=== PATIENT | male | born 1975 | race Caucasian/White ===

== ENCOUNTER 2018-04-04 14:08 | Inpatient (IN) ==
--- NOTE | 2018-04-04 14:23 | Emergency Department Note ---
Extremity Problem HPI - General Chief complaint: Extremity Problem,Nontraumatic Stated complaint: Left Lower Extremity Swelling/Pain Time Seen by Provider: 04/04/18 14:20 Source: patient Mode of arrival: ambulatory Limitations: no limitations - History of Present Illness HPI Narrative: This patient was seen in minor care for left leg edema and they are concerned about a possible DVT so he was sent to the emergency room. However the patient has developed a diabetic foot ulcer on the bottom of the left foot and now also on the top of the left foot. His leg is swollen and a little tender without much erythema going up the leg. He says some mild just chest discomfort but no shortness of breath. He does have a history of diabetes. This patient was seen at the [facility] yesterday and started on some antibiotics and given a referral to wound care - Related Data Home Medications Medication Instructions Recorded Confirmed Insulin Glargine, Human [Lantus] 50 unit SQ HS 12/01/15 11/02/17 Lisinopril [Zestril] 20 mg PO DAILY 12/01/15 11/02/17 metFORMIN HCL [Metformin HCl ER] 1,000 mg PO BID 12/01/15 11/02/17 Empagliflozin [Jardiance] 10 mg PO DAILY 03/27/17 11/02/17 Metoprolol Tartrate [Lopressor] 100 mg PO BID 03/27/17 11/02/17 Atorvastatin [Lipitor] 60 mg PO HS 04/13/17 11/02/17 Insulin Aspart [Novolog Flexpen] 5 unit SQ DAILY 09/20/17 11/02/17 Allergies Allergy/AdvReac Type Severity Reaction Status Date / Time ciprofloxacin [From Cipro] Allergy Intermediate Cramping Verified 03/30/18 17:18 of the Muscles Review of Systems All systems ED: reviewed and negative except as stated. Past Medical History - Past Medical History [facility] Narrative: Medical History Costochondritis (Acute) Diabetes (Acute) Influenza A (Acute) Cellulitis (Acute) Gastroenteritis (Acute) Medical history: Reports: DM, hypertension Psychiatric history: Reports: depression Surgical history ED: Reports: appendectomy, cholecystectomy - Social History smoking status: Former smoker Alcohol use: Reports: Occasionally (states he quit recently) Drug use: Reports: none Physical Exam Left leg does show some edema and there is tenderness to the leg itself without erythema. He does have a fairly large ulcer on the bottom of his left foot on the lateral anterior aspect. Also has developed a small ulcer on the top of the left foot. Limitations: no limitations General appearance: alert Head: atraumatic Eye: Present: normal appearance ENT: normal exam Neck: Present: normal inspection Chest: Present: normal inspection Respiratory: Present: normal lung sounds bilaterally Cardiovascular: Present: regular rate, normal rhythm, normal heart sounds Abdominal: Present: soft. Absent: distention, tenderness Psychiatric: Present: normal affect Skin: Present: other Course Vital Signs Temperature 98.1 F 04/04/18 14:09 Pulse Rate 108 H 04/04/18 14:09 Respiratory Rate 18 04/04/18 14:09 Blood Pressure 146/90 04/04/18 14:09 Pulse Oximetry (%) 99 04/04/18 14:09 Temperature 97.7 F 04/04/18 20:00 Pulse Rate 106 H 04/04/18 20:00 Respiratory Rate 16 04/04/18 20:00 Blood Pressure 162/89 04/04/18 20:00 Pulse Oximetry (%) 96 04/04/18 20:00 Extremity Problem, Nontraumati - MDM Narrative Medical decision making narrative: This patient has a diabetic foot infection and will be admitted to the hospital by Dr. Beth. - Lab Data Lab results reviewed: Yes I reviewed the patient's lab results. Result diagrams: 04/04/18 15:18 04/04/18 15:18 Lab Results 04/04/18 04/04/18 04/04/18 Range/Units 15:18 15:18 15:18 WBC 10.7 (4.5-11.0) K/mcL RBC 4.06 L (4.50-5.90) M/mcL Hgb 12.0 L (13.5-16.5) g/dL Hct 35.9 L (41.0-55.0) % MCV 88.6 (80.0-100.0) fL MCH 29.7 (26.0-34.0) pg MCHC 33.5 (31.0-36.0) g/dL RDW 11.7 (11.5-14.5) % Plt Count 271 (140-440) K/mcL MPV 9.0 (7.4-10.4) fL Total Counted 150 Seg Neutrophils % 69 (38-78) % Band Neutrophils % Not Reportable Lymphocytes % 19 (15-49) % Monocytes % (Manual) 12 (1-12) % Eosinophils % (Manual) 1 (0-7) % Platelet Estimate Normal (NORMAL) RBC Morphology Normal (NORMAL) ESR 54 H (0-15) mm/hr VBG Lactic Acid < 0.2 L (0.5-2.0) mmol/L Sodium 138 (133-145) mmol/L Potassium 4.4 (3.3-5.1) mmol/L Chloride 102 (96-108) mmol/L Carbon Dioxide 27 (22-30) mmol/L Anion Gap 9.0 (8-16) BUN 20 (6-20) mg/dl Creatinine 1.2 (0.7-1.2) mg/dl GFR Calculation 74 Glucose 229 H (70-105) mg/dL Calcium 9.3 (8.6-10.4) mg/dl Total Bilirubin 0.4 (0.0-1.0) mg/dL AST 14 (0-37) U/l ALT 23 (0-40) U/l Alkaline Phosphatase 95 (39-117) U/L C-React Prot High Sens 19.6 H (1.0-3.0) mg/L Total Protein 7.0 (5.9-8.4) gm/dL Albumin 3.5 (3.2-5.2) gm/dL Globulin 3.5 (2.2-3.7) gm/dL Albumin/Globulin Ratio 1.0 (1.0-2.3) - Radiology Data Radiology results reviewed: Yes I reviewed the patient's radiology results. Disposition Pt seen by PASTE UP ARTIST APPRENTICE/PA only: No Clinical Impression: Cellulitis Disposition: Xfer As Inpt ([facility]) Condition: Fair
--- NOTE | 2018-04-04 15:18 | Ultrasound Report ---
CLINICAL INFORMATION: Left lower extremity pain and swelling TECHNIQUE: Grayscale and color flow Doppler spectral imaging COMPARISON: None. FINDINGS: Negative left common femoral vein, superficial femoral vein, popliteal vein. Calf veins are negative. Greater saphenous vein is negative. Examination is negative for deep venous thrombosis. There are 2 lymph nodes in the left inguinal region. These measure 2.5 and 3.0 cm maximally. These are probably reactive or physiologic. Fatty kaitlynn are demonstrated. IMPRESSION: Negative left lower extremity deep venous ultrasound. Negative examination for deep venous thrombosis Interpreted and Authenticated by: Constantino Lane 04/04/18
[2018-04-04] MEDS ORDERED: VANCOMYCIN 1,500 MG in 0.9 % SODIUM CHLORIDE 500 ML IV ONE (15:20)
[2018-04-04] MEDS ORDERED: HYDROmorphone 2 MG/ML VIAL IV PRN ×2 (15:20→17:47)
[2018-04-04] MEDS ORDERED: LACTATED RINGERS 1,000 ML IV SCH (15:30)
[2018-04-04 15:49] LABS: Mean Cell Volume 88.6 fL (80.0-100.0); Mean Corpuscular HGB Conc 33.5 g/dL (31.0-36.0); Platelet Count 271 K/mcL (140-440); RBC 4.06 M/mcL (4.50-5.90); Red Cell Distribution Width 11.7 % (11.5-14.5)
[2018-04-04 16:05] LABS: ALT/SGPT 23 U/l (0-40); Albumin 3.5 gm/dL (3.2-5.2); Alkaline Phosphatase 95 U/L (39-117); Blood Urea Nitrogen 20 mg/dl (6-20); CRP,High Sensitivity 19.6 mg/L (1.0-3.0)
[2018-04-04] MEDS ORDERED: ONDANSETRON 4 MG/2 ML VIAL IV ONE (16:11)
[2018-04-04 16:20] LABS: Eosinophils % (Manual) 1 % (0-7); Lymphocytes % 19 % (15-49); Monocytes % (Manual) 12 % (1-12); Platelet Estimate NORMAL (NORMAL); RBC Morphology NORMAL (NORMAL); Segmented Neutrophils % 69 % (38-78)
--- NOTE | 2018-04-04 16:30 | Internal Med History&Physical ---
Medical - H&P: [facility] Patient information: Note initiated : 04/04/18 at 4:28 pm Service Date, if different from initiated Date: [] Patient: Constantino Harden a 43 y/o M admitted on for Left Lower Extremity Swelling/Pain. Chief Complaint: [] Chief complaint: Left foot swelling and pain History of present illness: Mr. Harden is a 43 year old M with known history of type 2 diabetes and diabetic neuropathy associated left foot ulcers which has been managed in the past by wound care clinic. Patient has been doing well until roughly 1 week ago he woke up with a fever of 102 along with left foot pain around the toe pad area. On examining he noticed skin separation and underneath significant redness. The fever lasted 24 hours. He subsequently called the [facility] and saw Daisy Mcnulty and was prescribed oral antibiotic. Over the next 4 days patient noticed increasing left leg and thigh pain along with intermittent fever. Over the last 24 hours patient noticed a red area on the dorsum of the foot which started to grow in size. With increasing concerns he went to [facility] clinic again and was subsequently directed to the ER for further evaluation. Initial workup in the ER was significant for left foot diabetic cellulitis/lymphangitis. No evidence of osteomyelitis on foot CT. Patient was started on antibiotic coverage and wound care physician was consulted. Hospitalist service was requested for admission. At the time of evaluation patient is alert oriented. He is in significant distress from pain. He endorses to history as above. He denies recent trauma. He denies shaking chills, diarrhea, myalgia, joint pain. Patient has associated loss of appetite and has not been feeling well since the onset of symptoms. Review of systems A 10 point review system was performed and is negative except for one discussed above Medical - H&P: PMH Medical history: DM type II Hypertension Dabetic neuropathy diabetic left foot ulcers managed by wound care clinic Anxiety disorder Hyperlipidemia Pertinent family history: Adopted Social history: Quit smoking 20 years ago Does not drink anymore Works for [employer] Medical - H&P: Meds Home Medications Medication Instructions Recorded Confirmed Type Insulin Glargine, Human [Lantus] 50 unit SQ HS 12/01/15 11/02/17 History Lisinopril [Zestril] 20 mg PO DAILY 12/01/15 11/02/17 History metFORMIN HCL [Metformin HCl ER] 1,000 mg PO BID 12/01/15 11/02/17 History Empagliflozin [Jardiance] 10 mg PO DAILY 03/27/17 11/02/17 History Metoprolol Tartrate [Lopressor] 100 mg PO BID 03/27/17 11/02/17 History Atorvastatin [Lipitor] 60 mg PO HS 04/13/17 11/02/17 History Insulin Aspart [Novolog Flexpen] 5 unit SQ DAILY 09/20/17 11/02/17 History Allergies Allergy/AdvReac Type Severity Reaction Status Date / Time ciprofloxacin [From Cipro] Allergy Intermediate Cramping Verified 03/30/18 17:18 of the Muscles Medical - H&P: Exam - Constitutional Vitals: Temp Pulse Resp BP Pulse Ox 98.1 F 104 H 18 141/77 96 04/04/18 14:09 04/04/18 15:47 04/04/18 14:09 04/04/18 15:47 04/04/18 15:47 Exam: Obese Alert and nondistressed Head normocephalic Eye movements symmetrical Oral cavity dry No ear nose discharge no lymphadenopathy S1-S2 regular rhythm Chest clear to auscultation bilaterally Abdomen soft nontender Skin no suspicious lesion Left lower extremity significant redness around the toe pad and dorsum of the left foot, ulceration lateral left foot Areas of lymphangitis streaking left leg and thigh Psych alert cooperative Neuro nonfocal Medical - H&P: Reslt - Labs CBC & Chem 7: 04/04/18 15:18 04/04/18 15:18 Labs: Short CBC 04/04/18 Range/Units 15:18 WBC 10.7 (4.5-11.0) K/mcL Hgb 12.0 L (13.5-16.5) g/dL Hct 35.9 L (41.0-55.0) % Plt Count 271 (140-440) K/mcL BMP 04/04/18 15:18 Sodium 138 Potassium 4.4 Chloride 102 Carbon Dioxide 27 BUN 20 Creatinine 1.2 Glucose 229 H Calcium 9.3 Liver Function 04/04/18 Range/Units 15:18 Total Bilirubin 0.4 (0.0-1.0) mg/dL AST 14 (0-37) U/l ALT 23 (0-40) U/l Alkaline Phosphatase 95 (39-117) U/L Albumin 3.5 (3.2-5.2) gm/dL Medical - H&P: A/P (1) Cellulitis of left foot Current visit: Yes Status: Acute * Diabetic left foot cellulitis-start empiric coverage on Zosyn/vancomycin to include anaerobes/MRSA coverage. No evidence of osteomyelitis on CT foot * Early sepsis with tachycardia/fever in the setting of diabetes mellitus * DM type II-continue basal prandial insulin. Optimize blood sugar management * Hypertension-continue beta-brendan/SOLIS inhibitor * Hyperlipidemia-continue statin * Full code * Prophylaxis heparin Plan * Broad antibiotic coverage * Wound care consult * Pre-existing well condition management as above * Diabetic diet
[2018-04-04 16:32] LABS: Erythrocyte Sedimentation Rate 54 mm/hr (0-15)
--- NOTE | 2018-04-04 16:38 | Cat Scan Report ---
CLINICAL INFORMATION: Wound on the dorsum of the foot as well as the plantar surface. Possible osteomyelitis TECHNIQUE: Thin section axial images through the right foot. Sagittal and coronal reformatted images COMPARISON: None. FINDINGS: No soft tissue gas. No radiopaque foreign body. There is no cortical destruction. No evidence for osteomyelitis. No acute fracture. Joint spaces are normal. No soft tissue mass. No fluid collection. Posterior aspects of the talus are abnormal. Appearance is more typical of an ununited chronic Fartun fracture then an os trigonum. IMPRESSION: 1. Negative examination for osteomyelitis 2. 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
[2018-04-04] MEDS ORDERED: POTASSIUM CHLORIDE 20 MEQ PACKET PO PRN (17:47)
[2018-04-04] MEDS ORDERED: DEXTROSE 50% 50 ML VIAL IV PRN (17:47)
[2018-04-04] MEDS ORDERED: ACETAMINOPHEN 325 MG TABLET PO PRN (17:47)
[2018-04-04] MEDS ORDERED: VANCOMYCIN PER PHARMACY IV SCH (17:47)
[2018-04-04] MEDS ORDERED: ACETAMINOPHEN 1,000 MG/100 ML BOTTLE IV PRN (17:47)
[2018-04-04] MEDS ORDERED: DEXTROSE 31 GM ORAL.SUSP PO PRN (17:47)
[2018-04-04] MEDS ORDERED: MAGNESIUM SULFATE 2 GM/50 ML BAG IV PRN (17:47)
[2018-04-04] MEDS ORDERED: 0.9 % SODIUM CHLORIDE 1,000 ML IV SCH (17:47)
[2018-04-04] MEDS ORDERED: BISACODYL 10 MG SUPP.RECT PR PRN (17:47)
[2018-04-04] MEDS ORDERED: MAGNESIUM HYDROXIDE 30 ML ORAL.SUSP PO PRN (17:47)
--- NOTE | 2018-04-04 18:12 | General Surgery Consult Note ---
History of Present Illness Patient information: Note initiated : 04/04/18 at 6:10 pm Service Date, if different from initiated Date: [] Patient: Constantino Harden 43 y/o M admitted on 04/04/18 for Left Lower Extremity Swelling/Pain. Chief Complaint: [] Consult date: 04/04/18 Requesting physician: Nolberto Cardona (DFU, Cellulitis) History of present illness: I saw Mr. Harden in Room # 106 along with Sarah BERNAL. Patient was admitted via ER for infected DFU, cellulitis LEFT foot and dry adherent necrotic skin at base of plantar neuropathic ulcer. Patient was treated for same before. He was seen by DINING HOST at [facility] and given oral antibiotics. However, due to lack of response and clinical worsening of CSSSI, he presented to the ER and was admitted for further management. CT scan is negative for osteomyelitis or air in soft tissues, Medications and Allergies Home Medications Medication Instructions Recorded Confirmed Type Insulin Glargine, Human [Lantus] 60 unit SQ HS 12/01/15 04/05/18 History Lisinopril [Zestril] 40 mg PO DAILY 12/01/15 04/05/18 History metFORMIN HCL [Metformin HCl ER] 1,000 mg PO BIDCC 12/01/15 04/05/18 History Empagliflozin [Jardiance] 10 mg PO DAILY 03/27/17 04/05/18 History Metoprolol Tartrate [Lopressor] 100 mg PO BID 03/27/17 11/02/17 History Atorvastatin [Lipitor] 60 mg PO HS 04/13/17 11/02/17 History Insulin Aspart [Novolog Flexpen] 5 unit SQ DAILY 09/20/17 11/02/17 History Allergies Allergy/AdvReac Type Severity Reaction Status Date / Time ciprofloxacin [From Cipro] AdvReac Mild Cramping Verified 04/06/18 12:52 of the Muscles Exam Temp Pulse Resp BP Pulse Ox 98.1 F 108 H 18 141/77 97 04/04/18 14:09 04/04/18 17:18 04/04/18 14:09 04/04/18 17:18 04/04/18 17:18 - General physical appearance well developed, well nourished, no distress, no pain - Eyes PERRL, normal ocular movement - ENT normal pinna, normal nares, normal mucosa, no congestion - Head Head exam IM: Present: atraumatic, normal inspection, normocephalic - Neck no masses, no bruits, trachea midline, no venous distension - Cardiovascular Cardiovascular exam IM: Present: normal rate and rhythm - Respiratory normal expansion, normal respiratory effort, clear to auscultation - Abdomen Abdomen: Present: soft, non tender, bowel sounds - Integumentary Present: other (Cellutlits Left foot and lower leg, Left plantar DFU covered withdry necrotic eschar DTI, ) - Neurologic Present: other (Peripheral diabetic neuropathy feet and ankle. ) - Musculoskeletal Present: normal gait, other (OFF loading of Left fore foot. Darco shoe) - Psychiatric Present: oriented to time, oriented to person, oriented to place, speech is normal, memory intact Results - Labs 04/06/18 04:30 04/06/18 04:30 Abnormal lab results 04/04/18 04/04/18 04/04/18 Range/Units 15:18 15:18 15:18 RBC 4.06 L (4.50-5.90) M/mcL Hgb 12.0 L (13.5-16.5) g/dL Hct 35.9 L (41.0-55.0) % ESR 54 H (0-15) mm/hr VBG Lactic Acid < 0.2 L (0.5-2.0) mmol/L Glucose 229 H (70-105) mg/dL C-React Prot High Sens 19.6 H (1.0-3.0) mg/L Diabetes panel 04/04/18 Range/Units 15:18 Sodium 138 (133-145) mmol/L Potassium 4.4 (3.3-5.1) mmol/L Chloride 102 (96-108) mmol/L Carbon Dioxide 27 (22-30) mmol/L BUN 20 (6-20) mg/dl Creatinine 1.2 (0.7-1.2) mg/dl Glucose 229 H (70-105) mg/dL Calcium 9.3 (8.6-10.4) mg/dl AST 14 (0-37) U/l ALT 23 (0-40) U/l Alkaline Phosphatase 95 (39-117) U/L Total Protein 7.0 (5.9-8.4) gm/dL Albumin 3.5 (3.2-5.2) gm/dL Calcium panel 04/04/18 Range/Units 15:18 Calcium 9.3 (8.6-10.4) mg/dl Albumin 3.5 (3.2-5.2) gm/dL Pituitary panel 04/04/18 Range/Units 15:18 Sodium 138 (133-145) mmol/L Potassium 4.4 (3.3-5.1) mmol/L Chloride 102 (96-108) mmol/L Carbon Dioxide 27 (22-30) mmol/L BUN 20 (6-20) mg/dl Creatinine 1.2 (0.7-1.2) mg/dl Glucose 229 H (70-105) mg/dL Calcium 9.3 (8.6-10.4) mg/dl Adrenal panel 04/04/18 Range/Units 15:18 Sodium 138 (133-145) mmol/L Potassium 4.4 (3.3-5.1) mmol/L Chloride 102 (96-108) mmol/L Carbon Dioxide 27 (22-30) mmol/L BUN 20 (6-20) mg/dl Creatinine 1.2 (0.7-1.2) mg/dl Glucose 229 H (70-105) mg/dL Calcium 9.3 (8.6-10.4) mg/dl Total Bilirubin 0.4 (0.0-1.0) mg/dL AST 14 (0-37) U/l ALT 23 (0-40) U/l Alkaline Phosphatase 95 (39-117) U/L Total Protein 7.0 (5.9-8.4) gm/dL Albumin 3.5 (3.2-5.2) gm/dL All other labs normal. Assessment and Plan (1) Neurotrophic ulcer of foot Status: Chronic Priority: Medium Comment: Healed DFU LEFT plantar in past. Now recurred with DTI and cellulitis (2) Cellulitis Assessment: Cellulitis LEFT foot DTI / DFU healed before. Now admitted with recurrence and cellulitis. Plan: See wound care orders. Status: Acute Priority: Medium Qualifiers: Site of cellulitis of extremity: lower extremity Laterality: left
[2018-04-04] MEDS: INSULIN LISPRO 1 UNIT/0.01 ML UNIT SQ SCH ×2 (18:49→21:57)
[2018-04-04 19:02] LABS: Estimated Average Glucose(eAG) 255 mg/dL; Hemoglobin A1C 10.5 % HGB (4.0-6.0)
[2018-04-04] MEDS: PIPERACILLIN SODIUM/TAZOBACTAM 3.375 GM in DEXTROSE 5% IN WATER 50 ML IV SCH (19:06)
[2018-04-04] MEDS: sitaGLIPtin 100 MG TABLET PO SCH (19:41)
[2018-04-04] MEDS: ONDANSETRON 4 MG/2 ML VIAL IV PRN (19:44)
[2018-04-04 19:52] LABS: Appearance,Urine CLEAR; Bacteria,Urine 0 /hpf (0); Bilirubin,Urine NEG (NEG); Color,Urine YELLOW; Glucose,Urine (UA) 150 mg/dL (NEG); Leukocyte Esterase,Urine NEG /uL (NEG); Mucus,Urine FEW /hpf (0); Protein,Urine 30 mg/dL (NEG); Specific Gravity,Urine 1.021 (1.000-1.035); Urine Blood 0.03 mg/dL (<0.03); Urine Hyaline Cast 1 /lpf (0-2); Urine RBC 2 /hpf (0-1); Urine Squamous Epithelial Cell 0 /hpf (0-4); Urine WBC 3 /hpf (0-4); Urobilinogen,Urine NEG (NEG)
[2018-04-04] MEDS ORDERED: SENNOSIDES/DOCUSATE SODIUM 1 TAB TABLET PO SCH (21:00)
[2018-04-04] MEDS: DOCUSATE SODIUM 100 MG CAPSULE PO SCH (21:57)
[2018-04-04] MEDS: 0.9 % SODIUM CHLORIDE 10 ML SYRINGE IV SCH (21:57)
[2018-04-04] MEDS: HEPARIN 5,000 UNIT/ML VIAL SQ SCH (21:57)
[2018-04-05] MEDS: PIPERACILLIN SODIUM/TAZOBACTAM 3.375 GM in DEXTROSE 5% IN WATER 50 ML IV SCH ×4 (00:03→17:26)
[2018-04-05] MEDS: VANCOMYCIN 1,500 MG in 0.9 % SODIUM CHLORIDE 500 ML IV SCH ×3 (00:52→22:04)
[2018-04-05] MEDS: 0.9 % SODIUM CHLORIDE 10 ML SYRINGE IV SCH ×3 (05:40→22:04)
[2018-04-05] MEDS: ONDANSETRON 4 MG/2 ML VIAL IV PRN (05:55)
[2018-04-05 07:10] LABS: ALT/SGPT 23 U/l (0-40); Albumin 2.9 gm/dL (3.2-5.2); Albumin/Globulin Ratio 0.8 (1.0-2.3); Alkaline Phosphatase 93 U/L (39-117); Bilirubin,Direct < 0.2 mg/dL (0.0-0.3); Blood Urea Nitrogen 16 mg/dl (6-20); Gamma Glutamyl Transpeptidase 29 U/L (8-61); Uric Acid 3.9 mg/dL (2.5-8.0)
[2018-04-05] MEDS: INSULIN LISPRO 1 UNIT/0.01 ML UNIT SQ SCH ×4 (07:42→22:04)
[2018-04-05] MEDS: DOCUSATE SODIUM 100 MG CAPSULE PO SCH ×2 (08:22→22:03)
[2018-04-05] MEDS: sitaGLIPtin 100 MG TABLET PO SCH (08:22)
[2018-04-05] MEDS: HEPARIN 5,000 UNIT/ML VIAL SQ SCH ×2 (08:22→22:04)
[2018-04-05 08:35] LABS: Mean Cell Volume 88.7 fL (80.0-100.0); Mean Corpuscular HGB Conc 33.7 g/dL (31.0-36.0); Platelet Count 238 K/mcL (140-440); RBC 3.76 M/mcL (4.50-5.90); Red Cell Distribution Width 11.8 % (11.5-14.5)
[2018-04-05] MEDS ORDERED: MULTIVIT,THER IRON,CA,FA & MIN 1 TABLET PO SCH (09:00)
[2018-04-05] MEDS ORDERED: POTASSIUM CHLORIDE 20 MEQ PACKET PO PRN (09:07)
[2018-04-05] MEDS ORDERED: ACETAMINOPHEN 1,000 MG/100 ML BOTTLE IV PRN (09:07)
[2018-04-05] MEDS ORDERED: MAGNESIUM SULFATE 2 GM/50 ML BAG IV PRN (09:07)
[2018-04-05] MEDS ORDERED: 0.9 % SODIUM CHLORIDE 1,000 ML IV SCH (09:07)
[2018-04-05] MEDS ORDERED: VANCOMYCIN PER PHARMACY IV SCH (09:07)
[2018-04-05] MEDS ORDERED: HYDROmorphone 2 MG/ML VIAL IV PRN (09:07)
[2018-04-05] MEDS ORDERED: DEXTROSE 31 GM ORAL.SUSP PO PRN (09:07)
[2018-04-05] MEDS ORDERED: BISACODYL 10 MG SUPP.RECT PR PRN (09:07)
[2018-04-05] MEDS ORDERED: DEXTROSE 50% 50 ML VIAL IV PRN (09:07)
[2018-04-05] MEDS ORDERED: MAGNESIUM HYDROXIDE 30 ML ORAL.SUSP PO PRN (09:07)
[2018-04-05 09:20] LABS: Eosinophils % (Manual) 3 % (0-7); Lymphocytes % 28 % (15-49); Monocytes % (Manual) 5 % (1-12); Platelet Estimate NORMAL (NORMAL); RBC Morphology NORMAL (NORMAL); Segmented Neutrophils % 64 % (38-78)
--- NOTE | 2018-04-05 11:02 | Internal Med Progress Note ---
Medical - PN: Subj Patient information: Note initiated : 04/05/18 at 11:00 am Service Date, if different from initiated Date: [] Patient: Constantino Harden a 43 y/o M admitted on 04/04/18 for Left Lower Extremity Swelling/Pain. Chief Complaint: [] Interval history: Mr. Harden is a 43 year old M with known history of type 2 diabetes and diabetic neuropathy associated left foot ulcers which has been managed in the [facility] by wound care clinic. Patient has been doing well until roughly 1 week ago he woke up with a fever of 102 along with left foot pain around the toe pad area. On examining he noticed skin separation and underneath significant redness. The fever lasted 24 hours. He subsequently called the [facility] and saw Daisy Mcnulty and was prescribed oral antibiotic. Over the next 4 days patient noticed increasing left leg and thigh pain along with intermittent fever. Over the last 24 hours patient n oticed a red area on the dorsum of the foot which started to grow in size. With increasing concerns he went to [facility] again and was subsequently directed to the ER for further evaluation. Initial workup in the ER was significant for left foot diabetic cellulitis/lymphangitis. No evidence of osteomyelitis on foot CT. Patient was started on antibiotic coverage and wound care physician was consulted. Hospitalist service was requested for admission. At the time of evaluation patient is alert oriented. He is in significant distress from pain. He endorses to history as above. He denies recent trauma. He denies shaking chills, diarrhea, myalgia, joint pain. Patient has associated loss of appetite and has not been feeling well since the onset of symptoms. 04/05-no overnight events. Pain much improved. Swelling improving. On broad antibiotic coverage. Wound care on board. Tachycardia improving. DC telemetry. Continue the course with ongoing wound care/antibiotic/nutrition s upport. No major concerns per the patient or staff - Constitutional Vitals: Vital Signs Temp Pulse Resp BP Pulse Ox 97.5 F 101 H 16 138/85 97 04/05/18 07:04 04/05/18 07:04 04/05/18 07:04 04/05/18 07:04 04/05/18 07:04 Period Temp Pulse Resp BP Sys/Proctor Pulse Ox Last 24 Hr 97.5 F-98.6 F 100-108 16-18 130-162/77-90 94-100 Intake and Output 04/04/18 04/05/18 04/05/18 21:59 05:59 13:59 Intake Total 550 650 Output Total 650 600 Balance 550 0 -600 Weight 238 lb 8 oz Intake & Output: Intake & Output 04/04/18 04/05/18 04/05/18 21:59 05:59 13:59 Intake Total 550 650 Output Total 650 600 Balance 550 0 -600 Weight 238 lb 8 oz Intake: IV 550 50 Zosyn 3.375 gm In Dextrose 5% 50 50 in Water 50 ml @ 100 mls/hr IV Q6H [facility] Rx#:[id number] Vancomycin 1,500 mg In Sodium 500 Chloride 0.9% 500 ml @ 333.3 mls/hr IV ONCE ONE Rx#: [id number] Oral 600 Output: Void Amount 650 600 Other: Meal Breakfast Percent of Meal Consumed 100% Feeding Ability Assist with Tray Set Up General appearance: no acute distress Exam: Left lower extremity lymphedema and erythema improving. Alert oriented nonlabored breathing Nondistended abdomen Minimal anxiety Medical - PN: Obj Da - Labs CBC & Chem 7: 04/05/18 07:55 04/05/18 04:06 Labs: Abnormal Lab Results 04/05/18 04/05/18 04/04/18 07:55 04:06 18:15 RBC 3.76 L Hgb 11.2 L Hct 33.3 L ESR VBG Lactic Acid Glucose 168 H Hemoglobin A1c 10.5 H Lactate Dehydrogenase 331 H C-Reactive Protein 2.0 H C-React Prot High Sens Albumin 2.9 L Albumin/Globulin Ratio 0.8 L Triglycerides 161 H Urine Protein Urine Glucose (UA) Urine Occult Blood Urine RBC 04/04/18 04/04/18 04/04/18 17:47 15:18 15:18 RBC Hgb Hct ESR VBG Lactic Acid < 0.2 L Glucose 229 H Hemoglobin A1c Lactate Dehydrogenase C-Reactive Protein C-React Prot High Sens 19.6 H Albumin Albumin/Globulin Ratio Triglycerides Urine Protein 30 A Urine Glucose (UA) 150 A Urine Occult Blood 0.03 A Urine RBC 2 H 04/04/18 15:18 RBC 4.06 L Hgb 12.0 L Hct 35.9 L ESR 54 H VBG Lactic Acid Glucose Hemoglobin A1c Lactate Dehydrogenase C-Reactive Protein C-React Prot High Sens Albumin Albumin/Globulin Ratio Triglycerides Urine Protein Urine Glucose (UA) Urine Occult Blood Urine RBC Meds: Medications Acetaminophen (Tylenol) 650 mg PO Q4-6HP PRN PRN Reason: PAIN/FEVER > 101 Bisacodyl (Dulcolax) 10 mg SD Q2-3DAYS PRN PRN Reason: Constipation Dextrose (Dextrose 50%) 0 ml IV UD PRN PRN Reason: Hypoglycemia Diagnostic Test (Pha) (Accu-Chek) 1 each FS ACHS [facility] Docusate Sodium (Colace) 100 mg PO BID [facility] Glucose (Insta-Glucose) 15 gm PO PRN PRN PRN Reason: Hypoglycemia Heparin Sodium (Porcine) (Heparin) 5,000 unit SQ Q12 [facility] Hydromorphone HCl (Dilaudid) 0 mg IV Q4HP PRN PRN Reason: PAIN LEVEL > 6 Magnesium Sulfate (Magnesium Sulfate) 2 gm in 50 mls @ 50 mls/hr IV UD PRN PRN Reason: MG = or < 1.7 Sodium Chloride (Sodium Chloride 0.9%) 1,000 mls @ 50 mls/hr IV .Q20H [facility] Stop: 04/07/18 05:46 Acetaminophen (Ofirmev) 1,000 mg in 100 mls @ 200 mls/hr IV Q6HP PRN PRN Reason: PAIN/FEVER > 101 Piperacillin Sod/Tazobactam (Sod 3.375 gm/ Dextrose) 50 mls @ 100 mls/hr IV Q6H [facility] Vancomycin HCl 1,500 mg/ (Sodium Chloride) 500 mls @ 333.3 mls/hr IV Q12H [facility] Last Admin: 04/05/18 10:21 Dose: 250 mls/hr Documented by: Insulin Human Lispro (Humalog) 0 unit SQ [facility]; Protocol Iron Carb/Multivit/Clare/Folic Acid (Multivitamin W/Minerals) 1 tab PO DAILY [facility] Magnesium Hydroxide (Milk Of Magnesia) 30 ml PO HSP PRN PRN Reason: Constipation Ondansetron HCl (Zofran) 4 mg IV Q4-6HP PRN PRN Reason: Nausea And Vomiting Potassium Chloride (Klor-Con) 40 meq PO DAILYP PRN PRN Reason: K+ < 3.5 Senna/Docusate Sodium (Senna Plus Tablet) 1 tab PO HS [facility] Sitagliptin Phosphate (Januvia) 100 mg PO DAILY [facility] Sodium Chloride (Saline Flush) 10 ml IV Q8 [facility] Vancomycin HCl (Vancomycin Per Pharmacy) 1 order IV UD [facility] Medical - PN: A/P - Time Spent With Patient Total time spent is greater than 50% in coordination of care (as documented) at patient's floor/unit and/or counseling patient: 25 - 35 minutes (1) Cellulitis of left foot Status: Acute Assessment and plan: * Diabetic left foot cellulitis with lymphangitis-clinically improving on start empiric coverage on Zosyn/vancomycin. No evidence of osteomyelitis on foot CT * Early sepsis with tachycardia/fever-clinically improving. Heart rate down to 100. DC telemetry. * DM type II-continue basal prandial insulin. For outpatient control with A1c 10.5. Continue to optimize blood sugar management * Hypertension-restart SOLIS inhibitor. Beta-brendan dose currently being verified * Hyperlipidemia-continue statin * Full code * Prophylaxis heparin Plan * Restart home meds * DC IV fluids * Continue wound care/antibiotics * Await cultures * Pre-existing well condition management as above * Diabetic diet Current Visit: Yes Medical - PN: Qual - VTE Deep Vein Thrombosis/Pulmonary Embolism Present on Admission: No
[2018-04-05] MEDS ORDERED: INSULIN GLARGINE, HUMAN 1 UNIT/0.01 ML SQ ONE (12:00)
[2018-04-05] MEDS: metFORMIN 500 MG TAB.XL.24H PO SCH (17:28)
[2018-04-05] MEDS: ACETAMINOPHEN 325 MG TABLET PO PRN (19:16)
[2018-04-05] MEDS: SENNOSIDES/DOCUSATE SODIUM 1 TAB TABLET PO SCH (22:03)
[2018-04-06] MEDS: PIPERACILLIN SODIUM/TAZOBACTAM 3.375 GM in DEXTROSE 5% IN WATER 50 ML IV SCH ×4 (01:42→17:35)
[2018-04-06] MEDS: VANCOMYCIN 1,500 MG in 0.9 % SODIUM CHLORIDE 500 ML IV SCH ×3 (01:47→22:21)
[2018-04-06 05:35] LABS: Mean Corpuscular HGB Conc 32.9 g/dL (31.0-36.0); Platelet Count 245 K/mcL (140-440); RBC 3.78 M/mcL (4.50-5.90); Red Cell Distribution Width 11.9 % (11.5-14.5)
[2018-04-06] MEDS: 0.9 % SODIUM CHLORIDE 10 ML SYRINGE IV SCH ×3 (05:43→22:21)
[2018-04-06 06:19] LABS: Band Neutrophils % 5 % (0-10); Eosinophils % (Manual) 4 % (0-7); Lymphocytes % 37 % (15-49); Monocytes % (Manual) 4 % (1-12); Platelet Estimate NORMAL (NORMAL); RBC Morphology NORMAL (NORMAL); Segmented Neutrophils % 50 % (38-78)
[2018-04-06 06:29] LABS: ALT/SGPT 26 U/l (0-40); Albumin 3.3 gm/dL (3.2-5.2); Albumin/Globulin Ratio 0.9 (1.0-2.3); Alkaline Phosphatase 96 U/L (39-117); Bilirubin,Direct < 0.2 mg/dL (0.0-0.3); Blood Urea Nitrogen 12 mg/dl (6-20); Gamma Glutamyl Transpeptidase 36 U/L (8-61); Uric Acid 2.9 mg/dL (2.5-8.0)
[2018-04-06] MEDS: INSULIN LISPRO 1 UNIT/0.01 ML UNIT SQ SCH ×4 (07:44→22:21)
[2018-04-06] MEDS: metFORMIN 500 MG TAB.XL.24H PO SCH ×2 (07:56→17:33)
[2018-04-06] MEDS: LISINOPRIL 20 MG TABLET PO SCH (08:46)
[2018-04-06] MEDS: DOCUSATE SODIUM 100 MG CAPSULE PO SCH ×2 (08:46→22:20)
[2018-04-06] MEDS: INSULIN GLARGINE, HUMAN 1 UNIT/0.01 ML SQ SCH (08:47)
[2018-04-06] MEDS: HEPARIN 5,000 UNIT/ML VIAL SQ SCH ×2 (08:47→22:21)
[2018-04-06] MEDS: sitaGLIPtin 100 MG TABLET PO SCH (08:52)
[2018-04-06] MEDS: MULTIVIT,THER IRON,CA,FA & MIN 1 TABLET PO SCH (08:53)
[2018-04-06] MEDS: ONDANSETRON 4 MG/2 ML VIAL IV PRN (09:10)
--- NOTE | 2018-04-06 09:52 | Internal Med Progress Note ---
Medical - PN: Subj Patient information: Note initiated : 04/06/18 at 9:50 am Service Date, if different from initiated Date: [] Patient: Constantino Harden a 43 y/o M admitted on 04/04/18 for Left Lower Extremity Swelling/Pain. Chief Complaint: [] Interval history: Mr. Harden is a 43 year old M with known history of type 2 diabetes and diabetic neuropathy associated left foot ulcers which has been managed in the past by wound care clinic. Patient has been doing well until roughly 1 week ago he woke up with a fever of 102 along with left foot pain around the toe pad area. On examining he noticed skin separation and underneath significant redness. The fever lasted 24 hours. He subsequently called the [place] clinic and saw Daisy Mcnulty and was prescribed oral antibiotic. Over the next 4 days patient noticed increasing left leg and thigh pain along with intermittent fever. Over the last 24 hours patient no ticed a red area on the dorsum of the foot which started to grow in size. With increasing concerns he went to [place] [facility] again and was subsequently directed to the ER for further evaluation. Initial workup in the ER was significant for left foot diabetic cellulitis/lymphangitis. No evidence of osteomyelitis on foot CT. Patient was started on antibiotic coverage and wound care physician was consulted. Hospitalist service was requested for admission. At the time of evaluation patient is alert oriented. He is in significant distress from pain. He endorses to history as above. He denies recent trauma. He denies shaking chills, diarrhea, myalgia, joint pain. Patient has associated loss of appetite and has not been feeling well since the onset of symptoms. 04/05-no overnight events. Pain much improved. Swelling improving. On broad antibiotic coverage. Wound care on board. Tachycardia improving. DC telemetry. Continue the course with ongoing wound care/antibiotic/nutrition [place] pport. No major concerns per the patient or staff 04/06-patient doing well. No overnight events. No concerns per staff. Left foot swelling/groin and thigh pain much improved. Afebrile. No drenching sweats, chills nausea vomiting. On antibiotic coverage. Intermittent nausea. A1c 10.5 with poor outpatient control. Start diabetic education. Continue wound care as per Dr. Angel, podiatry consulted by wound care - Constitutional Vitals: Vital Signs Temp Pulse Resp BP Pulse Ox 97.6 F 101 H 16 148/76 97 04/06/18 07:16 04/06/18 07:16 04/06/18 07:16 04/06/18 07:16 04/06/18 07:16 Period Temp Pulse Resp BP Sys/Proctor Pulse Ox Last 24 Hr 97.6 F-98.8 F 96-112 16-20 130-170/67-94 92-97 Intake and Output 04/05/18 04/06/18 04/06/18 21:59 05:59 13:59 Intake Total 590 450 Output Total 150 650 250 Balance 440 -200 -250 Weight 240 lb 8 oz Intake & Output: Intake & Output 04/05/18 04/06/18 04/06/18 21:59 05:59 13:59 Intake Total 590 450 Output Total 150 650 250 Balance 440 -200 -250 Weight 240 lb 8 oz Intake: IV 50 50 Zosyn 3.375 gm In Dextrose 5% 50 50 in Water 50 ml @ 100 mls/hr IV Q6H [facility] Rx#:[id number] Oral 240 400 GI Tube Flush 300 Output: Void Amount 150 650 250 Other: Meal Lunch Percent of Meal Consumed 100% Feeding Ability Independent # Voids 1 General appearance: no acute distress, obese Exam: Alert oriented Redness and swelling much improved left lower extremity/foot. Mild anxiety Nonlabored breathing Medical - PN: Obj Da - Labs CBC & Chem 7: 04/06/18 04:30 04/06/18 04:30 Labs: Abnormal Lab Results 04/06/18 04/06/18 04/05/18 04:30 04:30 07:55 RBC 3.78 L 3.76 L Hgb 11.2 L 11.2 L Hct 34.0 L 33.3 L ESR VBG Lactic Acid Anion Gap 6.0 L Glucose 160 H Hemoglobin A1c Lactate Dehydrogenase C-Reactive Protein C-React Prot High Sens Albumin Albumin/Globulin Ratio 0.9 L Triglycerides 167 H Urine Protein Urine Glucose (UA) Urine Occult Blood Urine RBC 04/05/18 04/04/18 04/04/18 04:06 18:15 17:47 RBC Hgb Hct ESR VBG Lactic Acid Anion Gap Glucose 168 H Hemoglobin A1c 10.5 H Lactate Dehydrogenase 331 H C-Reactive Protein 2.0 H C-React Prot High Sens Albumin 2.9 L Albumin/Globulin Ratio 0.8 L Triglycerides 161 H Urine Protein 30 A Urine Glucose (UA) 150 A Urine Occult Blood 0.03 A Urine RBC 2 H 04/04/18 04/04/18 04/04/18 15:18 15:18 15:18 RBC 4.06 L Hgb 12.0 L Hct 35.9 L ESR 54 H VBG Lactic Acid < 0.2 L Anion Gap Glucose 229 H Hemoglobin A1c Lactate Dehydrogenase C-Reactive Protein C-React Prot High Sens 19.6 H Albumin Albumin/Globulin Ratio Triglycerides Urine Protein Urine Glucose (UA) Urine Occult Blood Urine RBC Meds: Medications Acetaminophen (Tylenol) 650 mg PO Q4-6HP PRN PRN Reason: PAIN/FEVER > 101 Last Admin: 04/05/18 19:16 Dose: 650 mg Documented by: Bisacodyl (Dulcolax) 10 mg [place] Q2-3DAYS PRN PRN Reason: Constipation Dextrose (Dextrose 50%) 0 ml IV UD PRN PRN Reason: Hypoglycemia Diagnostic Test (Pha) (Accu-Chek) 1 each FS ACHS [facility] Last Admin: 04/06/18 07:44 Dose: 1 each Documented by: Docusate Sodium (Colace) 100 mg PO BID [facility] Last Admin: 04/06/18 08:46 Dose: 100 mg Documented by: Glucose (Insta-Glucose) 15 gm PO PRN PRN PRN Reason: Hypoglycemia Heparin Sodium (Porcine) (Heparin) 5,000 unit SQ Q12 [facility] Last Admin: 04/06/18 08:47 Dose: 5,000 unit Documented by: Hydromorphone HCl (Dilaudid) 0 mg IV Q4HP PRN PRN Reason: PAIN LEVEL > 6 Magnesium Sulfate (Magnesium Sulfate) 2 gm in 50 mls @ 50 mls/hr IV UD PRN PRN Reason: MG = or < 1.7 Acetaminophen (Ofirmev) 1,000 mg in 100 mls @ 200 mls/hr IV Q6HP PRN PRN Reason: PAIN/FEVER > 101 Piperacillin Sod/Tazobactam (Sod 3.375 gm/ Dextrose) 50 mls @ 100 mls/hr IV Q6H [facility] Last Admin: 04/06/18 05:44 Dose: 100 mls/hr Documented by: Vancomycin HCl 1,500 mg/ (Sodium Chloride) 500 mls @ 333.3 mls/hr IV Q12H [facility] Last Admin: 04/05/18 22:04 Dose: 150 mls/hr Documented by: Insulin Glargine (Lantus) 60 unit SQ DAILY [facility] Last Admin: 04/06/18 08:47 Dose: 60 units Documented by: Insulin Human Lispro (Humalog) 0 unit SQ ACHS [facility]; Protocol Last Admin: 04/06/18 07:44 Dose: 3 unit Documented by: Iron Carb/Multivit/Education Administrator/Folic Acid (Multivitamin W/Minerals) 1 tab PO DAILY [facility] Last Admin: 04/06/18 08:53 Dose: 1 tab Documented by: Lisinopril (Zestril) 40 mg PO DAILY [facility] Last Admin: 04/06/18 08:46 Dose: 40 mg Documented by: Magnesium Hydroxide (Milk Of Magnesia) 30 ml PO HSP PRN PRN Reason: Constipation Metformin HCl (Glucophage) 1,000 mg PO BIDCC [facility] Last Admin: 04/06/18 07:56 Dose: 1,000 mg Documented by: Ondansetron HCl (Zofran) 4 mg IV Q4-6HP PRN PRN Reason: Nausea And Vomiting Last Admin: 04/06/18 09:10 Dose: 4 mg Documented by: Empagliflozin [ Jardiance] 10 Mg Tablet 1 dose PO DAILY [facility] Last Admin: 04/06/18 08:53 Dose: Not Given Documented by: Potassium Chloride (Klor-Con) 40 meq PO DAILYP PRN PRN Reason: K+ < 3.5 Senna/Docusate Sodium (Senna Plus Tablet) 1 tab PO HS [facility] Last Admin: 04/05/18 22:03 Dose: 1 tab Documented by: Sitagliptin Phosphate (Januvia) 100 mg PO DAILY [facility] Last Admin: 04/06/18 08:52 Dose: 100 mg Documented by: Sodium Chloride (Saline Flush) 10 ml IV Q8 [facility] Last Admin: 04/06/18 05:43 Dose: Not Given Documented by: Vancomycin HCl (Vancomycin Per Pharmacy) 1 order IV UD [facility] Medical - PN: A/P - Time Spent With Patient Total time spent is greater than 50% in coordination of care (as documented) at patient's floor/unit and/or counseling patient: 15 - 24 minutes (1) Cellulitis of left foot Status: Acute Assessment and plan: * Diabetic left foot cellulitis with lymphangitis-clinically improving on start empiric coverage on Zosyn/vancomycin. No evidence of osteomyelitis on foot CT * Early sepsis with tachycardia/fever-persistent tachycardia around 100. * DM type II-continue basal prandial insulin. For outpatient control with A1c 10.5. Blood sugars around 150 diabetic education. * Hypertension-restart SOLIS inhibitor. Beta-brendan dose currently being verified * Hyperlipidemia-continue statin * Full code * Prophylaxis heparin Plan * Start diabetic education * Continue wound care/antibiotics * Continue wound care * Pre-existing well condition management as above * Await podiatry recommendations Current Visit: Yes Medical - PN: Qual - VTE Deep Vein Thrombosis/Pulmonary Embolism Present on Admission: No
[2018-04-06] MEDS: COLLAGENASE TOP OINT TUBE 30GM TOPICAL SCH (11:47)
--- NOTE | 2018-04-06 16:28 | General Surgery Progress Note ---
Subjective Patient reports: other Narrative: Note initiated : 04/06/18 at 4:25 pm Service Date, if different from initiated Date: [] Patient: Constantino Harden 43 y/o M admitted on 04/04/18 for Left Lower Extremity Swelling/Pain. Chief Complaint: [] Patient seen with Ene BERNAL, IP wound care nurse. Left foot ulcer examined. Cellulitis improving. Objective Temp Pulse Resp BP Pulse Ox 97.8 F 95 H 16 138/78 96 04/06/18 16:00 04/06/18 16:00 04/06/18 16:00 04/06/18 16:00 04/06/18 16:00 AVSS.No changes AIDEE. Labs reviewed. CT / X Ray reviewed. NO osteo DTI with dry necrotic plantar eschar densely adherent to wound base. - Additional Data Intake & Output - Last 24 hours: Intake & Output 04/04/18 04/05/18 04/06/18 04/07/18 05:59 05:59 05:59 05:59 Intake Total 1200 2140 1310 Output Total 650 1400 1000 Balance 550 740 310 Weight 238 lb 8 oz 240 lb 8 oz - Labs 04/06/18 04:30 04/06/18 04:30 Diabetes panel 04/06/18 Range/Units 04:30 Sodium 141 (133-145) mmol/L Potassium 4.1 (3.3-5.1) mmol/L Chloride 106 (96-108) mmol/L Carbon Dioxide 29 (22-30) mmol/L BUN 12 (6-20) mg/dl Creatinine 1.1 (0.7-1.2) mg/dl Glucose 160 H (70-105) mg/dL Calcium 9.0 (8.6-10.4) mg/dl AST 19 (0-37) U/l ALT 26 (0-40) U/l Alkaline Phosphatase 96 (39-117) U/L Total Protein 6.8 (5.9-8.4) gm/dL Albumin 3.3 (3.2-5.2) gm/dL Triglycerides 167 H (<150) mg/dl Calcium panel 04/06/18 Range/Units 04:30 Calcium 9.0 (8.6-10.4) mg/dl Phosphorus 2.9 (2.7-4.5) mg/dL Albumin 3.3 (3.2-5.2) gm/dL Pituitary panel 04/06/18 Range/Units 04:30 Sodium 141 (133-145) mmol/L Potassium 4.1 (3.3-5.1) mmol/L Chloride 106 (96-108) mmol/L Carbon Dioxide 29 (22-30) mmol/L BUN 12 (6-20) mg/dl Creatinine 1.1 (0.7-1.2) mg/dl Glucose 160 H (70-105) mg/dL Calcium 9.0 (8.6-10.4) mg/dl Adrenal panel 04/06/18 Range/Units 04:30 Sodium 141 (133-145) mmol/L Potassium 4.1 (3.3-5.1) mmol/L Chloride 106 (96-108) mmol/L Carbon Dioxide 29 (22-30) mmol/L BUN 12 (6-20) mg/dl Creatinine 1.1 (0.7-1.2) mg/dl Glucose 160 H (70-105) mg/dL Calcium 9.0 (8.6-10.4) mg/dl Total Bilirubin 0.2 (0.0-1.0) mg/dL AST 19 (0-37) U/l ALT 26 (0-40) U/l Alkaline Phosphatase 96 (39-117) U/L Total Protein 6.8 (5.9-8.4) gm/dL Albumin 3.3 (3.2-5.2) gm/dL Assessment and Plan (1) Neurotrophic ulcer of foot Problem details: Healed DFU LEFT plantar in past. Now recurred with DTI and cellulitis Status: Chronic Current Visit: Yes (2) Cellulitis Status: Acute Current Visit: No - Narrative A/P Narrative: Assessment; Cellulins improving. Dense dry necrotic eschar to ulcer base stable. Eschar cross hatched at bedside with # 15 scalpel blade. Plan: Collagenase treatment. Anticipate d/c planning in next 1-2 days and out patient follow up. - Time Spent With Patient Total time spent is greater than 50% in coordination of care (as documented) at patient's floor/unit and/or counseling patient: 15 - 24 minutes
[2018-04-06] MEDS: SENNOSIDES/DOCUSATE SODIUM 1 TAB TABLET PO SCH (22:21)
[2018-04-07] MEDS: PIPERACILLIN SODIUM/TAZOBACTAM 3.375 GM in DEXTROSE 5% IN WATER 50 ML IV SCH ×2 (00:54→06:00)
[2018-04-07] MEDS: 0.9 % SODIUM CHLORIDE 10 ML SYRINGE IV SCH ×3 (06:00→21:56)
[2018-04-07 06:50] LABS: Mean Cell Volume 88.7 fL (80.0-100.0); Mean Corpuscular HGB Conc 33.5 g/dL (31.0-36.0); Platelet Count 255 K/mcL (140-440); RBC 3.66 M/mcL (4.50-5.90); Red Cell Distribution Width 11.8 % (11.5-14.5)
[2018-04-07 07:11] LABS: ALT/SGPT 29 U/l (0-40); Albumin 3.1 gm/dL (3.2-5.2); Albumin/Globulin Ratio 0.9 (1.0-2.3); Alkaline Phosphatase 99 U/L (39-117); Bilirubin,Direct < 0.2 mg/dL (0.0-0.3); Blood Urea Nitrogen 11 mg/dl (6-20); Gamma Glutamyl Transpeptidase 42 U/L (8-61); Uric Acid 2.9 mg/dL (2.5-8.0)
[2018-04-07] MEDS: INSULIN LISPRO 1 UNIT/0.01 ML UNIT SQ SCH ×4 (08:24→21:56)
[2018-04-07 08:29] LABS: Eosinophils % (Manual) 8 % (0-7); Lymphocytes % 35 % (15-49); Monocytes % (Manual) 6 % (1-12); Platelet Estimate NORMAL (NORMAL); RBC Morphology NORMAL (NORMAL); Segmented Neutrophils % 50 % (38-78)
[2018-04-07] MEDS: metFORMIN 500 MG TAB.XL.24H PO SCH ×2 (08:41→16:58)
[2018-04-07] MEDS: sitaGLIPtin 100 MG TABLET PO SCH (08:41)
[2018-04-07] MEDS: DOCUSATE SODIUM 100 MG CAPSULE PO SCH ×2 (08:41→21:50)
[2018-04-07] MEDS: HEPARIN 5,000 UNIT/ML VIAL SQ SCH ×2 (08:41→21:50)
[2018-04-07] MEDS: LISINOPRIL 20 MG TABLET PO SCH (08:41)
[2018-04-07] MEDS: VANCOMYCIN 1,500 MG in 0.9 % SODIUM CHLORIDE 500 ML IV SCH (08:42)
[2018-04-07] MEDS: INSULIN GLARGINE, HUMAN 1 UNIT/0.01 ML SQ SCH (08:42)
[2018-04-07] MEDS: MULTIVIT,THER IRON,CA,FA & MIN 1 TABLET PO SCH (08:42)
--- NOTE | 2018-04-07 08:58 | Orthopedic Consult Note ---
History of Present Illness - [facility] Patient information: Note initiated : 04/07/18 at 8:36 am Service Date, if different from initiated Date: [] Patient: Constantino Harden 43 y/o M admitted on 04/04/18 for Left Lower Extremity Swelling/Pain. Chief Complaint: [Left foot wound with pain] Consult date: 04/06/18 Requesting physician: Tobin Angel Consult reason: other (Left foot wound) History of present illness: Pleasant 43 year old male with recurring history of ulceration of the left foot. This admission he has an ulceration on the plantar and dorsal 4/5 metatarsal head region. He says there is pain deep in the foot and that he normally doesn't feel much. Review of Systems Constitutional: as per [facility] Medications and Allergies Home Medications Medication Instructions Recorded Confirmed Type Insulin Glargine, Human [Lantus] 60 unit SQ HS 12/01/15 04/05/18 History Lisinopril [Zestril] 40 mg PO DAILY 12/01/15 04/05/18 History metFORMIN HCL [Metformin HCl ER] 1,000 mg PO BIDCC 12/01/15 04/05/18 History Empagliflozin [Jardiance] 10 mg PO DAILY 03/27/17 04/05/18 History Metoprolol Tartrate [Lopressor] 100 mg PO BID 03/27/17 11/02/17 History Atorvastatin [Lipitor] 60 mg PO HS 04/13/17 11/02/17 History Insulin Aspart [Novolog Flexpen] 5 unit SQ DAILY 09/20/17 11/02/17 History Allergies Allergy/AdvReac Type Severity Reaction Status Date / Time ciprofloxacin [From Cipro] AdvReac Mild Cramping Verified 04/06/18 12:52 of the Muscles Physical Examination - Ankle & Foot left Ankle appearance: swelling Foot appearance: swelling Foot swelling: dorsal, plantar Ankle pain worse with weight bearing: No Ankle pain relieved by non-weight bearing: No Foot pain worse with weight bearing: No Foot pain relieved by non-weight bearing: No Tingling/Numbness: foot, toes Assessment and Plan (1) Cellulitis of left foot Diabetic foot infection with ulceration. Deep infection requiring antibiotics. Shoe gear needs to custom to avoid reulceration. Will create one wound is closer to healed. Status: Acute Priority: High
[2018-04-07] MEDS: COLLAGENASE TOP OINT TUBE 30GM TOPICAL SCH (10:03)
--- NOTE | 2018-04-07 10:14 | Internal Med Progress Note ---
Medical - PN: Subj Patient information: Note initiated : 04/07/18 at 10:12 am Service Date, if different from initiated Date: [] Patient: Constantino Harden a 43 y/o M admitted on 04/04/18 for Left Lower Extremity Swelling/Pain. Chief Complaint: [] Interval history: Mr. Harden is a 43 year old M with known history of type 2 diabetes and diabetic neuropathy associated left foot ulcers which has been managed in the [facility] by wound care clinic. Patient has been doing well until roughly 1 week ago he woke up with a fever of 102 along with left foot pain around the toe pad area. On examining he noticed skin separation and underneath significant redness. The fever lasted 24 hours. He subsequently called the [place] clinic and saw Daisy Mcnulty and was prescribed oral antibiotic. Over the next 4 days patient noticed increasing left leg and thigh pain along with intermittent fever. Over the last 24 hours patient n oticed a red area on the dorsum of the foot which started to grow in size. With increasing concerns he went to [place] clinic again and was subsequently directed to the ER for further evaluation. Initial workup in the ER was significant for left foot diabetic cellulitis/lymphangitis. No evidence of osteomyelitis on foot CT. Patient was started on antibiotic coverage and wound care physician was consulted. Hospitalist service was requested for admission. At the time of evaluation patient is alert oriented. He is in significant distress from pain. He endorses to history as above. He denies recent trauma. He denies shaking chills, diarrhea, myalgia, joint pain. Patient has associated loss of appetite and has not been feeling well since the onset of symptoms. 04/05-no overnight events. Pain much improved. Swelling improving. On broad antibiotic coverage. Wound care on board. Tachycardia improving. DC telemetry. Continue the course with ongoing wound care/antibiotic/nutrition s upport. No major concerns per the patient or staff 04/06-patient doing well. No overnight events. No concerns per staff. Left foot swelling/groin and thigh pain much improved. Afebrile. No drenching sweats, chills nausea vomiting. On antibiotic coverage. Intermittent nausea. A1c 10.5 with poor outpatient control. Start diabetic education. Continue wound care as per Dr. Angel, podiatry consulted by wound care 02/04-patient clinically improving. Continue IV antibiotic coverage. A nticipate additional 24-48 hours of antibiotics followed by de-escalation and discharge. Wound care on board. Complains of increasing throbbing pain left foot however redness is improved. Afebrile. Persistent tachycardia however improving - Constitutional Vitals: Vital Signs Temp Pulse Resp BP Pulse Ox 97.6 F 104 H 20 151/84 97 04/07/18 06:29 04/07/18 03:48 04/07/18 06:29 04/07/18 06:29 04/07/18 06:29 Period Temp Pulse Resp BP Sys/Proctor Pulse Ox Last 24 Hr 97.6 F-98.2 F 95-109 16-20 135-166/78-91 94-97 Intake and Output 04/06/18 04/07/18 04/07/18 21:59 05:59 13:59 Intake Total 410 1015 Output Total 850 200 Balance -440 815 Weight 240 lb Intake & Output: Intake & Output 04/06/18 04/07/18 04/07/18 21:59 05:59 13:59 Intake Total 410 1015 Output Total 850 200 Balance -440 815 Weight 240 lb Intake: IV 50 550 Zosyn 3.375 gm In Dextrose 5% 50 50 in Water 50 ml @ 100 mls/hr IV Q6H [facility] Rx#:[id number] Vancomycin 1,500 mg In Sodium 500 Chloride 0.9% 500 ml @ 333.3 mls/hr IV Q12H [facility] Rx#: [id number] Oral 360 465 Output: Void Amount 850 200 Other: Meal Lunch Percent of Meal Consumed 100% Feeding Ability Independent Urine Appearance Clear Clear Urine Color Bright Yellow Bright Yellow Urine Odor Normal # Voids 1 2 1 General appearance: morbidly obese, no acute distress Exam: left foot swelling no anxity non labored Medical - PN: Obj Da - Labs CBC & Chem 7: 04/07/18 04:57 04/07/18 04:57 Labs: Abnormal Lab Results 04/07/18 04/07/18 04/06/18 04:57 04:57 04:30 RBC 3.66 L Hgb 10.9 L Hct 32.4 L Eosinophils % (Manual) 8 H ESR VBG Lactic Acid Anion Gap 6.0 L Glucose 160 H Hemoglobin A1c Lactate Dehydrogenase C-Reactive Protein C-React Prot High Sens Albumin 3.1 L Albumin/Globulin Ratio 0.9 L 0.9 L Triglycerides 167 H Urine Protein Urine Glucose (UA) Urine Occult Blood Urine RBC 04/06/18 04/05/18 04/05/18 04:30 07:55 04:06 RBC 3.78 L 3.76 L Hgb 11.2 L 11.2 L Hct 34.0 L 33.3 L Eosinophils % (Manual) ESR VBG Lactic Acid Anion Gap Glucose 168 H Hemoglobin A1c Lactate Dehydrogenase 331 H C-Reactive Protein C-React Prot High Sens Albumin 2.9 L Albumin/Globulin Ratio 0.8 L Triglycerides 161 H Urine Protein Urine Glucose (UA) Urine Occult Blood Urine RBC 04/04/18 04/04/18 04/04/18 18:15 17:47 15:18 RBC Hgb Hct Eosinophils % (Manual) ESR VBG Lactic Acid < 0.2 L Anion Gap Glucose Hemoglobin A1c 10.5 H Lactate Dehydrogenase C-Reactive Protein 2.0 H C-React Prot High Sens Albumin Albumin/Globulin Ratio Triglycerides Urine Protein 30 A Urine Glucose (UA) 150 A Urine Occult Blood 0.03 A Urine RBC 2 H 04/04/18 04/04/18 15:18 15:18 RBC 4.06 L Hgb 12.0 L Hct 35.9 L Eosinophils % (Manual) ESR 54 H VBG Lactic Acid Anion Gap Glucose 229 H Hemoglobin A1c Lactate Dehydrogenase C-Reactive Protein C-React Prot High Sens 19.6 H Albumin Albumin/Globulin Ratio Triglycerides Urine Protein Urine Glucose (UA) Urine Occult Blood Urine RBC Meds: Medications Acetaminophen (Tylenol) 650 mg PO Q4-6HP PRN PRN Reason: PAIN/FEVER > 101 Last Admin: 04/05/18 19:16 Dose: 650 mg Documented by: Bisacodyl (Dulcolax) 10 mg [place] Q2-3DAYS PRN PRN Reason: Constipation Last Admin: 04/07/18 03:37 Dose: 10 mg Documented by: Collagenase (Santyl Top Oint) 1 dose TOPICAL DAILY [facility] Last Admin: 04/07/18 10:03 Dose: 1 gm Documented by: Dextrose (Dextrose 50%) 0 ml IV UD PRN PRN Reason: Hypoglycemia Diagnostic Test (Pha) (Accu-Chek) 1 each FS ACHS [facility] Last Admin: 04/07/18 08:24 Dose: 1 each Documented by: Docusate Sodium (Colace) 100 mg PO BID [facility] Last Admin: 04/07/18 08:41 Dose: 100 mg Documented by: Glucose (Insta-Glucose) 15 gm PO PRN PRN PRN Reason: Hypoglycemia Heparin Sodium (Porcine) (Heparin) 5,000 unit SQ Q12 [facility] Last Admin: 04/07/18 08:41 Dose: 5,000 unit Documented by: Hydromorphone HCl (Dilaudid) 0 mg IV Q4HP PRN PRN Reason: PAIN LEVEL > 6 Magnesium Sulfate (Magnesium Sulfate) 2 gm in 50 mls @ 50 mls/hr IV UD PRN PRN Reason: MG = or < 1.7 Acetaminophen (Ofirmev) 1,000 mg in 100 mls @ 200 mls/hr IV Q6HP PRN PRN Reason: PAIN/FEVER > 101 Last Admin: 04/06/18 13:10 Dose: 200 mls/hr Documented by: Piperacillin Sod/Tazobactam (Sod 3.375 gm/ Dextrose) 50 mls @ 100 mls/hr IV Q6H [facility] Last Admin: 04/07/18 06:00 Dose: 100 mls/hr Documented by: Vancomycin HCl 1,500 mg/ (Sodium Chloride) 500 mls @ 333.3 mls/hr IV Q12H [facility] Last Admin: 04/07/18 08:42 Dose: 150 mls/hr Documented by: Insulin Glargine (Lantus) 60 unit SQ DAILY [facility] Last Admin: 04/07/18 08:42 Dose: 60 units Documented by: Insulin Human Lispro (Humalog) 0 unit SQ ACHS [facility]; Protocol Last Admin: 04/07/18 08:24 Dose: Not Given Documented by: Iron Carb/Multivit/Certified Tower Climber/Folic Acid (Multivitamin W/Minerals) 1 tab PO DAILY [facility] Last Admin: 04/07/18 08:42 Dose: Not Given Documented by: Lisinopril (Zestril) 40 mg PO DAILY [facility] Last Admin: 04/07/18 08:41 Dose: 40 mg Documented by: Magnesium Hydroxide (Milk Of Magnesia) 30 ml PO HSP PRN PRN Reason: Constipation Metformin HCl (Glucophage) 1,000 mg PO BIDCC [facility] Last Admin: 04/07/18 08:41 Dose: 1,000 mg Documented by: Ondansetron HCl (Zofran) 4 mg IV Q4-6HP PRN PRN Reason: Nausea And Vomiting Last Admin: 04/06/18 09:10 Dose: 4 mg Documented by: Empagliflozin [ Jardiance] 10 Mg Tablet 1 dose PO DAILY [facility] Last Admin: 04/06/18 08:53 Dose: Not Given Documented by: Potassium Chloride (Klor-Con) 40 meq PO DAILYP PRN PRN Reason: K+ < 3.5 Senna/Docusate Sodium (Senna Plus Tablet) 1 tab PO HS [facility] Last Admin: 04/06/18 22:21 Dose: 1 tab Documented by: Sitagliptin Phosphate (Januvia) 100 mg PO DAILY [facility] Last Admin: 04/07/18 08:41 Dose: 100 mg Documented by: Sodium Chloride (Saline Flush) 10 ml IV Q8 [facility] Last Admin: 04/07/18 06:00 Dose: 10 ml Documented by: Vancomycin HCl (Vancomycin Per Pharmacy) 1 order IV UD [facility] Medical - PN: A/P - Time Spent With Patient Total time spent is greater than 50% in coordination of care (as documented) at patient's floor/unit and/or counseling patient: 15 - 24 minutes (1) Cellulitis of left foot Status: Acute Assessment and plan: * Diabetic left foot cellulitis with lymphangitis-clinically improving on start empiric coverage on Zosyn/vancomycin. No evidence of osteomyelitis on foot CT. ongoing wound care * Early sepsis with tachycardia/fever-persistent tachycardia around 100. Clinically improving * DM type II-continue basal prandial insulin. For outpatient control with A1c 10.5. Blood sugars around 150 diabetic education. * Hypertension-restart SOLIS inhibitor. Beta-brendan dose currently being verified * Hyperlipidemia-continue statin * Full code * Prophylaxis heparin Plan * Continue wound care/antibiotics * Pre-existing well condition management as above Current Visit: Yes Medical - PN: Qual - VTE Deep Vein Thrombosis/Pulmonary Embolism Present on Admission: No
[2018-04-07] MEDS ORDERED: MAGNESIUM CITRATE 300 ML ORAL.SOL PO ONE (12:00)
--- NOTE | 2018-04-07 13:10 | Internal Med Progress Note ---
Medical - PN: Subj Patient information: Note initiated : 04/07/18 at 1:06 pm Service Date, if different from initiated Date: [] Patient: Constantino Harden a 43 y/o M admitted on 04/04/18 for Left Lower Extremity Swelling/Pain. Chief Complaint: [] Interval history: Mr. Harden is a 43 year old M with known history of type 2 diabetes and diabetic neuropathy associated left foot ulcers which has been managed in the past by wound care clinic. Patient has been doing well until roughly 1 week ago he woke up with a fever of 102 along with left foot pain around the toe pad area. On examining he noticed skin separation and underneath significant redness. The fever lasted 24 hours. He subsequently called the [place] clinic and saw Daisy Mcnulty and was prescribed oral antibiotic. Over the next 4 days patient noticed increasing left leg and thigh pain along with intermittent fever. Over the last 24 hours patient no ticed a red area on the dorsum of the foot which started to grow in size. With increasing concerns he went to [place] [facility] again and was subsequently directed to the ER for further evaluation. Initial workup in the ER was significant for left foot diabetic cellulitis/lymphangitis. No evidence of osteomyelitis on foot CT. Patient was started on antibiotic coverage and wound care physician was consulted. Hospitalist service was requested for admission. At the time of evaluation patient is alert oriented. He is in significant distress from pain. He endorses to history as above. He denies recent trauma. He denies shaking chills, diarrhea, myalgia, joint pain. Patient has associated loss of appetite and has not been feeling well since the onset of symptoms. 04/05-no overnight events. Pain much improved. Swelling improving. On broad antibiotic coverage. Wound care on board. Tachycardia improving. DC telemetry. Continue the course with ongoing wound care/antibiotic/nutrition davis pport. No major concerns per the patient or staff 04/06-patient doing well. No overnight events. No concerns per staff. Left foot swelling/groin and thigh pain much improved. Afebrile. No drenching sweats, chills nausea vomiting. On antibiotic coverage. Intermittent nausea. A1c 10.5 with poor outpatient control. Start diabetic education. Continue wound care as per Dr. Angel, podiatry consulted by wound care 04/07-patient clinically improving. Continue IV antibiotic coverage. Anticipate additional 24-48 hours of antibiotics followed by de-escalation and discharge. Wound care on board. Complains of increasing throbbing pain left foot however redness is improved. Afebrile. Persistent tachycardia however improving 04/08 - Constitutional Vitals: Vital Signs Temp Pulse Resp BP Pulse Ox 98 F 104 H 20 173/87 96 04/07/18 12:00 04/07/18 03:48 04/07/18 12:00 04/07/18 12:00 04/07/18 12:00 Period Temp Pulse Resp BP Sys/Proctor Pulse Ox Last 24 Hr 97.6 F-98.2 F 95-109 16-20 135-173/78-89 96-97 Intake and Output 04/06/18 04/07/18 04/07/18 21:59 05:59 13:59 Intake Total 410 1015 415 Output Total 850 200 Balance -440 815 415 Weight 108.862 kg Intake & Output: Intake & Output 04/06/18 04/07/18 04/07/18 21:59 05:59 13:59 Intake Total 410 1015 415 Output Total 850 200 Balance -440 815 415 Weight 108.862 kg Intake: IV 50 550 415 Zosyn 3.375 gm In Dextrose 5% 50 50 in Water 50 ml @ 100 mls/hr IV Q6H [facility] Rx#:[id number] Vancomycin 1,500 mg In Sodium 500 415 Chloride 0.9% 500 ml @ 333.3 mls/hr IV Q12H [facility] Rx#: [id number] Oral 360 465 Output: Void Amount 850 200 Other: Meal Lunch Percent of Meal Consumed 100% Feeding Ability Independent Urine Appearance Clear Clear Urine Color Bright Yellow Bright Yellow Urine Odor Normal # Voids 1 2 1 Exam: General: Alert, Awake, No acute Distress, obese Eyes/N/T: EOMI, Head/Neck: neck supple, CV: RRR, No murmurs, Pulm: Clear b/l, no wheezing/rhonchi/rales Abd: soft, nontender, +BS x4 Ext: no clubbing/cyanosis. Left foot swelling/erythema Neuro: Alert, no focal deficits, moves all extremities, Skin: warm/dry Medical - PN: Obj Da - Labs CBC & Chem 7: 04/07/18 04:57 04/07/18 04:57 Labs: Abnormal Lab Results 04/07/18 04/07/18 04/06/18 04:57 04:57 04:30 RBC 3.66 L Hgb 10.9 L Hct 32.4 L Eosinophils % (Manual) 8 H ESR VBG Lactic Acid Anion Gap 6.0 L Glucose 160 H Hemoglobin A1c Lactate Dehydrogenase C-Reactive Protein C-React Prot High Sens Albumin 3.1 L Albumin/Globulin Ratio 0.9 L 0.9 L Triglycerides 167 H Urine Protein Urine Glucose (UA) Urine Occult Blood Urine RBC 04/06/18 04/05/18 04/05/18 04:30 07:55 04:06 RBC 3.78 L 3.76 L Hgb 11.2 L 11.2 L Hct 34.0 L 33.3 L Eosinophils % (Manual) ESR VBG Lactic Acid Anion Gap Glucose 168 H Hemoglobin A1c Lactate Dehydrogenase 331 H C-Reactive Protein C-React Prot High Sens Albumin 2.9 L Albumin/Globulin Ratio 0.8 L Triglycerides 161 H Urine Protein Urine Glucose (UA) Urine Occult Blood Urine RBC 04/04/18 04/04/18 04/04/18 18:15 17:47 15:18 RBC Hgb Hct Eosinophils % (Manual) ESR VBG Lactic Acid < 0.2 L Anion Gap Glucose Hemoglobin A1c 10.5 H Lactate Dehydrogenase C-Reactive Protein 2.0 H C-React Prot High Sens Albumin Albumin/Globulin Ratio Triglycerides Urine Protein 30 A Urine Glucose (UA) 150 A Urine Occult Blood 0.03 A Urine RBC 2 H 04/04/18 04/04/18 15:18 15:18 RBC 4.06 L Hgb 12.0 L Hct 35.9 L Eosinophils % (Manual) ESR 54 H VBG Lactic Acid Anion Gap Glucose 229 H Hemoglobin A1c Lactate Dehydrogenase C-Reactive Protein C-React Prot High Sens 19.6 H Albumin Albumin/Globulin Ratio Triglycerides Urine Protein Urine Glucose (UA) Urine Occult Blood Urine RBC Meds: Medications Acetaminophen (Tylenol) 650 mg PO Q4-6HP PRN PRN Reason: PAIN/FEVER > 101 Last Admin: 04/05/18 19:16 Dose: 650 mg Documented by: Bisacodyl (Dulcolax) 10 mg MD Q2-3DAYS PRN PRN Reason: Constipation Last Admin: 04/07/18 03:37 Dose: 10 mg Documented by: Collagenase (Santyl Top Oint) 1 dose TOPICAL DAILY [facility] Last Admin: 04/07/18 10:03 Dose: 1 gm Documented by: Dextrose (Dextrose 50%) 0 ml IV UD PRN PRN Reason: Hypoglycemia Diagnostic Test (Pha) (Accu-Chek) 1 each FS ACHS [facility] Last Admin: 04/07/18 11:28 Dose: 1 each Documented by: Docusate Sodium (Colace) 100 mg PO BID [facility] Last Admin: 04/07/18 08:41 Dose: 100 mg Documented by: Glucose (Insta-Glucose) 15 gm PO PRN PRN PRN Reason: Hypoglycemia Heparin Sodium (Porcine) (Heparin) 5,000 unit SQ Q12 [facility] Last Admin: 04/07/18 08:41 Dose: 5,000 unit Documented by: Hydromorphone HCl (Dilaudid) 0 mg IV Q4HP PRN PRN Reason: PAIN LEVEL > 6 Magnesium Sulfate (Magnesium Sulfate) 2 gm in 50 mls @ 50 mls/hr IV UD PRN PRN Reason: MG = or < 1.7 Acetaminophen (Ofirmev) 1,000 mg in 100 mls @ 200 mls/hr IV Q6HP PRN PRN Reason: PAIN/FEVER > 101 Last Admin: 04/06/18 13:10 Dose: 200 mls/hr Documented by: Insulin Glargine (Lantus) 60 unit SQ DAILY [facility] Last Admin: 04/07/18 08:42 Dose: 60 units Documented by: Insulin Human Lispro (Humalog) 0 unit SQ ACHS [facility]; Protocol Last Admin: 04/07/18 11:43 Dose: 1 unit Documented by: Iron Carb/Multivit/Beckham/Folic Acid (Multivitamin W/Minerals) 1 tab PO DAILY [facility] Last Admin: 04/07/18 08:42 Dose: Not Given Documented by: Linezolid (Zyvox) 600 mg PO Q12 [facility] Lisinopril (Zestril) 40 mg PO DAILY [facility] Last Admin: 04/07/18 08:41 Dose: 40 mg Documented by: Magnesium Hydroxide (Milk Of Magnesia) 30 ml PO HSP PRN PRN Reason: Constipation Metformin HCl (Glucophage) 1,000 mg PO BIDCC [facility] Last Admin: 04/07/18 08:41 Dose: 1,000 mg Documented by: Metoprolol Tartrate (Lopressor) 100 mg PO BID [facility] Ondansetron HCl (Zofran) 4 mg IV Q4-6HP PRN PRN Reason: Nausea And Vomiting Last Admin: 04/06/18 09:10 Dose: 4 mg Documented by: Empagliflozin [ Jardiance] 10 Mg Tablet 1 dose PO DAILY [facility] Last Admin: 04/07/18 10:39 Dose: Not Given Documented by: Potassium Chloride (Klor-Con) 40 meq PO DAILYP PRN PRN Reason: K+ < 3.5 Senna/Docusate Sodium (Senna Plus Tablet) 1 tab PO HS [facility] Last Admin: 04/06/18 22:21 Dose: 1 tab Documented by: Sitagliptin Phosphate (Januvia) 100 mg PO DAILY [facility] Last Admin: 04/07/18 08:41 Dose: 100 mg Documented by: Sodium Chloride (Saline Flush) 10 ml IV Q8 [facility] Last Admin: 04/07/18 06:00 Dose: 10 ml Documented by: Medical - PN: A/P - Time Spent With Patient Total time spent is greater than 50% in coordination of care (as documented) at patient's floor/unit and/or counseling patient: - Narrative A/P Narrative: A: *Diabetic left foot cellulitis with lymphangitis: clinically improving on start . No evidence of osteomyelitis on foot CT. *Early sepsis with tachycardia/fever: persistent tachycardia around 100. Clinically improving *DM type II: *Hypertension: *Hyperlipidemia: * Plan: -Continue wound care/antibiotics -empiric coverage on Zosyn/vancomycin -ID following -ongoing wound care -continue basal prandial insulin. For outpatient control with A1c 10.5. Blood sugars around 150 diabetic education. -cont statin -restart SOLIS inhibitor. Beta-brendan dose currently being verified -ppx: heparin Full code Medical - PN: Qual - VTE Deep Vein Thrombosis/Pulmonary Embolism Present on Admission: No
--- NOTE | 2018-04-07 14:26 | General Surgery Progress Note ---
Subjective Narrative: Note initiated : 04/07/18 at 2:24 pm Service Date, if different from initiated Date: [] Patient: Constantino Harden 43 y/o M admitted on 04/04/18 for Left Lower Extremity Swelling/Pain. 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 Left foot wounds examined. Progressing well. No acute interval changes. Objective Temp Pulse Resp BP Pulse Ox 98 F 104 H 20 173/87 96 04/07/18 12:00 04/07/18 03:48 04/07/18 12:00 04/07/18 12:00 04/07/18 12:00 AVSS. No changes in her physical examination. Left foot wounds are stable and improving. Started on collagenous treatment for plantar DFU yesterday. - Additional Data Intake & Output - Last 24 hours: Intake & Output 04/05/18 04/06/18 04/07/18 04/08/18 05:59 05:59 05:59 05:59 Intake Total 1200 2140 2375 415 Output Total 650 1400 1700 Balance 550 740 675 415 Weight 238 lb 8 oz 240 lb 8 oz 240 lb - Labs 04/07/18 04:57 04/07/18 04:57 Diabetes panel 04/07/18 Range/Units 04:57 Sodium 143 (133-145) mmol/L Potassium 4.1 (3.3-5.1) mmol/L Chloride 108 (96-108) mmol/L Carbon Dioxide 26 (22-30) mmol/L BUN 11 (6-20) mg/dl Creatinine 1.1 (0.7-1.2) mg/dl Glucose 96 (70-105) mg/dL Calcium 9.0 (8.6-10.4) mg/dl AST 23 (0-37) U/l ALT 29 (0-40) U/l Alkaline Phosphatase 99 (39-117) U/L Total Protein 6.5 (5.9-8.4) gm/dL Albumin 3.1 L (3.2-5.2) gm/dL Triglycerides 133 (<150) mg/dl Calcium panel 04/07/18 Range/Units 04:57 Calcium 9.0 (8.6-10.4) mg/dl Phosphorus 3.1 (2.7-4.5) mg/dL Albumin 3.1 L (3.2-5.2) gm/dL Pituitary panel 04/07/18 Range/Units 04:57 Sodium 143 (133-145) mmol/L Potassium 4.1 (3.3-5.1) mmol/L Chloride 108 (96-108) mmol/L Carbon Dioxide 26 (22-30) mmol/L BUN 11 (6-20) mg/dl Creatinine 1.1 (0.7-1.2) mg/dl Glucose 96 (70-105) mg/dL Calcium 9.0 (8.6-10.4) mg/dl Adrenal panel 04/07/18 Range/Units 04:57 Sodium 143 (133-145) mmol/L Potassium 4.1 (3.3-5.1) mmol/L Chloride 108 (96-108) mmol/L Carbon Dioxide 26 (22-30) mmol/L BUN 11 (6-20) mg/dl Creatinine 1.1 (0.7-1.2) mg/dl Glucose 96 (70-105) mg/dL Calcium 9.0 (8.6-10.4) mg/dl Total Bilirubin 0.2 (0.0-1.0) mg/dL AST 23 (0-37) U/l ALT 29 (0-40) U/l Alkaline Phosphatase 99 (39-117) U/L Total Protein 6.5 (5.9-8.4) gm/dL Albumin 3.1 L (3.2-5.2) gm/dL Assessment and Plan (1) Neurotrophic ulcer of foot Problem details: Healed DFU LEFT plantar in past. Now recurred with DTI and cellulitis Status: Chronic Current Visit: Yes (2) Cellulitis Status: Acute Current Visit: No - Time Spent With Patient Total time spent is greater than 50% in coordination of care (as documented) at patient's floor/unit and/or counseling patient: Assessment: Progressing well. Plan: Continue present treatment. Anticipate discharge in the next 1-2 days. Later outpatient follow-up with the wound care center. 15 - 24 minutes
[2018-04-07] MEDS ORDERED: FLEETS ADULT ENEMA PR ONE (15:36)
--- NOTE | 2018-04-07 16:14 | Infectious Disease Consult ---
History of Present Illness Patient information: Note initiated : 04/07/18 at 3:25 pm Service Date, if different from initiated Date: [] Patient: Constantino Harden 43 y/o M admitted on 04/04/18 for Left Lower Extremity Swelling/Pain. Chief Complaint: [] Consult date: 04/06/18 (late afternoon) Requesting Physician: Nolberto Cardona Reason for Consult: foot infection Chief complaint: my foot hurts History of present illness: 43 year old man with PMHx of: - DM2 with neuropathy - left foot ulcer Pt c/o having fever and left foot pain for last 1 week. He noticed a blister like lesion to begin with wich later came off leading to a big ulcer. The fever lasted 24 hours. He subsequently called the [place] clinic and saw Daisy Mcnulty and was prescribed oral antibiotic. Over the next 4 days patient noticed increasing left leg and thigh pain along with intermittent fever. Over the last 24 hours patient noticed a red area on the dorsum of the foot which started to grow in size. With increasing concerns he went to [place] clinic again and was subsequently directed to the ER for further evaluation. Initial workup in the ER was significant for left foot diabetic cellulitis/lymphangitis. No evidence of osteomyelitis on foot CT. Patient was started on IV Vanc and IV Zosyn and wound care physician was consulted. Hospitalist service was requested for admission. At the time of evaluation patient is alert oriented. He is in significant distress from pain. He endorses to history as above. He denies recent trauma. He denies shaking chills, diarrhea, myalgia, joint pain. Patient has associated loss of appetite and has not been feeling well since the onset of symptoms. The wound Cx obtained from the foot lesion grew MSSA and Gp B Streptococcus. 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 Medications and Allergies Home Medications Medication Instructions Recorded Confirmed Type Insulin Glargine, Human [Lantus] 60 unit SQ DAILY 12/01/15 04/07/18 History Lisinopril [Zestril] 40 mg PO DAILY 12/01/15 04/05/18 History metFORMIN HCL [Metformin HCl ER] 1,000 mg PO BIDCC 12/01/15 04/05/18 History Empagliflozin [Jardiance] 10 mg PO DAILY 03/27/17 04/05/18 History Insulin Aspart [Novolog Flexpen] 10 unit SQ QAMAC 09/20/17 04/07/18 History Chlorthalidone [Hygroton] 12.5 mg PO DAILY 04/07/18 04/07/18 History Ergocalciferol (Vitamin D2) 1 tab PO MO 04/07/18 04/07/18 History [Vitamin D2] Novolog Flexpen 15 units PO QPMAC 04/07/18 04/07/18 History Rosuvastatin Calcium [Crestor] 1 tab PO DAILY 04/07/18 04/07/18 History Allergies Allergy/AdvReac Type Severity Reaction Status Date / Time ciprofloxacin [From Cipro] AdvReac Mild Cramping Verified 04/06/18 12:52 of the Muscles Physical Examination Vital signs: Temp Pulse Resp BP Pulse Ox 36.6 C 104 H 20 173/87 96 04/07/18 12:00 04/07/18 03:48 04/07/18 12:00 04/07/18 12:00 04/07/18 12:00 General appearance: no acute distress Eyes pulmonary: nonicteric ENT: oropharynx moist Extremities: no cyanosis, other (ulcer over the plantar aspect of left foot, with surrounding siigns of inflammation, no active drainage, non tender. There is another lesion on the dorsal aspect with scant drainage.) Results - Laboratory Findings CBC and BMP: 04/07/18 04:57 04/07/18 04:57 Abnormal lab findings: Abnormal Labs 04/04/18 04/04/18 04/04/18 15:18 15:18 15:18 RBC 4.06 L Hgb 12.0 L Hct 35.9 L Eosinophils % (Manual) ESR 54 H VBG Lactic Acid < 0.2 L Anion Gap Glucose 229 H Hemoglobin A1c Lactate Dehydrogenase C-Reactive Protein C-React Prot High Sens 19.6 H Albumin Albumin/Globulin Ratio Triglycerides Urine Protein Urine Glucose (UA) Urine Occult Blood Urine RBC 04/04/18 04/04/18 04/05/18 17:47 18:15 04:06 RBC Hgb Hct Eosinophils % (Manual) ESR VBG Lactic Acid Anion Gap Glucose 168 H Hemoglobin A1c 10.5 H Lactate Dehydrogenase 331 H C-Reactive Protein 2.0 H C-React Prot High Sens Albumin 2.9 L Albumin/Globulin Ratio 0.8 L Triglycerides 161 H Urine Protein 30 A Urine Glucose (UA) 150 A Urine Occult Blood 0.03 A Urine RBC 2 H 04/05/18 04/06/18 04/06/18 07:55 04:30 04:30 RBC 3.76 L 3.78 L Hgb 11.2 L 11.2 L Hct 33.3 L 34.0 L Eosinophils % (Manual) ESR VBG Lactic Acid Anion Gap 6.0 L Glucose 160 H Hemoglobin A1c Lactate Dehydrogenase C-Reactive Protein C-React Prot High Sens Albumin Albumin/Globulin Ratio 0.9 L Triglycerides 167 H Urine Protein Urine Glucose (UA) Urine Occult Blood Urine RBC 04/07/18 04/07/18 04:57 04:57 RBC 3.66 L Hgb 10.9 L Hct 32.4 L Eosinophils % (Manual) 8 H ESR VBG Lactic Acid Anion Gap Glucose Hemoglobin A1c Lactate Dehydrogenase C-Reactive Protein C-React Prot High Sens Albumin 3.1 L Albumin/Globulin Ratio 0.9 L Triglycerides Urine Protein Urine Glucose (UA) Urine Occult Blood Urine RBC Microbiology: Microbiology 04/04/18 11:33 Foot - Left Gram Stain - Final 04/04/18 11:33 Foot - Left Wound Culture - Final Staphylococcus aureus Strep agalactiae - (group b) 04/04/18 15:38 Blood Blood Culture - Preliminary 04/04/18 15:18 Blood Blood Culture - Preliminary 04/04/18 17:47 Urine - Clean Void Mid-Stream Urine Culture - Final Assessment and Plan - Narrative A/P Narrative: A: 1. Left foot Skin and soft tissue infection: No concerns for osteomyelitis per CT wound CX growing MSSA and G B Strept Blood Cx on 04/04 neg 2. DM2 with neuropathy Recommendations: - Given signif clinical improv, stop IV Vanc and IV Zosyn. Start PO Linezolid 600 mg bid - will recommend a 14-day course total with intended stop date of 04/15/18 - will see in [place] clinic around 04/14/18 to assess for improvement Alvino Harvey MD Infectious diseases
[2018-04-07] MEDS ORDERED: LACTULOSE 20 GM/30 ML ORAL.SOL PO ONE (19:03)
[2018-04-07] MEDS: SENNOSIDES/DOCUSATE SODIUM 1 TAB TABLET PO SCH (21:50)
[2018-04-07] MEDS: LINEZOLID 600 MG TABLET PO SCH (21:50)
[2018-04-07] MEDS: METOPROLOL TARTRATE 50 MG TABLET PO SCH (21:50)
[2018-04-07] MEDS: ONDANSETRON 4 MG/2 ML VIAL IV PRN (22:44)
[2018-04-08 05:25] LABS: Mean Corpuscular HGB Conc 33.8 g/dL (31.0-36.0); Platelet Count 268 K/mcL (140-440); RBC 3.65 M/mcL (4.50-5.90); Red Cell Distribution Width 11.9 % (11.5-14.5)
[2018-04-08 05:39] LABS: ALT/SGPT 32 U/l (0-40); Albumin 3.2 gm/dL (3.2-5.2); Albumin/Globulin Ratio 0.9 (1.0-2.3); Alkaline Phosphatase 111 U/L (39-117); Bilirubin,Direct < 0.2 mg/dL (0.0-0.3); Blood Urea Nitrogen 13 mg/dl (6-20); Gamma Glutamyl Transpeptidase 41 U/L (8-61); Uric Acid 3.8 mg/dL (2.5-8.0)
[2018-04-08] MEDS: ACETAMINOPHEN 325 MG TABLET PO PRN (06:14)
[2018-04-08] MEDS: 0.9 % SODIUM CHLORIDE 10 ML SYRINGE IV SCH ×3 (06:15→21:39)
--- NOTE | 2018-04-08 06:46 | Internal Med Progress Note ---
Medical - PN: Subj Patient information: Note initiated : 04/08/18 at 6:43 am Service Date, if different from initiated Date: [] Patient: Constantino Harden a 43 y/o M admitted on 04/04/18 for Left Lower Extremity Swelling/Pain. Chief Complaint: [] Interval history: Mr. Harden is a 43 year old M with known history of type 2 diabetes and diabetic neuropathy associated left foot ulcers which has been managed in the past by wound care clinic. Patient has been doing well until roughly 1 week ago he woke up with a fever of 102 along with left foot pain around the toe pad area. On examining he noticed skin separation and underneath significant redness. The fever lasted 24 hours. He subsequently called the [facility] and saw Daisy Mcnulty and was prescribed oral antibiotic. Over the next 4 days patient noticed increasing left leg and thigh pain along with intermittent fever. Over the last 24 hours patient no ticed a red area on the dorsum of the foot which started to grow in size. With increasing concerns he went to [facility] again and was subsequently directed to the ER for further evaluation. Initial workup in the ER was significant for left foot diabetic cellulitis/lymphangitis. No evidence of osteomyelitis on foot CT. Patient was started on antibiotic coverage and wound care physician was consulted. Hospitalist service was requested for admission. At the time of evaluation patient is alert oriented. He is in significant distress from pain. He endorses to history as above. He denies recent trauma. He denies shaking chills, diarrhea, myalgia, joint pain. Patient has associated loss of appetite and has not been feeling well since the onset of symptoms. 04/05-no overnight events. Pain much improved. Swelling improving. On broad antibiotic coverage. Wound care on board. Tachycardia improving. DC telemetry. Continue the course with ongoing wound care/antibiotic/nutrition davis pport. No major concerns per the patient or staff 04/06-patient doing well. No overnight events. No concerns per staff. Left foot swelling/groin and thigh pain much improved. Afebrile. No drenching sweats, chills nausea vomiting. On antibiotic coverage. Intermittent nausea. A1c 10.5 with poor outpatient control. Start diabetic education. Continue wound care as per Dr. Angel, podiatry consulted by wound care 04/07-patient clinically improving. Continue IV antibiotic coverage. Anticipate additional 24-48 hours of antibiotics followed by de-escalation and discharge. Wound care on board. Complains of increasing throbbing pain left foot however redness is improved. Afebrile. Persistent tachycardia however improving 04/08 No overnight events. Continues to improve clinically. Has a headache. Foot pain improved. States his home metoprolol was [facility]. Nursing to clarify. So we can restart. Review of Systems: denies fever/chills/nausea/vomiting/chest or abdominal pain/cough/dyspnea/diarrhea. Otherwise see above. - Constitutional Vitals: Vital Signs Temp Pulse Resp BP Pulse Ox 97.9 F 91 H 20 126/79 90 04/08/18 03:37 04/08/18 03:37 04/08/18 03:37 04/08/18 03:37 04/08/18 03:37 Period Temp Pulse Resp BP Sys/Proctor Pulse Ox Last 24 Hr 97.9 F-98.9 F 91-104 20-24 126-174/79-94 90-98 Intake and Output 04/07/18 04/08/18 04/08/18 21:59 05:59 13:59 Intake Total 890 300 Balance 890 300 Weight 109.769 kg Intake & Output: Intake & Output 04/07/18 04/08/18 04/08/18 21:59 05:59 13:59 Intake Total 890 300 Balance 890 300 Weight 109.769 kg Intake: Oral 890 300 Other: Meal Dinner Soup/sandwich Percent of Meal Consumed 100% 100% Feeding Ability Independent # Voids 1 # Bowel Movements 2 6 Exam: General: Alert, Awake, No acute Distress, obese Eyes/N/T: EOMI, Head/Neck: neck supple, CV: RRR, No murmurs, Pulm: Clear b/l, no wheezing/rhonchi/rales Abd: soft, nontender, +BS x4 Ext: no clubbing/cyanosis. LLE edema 1+. Left foot swelling/erythema/dressing intact Neuro: Alert, no focal deficits, moves all extremities, Skin: warm/dry Medical - PN: Obj Da - Labs CBC & Chem 7: 04/08/18 04:25 04/08/18 04:25 Labs: Abnormal Lab Results 04/08/18 04/08/18 04/07/18 04:25 04:25 04:57 RBC 3.65 L Hgb 11.0 L Hct 32.5 L Eosinophils % (Manual) Anion Gap Glucose Lactate Dehydrogenase Albumin 3.1 L Albumin/Globulin Ratio 0.9 L 0.9 L Triglycerides 04/07/18 04/06/18 04/06/18 04:57 04:30 04:30 RBC 3.66 L 3.78 L Hgb 10.9 L 11.2 L Hct 32.4 L 34.0 L Eosinophils % (Manual) 8 H Anion Gap 6.0 L Glucose 160 H Lactate Dehydrogenase Albumin Albumin/Globulin Ratio 0.9 L Triglycerides 167 H 04/05/18 04/05/18 07:55 04:06 RBC 3.76 L Hgb 11.2 L Hct 33.3 L Eosinophils % (Manual) Anion Gap Glucose 168 H Lactate Dehydrogenase 331 H Albumin 2.9 L Albumin/Globulin Ratio 0.8 L Triglycerides 161 H Meds: Medications Acetaminophen (Tylenol) 650 mg PO Q4-6HP PRN PRN Reason: PAIN/FEVER > 101 Last Admin: 04/08/18 06:14 Dose: 650 mg Documented by: Bisacodyl (Dulcolax) 10 mg UT Q2-3DAYS PRN PRN Reason: Constipation Last Admin: 04/07/18 03:37 Dose: 10 mg Documented by: Collagenase (Santyl Top Oint) 1 dose TOPICAL DAILY [facility] Last Admin: 04/07/18 10:03 Dose: 1 gm Documented by: Dextrose (Dextrose 50%) 0 ml IV UD PRN PRN Reason: Hypoglycemia Diagnostic Test (Pha) (Accu-Chek) 1 each FS ACHS [facility] Last Admin: 04/07/18 21:51 Dose: 1 each Documented by: Docusate Sodium (Colace) 100 mg PO BID [facility] Last Admin: 04/07/18 21:50 Dose: 100 mg Documented by: Glucose (Insta-Glucose) 15 gm PO PRN PRN PRN Reason: Hypoglycemia Heparin Sodium (Porcine) (Heparin) 5,000 unit SQ Q12 [facility] Last Admin: 04/07/18 21:50 Dose: 5,000 unit Documented by: Hydromorphone HCl (Dilaudid) 0 mg IV Q4HP PRN PRN Reason: PAIN LEVEL > 6 Magnesium Sulfate (Magnesium Sulfate) 2 gm in 50 mls @ 50 mls/hr IV UD PRN PRN Reason: MG = or < 1.7 Acetaminophen (Ofirmev) 1,000 mg in 100 mls @ 200 mls/hr IV Q6HP PRN PRN Reason: PAIN/FEVER > 101 Last Infusion: 04/07/18 13:45 Dose: Infused Documented by: Insulin Glargine (Lantus) 60 unit SQ DAILY [facility] Last Admin: 04/07/18 08:42 Dose: 60 units Documented by: Insulin Human Lispro (Humalog) 0 unit SQ ACHS [facility]; Protocol Last Admin: 04/07/18 21:56 Dose: Not Given Documented by: Iron Carb/Multivit/Bailey/Folic Acid (Multivitamin W/Minerals) 1 tab PO DAILY [facility] Last Admin: 04/07/18 08:42 Dose: Not Given Documented by: Linezolid (Zyvox) 600 mg PO Q12 [facility] Last Admin: 04/07/18 21:50 Dose: 600 mg Documented by: Lisinopril (Zestril) 40 mg PO DAILY [facility] Last Admin: 04/07/18 08:41 Dose: 40 mg Documented by: Magnesium Hydroxide (Milk Of Magnesia) 30 ml PO HSP PRN PRN Reason: Constipation Metformin HCl (Glucophage) 1,000 mg PO BIDCC [facility] Last Admin: 04/07/18 16:58 Dose: 1,000 mg Documented by: Metoprolol Tartrate (Lopressor) 100 mg PO BID [facility] Last Admin: 04/07/18 21:50 Dose: 100 mg Documented by: Ondansetron HCl (Zofran) 4 mg IV Q4-6HP PRN PRN Reason: Nausea And Vomiting Last Admin: 04/07/18 22:44 Dose: 4 mg Documented by: Empagliflozin [ Jardiance] 10 Mg Tablet 1 dose PO DAILY [facility] Last Admin: 04/07/18 10:39 Dose: Not Given Documented by: Potassium Chloride (Klor-Con) 40 meq PO DAILYP PRN PRN Reason: K+ < 3.5 Senna/Docusate Sodium (Senna Plus Tablet) 1 tab PO HS [facility] Last Admin: 04/07/18 21:50 Dose: 1 tab Documented by: Sitagliptin Phosphate (Januvia) 100 mg PO DAILY [facility] Last Admin: 04/07/18 08:41 Dose: 100 mg Documented by: Sodium Chloride (Saline Flush) 10 ml IV Q8 [facility] Last Admin: 04/08/18 06:15 Dose: 10 ml Documented by: Medical - PN: A/P - Time Spent With Patient Total time spent is greater than 50% in coordination of care (as documented) at patient's floor/unit and/or counseling patient: - Narrative A/P Narrative: A: *Diabetic left foot cellulitis with lymphangitis: clinically improving. No evidence of osteomyelitis on foot CT. *Early sepsis with tachycardia/fever: persistent tachycardia around 100. Clinically improving *DM type II: *Hypertension/HLD: home lopressor recently changed to other BB, also on ACEI * Plan: -Continue wound care/antibiotics -ID following: Start PO Linezolid 600 mg bid, will recommend a 14-day course total with intended stop date of 04/15/18, will see in [facility] clinic around 04/14/18 to assess for improvement -ongoing wound care -continue basal prandial insulin. For outpatient control with A1c 10.5. Blood sugars around 150 diabetic education. -cont statin -restart SOLIS inhibitor. Beta-brendna dose currently being verified -ppx: heparin Full code Medical - PN: Qual - VTE Deep Vein Thrombosis/Pulmonary Embolism Present on Admission: No
[2018-04-08 07:14] LABS: Basophils % (Manual) 1 % (0-2); Eosinophils % (Manual) 2 % (0-7); Lymphocytes % 32 % (15-49); Monocytes % (Manual) 9 % (1-12); Platelet Estimate NORMAL (NORMAL); RBC Morphology NORMAL (NORMAL); Segmented Neutrophils % 56 % (38-78)
[2018-04-08] MEDS: INSULIN LISPRO 1 UNIT/0.01 ML UNIT SQ SCH ×4 (07:36→21:38)
[2018-04-08] MEDS: metFORMIN 500 MG TAB.XL.24H PO SCH ×2 (08:44→16:57)
[2018-04-08] MEDS: sitaGLIPtin 100 MG TABLET PO SCH (08:44)
[2018-04-08] MEDS: MULTIVIT,THER IRON,CA,FA & MIN 1 TABLET PO SCH ×2 (08:44→08:46)
[2018-04-08] MEDS: INSULIN GLARGINE, HUMAN 1 UNIT/0.01 ML SQ SCH (08:44)
[2018-04-08] MEDS: HEPARIN 5,000 UNIT/ML VIAL SQ SCH ×2 (08:44→21:38)
[2018-04-08] MEDS: LISINOPRIL 20 MG TABLET PO SCH (08:44)
[2018-04-08] MEDS: METOPROLOL TARTRATE 50 MG TABLET PO SCH ×2 (08:44→21:37)
[2018-04-08] MEDS: LINEZOLID 600 MG TABLET PO SCH ×2 (08:44→21:38)
[2018-04-08] MEDS: DOCUSATE SODIUM 100 MG CAPSULE PO SCH ×2 (08:46→21:37)
[2018-04-08] MEDS ORDERED: METOPROLOL TARTRATE 25 MG TABLET PO ONE (09:34)
[2018-04-08] MEDS: COLLAGENASE TOP OINT TUBE 30GM TOPICAL SCH (10:52)
--- NOTE | 2018-04-08 11:05 | Discharge Summary ---
Medical - DS: Prov Patient information: Note initiated : 04/08/18 at 11:02 am Service Date, if different from initiated Date: [] Patient: Constantino Harden 43 y/o M admitted on 04/04/18 for Left Lower Extremity Swelling/Pain. Chief Complaint: [] Date of admission: 04/04/18 17:45 Discharge date: 04/09/18 Primary care physician: Daisy Mcnulty Consults: 04/04/18 Consult to Physician [CONS] Stat Comment: Consulting Provider: Nolberto Cardona Reason For Exam: Physician to Consult Consult to Physician [CONS] Stat Comment: Consulting Provider: Tobin Angel Reason For Exam: Physician to Consult 04/05/18 13:06 Consult to Physician [CONS] Routine Comment: left foot Consulting Provider: Reilly Farmer Reason For Exam: Physician to Consult 04/06/18 10:18 Consult to Physician [CONS] Routine Comment: Antibiotic therapy Consulting Provider: Alvino Harvey Reason For Exam: Physician to Consult Medical - DS: Meds - Discharge Medications Prescriptions: Linezolid [Zyvox] 600 mg PO Q12 #12 tab Active and Home Medications: Home Medications Insulin Glargine, Human [Lantus] 60 unit SQ DAILY 12/01/15 [History Confirmed 04/07/18 Last Taken 04/03/18] Lisinopril [Zestril] 40 mg PO DAILY 12/01/15 [History Confirmed 04/05/18 Last Taken 04/03/18] metFORMIN HCL [Metformin HCl ER] 1,000 mg PO BIDCC 12/01/15 [History Confirmed 04/05/18 Last Taken Unknown] Empagliflozin [Jardiance] 10 mg PO DAILY 03/27/17 [History Confirmed 04/05/18 Last Taken 04/03/18] Insulin Aspart [Novolog Flexpen] 10 unit SQ QAMAC 09/20/17 [History Confirmed 04/07/18 Last Taken Unknown] Chlorthalidone [Hygroton] 12.5 mg PO DAILY 04/07/18 [History Confirmed 04/07/18 Last Taken Unknown] Ergocalciferol (Vitamin D2) [Vitamin D2] 1 tab PO MO 04/07/18 [History Confirmed 04/07/18 Last Taken 04/03/18] Novolog Flexpen 15 units PO QPMAC 04/07/18 [History Confirmed 04/07/18 Last Taken Unknown] Rosuvastatin Calcium [Crestor] 1 tab PO DAILY 04/07/18 [History Confirmed 04/07/18 Last Taken Unknown] Home Medications Insulin Glargine, Human [Lantus] 60 unit SQ DAILY 12/01/15 [History Confirmed 04/07/18 Last Taken 04/03/18] Lisinopril [Zestril] 40 mg PO DAILY 12/01/15 [History Confirmed 04/05/18 Last Taken 04/03/18] metFORMIN HCL [Metformin ER Gastric] 1,000 mg PO BIDCC 12/01/15 [History Confirmed 04/05/18 Last Taken Unknown] Empagliflozin [Jardiance] 10 mg PO DAILY 03/27/17 [History Confirmed 04/05/18 Last Taken 04/03/18] Insulin Aspart [Novolog Flexpen] 10 unit SQ QAMAC 09/20/17 [History Confirmed 04/07/18 Last Taken Unknown] Chlorthalidone [Hygroton] 12.5 mg PO DAILY 04/07/18 [History Confirmed 04/07/18 Last Taken Unknown] Ergocalciferol (Vitamin D2) [Vitamin D2] 1 tab PO MO 04/07/18 [History Confirmed 04/07/18 Last Taken 04/03/18] Novolog Flexpen 15 units PO QPMAC 04/07/18 [History Confirmed 04/07/18 Last Taken Unknown] Rosuvastatin Calcium [Crestor] 1 tab PO DAILY 04/07/18 [History Confirmed 04/07/18 Last Taken Unknown] Linezolid [Zyvox] 600 mg PO Q12 #12 tablet 04/08/18 [Rx Last Taken Unknown] Medical - DS: Hosp Hospital course: Mr. Harden is a 43 year old M Mr. Harden is a 43 year old M with known history of type 2 diabetes and diabetic neuropathy associated left foot ulcers which has been managed in the past by wound care clinic. Patient has been doing well until roughly 1 week ago he woke up with a fever of 102 along with left foot pain around the toe pad area. On examining he noticed skin separation and underneath significant redness. The fever lasted 24 hours. He subsequently called the [facility] and saw Daisy Mcnulty and was prescribed oral antibiotic. Over the next 4 days patient noticed increasing left leg and thigh pain along with intermittent fever. Over the last 24 hours patient noticed a red area on the dorsum of the foot which started to grow in size. With increasing concerns he went to [facility] again and was subsequently direc mario alberto to the ER for further evaluation. Initial workup in the ER was significant for left foot diabetic cellulitis/lymphangitis. No evidence of osteomyelitis on foot CT. Patient was started on antibiotic coverage and wound care physician was consulted. Hospitalist service was requested for admission. At the time of evaluation patient is alert oriented. He is in significant distress from pain. He endorses to history as above. He denies recent trauma. He denies shaking chills, diarrhea, myalgia, joint pain. Patient has associated loss of appetite and has not been feeling well since the onset of symptoms. 04/05-no overnight events. Pain much improved. Swelling improving. On broad antibiotic coverage. Wound care on board. Tachycardia improving. DC telemetry. Continue the course with ongoing wound care/antibiotic/nutrition support. No major concerns per the patient or staff 04/06-patient doing well. No overnight events. No concerns per staff. Left foot swelling/groin and thigh pain much improved. Afebrile. No drenching sweats, chills nausea vomiting. On antibiotic coverage. Intermittent nausea. A1c 10.5 with poor outpatient control. Start diabetic education. Continue wound care as per Dr. Angel, podiatry consulted by wound care 04/07-patient clinically improving. Continue IV antibiotic coverage. Anticipate additional 24-48 hours of antibiotics followed by de-escalation and discharge. Wound care on board. Complains of increasing throbbing pain left foot however redness is improved. Afebrile. Persistent tachycardia however improving 04/08 No overnight events. Continues to improve clinically. Has a headache. Foot pain improved. States his home metoprolol was changed to another beta-brendan by the [facility] recently. Nursing to clarify. So we can restart. 04/09 Continues to do well, continue treatment per wound care. Any antibiotic regimen per ID. Stable for discharge Discharge diagnosis: Diabetic left foot infection MSSA early sepsis diabetes hypertension - Time Spent with Patient Total time spent providing and/or coordinating discharge services: Greater than 30 minutes Medical - DS: Exam - Constitutional Vitals: Vital Signs Temp Pulse Resp BP Pulse Ox 04/08/18 06:44 97.2 F 16 111/66 96 04/08/18 03:37 97.9 F 91 H 20 126/79 90 04/07/18 23:22 98.3 F 97 H 24 H 148/94 97 04/07/18 18:40 98.5 F 104 H 24 H 157/82 98 04/07/18 16:00 98.9 F 20 174/92 96 04/07/18 12:00 98 F 20 173/87 96 Intake and Output 04/07/18 04/08/18 04/08/18 21:59 05:59 13:59 Intake Total 890 300 Balance 890 300 Intake: Oral 890 300 Other: Meal Dinner Soup/sandwich Percent of Meal Consumed 100% 100% Feeding Ability Independent # Voids 1 1 # Bowel Movements 2 6 Weight 109.769 kg Medical - DS: Data Labs on day of discharge: Labs from last 24 hours 04/08/18 04/08/18 04:25 04:25 WBC 9.0 RBC 3.65 L Hgb 11.0 L Hct 32.5 L MCV 89.0 MCH 30.1 MCHC 33.8 RDW 11.9 Plt Count 268 MPV 8.6 Total Counted 100 Seg Neutrophils % 56 Band Neutrophils % Not Reportable Lymphocytes % 32 Monocytes % (Manual) 9 Eosinophils % (Manual) 2 Basophils % (Manual) 1 Platelet Estimate Normal RBC Morphology Normal Sodium 140 Potassium 4.0 Chloride 103 Carbon Dioxide 29 Anion Gap 8.0 BUN 13 Creatinine 1.1 GFR Calculation 82 Glucose 105 Uric Acid 3.8 Calcium 9.0 Phosphorus 3.9 Magnesium 2.1 Total Bilirubin 0.2 Direct Bilirubin < 0.2 GGT 41 AST 25 ALT 32 Alkaline Phosphatase 111 Lactate Dehydrogenase 208 Total Protein 6.6 Albumin 3.2 Globulin 3.4 Albumin/Globulin Ratio 0.9 L Triglycerides 135 Preliminary micro results at discharge 04/04/18 15:38 Blood Culture - Preliminary Blood 04/04/18 15:18 Blood Culture - Preliminary Blood Medical - DS: A/P - Patient/Caregiver Discharge Instructions Activity: increase activity as tolerated Diet: Consistent Carbohydrate Prescriptions: Linezolid [Zyvox] 600 mg PO Q12 #12 tab - Follow up Plan Follow up with: Tobin Angel MD [Physician] - (Follow up in clinic with Dr. Angel and Dr. Farmer 1 week afetr discharge) Daisy Mcnulty ARNP [Primary Care Provider] - Alvino Havrey MD [Physician] - Disposition: Home, Self-Care Prognosis: Fair Rehab Potential: Fair Medical - DS: Qual - VTE Deep Vein Thrombosis/Pulmonary Embolism Present on Admission: No
--- NOTE | 2018-04-08 11:43 | General Surgery Progress Note ---
Subjective Narrative: Note initiated : 04/08/18 at 11:39 am Service Date, if different from initiated Date: [] Patient: Constantino Harden 43 y/o M admitted on 04/04/18 for Left Lower Extremity Swelling/Pain. Chief Complaint: [] I saw this patient on rounds this morning. No interval changes on new complaints. Objective Temp Pulse Resp BP Pulse Ox 97.2 F 91 H 16 111/66 96 04/08/18 06:44 04/08/18 03:37 04/08/18 06:44 04/08/18 06:44 04/08/18 06:44 - Additional Data Intake & Output - Last 24 hours: Intake & Output 04/06/18 04/07/18 04/08/18 04/09/18 05:59 05:59 05:59 05:59 Intake Total 2140 2375 1705 Output Total 1400 1700 Balance 751 842 5040 Weight 240 lb 8 oz 240 lb 242 lb 04/08/18 11:40 AVSS no interval changes in AIDEE. L/E: Ongoing local wound care. Continues to be on antibiotics. Evaluated by infectious disease specialist Dr. Harvey. - Labs 04/08/18 04:25 04/08/18 04:25 Diabetes panel 04/08/18 Range/Units 04:25 Sodium 140 (133-145) mmol/L Potassium 4.0 (3.3-5.1) mmol/L Chloride 103 (96-108) mmol/L Carbon Dioxide 29 (22-30) mmol/L BUN 13 (6-20) mg/dl Creatinine 1.1 (0.7-1.2) mg/dl Glucose 105 (70-105) mg/dL Calcium 9.0 (8.6-10.4) mg/dl AST 25 (0-37) U/l ALT 32 (0-40) U/l Alkaline Phosphatase 111 (39-117) U/L Total Protein 6.6 (5.9-8.4) gm/dL Albumin 3.2 (3.2-5.2) gm/dL Triglycerides 135 (<150) mg/dl Calcium panel 04/08/18 Range/Units 04:25 Calcium 9.0 (8.6-10.4) mg/dl Phosphorus 3.9 (2.7-4.5) mg/dL Albumin 3.2 (3.2-5.2) gm/dL Pituitary panel 04/08/18 Range/Units 04:25 Sodium 140 (133-145) mmol/L Potassium 4.0 (3.3-5.1) mmol/L Chloride 103 (96-108) mmol/L Carbon Dioxide 29 (22-30) mmol/L BUN 13 (6-20) mg/dl Creatinine 1.1 (0.7-1.2) mg/dl Glucose 105 (70-105) mg/dL Calcium 9.0 (8.6-10.4) mg/dl Adrenal panel 04/08/18 Range/Units 04:25 Sodium 140 (133-145) mmol/L Potassium 4.0 (3.3-5.1) mmol/L Chloride 103 (96-108) mmol/L Carbon Dioxide 29 (22-30) mmol/L BUN 13 (6-20) mg/dl Creatinine 1.1 (0.7-1.2) mg/dl Glucose 105 (70-105) mg/dL Calcium 9.0 (8.6-10.4) mg/dl Total Bilirubin 0.2 (0.0-1.0) mg/dL AST 25 (0-37) U/l ALT 32 (0-40) U/l Alkaline Phosphatase 111 (39-117) U/L Total Protein 6.6 (5.9-8.4) gm/dL Albumin 3.2 (3.2-5.2) gm/dL Assessment and Plan (1) Neurotrophic ulcer of foot Problem details: Healed DFU LEFT plantar in past. Now recurred with DTI and cellulitis Status: Chronic Current Visit: Yes (2) Cellulitis Status: Acute Current Visit: No - Narrative A/P Narrative: Assessment: No acute interval changes. Ongoing local wound care and systemic antibiotics. Plan: Continue current treatment. Anticipate discharge after weekend and follow up at the wound clinic later. - Time Spent With Patient Total time spent is greater than 50% in coordination of care (as documented) at patient's floor/unit and/or counseling patient: less than 15 minutes
[2018-04-08] MEDS ORDERED: MAGNESIUM CITRATE 300 ML ORAL.SOL PO ONE (12:00)
[2018-04-08] MEDS: SENNOSIDES/DOCUSATE SODIUM 1 TAB TABLET PO SCH (21:37)
[2018-04-09] MEDS: 0.9 % SODIUM CHLORIDE 10 ML SYRINGE IV SCH ×2 (05:45→14:16)
[2018-04-09] MEDS: INSULIN LISPRO 1 UNIT/0.01 ML UNIT SQ SCH ×2 (06:43→11:21)
[2018-04-09] MEDS: ONDANSETRON 4 MG/2 ML VIAL IV PRN (07:24)
[2018-04-09] MEDS: sitaGLIPtin 100 MG TABLET PO SCH (09:09)
[2018-04-09] MEDS: LINEZOLID 600 MG TABLET PO SCH (09:09)
[2018-04-09] MEDS: metFORMIN 500 MG TAB.XL.24H PO SCH (09:09)
[2018-04-09] MEDS: HEPARIN 5,000 UNIT/ML VIAL SQ SCH (09:09)
[2018-04-09] MEDS: INSULIN GLARGINE, HUMAN 1 UNIT/0.01 ML SQ SCH (09:09)
[2018-04-09] MEDS: LISINOPRIL 20 MG TABLET PO SCH (09:10)
[2018-04-09] MEDS: DOCUSATE SODIUM 100 MG CAPSULE PO SCH (09:10)
[2018-04-09] MEDS: METOPROLOL TARTRATE 50 MG TABLET PO SCH (09:10)
[2018-04-09] MEDS: COLLAGENASE TOP OINT TUBE 30GM TOPICAL SCH (09:11)
[2018-04-09] MEDS: MULTIVIT,THER IRON,CA,FA & MIN 1 TABLET PO SCH (09:11)
== END 2018-04-09 15:50 | disposition home or self-care (01) | DRG 872 ==
LOC: ED 14:08 → MEDSUR 17:41
PROVIDERS: ADMIT Internal Medicine; ATTEND Internal Medicine

== ENCOUNTER 2020-07-08 01:12 | Inpatient (IN) ==
[2020-07-08] MEDS ORDERED: 0.9 % SODIUM CHLORIDE 1,000 ML IV ONE ×2 (01:20→02:39)
[2020-07-08] MEDS ORDERED: INSULIN REGULAR, HUMAN 1 UNIT/0.01 ML UNIT IV ONE ×2 (01:20→03:07)
--- NOTE | 2020-07-08 01:26 | Emergency Department Note ---
HPI General Chief complaint: Blood Sugar Problem Stated complaint: blood sugar high Time Seen by Provider: 07/08/20 01:15 Source: patient Mode of arrival: ambulatory Limitations: no limitations History of Present Illness HPI Narrative: 45-year-old male presents chief complaint of high blood sugars. Sugar was over 580 at home. Patient has longstanding insulin dependent diabetes. Sounds like he has been noncompliant with his medications recently but he did take insulin tonight. Denies any fevers chills chest pain or shortness of breath. No vomiting no diarrhea. He had wound care and and had scraping of a chronic nonhealing diabetic foot ulcer on his right foot. He is not on antibiotics. Denies any prednisone or other steroids at this time. Related Data Home Medications Medication Instructions Recorded Confirmed albuterol sulfate 90 mcg/actuation 2 inh INHALATION QID 04/27/18 05/14/20 breath activated powder inhaler Needle, Pen 31G, 8MM NOT APPLICABLE 01/10/20 01/29/20 acetaminophen 500 mg tablet 1,000 mg PO TID PRN tab 01/10/20 05/14/20 blood glucose control high and low #1 each 01/10/20 01/29/20 solution blood sugar diagnostic #10 each 01/10/20 01/29/20 blood-glucose meter #1 each 01/10/20 01/29/20 ipratropium 0.5 mg-albuterol 3 mg 3 ml INHALATION QID PRN 01/10/20 05/14/20 (2.5 mg base)/3 mL nebulization soln insulin aspart U-100 100 unit/mL 22 unit SUBCUT TID ml 01/29/20 01/29/20 (3 mL) subcutaneous pen insulin glargine 100 unit/mL 60 unit SUB-Q DAILY ml 01/29/20 05/14/20 subcutaneous solution Allergies Allergy/AdvReac Type Severity Reaction Status Date / Time lactose Allergy Mild Nausea, Verified 07/08/20 01:13 diarrhea lisinopril AdvReac Intermediate Cough Verified 07/08/20 01:13 budesonide [From Symbicort] AdvReac Mild burning Verified 07/08/20 01:13 cephalexin [From Keflex] AdvReac Mild tendon pain Verified 07/08/20 01:13 ciprofloxacin [From Cipro] AdvReac Mild Cramping Verified 07/08/20 01:13 of the Muscles Formoterol [From Symbicort] AdvReac Mild chest Verified 07/08/20 01:13 burning vinyl Allergy Unknown Unknown Uncoded 01/29/20 09:57 Review of Systems ROS ROS Narrative: Narrative: All systems ED: reviewed and negative except as stated. Constitutional: Denies fever, chills and sweats Eyes: Denies vision change Cardiovascular: Denies chest pain Respiratory: Denies shortness of breath and cough Gastrointestinal: Reports abdominal pain (Chronic abdominal pain unchanged has had upper and lower endoscopy ); Denies vomiting and diarrhea Genitourinary: Denies dysuria, frequency, urgency and hematuria Musculoskeletal: Denies back pain and joint pain Integumentary: Reports other (Foot infection) Neurological: Denies headache and dizziness Psychiatric: Denies anxiety, suicidal thoughts and homicidal thoughts Endocrine: Reports as per HPI (High blood sugar) Hematological/Lymphatic: Denies easy bleeding and easy bruising PFSH Narrative Patient History Narrative: Narrative: Medical/Surgical/Family History All Active Problems (Updated 07/08/20 @ 05:25 by Sloan Espinal MD) Leukocytosis (Acute) Diabetic infection of right foot (Acute) Severe sepsis (Acute) Diabetes mellitus type II, uncontrolled (Acute) Epidermoid cyst of skin (Acute) Pilar cyst (Acute) SOB (shortness of breath) (Chronic) Fatigue (Chronic) Vitamin D deficiency, unspecified (Chronic) Type 2 diabetes mellitus without complications (Chronic) Type 2 diabetes mellitus with other skin ulcer (Chronic) Type 2 diabetes mellitus with hyperglycemia (Chronic) Tachycardia, unspecified (Chronic) Personal history of diabetic foot ulcer (Chronic) Panic disorder [episodic paroxysmal anxiety] (Chronic) Pain in left shoulder (Chronic) Pain in left leg (Chronic) Major depressive disorder, single episode, moderate (Chronic) Major depressive disorder, recurrent, mild (Chronic) Low vision, both eyes (Chronic) Localized swelling, mass and lump, left upper limb (Chronic) Insomnia, unspecified (Chronic) History of colonoscopy (Chronic) Hyperlipidemia, unspecified (Chronic) Generalized abdominal pain (Chronic) Gastritis, unspecified, with bleeding (Chronic) Essential (primary) hypertension (Chronic) Corns and callosities (Chronic) Constipation, unspecified (Chronic) Cellulitis, unspecified (Chronic) Blepharophimosis unspecified eye, 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) Adjustment disorder with mixed anxiety and depressed mood (Chronic) Acute myocardial infarction, unspecified (Chronic) Acute bronchitis, unspecified (Chronic) Benign lipomatous neoplasm (Chronic) Abdominal pain (Chronic) Orthostatic hypotension (Chronic) Gastroenteritis (Chronic) Hyperglycemia due to type 2 diabetes mellitus (Chronic) Unstable angina pectoris (Chronic) Costalchondritis (Chronic) Chronic renal disease (Chronic) Chest pain (Chronic) Constipation (Chronic) Acute URI (Chronic) Abscess (Chronic) Viral syndrome (Chronic) Obesity (BMI 30.0-34.9) (Chronic) CABRERA (obstructive sleep apnea) (Chronic) Anemia in chronic illness (Chronic) Diabetes (Chronic) Restrictive lung disease (Chronic) Sleep disturbance, unspecified (Chronic) Cough (Chronic) Adjustment disorder with depressed mood (Chronic) Benign essential hypertension (Chronic) Impairment level of vision (Chronic) Hyperlipidemia (Chronic) Mild recurrent major depression (Chronic) Swelling of left upper extremity (Chronic) Tachycardia (Chronic) Vitamin D deficiency (Chronic) Foot ulcer, left (Chronic) Diabetic foot ulcer (Chronic) Hyperglycemia due to type 1 diabetes mellitus (Chronic) Neurotrophic ulcer of foot (Chronic) Panic disorder (Chronic) Insomnia (Chronic) Medical History (Updated 07/08/20 @ 05:25 by Sloan Espinal MD) Abdominal pain Abscess Acute bronchitis, unspecified Acute myocardial infarction, unspecified Acute URI Adjustment disorder with mixed anxiety and depressed mood Anemia in chronic illness Ankle instability Atherosclerotic heart disease of [place] coronary artery with unspecified angina pectoris Benign essential hypertension Benign lipomatous neoplasm Blepharophimosis unspecified eye, unspecified lid Bronchitis Cellulitis, unspecified Chest pain Chronic renal disease Constipation, unspecified Corns and callosities Costalchondritis Cough Dental abscess Dental infection Diabetes Diabetic foot ulcer associated with type 2 diabetes mellitus, with fat layer exposed Essential (primary) hypertension Eye infection Fatigue Gastritis, unspecified, with bleeding Generalized abdominal pain Headache Hyperlipidemia, unspecified Impairment level of vision Influenza A Insomnia, unspecified Left leg pain upper leg and thigh area Left-sided chest pain Localized swelling, mass and lump, left upper limb Low vision, both eyes Lower extremity edema Major depressive disorder, recurrent, mild Major depressive disorder, single episode, moderate Neurotrophic ulcer of foot Healed DFU LEFT plantar in past. Now recurred with DTI and cellulitis Non-cardiac chest pain Obesity (BMI 30.0-34.9) Orthostatic hypotension CABRERA (obstructive sleep apnea) Pain in left leg Pain in left shoulder Panic disorder [episodic paroxysmal anxiety] Personal history of diabetic foot ulcer Restrictive lung disease Right-sided chest pain Sleep disturbance, unspecified SOB (shortness of breath) Swelling of left upper extremity Tachycardia, unspecified Type 2 diabetes mellitus with hyperglycemia Type 2 diabetes mellitus with other skin ulcer Type 2 diabetes mellitus without complications Unstable angina pectoris Viral syndrome Vitamin D deficiency, unspecified Surgical History History of appendectomy History of cholecystectomy History of colonoscopy Family History Other Adopted No pertinent family history Social History Smoking Status: Never smoker Alcohol Intake Frequency: does not drink Exam Narrative Narrative: Constitutional: Awake alert no acute distress well-nourished well- developed HEENT: Normocephalic, atraumatic PERRLA, EOMI, oral mucosa moist, pharynx clear, Neck: Supple, no lymphadenopathy, no JVD Lungs: Breathing unlabored, lungs clear Cardiac: Tachycardic, regular rhythm normal distal pulses, GI: Soft nontender nondistended no guarding no rebound Musculoskeletal: Postop shoe on right foot was removed revealing a dressing which was also removed showing and ulceration on the lateral plantar surface of the right foot no discharge no redness no significant swelling or tenderness. ( Patient states this has been present for 4 years) Neuro: Awake alert, cranial nerves II through XII grossly intact, no focal motor or sensory deficits Psychiatric: Very anxious Skin: Boot on right foot, cap refill less than 2 seconds, dressing was removed showing ulceration in the right plantar lateral surface of the foot. No redness no discharge. There is some thickening around the ulceration. General Limitations: no limitations Course Consultations Consultation #1: This discussed with hospitalist, Dr. Liu who agrees to admit patient. Time: 05:53 Vital Signs Vital signs: Vital Signs Temperature 98.1 F 07/08/20 01:13 Pulse Rate 128 H 07/08/20 01:13 Respiratory Rate 27 H 07/08/20 01:13 Blood Pressure 181/119 07/08/20 01:13 Pulse Oximetry (%) 99 07/08/20 01:13 Temperature 98.1 F 07/08/20 01:13 Pulse Rate 126 H 07/08/20 05:30 Respiratory Rate 17 07/08/20 05:30 Blood Pressure 162/78 07/08/20 05:30 Pulse Oximetry (%) 95 07/08/20 05:30 MDM MDM Narrative Medical decision making narrative: 45-year-old male presents with hyperglycemia with "high" sugars at home. Patient had wound care earlier in the day scraping diabetic ulcer on his right foot. Denies any fevers chills on arrival noted to be tachycardic labs showed white blood cell count of 19,000 sugar was 504. Lactate was obtained which is normal. Based on tachycardia and leukocytosis hyperglycemia and elevated creatinine he has severe sepsis. Patient given empiric vancomycin and Zosyn cover diabetic foot infection. Patient given 2 L normal saline 10 units of insulin. Patient will be admitted for further evaluation and treatment. Case discussed with hospitalist Dr Liu who agrees to admit patient. All ED findings discussed with patient including plan to admission for which the patient is agreeable. Differential Diagnosis Differential Diagnosis: Uncontrolled diabetes, DKA, noncompliance Lab Data Lab results reviewed: Yes I reviewed the patient's lab results. Lab results narrative: ABG on room air shows pH of 7.46, PCO2 38 PO2 less than 31 bicarb 27 Result diagrams: 07/08/20 01:45 07/08/20 01:45 Labs: Lab Results 07/08/20 07/08/20 07/08/20 Range/Units 01:45 01:45 04:39 WBC 19.0 H (4.5-11.0) K/mcL RBC 4.23 L (4.50-5.90) M/mcL Hgb 12.8 L (13.5-16.5) g/dL Hct 37.2 L (41.0-55.0) % MCV 87.9 (80.0-100.0) fL MCH 30.3 (26.0-34.0) pg MCHC 34.4 (31.0-36.0) g/dL RDW 11.6 (11.5-14.5) % Plt Count 336 (140-440) K/mcL MPV 12.1 H (7.4-10.4) fL Seg Neutrophils % 71 (38-78) % Band Neutrophils % 5 (0-10) % Lymphocytes % 14 L (15-49) % Monocytes % (Manual) 10 (1-12) % Platelet Estimate Normal (Normal) RBC Morphology Normal (Normal) VBG Lactic Acid 1.8 (0.5-2.0) mmol/L Sodium 131 L (133-145) mmol/L Potassium 4.4 (3.3-5.1) mmol/L Chloride 90 L (96-108) mmol/L Carbon Dioxide 25 (22-30) mmol/L Anion Gap 16.0 (8.0-16.0) BUN 24 H (6-20) mg/dL Creatinine 1.7 H (0.7-1.2) mg/dL GFR Calculation 48 Glucose 504 H* (70-105) mg/dL Calcium 10.0 (8.6-10.4) mg/dL Total Bilirubin 0.3 (0.1-1.0) mg/dL AST 16 (<40) U/L ALT 25 (<40) U/L Alkaline Phosphatase 125 H (39-117) U/L C-Reactive Protein (0.03-0.80) mg/dL Total Protein 7.9 (5.9-8.4) gm/dL Albumin 4.3 (3.2-5.2) gm/dL Globulin 3.6 (2.2-3.7) gm/dL Albumin/Globulin Ratio 1.2 (1.0-2.3) Beta-Hydroxybutyrate 0.21 (<0.27) mmol/L // Range/Units 04:39 WBC (4.5-11.0) K/mcL RBC (4.50-5.90) M/mcL Hgb (13.5-16.5) g/dL Hct (41.0-55.0) % MCV (80.0-100.0) fL MCH (26.0-34.0) pg MCHC (31.0-36.0) g/dL RDW (11.5-14.5) % Plt Count (140-440) K/mcL MPV (7.4-10.4) fL Seg Neutrophils % (38-78) % Band Neutrophils % (0-10) % Lymphocytes % (15-49) % Monocytes % (Manual) (1-12) % Platelet Estimate (Normal) RBC Morphology (Normal) VBG Lactic Acid (0.5-2.0) mmol/L Sodium (133-145) mmol/L Potassium (3.3-5.1) mmol/L Chloride (96-108) mmol/L Carbon Dioxide (22-30) mmol/L Anion Gap (8.0-16.0) BUN (6-20) mg/dL Creatinine (0.7-1.2) mg/dL GFR Calculation Glucose (70-105) mg/dL Calcium (8.6-10.4) mg/dL Total Bilirubin (0.1-1.0) mg/dL AST (<40) U/L ALT (<40) U/L Alkaline Phosphatase (39-117) U/L C-Reactive Protein 0.60 (0.03-0.80) mg/dL Total Protein (5.9-8.4) gm/dL Albumin (3.2-5.2) gm/dL Globulin (2.2-3.7) gm/dL Albumin/Globulin Ratio (1.0-2.3) Beta-Hydroxybutyrate (<0.27) mmol/L ED POC Tests ED POC Tests: SEBASTIAN - SARS Antigen Negative Radiology Data Radiology results reviewed: Yes I reviewed the patient's radiology results. Radiology results narrative: Chest x-ray shows no acute process and abdominal x- ray shows underdistention per radiology EKG Data EKG #1: EKG attestation: Yes I reviewed and interpreted this EKG. and Yes There are no EKG findings of acute coronary syndrome EKG results narrative: EKG performed at 1:14 AM shows sinus tachycardia rate 124 normal axis, normal intervals no ectopy there is some baseline artifact patient has tremors. No acute ST changes. Discharge Plan Patient/Caregiver Discharge Instructions Pt seen by CELL REPAIRER/PA only: No Clinical Impression: Diabetes mellitus type II, uncontrolled, Leukocytosis, Diabetic infection of right foot, Severe sepsis Patient Disposition: Xfer As Inpt ([facility]) Condition: Fair Follow up with: Daisy Mcnulty ARNP [Primary Care Provider] - Prescriptions: No Action albuterol sulfate 90 mcg/actuation aerosol powdr breath activated 2 inh INHALATION QID RF: 0 (DME) blood-glucose meter [Accu-Chek Guide Glucose Meter] Misc See Rx Instructions .ROUTE .MEDSUPPLY Qty: 1 RF: 0 (DME) Accu-Chek Guide test strips Strip See Rx Instructions .ROUTE .MEDSUPPLY Qty: 10 RF: 0 (DME) Accu-Chek Guide L1-L2 Ctrl Angie Solution See Rx Instructions .ROUTE .MEDSUPPLY Qty: 1 RF: 0 acetaminophen 500 mg tablet 1,000 mg PO TID PRN (Reason: Pain) RF: 0 ipratropium-albuterol 0.5 mg-3 mg(2.5 mg base)/3 mL solution for nebulization 3 ml INHALATION QID PRN (Reason: Wheezing) RF: 0 Needle, Pen 31G, 8MM Not Applicable RF: 0 insulin glargine 100 unit/mL solution 60 unit SUB-Q DAILY RF: 0 insulin aspart U-100 100 unit/mL (3 mL) insulin pen 22 unit subcut TID RF: 0
[2020-07-08 02:36] LABS: Hematocrit 37.2 % (41.0-55.0); Hemoglobin 12.8 g/dL (13.5-16.5); Mean Cell Volume 87.9 fL (80.0-100.0); Mean Corpuscular HGB Conc 34.4 g/dL (31.0-36.0); Mean Platelet Volume 12.1 fL (7.4-10.4); Platelet Count 336 K/mcL (140-440); RBC 4.23 M/mcL (4.50-5.90); Red Cell Distribution Width 11.6 % (11.5-14.5)
[2020-07-08] MEDS ORDERED: ONDANSETRON 4 MG/2 ML VIAL ONE (02:37)
[2020-07-08] MEDS ORDERED: ONDANSETRON 4 MG/2 ML VIAL IV ONE (02:47)
[2020-07-08 02:55] LABS: Beta Hydroxybutyrate 0.21 mmol/L (<0.27)
[2020-07-08 03:01] LABS: Band Neutrophils % 5 % (0-10); Lymphocytes % 14 % (15-49); Monocytes % (Manual) 10 % (1-12); Platelet Estimate NORMAL (Normal); RBC Morphology NORMAL (Normal); Segmented Neutrophils % 71 % (38-78)
[2020-07-08 03:03] LABS: ALT/SGPT 25 U/L (<40); AST/SGOT 16 U/L (<40); Albumin 4.3 gm/dL (3.2-5.2); Albumin/Globulin Ratio 1.2 (1.0-2.3); Alkaline Phosphatase 125 U/L (39-117); Bilirubin,Total 0.3 mg/dL (0.1-1.0); Blood Urea Nitrogen 24 mg/dL (6-20); Carbon Dioxide 25 mmol/L (22-30); Chloride 90 mmol/L (96-108); Globulin 3.6 gm/dL (2.2-3.7); Glomerular Filtration Rate 48; Glucose 504 mg/dL (70-105)
--- NOTE | 2020-07-08 04:15 | XRay Report ---
CLINICAL INFORMATION: Chest pain COMPARISON: 03/16/2019 TECHNIQUE: Portable FINDINGS: The heart size, mediastinum and pulmonary vessels are unremarkable. The lungs are clear. There are no effusions. The bones and soft tissues are within normal limits. IMPRESSION: Normal chest. Interpreted and Authenticated by: Constantino Calloway 07/08/20
--- NOTE | 2020-07-08 04:16 | XRay Report ---
CLINICAL INFORMATION: vomiting COMPARISON: None. FINDINGS: The GI tract is decompressed with minimal gas within the stomach, small and large bowel. No free air, soft tissue mass or pathologic calcification. IMPRESSION: Decompressed GI tract related to prolonged poor oral intake, vomiting and/or diarrhea. Interpreted and Authenticated by: Constantino Calloway 07/08/20
[2020-07-08] MEDS ORDERED: VANCOMYCIN 1,000 MG in 0.9 % SODIUM CHLORIDE 250 ML IV ONE (05:13)
[2020-07-08] MEDS ORDERED: PIPERACILLIN SODIUM/TAZOBACTAM 3.375 GM in DEXTROSE 5% IN WATER 50 ML IV ONE (05:15)
[2020-07-08] MEDS ORDERED: DEXTROSE 31 GM ORAL.SUSP PO PRN (09:52)
[2020-07-08] MEDS ORDERED: DEXTROSE 50% 50 ML VIAL IV PRN (09:52)
[2020-07-08 10:29] LABS: Appearance,Urine CLEAR (Clear); Bacteria,Urine FEW /hpf (0); Bilirubin,Urine Negative (Negative); Color,Urine STRAW; Culture Indicated,Urine Yes; Glucose,Urine (UA) >=500 mg/dL (Negative); Ketones,Urine Negative (Negative); Leukocyte Esterase,Urine Negative /ug (Negative); Nitrate,Urine Negative (Negative); Protein,Urine 100 mg/dL (Negative); Specific Gravity,Urine 1.027 (1.000-1.035); Urine Blood 0.03 mg/dL (Negative); Urine RBC 1 /hpf (0-3); Urine Squamous Epithelial Cell 0 /hpf (0-4); Urine Transitional Epi Cells < 1 /hpf (0-2); Urine WBC < 1 /hpf (0-4); Urobilinogen,Urine Negative
[2020-07-08] MEDS: INSULIN LISPRO 1 UNIT/0.01 ML UNIT SQ SCH ×4 (10:48→19:53)
[2020-07-08] MEDS ORDERED: VANCOMYCIN PER PHARMACY IV SCH (11:07)
[2020-07-08] MEDS ORDERED: SENNOSIDES 1 TABLET PO PRN (11:07)
[2020-07-08] MEDS ORDERED: IPRATROPIUM/ALBUTEROL 3 ML AMPUL.NEB NEB PRN (11:07)
[2020-07-08] MEDS ORDERED: POTASSIUM CHLORIDE 20 MEQ TABLET PO PRN ×2 (11:07)
[2020-07-08] MEDS ORDERED: MAGNESIUM SULFATE 2 GM/50 ML BAG IV PRN (11:07)
[2020-07-08] MEDS ORDERED: POLYETHYLENE GLYCOL 3350 17 GM PACKET PO PRN (11:07)
[2020-07-08] MEDS ORDERED: POTASSIUM CHLORIDE 40 MEQ in DEXTROSE 5% IN WATER 500 ML IV PRN (11:07)
[2020-07-08] MEDS ORDERED: LACTULOSE 20 GM/30 ML ORAL.SOL PO PRN (11:07)
--- NOTE | 2020-07-08 11:07 | Internal Med History&Physical ---
HPI History of Present Illness Patient information: Note initiated : 07/08/20 at 10:56 am Service Date, if different from initiated Date: [] Patient: Constantino Harden a 45 y/o M admitted on 07/08/20 for High Blood Sugar. Chief Complaint: [] History of present illness: Mr. Harden is a 45 year old M Presents to the ED last night for elevated blood sugar her poor appetite weakness myalgias. Sugar was up in the high 500s. Is missed a few doses of his insulin yesterday and any misses them occasionally on the regular basis. He was seen by podiatry the other day and had a scraping of the foot ulcer. In the ED is found to have a white blood cell count of 19,000 with 5% bands. Headache tachycardia although the appears to be chronic. Initial hypertensive but that improved over time. Given the concern for infection patient started on antibiotics and blood cultures were taken. Lactate was 1.8. Creatinine appear to be a little bit higher than baseline. Complains of headache and of nausea but no vomiting, has chronic constipation. Review of Systems: Pertinent positives as above. Denies /fever/chills/vomiting/chest or abdominal pain/cough/dyspnea/diarrhea. Remaining 10 point review of system reviewed negative PFSH PFSH All Active Problems (Updated 07/08/20 @ 05:25 by Sloan Espinal MD) Leukocytosis (Acute) Diabetic infection of right foot (Acute) Severe sepsis (Acute) Diabetes mellitus type II, uncontrolled (Acute) Epidermoid cyst of skin (Acute) Pilar cyst (Acute) SOB (shortness of breath) (Chronic) Fatigue (Chronic) Vitamin D deficiency, unspecified (Chronic) Type 2 diabetes mellitus without complications (Chronic) Type 2 diabetes mellitus with other skin ulcer (Chronic) Type 2 diabetes mellitus with hyperglycemia (Chronic) Tachycardia, unspecified (Chronic) Personal history of diabetic foot ulcer (Chronic) Panic disorder [episodic paroxysmal anxiety] (Chronic) Pain in left shoulder (Chronic) Pain in left leg (Chronic) Major depressive disorder, single episode, moderate (Chronic) Major depressive disorder, recurrent, mild (Chronic) Low vision, both eyes (Chronic) Localized swelling, mass and lump, left upper limb (Chronic) Insomnia, unspecified (Chronic) History of colonoscopy (Chronic) Hyperlipidemia, unspecified (Chronic) Generalized abdominal pain (Chronic) Gastritis, unspecified, with bleeding (Chronic) Essential (primary) hypertension (Chronic) Corns and callosities (Chronic) Constipation, unspecified (Chronic) Cellulitis, unspecified (Chronic) Blepharophimosis unspecified eye, 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) Adjustment disorder with mixed anxiety and depressed mood (Chronic) Acute myocardial infarction, unspecified (Chronic) Acute bronchitis, unspecified (Chronic) Benign lipomatous neoplasm (Chronic) Abdominal pain (Chronic) Orthostatic hypotension (Chronic) Gastroenteritis (Chronic) Hyperglycemia due to type 2 diabetes mellitus (Chronic) Unstable angina pectoris (Chronic) Costalchondritis (Chronic) Chronic renal disease (Chronic) Chest pain (Chronic) Constipation (Chronic) Acute URI (Chronic) Abscess (Chronic) Viral syndrome (Chronic) Obesity (BMI 30.0-34.9) (Chronic) CABRERA (obstructive sleep apnea) (Chronic) Anemia in chronic illness (Chronic) Diabetes (Chronic) Restrictive lung disease (Chronic) Sleep disturbance, unspecified (Chronic) Cough (Chronic) Adjustment disorder with depressed mood (Chronic) Benign essential hypertension (Chronic) Impairment level of vision (Chronic) Hyperlipidemia (Chronic) Mild recurrent major depression (Chronic) Swelling of left upper extremity (Chronic) Tachycardia (Chronic) Vitamin D deficiency (Chronic) Foot ulcer, left (Chronic) Diabetic foot ulcer (Chronic) Hyperglycemia due to type 1 diabetes mellitus (Chronic) Neurotrophic ulcer of foot (Chronic) Panic disorder (Chronic) Insomnia (Chronic) Medical History (Updated 07/08/20 @ 05:25 by lSoan Espinal MD) Abdominal pain Abscess Acute bronchitis, unspecified Acute myocardial infarction, unspecified Acute URI Adjustment disorder with mixed anxiety and depressed mood Anemia in chronic illness Ankle instability Atherosclerotic heart disease of [place] coronary artery with unspecified angina pectoris Benign essential hypertension Benign lipomatous neoplasm Blepharophimosis unspecified eye, unspecified lid Bronchitis Cellulitis, unspecified Chest pain Chronic renal disease Constipation, unspecified Corns and callosities Costalchondritis Cough Dental abscess Dental infection Diabetes Diabetic foot ulcer associated with type 2 diabetes mellitus, with fat layer exposed Essential (primary) hypertension Eye infection Fatigue Gastritis, unspecified, with bleeding Generalized abdominal pain Headache Hyperlipidemia, unspecified Impairment level of vision Influenza A Insomnia, unspecified Left leg pain upper leg and thigh area Left-sided chest pain Localized swelling, mass and lump, left upper limb Low vision, both eyes Lower extremity edema Major depressive disorder, recurrent, mild Major depressive disorder, single episode, moderate Neurotrophic ulcer of foot Healed DFU LEFT plantar in past. Now recurred with DTI and cellulitis Non-cardiac chest pain Obesity (BMI 30.0-34.9) Orthostatic hypotension CABRERA (obstructive sleep apnea) Pain in left leg Pain in left shoulder Panic disorder [episodic paroxysmal anxiety] Personal history of diabetic foot ulcer Restrictive lung disease Right-sided chest pain Sleep disturbance, unspecified SOB (shortness of breath) Swelling of left upper extremity Tachycardia, unspecified Type 2 diabetes mellitus with hyperglycemia Type 2 diabetes mellitus with other skin ulcer Type 2 diabetes mellitus without complications Unstable angina pectoris Viral syndrome Vitamin D deficiency, unspecified Surgical History History of appendectomy History of cholecystectomy History of colonoscopy Family History Other Adopted No pertinent family history Social History alcohol intake frequency: does not drink MEDS/ALLERGIES Home Medications and Allergies Home Medications Medication Instructions Recorded Confirmed Type albuterol sulfate 90 mcg/actuation 2 inh INHALATION QID 04/27/18 05/14/20 History breath activated powder inhaler Needle, Pen 31G, 8MM NOT APPLICABLE 01/10/20 01/29/20 History acetaminophen 500 mg tablet 1,000 mg PO TID PRN tab 01/10/20 05/14/20 History blood glucose control high and low #1 each 01/10/20 01/29/20 History solution blood sugar diagnostic #10 each 01/10/20 01/29/20 History blood-glucose meter #1 each 01/10/20 01/29/20 History ipratropium 0.5 mg-albuterol 3 mg 3 ml INHALATION QID PRN 01/10/20 05/14/20 History (2.5 mg base)/3 mL nebulization soln insulin aspart U-100 100 unit/mL 22 unit SUBCUT TID ml 01/29/20 01/29/20 History (3 mL) subcutaneous pen insulin glargine 100 unit/mL 60 unit SUB-Q DAILY ml 01/29/20 05/14/20 History subcutaneous solution Allergies Allergy/AdvReac Type Severity Reaction Status Date / Time cephalexin [From Keflex] AdvReac Intermediate tendon pain Verified 07/08/20 11:16 budesonide [From Symbicort] AdvReac Mild burning Verified 07/08/20 01:13 ciprofloxacin [From Cipro] AdvReac Mild Cramping Verified 07/08/20 01:13 of the Muscles Formoterol [From Symbicort] AdvReac Mild chest Verified 07/08/20 01:13 burning lactose AdvReac Mild Nausea, Verified 07/08/20 11:16 diarrhea lisinopril AdvReac Mild Cough Verified 07/08/20 11:16 vinyl Allergy Unknown Unknown Uncoded 01/29/20 09:57 EXAM Constitutional Vitals: Temp Pulse Resp BP Pulse Ox 98.1 F 111 H 17 135/77 93 07/08/20 01:13 07/08/20 09:00 07/08/20 09:36 07/08/20 09:30 07/08/20 09:00 Exam: General: Alert, Awake, No acute Distress, obese Eyes/N/T: EOMI, PERRL, dry MM Head/Neck: neck supple, normocephalic atraumatic CV: RRR, No murmurs, normal s1/s2 Pulm: Clear b/l, no wheezing/rhonchi/rales Abd: soft, nontender, +BS x4 Ext: no clubbing/cyanosis/edema. right lateral plantar wound in dressings Neuro: Alert, no focal deficits, moves all extremities, CN 2-12 grossly intact, symmetrical strength b/l upper/lower Skin: warm/dry DATA Data Completed and Pending Labs: Labs from last 24 hours 07/08/20 07/08/20 07/08/20 09:38 04:39 04:39 WBC RBC Hgb Hct MCV MCH MCHC RDW Plt Count MPV Seg Neutrophils % Band Neutrophils % Lymphocytes % Monocytes % (Manual) Platelet Estimate RBC Morphology VBG Lactic Acid 1.8 Sodium Potassium Chloride Carbon Dioxide Anion Gap BUN Creatinine GFR Calculation Glucose Calcium Total Bilirubin AST ALT Alkaline Phosphatase C-Reactive Protein 0.60 Total Protein Albumin Globulin Albumin/Globulin Ratio Beta-Hydroxybutyrate Urine Color Straw Urine Appearance Clear Urine pH 5.0 Ur Specific [place] 1.027 Urine Protein 100 A Urine Glucose (UA) >=500 A Urine Ketones Negative Urine Occult Blood 0.03 Urine Nitrate Negative Urine Bilirubin Negative Urine Urobilinogen Negative Ur Leukocyte Esterase Negative Urine RBC 1 Urine WBC < 1 Ur Squamous Epith Cells 0 Ur Transition Epith Cell < 1 Urine Bacteria Few A Ur Culture Indicated? Yes 07/08/20 07/08/20 01:45 01:45 WBC 19.0 H RBC 4.23 L Hgb 12.8 L Hct 37.2 L MCV 87.9 MCH 30.3 MCHC 34.4 RDW 11.6 Plt Count 336 MPV 12.1 H Seg Neutrophils % 71 Band Neutrophils % 5 Lymphocytes % 14 L Monocytes % (Manual) 10 Platelet Estimate Normal RBC Morphology Normal VBG Lactic Acid Sodium 131 L Potassium 4.4 Chloride 90 L Carbon Dioxide 25 Anion Gap 16.0 BUN 24 H Creatinine 1.7 H GFR Calculation 48 Glucose 504 H* Calcium 10.0 Total Bilirubin 0.3 AST 16 ALT 25 Alkaline Phosphatase 125 H C-Reactive Protein Total Protein 7.9 Albumin 4.3 Globulin 3.6 Albumin/Globulin Ratio 1.2 Beta-Hydroxybutyrate 0.21 Urine Color Urine Appearance Urine pH Ur Specific [place] Urine Protein Urine Glucose (UA) Urine Ketones Urine Occult Blood Urine Nitrate Urine Bilirubin Urine Urobilinogen Ur Leukocyte Esterase Urine RBC Urine WBC Ur Squamous Epith Cells Ur Transition Epith Cell Urine Bacteria Ur Culture Indicated? A/P Narrative A/P Narrative: A: *DM w/Hyperglycemia: Due to medication noncompliance -Mentation intact *Right foot Possible wound infection vs Osteo -leukocytosis without bandemia *ZAID on CKD III: *Obesity: *Restrictive lung disease: *Chronic tachycardia: pt on BB *HTN: pt on BB/ARB * P: -vanc/rocephin, mrsa screen -pending BC -MRI right foot -wound care -check a1c, esr -IVF, f/u renal fxn -SSI, accucheck q4h, home basal insulin -pt/ot -ppx: heparin Time Spent With Patient Time: Total time spent is greater than 50% in coordination of care (as documented) at patient's floor/unit and/or counseling patient:
[2020-07-08] MEDS ORDERED: LABETALOL 5 MG/ML ML IV PRN (11:14)
[2020-07-08] MEDS ORDERED: VANCOMYCIN 500 MG in 0.9 % SODIUM CHLORIDE 100 ML IV ONE (11:30)
[2020-07-08] MEDS: ONDANSETRON 4 MG/2 ML VIAL IV PRN ×2 (12:38→18:08)
[2020-07-08] MEDS: 0.9 % SODIUM CHLORIDE 1,000 ML IV SCH (12:39)
[2020-07-08] MEDS: METOPROLOL TARTRATE 50 MG TABLET PO SCH ×2 (12:39→21:18)
[2020-07-08] MEDS: cefTRIAXone 2 GM in DEXTROSE 5% IN WATER 50 ML IV SCH (13:56)
[2020-07-08] MEDS: 0.9 % SODIUM CHLORIDE 10 ML SYRINGE IV SCH ×2 (15:23→22:01)
[2020-07-08 15:44] LABS: Hemoglobin A1C 13.4 % Hgb (4.0-6.0)
--- NOTE | 2020-07-08 17:19 | Magnetic Resonance Report ---
CLINICAL INFORMATION: Directed plantar ulcer over the fifth MTP joints COMPARISON: None. TECHNIQUE: Axial T1-T2 proton-density, coronal proton density and sagittal proton-density and T1-weighted images were obtained of the right foot. FINDINGS: Increased signal in the region of the plantar cutaneous ulceration over the fifth metatarsal head appreciated. It extends to the fifth MTP joint. A small amount of fluid in the joint may represent septic arthritis. There is mild deformity of the fifth metatarsal head however the intramedullary signal is normal. This may be stigmata of remote osteomyelitis or trauma-no evidence of active osteomyelitis. The marrow signal throughout the remainder of the foot and ankle is normal. Joint spaces are normal in width and alignment without arthritic change. Tendons and sheaths are unremarkable. There is mildly increased signal in the subcutaneous fat throughout the forefoot and midfoot and also the plantar muscle and fascial planes. IMPRESSION: 1. Plantar cutaneous ulcer over the fifth metatarsal head. It extends to the fifth MTP joint. Increased signal within the joint may could indicate septic arthritis. There is mild deformity of the fifth metatarsal head, but no abnormal intramedullary signal. Suspect the deformity may reflect remote trauma or prior osteomyelitis which has now resolved. 2. Mild diffuse cellulitis throughout the forefoot and midfoot. Mild myositis and fasciitis in the deep plantar region. Interpreted and Authenticated by: Constantino Calloway 07/08/20
[2020-07-08] MEDS: ACETAMINOPHEN 325 MG TABLET PO PRN (18:08)
[2020-07-08] MEDS: DOCUSATE SODIUM 100 MG CAPSULE PO SCH (21:18)
[2020-07-08] MEDS: HEPARIN 5,000 UNIT/ML VIAL SQ SCH (21:18)
[2020-07-08] MEDS: VANCOMYCIN 1,500 MG in 0.9 % SODIUM CHLORIDE 500 ML IV SCH (21:19)
[2020-07-09] MEDS: INSULIN LISPRO 1 UNIT/0.01 ML UNIT SQ SCH ×6 (00:05→19:52)
[2020-07-09] MEDS: ACETAMINOPHEN 325 MG TABLET PO PRN ×2 (01:46→15:45)
[2020-07-09] MEDS: 0.9 % SODIUM CHLORIDE 1,000 ML IV SCH (04:40)
[2020-07-09] MEDS: ONDANSETRON 4 MG/2 ML VIAL IV PRN (06:02)
[2020-07-09] MEDS: 0.9 % SODIUM CHLORIDE 10 ML SYRINGE IV SCH ×3 (06:04→22:03)
[2020-07-09] MEDS: cefTRIAXone 2 GM in DEXTROSE 5% IN WATER 50 ML IV SCH (07:29)
[2020-07-09] MEDS ORDERED: METOPROLOL TARTRATE 5 MG/5 ML VIAL IV PRN (07:37)
[2020-07-09] MEDS ORDERED: morphine 2 MG/ML VIAL IV PRN (07:37)
[2020-07-09] MEDS ORDERED: IPRATROPIUM/ALBUTEROL 3 ML AMPUL.NEB NEB PRN (07:38)
[2020-07-09] MEDS ORDERED: ACETAMINOPHEN 500 MG TABLET PO PRN (07:38)
[2020-07-09 07:45] LABS: Hematocrit 30.7 % (41.0-55.0); Hemoglobin 10.2 g/dL (13.5-16.5); Mean Cell Volume 91.4 fL (80.0-100.0); Mean Corpuscular HGB Conc 33.2 g/dL (31.0-36.0); Mean Platelet Volume 12.6 fL (7.4-10.4); Platelet Count 233 K/mcL (140-440); RBC 3.36 M/mcL (4.50-5.90); Red Cell Distribution Width 11.9 % (11.5-14.5); WBC 14.8 K/mcL (4.5-11.0)
[2020-07-09] MEDS ORDERED: ALBUTEROL SULFATE 200 PUFF INHALER INH PRN (07:58)
--- NOTE | 2020-07-09 08:10 | Internal Med Progress Note ---
SUBJECTIVE Subjective Patient information: Note initiated : 07/09/20 at 8:07 am Service Date, if different from initiated Date: [] Patient: Constantino Harden a 45 y/o M admitted on 07/08/20 for High Blood Sugar. Chief Complaint: [] Interval history: History of present illness: Mr. Harden is a 45 year old M Presents to the ED last night for elevated blood sugar her poor appetite weakness myalgias. Sugar was up in the high 500s. Is missed a few doses of his insulin yesterday and any misses them occasionally on the regular basis. He was seen by podiatry the other day and had a scraping of the foot ulcer. In the ED is found to have a white blood cell count of 19,000 with 5% bands. Headache tachycardia although the appears to be chronic. Initial hypertensive but that improved over time. Given the concern for infection patient started on antibiotics and blood cultures were taken. Lactate was 1.8. Creatinine appear to be a little bit higher than baseline. Complains of headache and of nausea but no vomiting, has chronic constipation. 07/09 Has headache and some nausea. But otherwise feeling okay. Dr. Farmer consulted evaluate the wound. Review of Systems: denies fever/chills//vomiting/chest or abdominal pain/cough/dyspnea/diarrhea. Otherwise see above. Constitutional Vitals: Vital Signs Temp Pulse Resp BP Pulse Ox 98.1 F 93 H 16 102/46 94 07/09/20 03:55 07/09/20 03:55 07/09/20 06:50 07/09/20 03:55 07/09/20 03:55 Period Temp Pulse Resp BP Sys/Proctor Pulse Ox Last 24 Hr 98.1 F-99.2 F 93-113 5-26 102-164/46-84 90-96 Intake and Output 07/08/20 07/09/20 07/09/20 21:59 05:59 13:59 Intake Total 150 1979 Balance 150 1979 Weight 107.048 kg Intake & Output: Intake & Output 07/08/20 07/09/20 07/09/20 21:59 05:59 13:59 Intake Total 150 1979 Balance 150 1979 Weight 107.048 kg Intake: IV 150 1500 Sodium Chloride 0.9% 1,000 ml @ 1000 100 mls/hr IV .Q10H [facility] Rx#: [id number] Vancomycin 500 mg In Sodium 100 Chloride 0.9% 100 ml @ 100 mls/ hr IV ONCE ONE Rx#:[id number] Vancomycin 1,500 mg In Sodium 500 Chloride 0.9% 500 ml @ 333.3 mls/hr IV Q12H [facility] Rx#: [id number] Rocephin 2 gm In Dextrose 5% in 50 Water 50 ml @ 100 mls/hr IV Q24H [facility] Rx#:[id number] Oral 480 Other: Stool Consistency Loose # Voids 1 # Bowel Movements 2 Exam: General: Alert, Awake, No acute Distress, obese Eyes/N/T: EOMI, Head/Neck: neck supple, CV: RRR, No murmurs, Pulm: Clear b/l, no wheezing/rhonchi/rales Abd: soft, nontender, +BS x4 Ext: no clubbing/cyanosis/edema. right lateral plantar wound in dressings Neuro: Alert, no focal deficits, moves all extremities, Skin: warm/dry OBJ DATA Labs CBC & Chem 7: 07/09/20 05:09 07/09/20 05:09 Labs: Abnormal Lab Results 07/09/20 07/08/20 07/08/20 05:09 09:38 04:39 WBC 14.8 H RBC 3.36 L Hgb 10.2 L Hct 30.7 L MPV 12.6 H Lymphocytes % ESR Sodium Chloride BUN Creatinine Glucose Hemoglobin A1c Alkaline Phosphatase Procalcitonin 0.14 H Urine Protein 100 A Urine Glucose (UA) >=500 A Urine Bacteria Few A 07/08/20 07/08/20 07/08/20 04:39 01:45 01:45 WBC 19.0 H RBC 4.23 L Hgb 12.8 L Hct 37.2 L MPV 12.1 H Lymphocytes % 14 L ESR 55 H Sodium Chloride BUN Creatinine Glucose Hemoglobin A1c 13.4 H Alkaline Phosphatase Procalcitonin Urine Protein Urine Glucose (UA) Urine Bacteria 07/08/20 01:45 WBC RBC Hgb Hct MPV Lymphocytes % ESR Sodium 131 L Chloride 90 L BUN 24 H Creatinine 1.7 H Glucose 504 H* Hemoglobin A1c Alkaline Phosphatase 125 H Procalcitonin Urine Protein Urine Glucose (UA) Urine Bacteria Meds: Medications Acetaminophen (Acetaminophen 325 Mg Tablet) 650 mg PO Q6HP PRN PRN Reason: PAIN/FEVER > 101 Last Admin: 07/09/20 01:46 Dose: 650 mg Documented by: Acetaminophen (Acetaminophen 500 Mg Tablet) 1,000 mg PO TIDP PRN; Protocol PRN Reason: Pain Albuterol Sulfate (Albuterol Sulfate 200 Puff Inhaler) 2 puff INH QIDP PRN PRN Reason: Shortness Of Breath Albuterol/Ipratropium (Ipratropium/Albuterol 3 Ml Ampul.Neb) 3 ml NEB Q4HP PRN PRN Reason: Shortness Of Breath Albuterol/Ipratropium (Ipratropium/Albuterol 3 Ml Ampul.Neb) 3 ml NEB QIDP PRN PRN Reason: Wheezing Dextrose (Dextrose 50% 50 Ml Vial) 0 ml IV UD PRN PRN Reason: Hypoglycemia Diagnostic Test (Pha) (Accu-Chek 1 Each Strip) 1 each FS Q4 [facility] Last Admin: 07/09/20 07:29 Dose: 1 each Documented by: Docusate Sodium (Docusate Sodium 100 Mg Capsule) 100 mg PO BID [facility] Last Admin: 07/08/20 21:18 Dose: 100 mg Documented by: Glucose (Dextrose 31 Gm Oral.Susp) 15 gm PO PRN PRN PRN Reason: Hypoglycemia Heparin Sodium (Porcine) (Heparin 5,000 Unit/Ml Vial) 5,000 unit SQ Q12 [facility] Last Admin: 07/08/20 21:18 Dose: 5,000 unit Documented by: Potassium Chloride 40 meq/ (Dextrose) 520 mls @ 130 mls/hr IV UD PRN PRN Reason: Potassium < 3 Magnesium Sulfate (Magnesium Sulfate) 2 gm in 50 mls @ 50 mls/hr IV UD PRN PRN Reason: Magnesium </= 1.6 Ceftriaxone Sodium 2 gm/ (Dextrose) 50 mls @ 100 mls/hr IV Q24H [facility]; Protocol Last Admin: 07/09/20 07:29 Dose: 100 mls/hr Documented by: Vancomycin HCl 1,500 mg/ (Sodium Chloride) 500 mls @ 333.3 mls/hr IV Q12H [facility] Last Infusion: 07/08/20 23:00 Dose: Infused Documented by: Insulin Glargine (Insulin Glargine, Human 1 Unit/0.01 Ml) 60 unit SQ DAILY [facility] Insulin Human Lispro (Insulin Lispro 1 Unit/0.01 Ml Unit) 0 unit SQ Q4 [facility]; Protocol Last Admin: 07/09/20 07:35 Dose: 6 units Documented by: Labetalol HCl (Labetalol 5 Mg/Ml Ml) 0 mg IV Q2HP PRN PRN Reason: Hypertension Lactulose (Lactulose 20 Gm/30 Ml Oral.Angie) 20 gm PO DAILYP PRN PRN Reason: Constipation Metoprolol Tartrate (Metoprolol Tartrate 50 Mg Tablet) 50 mg PO BID [facility] Last Admin: 07/08/20 21:18 Dose: 50 mg Documented by: Non-Formulary Medication (Insulin Aspart U-100) 22 unit SUB-Q TID [facility] Ondansetron HCl (Ondansetron 4 Mg/2 Ml Vial) 4 mg IV Q4HP PRN PRN Reason: Nausea And Vomiting Last Admin: 07/09/20 06:02 Dose: 4 mg Documented by: Polyethylene Glycol (Polyethylene Glycol 3350 17 Gm Packet) 17 gm PO DAILYP PRN PRN Reason: Constipation Potassium Chloride (Potassium Chloride 20 Meq Tablet) 40 meq PO UD PRN PRN Reason: Potssium is 3-3.5 Potassium Chloride (Potassium Chloride 20 Meq Tablet) 40 meq PO UD PRN PRN Reason: Potassium < 3 Senna (Sennosides 1 Tablet) 2 tab PO DAILYP PRN PRN Reason: Constipation Sodium Chloride (0.9 % Sodium Chloride 10 Ml Syringe) 10 ml IV Q8 [facility] Last Admin: 07/09/20 06:04 Dose: Not Given Documented by: Vancomycin HCl (Vancomycin Per Pharmacy) 1 order IV UD [facility]; Protocol A/P Narrative A/P Narrative: A: *DM w/Hyperglycemia: Due to medication noncompliance -A1c 13.4 *Right foot DM wound infection: -MRI with ?MTP septic joint, also with mild myositis/fasciitis -leukocytosis improving *ZAID on CKD III: improved *Obesity: *Restrictive lung disease: *Chronic tachycardia: pt on BB *HTN: pt on BB/ARB * P: -Podiatry consult -vanc/rocephin, mrsa screen -pending BC -wound care -SSI, accucheck q4h, home basal insulin titrate as needed -pt/ot -ppx: heparin Time Spent With Patient Time: Total time spent is greater than 50% in coordination of care (as documented) at patient's floor/unit and/or counseling patient: QUALITY VTE Deep Vein Thrombosis/Pulmonary Embolism Present on Admission: No
[2020-07-09] MEDS: INSULIN GLARGINE, HUMAN 1 UNIT/0.01 ML SQ SCH (08:13)
[2020-07-09] MEDS: HEPARIN 5,000 UNIT/ML VIAL SQ SCH ×2 (08:13→20:22)
[2020-07-09] MEDS: DOCUSATE SODIUM 100 MG CAPSULE PO SCH ×2 (08:14→20:32)
[2020-07-09] MEDS: METOPROLOL TARTRATE 50 MG TABLET PO SCH ×2 (08:14→20:22)
[2020-07-09 08:25] LABS: ALT/SGPT 50 U/L (<40); AST/SGOT 70 U/L (<40); Alkaline Phosphatase 110 U/L (39-117); Bilirubin,Direct < 0.2 mg/dL (0-0.3); Bilirubin,Total 0.3 mg/dL (0.1-1.0); Blood Urea Nitrogen 19 mg/dL (6-20); Calcium 8.6 mg/dL (8.6-10.4); Carbon Dioxide 26 mmol/L (22-30); Chloride 103 mmol/L (96-108); Glomerular Filtration Rate 60; Glucose 147 mg/dL (70-105); Lactate Dehydrogenase 235 U/L (135-225); Phosphorous 2.3 mg/dL (2.5-4.5); Triglycerides 517 mg/dL (<150); Uric Acid 5.5 mg/dL (2.5-8.0)
--- NOTE | 2020-07-09 08:36 | Orthopedic Consult Note ---
HPI Data of Consult Primary Care Provider: Daisy Mcnulty Consult Narrative Patient Information: Note initiated : 07/09/20 at 8:18 am Service Date, if different from initiated Date: [] Patient: Constantino Harden 45 y/o M admitted on 07/08/20 for High Blood Sugar. Chief Complaint: [high blood sugar] Constantino is a 45-year-old male who has a history of diabetes ulceration of the right fifth metatarsal. He was admitted recently for high blood sugar related symptoms. During his physical exam is noted he has an ulceration on the right fifth metatarsal head following a high white cell count concern. The afternoon of the day of admission to the hospital patient underwent a minor bone shaving procedure on the right fifth metatarsal head to reduce the bone prominence and history of ulceration of the area. He has not had any direct issues with this area. He denies fever chills nausea vomiting shortness of breath or pain from the left or right foot. cc:: CC: Donte Liu [facility] All Active Problems (Updated 07/08/20 @ 05:25 by Sloan Espinal MD) Leukocytosis (Acute) Diabetic infection of right foot (Acute) Severe sepsis (Acute) Diabetes mellitus type II, uncontrolled (Acute) Epidermoid cyst of skin (Acute) Pilar cyst (Acute) SOB (shortness of breath) (Chronic) Fatigue (Chronic) Vitamin D deficiency, unspecified (Chronic) Type 2 diabetes mellitus without complications (Chronic) Type 2 diabetes mellitus with other skin ulcer (Chronic) Type 2 diabetes mellitus with hyperglycemia (Chronic) Tachycardia, unspecified (Chronic) Personal history of diabetic foot ulcer (Chronic) Panic disorder [episodic paroxysmal anxiety] (Chronic) Pain in left shoulder (Chronic) Pain in left leg (Chronic) Major depressive disorder, single episode, moderate (Chronic) Major depressive disorder, recurrent, mild (Chronic) Low vision, both eyes (Chronic) Localized swelling, mass and lump, left upper limb (Chronic) Insomnia, unspecified (Chronic) History of colonoscopy (Chronic) Hyperlipidemia, unspecified (Chronic) Generalized abdominal pain (Chronic) Gastritis, unspecified, with bleeding (Chronic) Essential (primary) hypertension (Chronic) Corns and callosities (Chronic) Constipation, unspecified (Chronic) Cellulitis, unspecified (Chronic) Blepharophimosis unspecified eye, 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) Adjustment disorder with mixed anxiety and depressed mood (Chronic) Acute myocardial infarction, unspecified (Chronic) Acute bronchitis, unspecified (Chronic) Benign lipomatous neoplasm (Chronic) Abdominal pain (Chronic) Orthostatic hypotension (Chronic) Gastroenteritis (Chronic) Hyperglycemia due to type 2 diabetes mellitus (Chronic) Unstable angina pectoris (Chronic) Costalchondritis (Chronic) Chronic renal disease (Chronic) Chest pain (Chronic) Constipation (Chronic) Acute URI (Chronic) Abscess (Chronic) Viral syndrome (Chronic) Obesity (BMI 30.0-34.9) (Chronic) CABRERA (obstructive sleep apnea) (Chronic) Anemia in chronic illness (Chronic) Diabetes (Chronic) Restrictive lung disease (Chronic) Sleep disturbance, unspecified (Chronic) Cough (Chronic) Adjustment disorder with depressed mood (Chronic) Benign essential hypertension (Chronic) Impairment level of vision (Chronic) Hyperlipidemia (Chronic) Mild recurrent major depression (Chronic) Swelling of left upper extremity (Chronic) Tachycardia (Chronic) Vitamin D deficiency (Chronic) Foot ulcer, left (Chronic) Diabetic foot ulcer (Chronic) Hyperglycemia due to type 1 diabetes mellitus (Chronic) Neurotrophic ulcer of foot (Chronic) Panic disorder (Chronic) Insomnia (Chronic) Medical History (Updated 07/08/20 @ 05:25 by Sloan Espinal MD) Abdominal pain Abscess Acute bronchitis, unspecified Acute myocardial infarction, unspecified Acute URI Adjustment disorder with mixed anxiety and depressed mood Anemia in chronic illness Ankle instability Atherosclerotic heart disease of torres martinez coronary artery with unspecified angina pectoris Benign essential hypertension Benign lipomatous neoplasm Blepharophimosis unspecified eye, unspecified lid Bronchitis Cellulitis, unspecified Chest pain Chronic renal disease Constipation, unspecified Corns and callosities Costalchondritis Cough Dental abscess Dental infection Diabetes Diabetic foot ulcer associated with type 2 diabetes mellitus, with fat layer exposed Essential (primary) hypertension Eye infection Fatigue Gastritis, unspecified, with bleeding Generalized abdominal pain Headache Hyperlipidemia, unspecified Impairment level of vision Influenza A Insomnia, unspecified Left leg pain upper leg and thigh area Left-sided chest pain Localized swelling, mass and lump, left upper limb Low vision, both eyes Lower extremity edema Major depressive disorder, recurrent, mild Major depressive disorder, single episode, moderate Neurotrophic ulcer of foot Healed DFU LEFT plantar in past. Now recurred with DTI and cellulitis Non-cardiac chest pain Obesity (BMI 30.0-34.9) Orthostatic hypotension CABRERA (obstructive sleep apnea) Pain in left leg Pain in left shoulder Panic disorder [episodic paroxysmal anxiety] Personal history of diabetic foot ulcer Restrictive lung disease Right-sided chest pain Sleep disturbance, unspecified SOB (shortness of breath) Swelling of left upper extremity Tachycardia, unspecified Type 2 diabetes mellitus with hyperglycemia Type 2 diabetes mellitus with other skin ulcer Type 2 diabetes mellitus without complications Unstable angina pectoris Viral syndrome Vitamin D deficiency, unspecified Surgical History History of appendectomy History of cholecystectomy History of colonoscopy Family History Other Adopted No pertinent family history Social History alcohol intake frequency: does not drink MEDS/ALLERGIES Home Medications and Allergies Home Medications Medication Instructions Recorded Confirmed Type albuterol sulfate 90 mcg/actuation 2 inh INHALATION QID 04/27/18 07/08/20 History breath activated powder inhaler acetaminophen 500 mg tablet 1,000 mg PO TID PRN tab 01/10/20 07/08/20 History ipratropium 0.5 mg-albuterol 3 mg 3 ml INHALATION QID PRN 01/10/20 07/08/20 History (2.5 mg base)/3 mL nebulization soln insulin aspart U-100 100 unit/mL 22 unit SUBCUT TID ml 01/29/20 07/08/20 History (3 mL) subcutaneous pen insulin glargine 100 unit/mL 60 unit SUB-Q DAILY ml 01/29/20 07/08/20 History subcutaneous solution Allergies Allergy/AdvReac Type Severity Reaction Status Date / Time Vinyl Ether Allergy Mild Rash Verified 07/09/20 06:49 cephalexin [From Keflex] AdvReac Intermediate tendon pain Verified 07/08/20 11:20 budesonide [From Symbicort] AdvReac Mild burning Verified 07/08/20 01:13 ciprofloxacin [From Cipro] AdvReac Mild Cramping Verified 07/08/20 01:13 of the Muscles Formoterol [From Symbicort] AdvReac Mild chest Verified 07/08/20 01:13 burning lactose AdvReac Mild Nausea, Verified 05/18/21 11:16 diarrhea lisinopril AdvReac Mild Cough Verified 07/08/20 11:20 Physical Examination Ankle & Foot bilateral: Ankle appearance: normal Foot appearance: normal and other (eschar covered ulceration to right fifth metatarsal head) A/P Time Spent With Patient Time: Twenty (20) minutes spent reviewing diagnostic tests, seeing patient, and documenting in the record Signal changes in MRI likely consistent with bone shaving procedure performed in clinic Patient is advised to take Bactrim DS twice daily for 1week consistent with his postprocedural protocol which he has not started. Gauze changes every other day which is more than adequate He will follow up in clinic podiatry for his postprocedural routine checkup
[2020-07-09] MEDS ORDERED: INSULIN P SUB-Q SCH (09:00)
[2020-07-09] MEDS ORDERED: INSULIN ASPART U SUB-Q SCH (09:00)
[2020-07-09] MEDS ORDERED: [UNRECOGNIZED DRUG - OTHER] SUB-Q SCH (09:00)
[2020-07-09 10:06] LABS: Band Neutrophils % 1 % (0-10); Eosinophils % (Manual) 2 % (0-7); Lymphocytes % 21 % (15-49); Monocytes % (Manual) 14 % (1-12); Platelet Estimate NORMAL (Normal); RBC Morphology NORMAL (Normal); Reactive Lymphocytes 1 % (0-2); Segmented Neutrophils % 61 % (38-78)
[2020-07-09] MEDS: VANCOMYCIN 1,500 MG in 0.9 % SODIUM CHLORIDE 500 ML IV SCH ×2 (10:37→20:22)
[2020-07-09] MEDS: PHOSPHORUS 250 MG TABLET PO SCH ×2 (10:37→20:21)
[2020-07-09] MEDS ORDERED: INSULIN LISPRO 1 UNIT/0.01 ML UNIT SQ SCH (11:30)
[2020-07-10] MEDS: INSULIN LISPRO 1 UNIT/0.01 ML UNIT SQ SCH ×4 (04:17→12:45)
--- NOTE | 2020-07-10 07:36 | Internal Med Progress Note ---
SUBJECTIVE Subjective Patient information: Note initiated : 07/10/20 at 7:33 am Service Date, if different from initiated Date: [] Patient: Constantino Harden a 45 y/o M admitted on 07/08/20 for High Blood Sugar. Chief Complaint: [] Interval history: History of present illness: Mr. Harden is a 45 year old M Presents to the ED last night for elevated blood sugar her poor appetite weakness myalgias. Sugar was up in the high 500s. Is missed a few doses of his insulin yesterday and any misses them occasionally on the regular basis. He was seen by podiatry the other day and had a scraping of the foot ulcer. In the ED is found to have a white blood cell count of 19,000 with 5% bands. Headache tachycardia although the appears to be chronic. Initial hypertensive but that improved over time. Given the concern for infection patient started on antibiotics and blood cultures were taken. Lactate was 1.8. Creatinine appear to be a little bit higher than baseline. Complains of headache and of nausea but no vomiting, has chronic constipation. 07/09 Has headache and some nausea. But otherwise feeling okay. Dr. Farmer consulted evaluate the wound. 07/10 No new complaints overnight events. Seen by podiatry felt no need for further I&D and to finish course of Bactrim that was prescribed that pt has not started yet. Review of Systems: denies fever/chills//vomiting/chest or abdominal pain/cough/dyspnea/diarrhea. Otherwise see above. Constitutional Vitals: Vital Signs Temp Pulse Resp BP Pulse Ox 97.7 F 97 H 20 149/79 95 07/10/20 07:28 07/10/20 07:28 07/10/20 07:28 07/10/20 07:28 07/10/20 07:28 Period Temp Pulse Resp BP Sys/Proctor Pulse Ox Last 24 Hr 97.6 F-100 F 93-99 16-20 149-181/79-86 93-97 Intake and Output 07/09/20 07/10/20 07/10/20 21:59 05:59 13:59 Intake Total 1500 1560 Output Total 200 Balance 1500 1360 Weight 109.316 kg Intake & Output: Intake & Output 07/09/20 07/10/20 07/10/20 21:59 05:59 13:59 Intake Total 1500 1560 Output Total 200 Balance 1500 1360 Weight 109.316 kg Intake: IV 1500 500 Sodium Chloride 0.9% 1,000 ml @ 1000 100 mls/hr IV .Q10H [facility] Rx#: [id number] Vancomycin 1,500 mg In Sodium 500 500 Chloride 0.9% 500 ml @ 333.3 mls/hr IV Q12H [facility] Rx#: [id number] Oral 1060 Output: Void Amount 200 Other: Urine Color Light Laurie Stool Consistency Watery Loose # Voids 2 # Bowel Movements 2 Exam: General: Alert, Awake, No acute Distress, obese Eyes/N/T: EOMI, Head/Neck: neck supple, CV: RRR, No murmurs, Pulm: Clear b/l, no wheezing/rhonchi/rales Abd: soft, nontender, +BS x4 Ext: no clubbing/cyanosis/edema. right lateral plantar wound in dressings Neuro: Alert, no focal deficits, moves all extremities, Skin: warm/dry OBJ DATA Labs CBC & Chem 7: 07/10/20 05:10 07/10/20 05:10 Labs: Abnormal Lab Results 07/09/20 07/09/20 07/08/20 05:09 05:09 09:38 WBC 14.8 H RBC 3.36 L Hgb 10.2 L Hct 30.7 L MPV 12.6 H Lymphocytes % Monocytes % (Manual) 14 H ESR Sodium Chloride Anion Gap 6.0 L BUN Creatinine 1.4 H Glucose 147 H Hemoglobin A1c Phosphorus 2.3 L AST 70 H ALT 50 H Alkaline Phosphatase Lactate Dehydrogenase 235 H Albumin 3.0 L Triglycerides 517 H Procalcitonin Urine Protein 100 A Urine Glucose (UA) >=500 A Urine Bacteria Few A 07/08/20 07/08/20 07/08/20 04:39 04:39 01:45 WBC RBC Hgb Hct MPV Lymphocytes % Monocytes % (Manual) ESR 55 H Sodium Chloride Anion Gap BUN Creatinine Glucose Hemoglobin A1c 13.4 H Phosphorus AST ALT Alkaline Phosphatase Lactate Dehydrogenase Albumin Triglycerides Procalcitonin 0.14 H Urine Protein Urine Glucose (UA) Urine Bacteria 07/08/20 07/08/20 01:45 01:45 WBC 19.0 H RBC 4.23 L Hgb 12.8 L Hct 37.2 L MPV 12.1 H Lymphocytes % 14 L Monocytes % (Manual) ESR Sodium 131 L Chloride 90 L Anion Gap BUN 24 H Creatinine 1.7 H Glucose 504 H* Hemoglobin A1c Phosphorus AST ALT Alkaline Phosphatase 125 H Lactate Dehydrogenase Albumin Triglycerides Procalcitonin Urine Protein Urine Glucose (UA) Urine Bacteria Meds: Medications Acetaminophen (Acetaminophen 325 Mg Tablet) 650 mg PO Q6HP PRN PRN Reason: PAIN/FEVER > 101 Last Admin: 07/09/20 15:45 Dose: 650 mg Documented by: Acetaminophen (Acetaminophen 500 Mg Tablet) 1,000 mg PO TIDP PRN; Protocol PRN Reason: Pain Albuterol Sulfate (Albuterol Sulfate 200 Puff Inhaler) 2 puff INH QIDP PRN PRN Reason: Shortness Of Breath Albuterol/Ipratropium (Ipratropium/Albuterol 3 Ml Ampul.Neb) 3 ml NEB Q4HP PRN PRN Reason: Shortness Of Breath Albuterol/Ipratropium (Ipratropium/Albuterol 3 Ml Ampul.Neb) 3 ml NEB QIDP PRN PRN Reason: Wheezing Dextrose (Dextrose 50% 50 Ml Vial) 0 ml IV UD PRN PRN Reason: Hypoglycemia Diagnostic Test (Pha) (Accu-Chek 1 Each Strip) 1 each FS Q4 [facility] Last Admin: 07/10/20 07:13 Dose: 1 each Documented by: Docusate Sodium (Docusate Sodium 100 Mg Capsule) 100 mg PO BID [facility] Last Admin: 07/09/20 20:32 Dose: Not Given Documented by: Glucose (Dextrose 31 Gm Oral.Susp) 15 gm PO PRN PRN PRN Reason: Hypoglycemia Heparin Sodium (Porcine) (Heparin 5,000 Unit/Ml Vial) 5,000 unit SQ Q12 [facility] Last Admin: 07/09/20 20:22 Dose: 5,000 unit Documented by: Potassium Chloride 40 meq/ (Dextrose) 520 mls @ 130 mls/hr IV UD PRN PRN Reason: Potassium < 3 Magnesium Sulfate (Magnesium Sulfate) 2 gm in 50 mls @ 50 mls/hr IV UD PRN PRN Reason: Magnesium </= 1.6 Ceftriaxone Sodium 2 gm/ (Dextrose) 50 mls @ 100 mls/hr IV Q24H [facility]; Protocol Last Infusion: 07/09/20 08:36 Dose: Infused Documented by: Vancomycin HCl 1,500 mg/ (Sodium Chloride) 500 mls @ 333.3 mls/hr IV Q12H [facility] Last Infusion: 07/09/20 22:00 Dose: Infused Documented by: Insulin Glargine (Insulin Glargine, Human 1 Unit/0.01 Ml) 60 unit SQ DAILY [facility] Last Admin: 07/09/20 08:13 Dose: 60 units Documented by: Insulin Human Lispro (Insulin Lispro 1 Unit/0.01 Ml Unit) 0 unit SQ Q4 [facility]; Protocol Last Admin: 07/10/20 07:15 Dose: Not Given Documented by: Labetalol HCl (Labetalol 5 Mg/Ml Ml) 0 mg IV Q2HP PRN PRN Reason: Hypertension Lactulose (Lactulose 20 Gm/30 Ml Oral.Angie) 20 gm PO DAILYP PRN PRN Reason: Constipation Metoprolol Tartrate (Metoprolol Tartrate 50 Mg Tablet) 50 mg PO BID [facility] Last Admin: 07/09/20 20:22 Dose: 50 mg Documented by: Ondansetron HCl (Ondansetron 4 Mg/2 Ml Vial) 4 mg IV Q4HP PRN PRN Reason: Nausea And Vomiting Last Admin: 07/09/20 06:02 Dose: 4 mg Documented by: Plecanatide [ (Trulance] 3 Mg Tab) 1 dose PO DAILY [facility] Last Admin: 07/09/20 17:23 Dose: 1 dose Documented by: Polyethylene Glycol (Polyethylene Glycol 3350 17 Gm Packet) 17 gm PO DAILYP PRN PRN Reason: Constipation Potassium Chloride (Potassium Chloride 20 Meq Tablet) 40 meq PO UD PRN PRN Reason: Potssium is 3-3.5 Potassium Chloride (Potassium Chloride 20 Meq Tablet) 40 meq PO UD PRN PRN Reason: Potassium < 3 Senna (Sennosides 1 Tablet) 2 tab PO DAILYP PRN PRN Reason: Constipation Sodium Chloride (0.9 % Sodium Chloride 10 Ml Syringe) 10 ml IV Q8 [facility] Last Admin: 07/09/20 22:03 Dose: Not Given Documented by: Vancomycin HCl (Vancomycin Per Pharmacy) 1 order IV UD [facility]; Protocol A/P Narrative A/P Narrative: A: *DM w/Hyperglycemia: Due to medication noncompliance -A1c 13.4 *Right foot DM wound infection: Podiatry felt imaging related more to procedure that was recently done -MRI with ?MTP septic joint, also with mild myositis/fasciitis -leukocytosis improving *ZAID on CKD III: improved *Obesity: *Restrictive lung disease: *Chronic tachycardia: pt on BB *HTN: pt on BB/ARB * P: -Podiatry consult, recs for pt to finish bactrim course that pt has not started yet. f/u outpt -vanc/rocephin - deescalate, mrsa screen -pending BC -wound care -SSI, accucheck q4h, home basal insulin titrate as needed -Counseled on the importance of being compliant with insulin -pt/ot -ppx: heparin Time Spent With Patient Time: Total time spent is greater than 50% in coordination of care (as doc umented) at patient's floor/unit and/or counseling patient: [facility]AL[facility] VTE Deep Vein Thrombosis/Pulmonary Embolism Present on Admission: No
[2020-07-10 07:49] LABS: Basophils # (Auto) 0.07 K/mcL (0.00-0.20); Basophils % (Auto) 0.5 % (0.0-2.0); Eosinophils % (Auto) 2.7 % (0.0-7.0); Hemoglobin 9.7 g/dL (13.5-16.5); Lymphocytes # (Auto) 3.44 K/mcL (1.50-4.80); Lymphocytes % (Auto) 23.4 % (15.0-49.0); Mean Cell Volume 92.6 fL (80.0-100.0); Mean Corpuscular HGB Conc 32.3 g/dL (31.0-36.0); Mean Platelet Volume 12.3 fL (7.4-10.4); Monocytes # (Auto) 1.37 K/mcL (0.10-0.90); Monocytes % (Auto) 9.3 % (1.0-12.0); Neutrophils % (Auto) 64.1 % (38.0-78.0); Platelet Count 248 K/mcL (140-440); RBC 3.24 M/mcL (4.50-5.90); Red Cell Distribution Width 11.9 % (11.5-14.5); WBC 14.7 K/mcL (4.5-11.0)
[2020-07-10 08:05] LABS: ALT/SGPT 10 U/L (<40); AST/SGOT 17 U/L (<40); Albumin 2.9 gm/dL (3.2-5.2); Albumin/Globulin Ratio 1.1 (1.0-2.3); Alkaline Phosphatase 60 U/L (39-117); Bilirubin,Direct < 0.2 mg/dL (0-0.3); Bilirubin,Total 0.6 mg/dL (0.1-1.0); Blood Urea Nitrogen 8 mg/dL (6-20); Calcium 9.9 mg/dL (8.6-10.4); Carbon Dioxide 31 mmol/L (22-30); Chloride 95 mmol/L (96-108); Globulin 2.6 gm/dL (2.2-3.7); Glomerular Filtration Rate 122; Glucose 118 mg/dL (70-105); Lactate Dehydrogenase 221 U/L (135-225); Phosphorous 2.1 mg/dL (2.5-4.5); Triglycerides 69 mg/dL (<150); Uric Acid 3.3 mg/dL (2.5-8.0)
[2020-07-10] MEDS: cefTRIAXone 2 GM in DEXTROSE 5% IN WATER 50 ML IV SCH (08:11)
[2020-07-10] MEDS: 0.9 % SODIUM CHLORIDE 10 ML SYRINGE IV SCH (08:12)
[2020-07-10] MEDS ORDERED: MAGNESIUM SULFATE 8.12 MEQ in DEXTROSE 5% IN WATER 50 ML IV ONE (08:18)
--- NOTE | 2020-07-10 08:20 | Discharge Summary ---
Discharge Provider Provider Patient information: Note initiated : 07/10/20 at 8:19 am Service Date, if different from initiated Date: [] Patient: Constantino Harden 45 y/o M admitted on 07/08/20 for High Blood Sugar. Chief Complaint: [] Date of admission: 07/08/20 10:45 Discharge date: 07/10/20 Primary care physician: Daisy Mcnulty Consults: 07/08/20 Consult to Physician [CONS] Stat Comment: Consulting Provider: Donte Liu Reason For Exam: Physician to Consult 07/08/20 17:52 Consult to Physician [CONS] Routine Comment: Consulting Provider: Reilly Farmer Reason For Exam: Physician to Consult Discharge Meds Discharge Medications Home Medications albuterol sulfate 90 mcg/actuation breath activated powder inhaler 2 inh INHALATION QID 04/27/18 [History Confirmed 07/08/20 Last Taken 07/04/18] acetaminophen 500 mg tablet 1,000 mg PO TID PRN tab 01/10/20 [History Confirmed 07/08/20 Last Taken 07/07/20 08:00] ipratropium 0.5 mg-albuterol 3 mg (2.5 mg base)/3 mL nebulization soln 3 ml INHALATION QID PRN 01/10/20 [History Confirmed 07/08/20 Last Taken Unknown] insulin aspart U-100 100 unit/mL (3 mL) subcutaneous pen 22 unit SUBCUT TID ml 01/29/20 [History Confirmed 07/08/20 Last Taken 07/07/20 08:00] insulin glargine 100 unit/mL subcutaneous solution 60 unit SUB-Q DAILY ml 01/29/20 [History Confirmed 07/08/20 Last Taken 07/07/20 08:00] COURSE Hospital Course Hospital course: History of present illness: Mr. Harden is a 45 year old M Presents to the ED last night for elevated blood sugar her poor appetite weakness myalgias. Sugar was up in the high 500s. Is missed a few doses of his insulin yesterday and any misses them occasionally on the regular basis. He was seen by podiatry the other day and had a scraping of the foot ulcer. In the ED is found to have a white blood cell count of 19,000 with 5% bands. Headache tachycardia although the appears to be chronic. Initial hypertensive but that improved over time. Given the concern for infection patient started on antibiotics and blood cultures were taken. Lactate was 1.8. Creatinine appear to be a little bit higher than baseline. Complains of headache and of nausea but no vomiting, has chronic constipation. 07/09 Has headache and some nausea. But otherwise feeling okay. Dr. Farmer consulted evaluate the wound. 07/10 No new complaints overnight events. Seen by podiatry felt no need for further I&D and to finish course of Bactrim that was prescribed that pt has not started yet. *Stressed importance for him to be compliant with his insulin. A: *DM w/Hyperglycemia: Due to medication noncompliance -A1c 13.4 *Right foot DM wound infection: Podiatry felt imaging related more to procedure that was recently done -MRI with ?MTP septic joint, also with mild myositis/fasciitis -leukocytosis improving *ZAID on CKD III: improved *Obesity: *Restrictive lung disease: *Chronic tachycardia: pt on BB *HTN: pt on BB/ARB Discharge diagnosis: Diabetes with hyperglycemia from medication noncompliance suspected right f Time Spent with Patient Time attestation: Total time spent providing and/or coordinating discharge services: Time spent: Greater than 30 minutes EXAM Constitutional Vitals: Temp Pulse Resp BP Pulse Ox 97.7 F 97 H 20 149/79 95 07/10/20 07:28 07/10/20 07:28 07/10/20 07:28 07/10/20 07:28 07/10/20 07:28 Discharge Data Data Completed and Pending Labs on day of discharge: Labs from last 24 hours 07/10/20 07/10/20 07/09/20 05:10 05:10 08:03 WBC 14.7 H RBC 3.24 L Hgb 9.7 L Hct 30.0 L MCV 92.6 MCH 29.9 MCHC 32.3 RDW 11.9 Plt Count 248 MPV 12.3 H Neut % (Auto) 64.1 Lymph % (Auto) 23.4 [place] % (Auto) 9.3 Eos % (Auto) 2.7 Baso % (Auto) 0.5 Lymph # (Auto) 3.44 [place] # (Auto) 1.37 H Eos # (Auto) 0.40 Baso # (Auto) 0.07 Seg Neutrophils % Band Neutrophils % Lymphocytes % Monocytes % (Manual) Eosinophils % (Manual) Absolute Neutrophils 9.45 H Reactive Lymphocytes Platelet Estimate RBC Morphology Sodium 132 L Potassium 3.4 Chloride 95 L Carbon Dioxide 31 H Anion Gap 6.0 L BUN 8 Creatinine 0.6 L GFR Calculation 122 Glucose 118 H Uric Acid 3.3 Calcium 9.9 Phosphorus 2.1 L Magnesium 1.5 L Total Bilirubin 0.6 Direct Bilirubin < 0.2 GGT 16 AST 17 ALT 10 Alkaline Phosphatase 60 Lactate Dehydrogenase 221 Total Protein 5.5 L Albumin 2.9 L Globulin 2.6 Albumin/Globulin Ratio 1.1 Triglycerides 69 Vancomycin Trough 14.9 07/09/20 07/09/20 05:09 05:09 WBC RBC Hgb Hct MCV MCH MCHC RDW Plt Count MPV Neut % (Auto) Lymph % (Auto) [place] % (Auto) Eos % (Auto) Baso % (Auto) Lymph # (Auto) [place] # (Auto) Eos # (Auto) Baso # (Auto) Seg Neutrophils % 61 Band Neutrophils % 1 Lymphocytes % 21 Monocytes % (Manual) 14 H Eosinophils % (Manual) 2 Absolute Neutrophils Reactive Lymphocytes 1 Platelet Estimate Normal RBC Morphology Normal Sodium 135 Potassium 3.5 Chloride 103 Carbon Dioxide 26 Anion Gap 6.0 L BUN 19 Creatinine 1.4 H GFR Calculation 60 Glucose 147 H Uric Acid 5.5 Calcium 8.6 Phosphorus 2.3 L Magnesium 1.9 Total Bilirubin 0.3 Direct Bilirubin < 0.2 GGT 54 AST 70 H ALT 50 H Alkaline Phosphatase 110 Lactate Dehydrogenase 235 H Total Protein 6.0 Albumin 3.0 L Globulin 3.0 Albumin/Globulin Ratio 1.0 Triglycerides 517 H Vancomycin Trough Preliminary micro results at discharge 07/08/20 03:52 Blood Culture - Preliminary Blood 07/08/20 03:33 Blood Culture - Preliminary Blood Discharge Plan Patient/Caregiver Discharge Instructions Activity: increase activity as tolerated Diet: Consistent Carbohydrate Activity Restrictions/Additional Instructions: Finish course of Bactrim that was prescribed recently by customer service cashier. Prescriptions: Continued albuterol sulfate 90 mcg/actuation aerosol powdr breath activated 2 inh INHALATION QID RF: 0 acetaminophen 500 mg tablet 1,000 mg PO TID PRN (Reason: Pain) RF: 0 ipratropium-albuterol 0.5 mg-3 mg(2.5 mg base)/3 mL solution for nebulization 3 ml INHALATION QID PRN (Reason: Wheezing) RF: 0 insulin glargine 100 unit/mL solution 60 unit SUB-Q DAILY RF: 0 insulin aspart U-100 100 unit/mL (3 mL) insulin pen 22 unit subcut TID RF: 0 Follow Up Plan Follow up with: Reilly Farmer DPM [Physician] - Daisy Mcnulty ARNP [Primary Care Provider] - Patient Disposition: Home, Self-Care Prognosis: Fair Overall status at discharge: patient is progressing back to baseline Discharge Orders: Discharge Order (Routine); Ordered 07/10/20 Ordered By: Donte Liu [facility] VTE Deep Vein Thrombosis/Pulmonary Embolism Present on Admission: No
[2020-07-10] MEDS: VANCOMYCIN 1,500 MG in 0.9 % SODIUM CHLORIDE 500 ML IV SCH (08:46)
[2020-07-10] MEDS: METOPROLOL TARTRATE 50 MG TABLET PO SCH (08:47)
[2020-07-10] MEDS: DOCUSATE SODIUM 100 MG CAPSULE PO SCH (08:47)
[2020-07-10] MEDS: ONDANSETRON 4 MG/2 ML VIAL IV PRN (10:00)
[2020-07-10] MEDS: HEPARIN 5,000 UNIT/ML VIAL SQ SCH (11:43)
[2020-07-10] MEDS: INSULIN GLARGINE, HUMAN 1 UNIT/0.01 ML SQ SCH (11:43)
--- NOTE | 2020-07-17 13:36 | Orthopedic Progress Note ---
SUBJECTIVE Subjective Patient information: Note initiated : 07/17/20 at 1:34 pm Service Date, if different from initiated Date: [] Patient: Constantino Harden 45 y/o M admitted on 07/08/20 for High Blood Sugar. Chief Complaint: [right foot infection] Patient continues have worsening redness and swelling of the right foot. Worsening white blood cell count. Likely osteomyelitis of the right fifth m etatarsal. He does have some discomfort in that area though he is generally neuropathic he does not have much pain or sensation of his feet. Constitutional Vitals: Vital Signs Temp Pulse Resp BP Pulse Ox 97.8 F 99 H 20 120/75 94 07/10/20 14:53 07/10/20 14:53 07/10/20 14:53 07/10/20 14:53 07/10/20 14:53 Respiratory Respiratory exam: Present accessory muscle use and wheezes Cardiovascular Cardiovascular exam: Present normal rate and rhythm OBJ DATA Labs CBC & Chem 7: 07/10/20 05:10 07/10/20 05:10 A/P Time Spent With Patient Time: Total time spent is greater than 50% in coordination of care (as documented) at patient's floor/unit and/or counseling patient: Patient consented that he needs partial amputation right fifth metatarsal to help reduce the infection of the area. Patient also advised that there is poss ible increased for chance for more infection of the area or delayed wound healing. He understands that this may not be his only need for surgery and that there might be complications related such as but not limited to increased pain and swelling infection and need for long-term antibiotics etc. Patient consented for partial removal of fifth metatarsal tomorrow morning Wound to be packed and changed at that point with continuation of antibiotic therapy and wound care therapy.
== END 2020-07-10 14:45 | disposition home or self-care (01) | DRG 638 ==
LOC: ED 01:12 → MEDSUR 10:45
PROVIDERS: ADMIT Internal Medicine; ATTEND Internal Medicine

== ENCOUNTER 2020-07-14 10:02 | Inpatient (IN) ==
--- NOTE | 2020-07-14 10:55 | Emergency Department Note ---
SOB HPI General Chief Complaint: Cold/Flu Symptoms Stated Complaint: body aches, headache, cough, leg swelling Time Seen by Provider: 07/14/20 10:11 Source: patient, RN notes reviewed, old records reviewed and other ([facility]) Mode of arrival: ambulatory Limitations: no limitations History of Present Illness HPI Narrative: Narrative: 45-year-old male was recently discharged from the hospital 4 days ago complaining of fevers chills myalgias headache cough leg swelling and right foot pain worsening over the last 4 days had surgery on his right foot 2 days ago. Complains of worsening shortness of breath worsening chest pain with coughing and inspiration nausea and vomiting secondary to his coughing and a headache secondary to his coughing. MD Complaint: shortness of breath, cough and pain with inspiration Onset (ago): day(s) (4) Context: recent illness (DC from hospital after 4 day stay 4 days ago) and trauma/injury (Surgery on right foot 2 days ago) Severity: moderate Consistency/Duration: constant Improves with: rest Worsens with: exertion, movement, coughing and inspiration Known history of: diabetes Associated symptoms: Reports pain with inspiration, fever, cough, wheezing, sputum production, lower extremity pain, palpitations and nausea/vomiting; Denies chest pain, orthopnea, polyuria, polydipsia, parasthesias, carpopedal spasm, hemoptysis, diaphoresis, syncope, abdominal pain, rash and sense of impending doom Treatment prior to arrival: other (Seen in [facility]) Related Data Home oxygen amount: none Home Medications Medication Instructions Recorded Confirmed albuterol sulfate 90 mcg/actuation 2 inh INHALATION QID 04/27/18 07/14/20 breath activated powder inhaler acetaminophen 500 mg tablet 1,000 mg PO TID PRN tab 01/10/20 07/14/20 ipratropium 0.5 mg-albuterol 3 mg 3 ml INHALATION QID PRN 01/10/20 07/14/20 (2.5 mg base)/3 mL nebulization soln insulin aspart U-100 100 unit/mL 22 unit SUBCUT TID ml 01/29/20 07/14/20 (3 mL) subcutaneous pen insulin glargine 100 unit/mL 60 unit SUB-Q DAILY ml 01/29/20 07/14/20 subcutaneous solution clopidogrel 75 mg tablet 150 mg PO QDAY 07/14/20 07/14/20 losartan 50 mg tablet 50 mg PO QDAY 07/14/20 07/14/20 metoprolol succinate 50 mg 50 mg PO QDAY 07/14/20 07/14/20 tablet,extended release 24 hr Allergies Allergy/AdvReac Type Severity Reaction Status Date / Time Vinyl Ether Allergy Mild Rash Verified 07/14/20 10:05 cephalexin [From Keflex] AdvReac Intermediate tendon pain Verified 07/14/20 10:05 budesonide [From Symbicort] AdvReac Mild burning Verified 07/14/20 10:05 ciprofloxacin [From Cipro] AdvReac Mild Cramping Verified 07/14/20 10:05 of the Muscles Formoterol [From Symbicort] AdvReac Mild chest Verified 07/14/20 10:05 burning lactose AdvReac Mild Nausea, Verified 07/14/20 10:05 diarrhea lisinopril AdvReac Mild Cough Verified 07/14/20 10:05 Review of Systems ROS ROS Narrative: Narrative: Constitutional: Reports fever, chills and weight change; Denies weakness Eyes: Denies vision change ENT ED: Reports congestion; Denies throat pain Cardiovascular: Reports palpitations, dyspnea on exertion and edema; Denies chest pain Respiratory: Reports shortness of breath, cough and wheezes; Denies hemoptysis Gastrointestinal: Reports nausea and vomiting; Denies abdominal pain and diarrhea Musculoskeletal: Reports joint swelling and joint pain; Denies back pain Integumentary: Denies rash Neurological: Reports headache Psychiatric: Denies depression Endocrine: Denies fatigue Hematological/Lymphatic: Denies easy bruising Allergic/Immunologic: Denies urticaria PFSH Narrative Patient History Narrative: Narrative: Medical/Surgical/Family History All Active Problems (Updated 07/14/20 @ 12:51 by Itz Tejeda MD) CHF (congestive heart failure) (Acute) Acute renal insufficiency (Acute) Elevated troponin (Acute) HTN (hypertension) (Acute) Edema (Acute) Leukocytosis (Acute) Diabetic infection of right foot (Acute) Severe sepsis (Acute) Diabetes mellitus type II, uncontrolled (Acute) Epidermoid cyst of skin (Acute) Pilar cyst (Acute) SOB (shortness of breath) (Chronic) Fatigue (Chronic) Vitamin D deficiency, unspecified (Chronic) Type 2 diabetes mellitus without complications (Chronic) Type 2 diabetes mellitus with other skin ulcer (Chronic) Type 2 diabetes mellitus with hyperglycemia (Chronic) Tachycardia, unspecified (Chronic) Personal history of diabetic foot ulcer (Chronic) Panic disorder [episodic paroxysmal anxiety] (Chronic) Pain in left shoulder (Chronic) Pain in left leg (Chronic) Major depressive disorder, single episode, moderate (Chronic) Major depressive disorder, recurrent, mild (Chronic) Low vision, both eyes (Chronic) Localized swelling, mass and lump, left upper limb (Chronic) Insomnia, unspecified (Chronic) History of colonoscopy (Chronic) Hyperlipidemia, unspecified (Chronic) Generalized abdominal pain (Chronic) Gastritis, unspecified, with bleeding (Chronic) Essential (primary) hypertension (Chronic) Corns and callosities (Chronic) Constipation, unspecified (Chronic) Cellulitis, unspecified (Chronic) Blepharophimosis unspecified eye, 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) Adjustment disorder with mixed anxiety and depressed mood (Chronic) Acute myocardial infarction, unspecified (Chronic) Acute bronchitis, unspecified (Chronic) Benign lipomatous neoplasm (Chronic) Abdominal pain (Chronic) Orthostatic hypotension (Chronic) Gastroenteritis (Chronic) Hyperglycemia due to type 2 diabetes mellitus (Chronic) Unstable angina pectoris (Chronic) Costalchondritis (Chronic) Chronic renal disease (Chronic) Chest pain (Chronic) Constipation (Chronic) Acute URI (Chronic) Abscess (Chronic) Viral syndrome (Chronic) Obesity (BMI 30.0-34.9) (Chronic) CABRERA (obstructive sleep apnea) (Chronic) Anemia in chronic illness (Chronic) Diabetes (Chronic) Restrictive lung disease (Chronic) Sleep disturbance, unspecified (Chronic) Cough (Chronic) Adjustment disorder with depressed mood (Chronic) Benign essential hypertension (Chronic) Impairment level of vision (Chronic) Hyperlipidemia (Chronic) Mild recurrent major depression (Chronic) Swelling of left upper extremity (Chronic) Tachycardia (Chronic) Vitamin D deficiency (Chronic) Foot ulcer, left (Chronic) Diabetic foot ulcer (Chronic) Hyperglycemia due to type 1 diabetes mellitus (Chronic) Neurotrophic ulcer of foot (Chronic) Panic disorder (Chronic) Insomnia (Chronic) Medical History (Updated 07/14/20 @ 12:51 by Itz Tejeda MD) Abdominal pain Abscess Acute bronchitis, unspecified Acute myocardial infarction, unspecified Acute URI Adjustment disorder with mixed anxiety and depressed mood Anemia in chronic illness Ankle instability Atherosclerotic heart disease of [place] coronary artery with unspecified angina pectoris Benign essential hypertension Benign lipomatous neoplasm Blepharophimosis unspecified eye, unspecified lid Bronchitis Cellulitis, unspecified Chest pain Chronic renal disease Constipation, unspecified Corns and callosities Costalchondritis Cough Dental abscess Dental infection Diabetes Diabetic foot ulcer associated with type 2 diabetes mellitus, with fat layer exposed Essential (primary) hypertension Eye infection Fatigue Gastritis, unspecified, with bleeding Generalized abdominal pain Headache Hyperlipidemia, unspecified Impairment level of vision Influenza A Insomnia, unspecified Left leg pain upper leg and thigh area Left-sided chest pain Localized swelling, mass and lump, left upper limb Low vision, both eyes Lower extremity edema Major depressive disorder, recurrent, mild Major depressive disorder, single episode, moderate Neurotrophic ulcer of foot Healed DFU LEFT plantar in past. Now recurred with DTI and cellulitis Non-cardiac chest pain Obesity (BMI 30.0-34.9) Orthostatic hypotension CABRERA (obstructive sleep apnea) Pain in left leg Pain in left shoulder Panic disorder [episodic paroxysmal anxiety] Personal history of diabetic foot ulcer Restrictive lung disease Right-sided chest pain Sleep disturbance, unspecified SOB (shortness of breath) Swelling of left upper extremity Tachycardia, unspecified Type 2 diabetes mellitus with hyperglycemia Type 2 diabetes mellitus with other skin ulcer Type 2 diabetes mellitus without complications Unstable angina pectoris Viral syndrome Vitamin D deficiency, unspecified Surgical History History of appendectomy History of cholecystectomy History of colonoscopy Family History Other Adopted No pertinent family history Social History Smoking Status: Former smoker Alcohol Intake Frequency: does not drink Substance Use: does not use Exam Narrative Narrative: Narrative: General Limitations: no limitations General appearance: Present alert, in no apparent distress and obese Head Head: Present atraumatic and normocephalic Eye Eye: Present normal appearance, PERRL and EOMI ENT ENT: Present normal exam and mucous membranes moist Neck Neck: Present normal inspection and full ROM Chest Chest: Present normal inspection; Absent tenderness Respiratory Respiratory: Present wheezes, prolonged expiratory phase and decreased breath sounds; Absent respiratory distress Cardiovascular Cardiovascular: Present regular rate and normal rhythm; Absent systolic murmur Adbominal Abdominal: Present soft; Absent distention, tenderness, guarding and rebound Extremities Extremities: Present full ROM, tenderness, pedal edema, pretibial edema, calf tenderness and other (Right foot postop and bandage Jason wrap and walking boot.) Back Back: Present normal inspection; Absent CVA tenderness (R) and CVA tenderness (L) Neurological Neurological: Present alert and oriented X3 Psychiatric Psychiatric: Present normal affect and normal mood Skin Skin: Present erythema; Absent rash Course Vital Signs Vital signs: Vital Signs Temperature 97.8 F 07/14/20 10:02 Pulse Rate 100 H 07/14/20 10:02 Respiratory Rate 18 07/14/20 10:02 Blood Pressure 186/99 07/14/20 10:02 Pulse Oximetry (%) 97 07/14/20 10:02 Temperature 97.8 F 07/14/20 10:02 Pulse Rate 103 H 07/14/20 11:41 Respiratory Rate 16 07/14/20 11:41 Blood Pressure 200/99 07/14/20 11:41 Pulse Oximetry (%) 92 07/14/20 11:41 MDM MDM Narrative Medical decision making narrative: Narrative: 45-year-old male recently discharged from the hospital returns with renal insufficiency acute on chronic question of congestive heart failure versus CHF and an elevated troponin. I believe the patient has demand ischemia and he also combined with his renal insufficiency for the elevated troponin and I believe the chest CT is more diagnostic of CHF patient will be admitted to the hospital diagnosis 1 is CHF diagnosis to his elevated troponin diagnosis 3 is acute on chronic renal insufficiency Medical Records Medical records reviewed: Yes I reviewed the patient's medical records. Lab Data Lab results reviewed: Yes I reviewed the patient's lab results. Labs: Lab Results 07/14/20 07/14/20 07/14/20 Range/Units 10:43 10:44 10:44 D-Dimer 1.57 H (0.27-0.50) ug/mL Troponin T 0.06 H* (<0.03) ng/mL C-Reactive Protein 5.50 H (0.03-0.80) mg/dL NT-Pro-B Natriuret Pep 1104.0 H (<125.0) pg/mL Urine Color Urine Appearance (Clear) Urine pH (5.0-9.0) Ur Specific [place] (1.000-1.035) Urine Protein (Negative) mg/dL Urine Glucose (UA) (Negative) mg/dL Urine Ketones (Negative) mg/dL Urine Occult Blood (Negative) mg/dL Urine Nitrate (Negative) Urine Bilirubin (Negative) mg/dL Urine Urobilinogen mg/dL Ur Leukocyte Esterase (Negative) /ug Urine RBC (0-3) /hpf Urine WBC (0-4) /hpf Ur Squamous Epith Cells (0-4) /hpf Urine Bacteria (0) /hpf Urine Mucus (None) /hpf Ur Culture Indicated? 07/14/20 Range/Units 10:55 D-Dimer (0.27-0.50) ug/mL Troponin T (<0.03) ng/mL C-Reactive Protein (0.03-0.80) mg/dL NT-Pro-B Natriuret Pep (<125.0) pg/mL Urine Color Yellow Urine Appearance Clear (Clear) Urine pH 5.0 (5.0-9.0) Ur Specific [place] 1.009 (1.000-1.035) Urine Protein 100 A (Negative) mg/dL Urine Glucose (UA) >=500 A (Negative) mg/dL Urine Ketones Negative (Negative) mg/dL Urine Occult Blood 0.03 (Negative) mg/dL Urine Nitrate Negative (Negative) Urine Bilirubin Negative (Negative) mg/dL Urine Urobilinogen Negative mg/dL Ur Leukocyte Esterase Negative (Negative) /ug Urine RBC 1 (0-3) /hpf Urine WBC 1 (0-4) /hpf Ur Squamous Epith Cells 0 (0-4) /hpf Urine Bacteria None (0) /hpf Urine Mucus Few A (None) /hpf Ur Culture Indicated? No ED POC Tests ED POC Tests: SEBASTIAN - SARS Antigen Negative EKG Data EKG #1: EKG attestation: Yes I reviewed and interpreted this EKG. EKG shows normal: sinus rhythm Rate: normal and tachycardia (100) Rhythm: NSR [place]/QRS: normal Heart block present: None ST segment elevation in: None ST segment depression in: None Q waves: None T wave inversions noted in: None Hyperacute T waves: None QTc: normal QRS morphology: Present normal Interpretation: no acute changes Pulse Oximetry Data Pulse Ox %: 97 Interpretation: WNL Discharge Plan Patient/Caregiver Discharge Instructions Pt seen by [facility]TER/PA only: No Clinical Impression: CHF (congestive heart failure), Acute renal insufficiency, Elevated troponin, HTN (hypertension) Patient Disposition: Xfer As Inpt ([facility]) Condition: Fair Follow up with: Daisy Mcnulty ARNP [Primary Care Provider] - Prescriptions: No Action albuterol sulfate 90 mcg/actuation aerosol powdr breath activated 2 inh INHALATION QID RF: 0 acetaminophen 500 mg tablet 1,000 mg PO TID PRN (Reason: Pain) RF: 0 ipratropium-albuterol 0.5 mg-3 mg(2.5 mg base)/3 mL solution for nebulization 3 ml INHALATION QID PRN (Reason: Wheezing) RF: 0 metoprolol succinate 50 mg tablet extended release 24 hr 50 mg PO QDAY RF: 0 losartan 50 mg tablet 50 mg PO QDAY RF: 0 clopidogrel [Plavix] 75 mg tablet 150 mg PO QDAY RF: 0 insulin glargine 100 unit/mL solution 60 unit SUB-Q DAILY RF: 0 insulin aspart U-100 100 unit/mL (3 mL) insulin pen 22 unit subcut TID RF: 0
[2020-07-14] MEDS ORDERED: morphine 2 MG/ML VIAL IV ONE (10:56)
[2020-07-14] MEDS ORDERED: PROCHLORPERAZINE 10 MG/2 ML VIAL IV ONE (10:56)
--- NOTE | 2020-07-14 11:33 | Cat Scan Report ---
INDICATION: SOB with elevate LFTs and Creatinin. Body aches. COMPARISON: Previous chest x-rays dated 07/14/2020 and 07/08/2020 TECHNIQUE: Axial images were obtained through the chest,abdomen and pelvis. Sagittally and coronally reformatted images. Intravenous contrast material was not administered FINDINGS: Chest CT: Lungs:Lungs are abnormal. There is reticular abnormality consistent with interlobular septal thickening. There are irregular groundglass infiltrates bilaterally. Findings are unchanged since chest x-ray dated 07/14/2020 but new since 07/08/2020. Interstitial abnormality is nonspecific. This may be secondary to interstitial pulmonary edema. Interstitial pneumonia including covid is possible. There is no parenchymal consolidation. No pulmonary parenchymal mass. There is no centrilobular or paraseptal emphysema. There is no honeycombing or bronchiectasis. Mediastinum:No mediastinal or hilar lymphadenopathy. Thoracic aorta is negative. No aneurysmal enlargement or dissection. Main pulmonary artery is within normal limits. Heart:No cardiomegaly. No pericardial effusion. No significant coronary artery calcification Pleura:No pleural effusion. No pleural-based mass or calcification Axilla, supraclavicular regions, chest wall:No pathologic axillary or supraclavicular lymphadenopathy Musculoskeletal:No thoracic compression fracture. No lytic or sclerotic lesions. Sternum and ribs are negative Abdomen/Pelvis: Liver:Negative to the limits of noncontrast enhanced examination. No detectable mass. Liver contour is smooth Gallbladder, bilary:Gallbladder is not identified consistent with cholecystectomy. No dilated bile ducts Spleen:No splenomegaly. Pancreas:No pancreatic mass. No pancreatic duct dilatation. No peripancreatic abnormality Adrenal glands:Negative Kidneys, ureters, bladder:No hydronephrosis. No obstructing or nonobstructing renal calculi. No detectable mass. No hydroureter or ureteral stone No bladder calculi Gastrointestinal:No detectable colonic mass. No diverticulitis.. Small bowel is negative. No mechanical small bowel obstruction Stomach and duodenum are unremarkable. Appendix: The appendix is well visualized. No evidence for appendicitis Vascular:Mild calcification of the abdominal aorta. No abdominal aortic aneurysm. Celiac trunk and superior mesenteric artery appear normal Lymphatic:No retroperitoneal or pathologic mesenteric adenopathy. There are nonspecific bilateral inguinal lymph nodes. Mesentery, peritoneum:Mild mesenteric edema is nonspecific. No intraperitoneal abscess. No free intraperitoneal fluid. Reproductive:Prostate is not enlarged Musculoskeletal:No compression fractures. No lytic lesions. Sacrum, pelvis, hips are negative No anterior abdominal wall or inguinal hernia. There is mild density in the subcutaneous fat consistent with edema. Pulmonary interstitial edema, mesenteric edema, and mild subcutaneous edema may be secondary to congestive heart failure. IMPRESSION: 1. Groundglass infiltrates and interlobular septal thickening. Findings may be due to interstitial pulmonary edema. Interstitial pneumonia including covid is possible 2. Mild mesenteric edema and probable subcutaneous edema. 3. No focal intra-abdominal abnormality. The exam was performed using radiation dose optimization techniques including, but not limited to, automated exposure control, adjustment of the mA and/or kV according to patient size and use of iterative reconstruction technique. Interpreted and Authenticated by: Constantino Lane 07/14/20
[2020-07-14 11:41] LABS: C-Reactive Protein 5.5 mg/dL (0.03-0.80)
[2020-07-14 11:57] LABS: Appearance,Urine CLEAR (Clear); Bilirubin,Urine Negative (Negative); Color,Urine YELLOW; Culture Indicated,Urine No; Glucose,Urine (UA) >=500 mg/dL (Negative); Ketones,Urine Negative (Negative); Leukocyte Esterase,Urine Negative /ug (Negative); Mucus,Urine FEW /hpf; Nitrate,Urine Negative (Negative); Protein,Urine 100 mg/dL (Negative); Specific Gravity,Urine 1.009 (1.000-1.035); Urine Blood 0.03 mg/dL (Negative); Urine RBC 1 /hpf (0-3); Urine Squamous Epithelial Cell 0 /hpf (0-4); Urine WBC 1 /hpf (0-4); Urobilinogen,Urine Negative
[2020-07-14] MEDS ORDERED: FUROSEMIDE 20 MG/2 ML VIAL IV ONE (12:36)
[2020-07-14] MEDS ORDERED: METOPROLOL TARTRATE 5 MG/5 ML VIAL IV ONE (12:40)
[2020-07-14] MEDS ORDERED: cloNIDine HCL 0.1 MG TABLET PO SCH (12:45)
--- NOTE | 2020-07-14 15:19 | Internal Med History&Physical ---
HPI History of Present Illness Patient information: Note initiated : 07/14/20 at 3:08 pm Service Date, if different from initiated Date: [] Patient: Constantino Harden 45 y/o M admitted on for body aches, headache, cough, leg swelling. Chief Complaint: [] History of present illness: Mr. Harden is a 45 year old male with a history of DM complicated by neuropathy and a right foot wound, hypertension, CAD s/p remote LA, CKD, obesity who was recently hospitalized for sepsis and hyperglycemia as well as an ZAID on CKD. The patient was treated with IV antibiotics, podiatry was consulted and recommended discharge of oral antibiotics. He was discharged to home with recommendation to finish the course of Bactrim previously prescribed but was not able to get the antibiotic. The patient was discharged on 07/10. He says that on 07/12 he noticed that his legs were developing edema, initially on the right side then on the left. He has had a dry cough for several days. He later developed shortness of breath when lying down and decided to go to the ED. In the ED the patient was hypertensive with SBP>200. His respiratory status was stable on room air. Pulmonary imaging with chest xray showed interstitial abnormality with interlobular septal thickening but no consolidations. This was followed by noncontrast CT chest/abdomen/pelvis that showed ground glass infiltrates and interlobular septa thickening which might be due to interstitial pulmonary edema. There was also mesenteric edema and probable subcutaneous edema. No focal intra-abdominal abnormality. The patient has an acute on chronic kidney injury. Urinalysis showing some protein and glucosuria but otherwise unremarkable. The CT scan did not show any hydronephrosis or calculi. The patient has a mild elevation in troponin, EKG does not show any acute ischemic changes. On exam the patient is not in any respiratory distress, he has pitting edema up to his knees. Lung exam is positive for faint crackles. He was given a dose of Lasix IV in the ED and had robust urine output. Constitutional: no fever, fatigue, or weight loss Eyes: no vision changes or pain Cardiovascular: no chest pain, no palpitations Respiratory: positive for dry cough and orthopnea Gastrointestinal: no abdominal pain, positive for nausea Genitourinary: diminished urine output Musculoskeletal: no arthralgia or myalgia Integumentary: right foot wound Neurological: positive for bilateral lower extremity neuropathy Psychiatric: no anxiety or depression Head: Atraumatic, normal inspection. Eyes: normal appearance, no scleral icterus. Neck: full ROM Respiratory: no respiratory distress. Cardiovascular: regular tachycardia, S1, S2. GI/Abdominal: obesity distended, soft, no guarding. Extremities: full range of motion, bilateral pitting edema right foot wound draining serous fluid Neurological: CN II-XII intact, intact motor, intact sensation. Psychiatric: normal mood. Skin: redness surrounding foot wound PFSH PFSH All Active Problems (Updated 07/14/20 @ 12:51 by Itz Tejeda MD) CHF (congestive heart failure) (Acute) Acute renal insufficiency (Acute) Elevated troponin (Acute) HTN (hypertension) (Acute) Edema (Acute) Leukocytosis (Acute) Diabetic infection of right foot (Acute) Severe sepsis (Acute) Diabetes mellitus type II, uncontrolled (Acute) Epidermoid cyst of skin (Acute) Pilar cyst (Acute) SOB (shortness of breath) (Chronic) Fatigue (Chronic) Vitamin D deficiency, unspecified (Chronic) Type 2 diabetes mellitus without complications (Chronic) Type 2 diabetes mellitus with other skin ulcer (Chronic) Type 2 diabetes mellitus with hyperglycemia (Chronic) Tachycardia, unspecified (Chronic) Personal history of diabetic foot ulcer (Chronic) Panic disorder [episodic paroxysmal anxiety] (Chronic) Pain in left shoulder (Chronic) Pain in left leg (Chronic) Major depressive disorder, single episode, moderate (Chronic) Major depressive disorder, recurrent, mild (Chronic) Low vision, both eyes (Chronic) Localized swelling, mass and lump, left upper limb (Chronic) Insomnia, unspecified (Chronic) History of colonoscopy (Chronic) Hyperlipidemia, unspecified (Chronic) Generalized abdominal pain (Chronic) Gastritis, unspecified, with bleeding (Chronic) Essential (primary) hypertension (Chronic) Corns and callosities (Chronic) Constipation, unspecified (Chronic) Cellulitis, unspecified (Chronic) Blepharophimosis unspecified eye, unspecified lid (Chronic) Atherosclerotic heart disease of [place] coronary artery with unspecified angina pectoris (Chronic) Adjustment disorder with mixed anxiety and depressed mood (Chronic) Acute myocardial infarction, unspecified (Chronic) Acute bronchitis, unspecified (Chronic) Benign lipomatous neoplasm (Chronic) Abdominal pain (Chronic) Orthostatic hypotension (Chronic) Gastroenteritis (Chronic) Hyperglycemia due to type 2 diabetes mellitus (Chronic) Unstable angina pectoris (Chronic) Costalchondritis (Chronic) Chronic renal disease (Chronic) Chest pain (Chronic) Constipation (Chronic) Acute URI (Chronic) Abscess (Chronic) Viral syndrome (Chronic) Obesity (BMI 30.0-34.9) (Chronic) CABRERA (obstructive sleep apnea) (Chronic) Anemia in chronic illness (Chronic) Diabetes (Chronic) Restrictive lung disease (Chronic) Sleep disturbance, unspecified (Chronic) Cough (Chronic) Adjustment disorder with depressed mood (Chronic) Benign essential hypertension (Chronic) Impairment level of vision (Chronic) Hyperlipidemia (Chronic) Mild recurrent major depression (Chronic) Swelling of left upper extremity (Chronic) Tachycardia (Chronic) Vitamin D deficiency (Chronic) Foot ulcer, left (Chronic) Diabetic foot ulcer (Chronic) Hyperglycemia due to type 1 diabetes mellitus (Chronic) Neurotrophic ulcer of foot (Chronic) Panic disorder (Chronic) Insomnia (Chronic) Medical History (Updated 07/14/20 @ 12:51 by Itz Tejeda MD) Abdominal pain Abscess Acute bronchitis, unspecified Acute myocardial infarction, unspecified Acute URI Adjustment disorder with mixed anxiety and depressed mood Anemia in chronic illness Ankle instability Atherosclerotic heart disease of [place] coronary artery with unspecified angina pectoris Benign essential hypertension Benign lipomatous neoplasm Blepharophimosis unspecified eye, unspecified lid Bronchitis Cellulitis, unspecified Chest pain Chronic renal disease Constipation, unspecified Corns and callosities Costalchondritis Cough Dental abscess Dental infection Diabetes Diabetic foot ulcer associated with type 2 diabetes mellitus, with fat layer exposed Essential (primary) hypertension Eye infection Fatigue Gastritis, unspecified, with bleeding Generalized abdominal pain Headache Hyperlipidemia, unspecified Impairment level of vision Influenza A Insomnia, unspecified Left leg pain upper leg and thigh area Left-sided chest pain Localized swelling, mass and lump, left upper limb Low vision, both eyes Lower extremity edema Major depressive disorder, recurrent, mild Major depressive disorder, single episode, moderate Neurotrophic ulcer of foot Healed DFU LEFT plantar in past. Now recurred with DTI and cellulitis Non-cardiac chest pain Obesity (BMI 30.0-34.9) Orthostatic hypotension CABRERA (obstructive sleep apnea) Pain in left leg Pain in left shoulder Panic disorder [episodic paroxysmal anxiety] Personal history of diabetic foot ulcer Restrictive lung disease Right-sided chest pain Sleep disturbance, unspecified SOB (shortness of breath) Swelling of left upper extremity Tachycardia, unspecified Type 2 diabetes mellitus with hyperglycemia Type 2 diabetes mellitus with other skin ulcer Type 2 diabetes mellitus without complications Unstable angina pectoris Viral syndrome Vitamin D deficiency, unspecified Surgical History History of appendectomy History of cholecystectomy History of colonoscopy Family History Other Adopted No pertinent family history Social History smoking status: Never smoker alcohol intake frequency: does not drink substance use type: does not use MEDS/ALLERGIES Home Medications and Allergies Home Medications Medication Instructions Recorded Confirmed Type albuterol sulfate 90 mcg/actuation 2 inh INHALATION QID 04/27/18 07/14/20 History breath activated powder inhaler acetaminophen 500 mg tablet 1,000 mg PO TID PRN tab 01/10/20 07/14/20 History ipratropium 0.5 mg-albuterol 3 mg 3 ml INHALATION QID PRN 01/10/20 07/14/20 History (2.5 mg base)/3 mL nebulization soln insulin aspart U-100 100 unit/mL 22 unit SUBCUT TID ml 01/29/20 07/14/20 History (3 mL) subcutaneous pen insulin glargine 100 unit/mL 60 unit SUB-Q DAILY ml 01/29/20 07/14/20 History subcutaneous solution clopidogrel 75 mg tablet 150 mg PO QDAY 07/14/20 07/14/20 History losartan 50 mg tablet 50 mg PO QDAY 07/14/20 07/14/20 History metoprolol succinate 50 mg 50 mg PO QDAY 07/14/20 07/14/20 History tablet,extended release 24 hr Allergies Allergy/AdvReac Type Severity Reaction Status Date / Time Vinyl Ether Allergy Mild Rash Verified 07/14/20 10:05 cephalexin [From Keflex] AdvReac Intermediate tendon pain Verified 07/14/20 10:05 budesonide [From Symbicort] AdvReac Mild burning Verified 07/14/20 10:05 ciprofloxacin [From Cipro] AdvReac Mild Cramping Verified 07/14/20 10:05 of the Muscles Formoterol [From Symbicort] AdvReac Mild chest Verified 07/14/20 10:05 burning lactose AdvReac Mild Nausea, Verified 07/14/20 10:05 diarrhea lisinopril AdvReac Mild Cough Verified 07/14/20 10:05 EXAM Constitutional Vitals: Temp Pulse Resp BP Pulse Ox 97.8 F 102 H 7 L 200/104 95 07/14/20 10:02 07/14/20 14:30 07/14/20 15:00 07/14/20 15:00 07/14/20 14:30 DATA Data Completed and Pending Labs: Labs from last 24 hours 07/14/20 07/14/20 07/14/20 10:55 10:44 10:44 ESR D-Dimer 1.57 H Troponin T C-Reactive Protein 5.50 H NT-Pro-B Natriuret Pep 1104.0 H Urine Color Yellow Urine Appearance Clear Urine pH 5.0 Ur Specific [place] 1.009 Urine Protein 100 A Urine Glucose (UA) >=500 A Urine Ketones Negative Urine Occult Blood 0.03 Urine Nitrate Negative Urine Bilirubin Negative Urine Urobilinogen Negative Ur Leukocyte Esterase Negative Urine RBC 1 Urine WBC 1 Ur Squamous Epith Cells 0 Urine Bacteria None Urine Mucus Few A Ur Culture Indicated? No 07/14/20 07/14/20 10:43 10:43 ESR 121 H D-Dimer Troponin T 0.06 H* C-Reactive Protein NT-Pro-B Natriuret Pep Urine Color Urine Appearance Urine pH Ur Specific [place] Urine Protein Urine Glucose (UA) Urine Ketones Urine Occult Blood Urine Nitrate Urine Bilirubin Urine Urobilinogen Ur Leukocyte Esterase Urine RBC Urine WBC Ur Squamous Epith Cells Urine Bacteria Urine Mucus Ur Culture Indicated? A/P Narrative A/P Narrative: Assessment: 45 year old male with a history of DM complicated by neuropathy and a right foot wound, hypertension, CAD s/p remote LA, CKD, obesity who was recently hospitalized for sepsis and hyperglycemia as well as an ZAID on CKD now admitted for hypertensive emergency, ZAID on CKD, and volume overload suspicious for a cardiorenal syndrome. #Hypertensive emergency -complicted by elevated troponin, ZAID, and volume overload/CHF #Acute on chronic kidney disease injury -uncertain etiology but suspect cardiorenal syndrome -UA only positive for protein and glucose -does not appear to be prerenal or post obstructive #Volume overload/probable cardiorenal syndrome #Diabetes mellitus-insulin dependent -poorly controlled Hgb A1C 13.4 -complicated by neuropathy and foot wound #Diabetic foot wound/infection -concern for possible infection -elevated ESR/CRP but afebrile and WBC improved #Transaminitis #Acute on chronic anemia -suspect acute dilutional anemia from volume overload -probable anemia of chronic inflammation at baseline #Hx of restrictive lung disease #Obesity-BMI 34 Plan -Lasix IV for diuresis, monitor I/O and renal function. -Follow renal function, avoid nephrotoxic meds, consider nephrology consult. -Continue home Toprol, hold Losartan for ZAID. -Nicardipine drip-goal of SBP 160 initially. -Trend troponin. -Continue home plavix daily. -Consider adding a statin. -Trend CRP-consider IV antibiotic for right foot wound. -Podiatry consulted to take a look at foot wound. -Lantus and SSI-high. -ECHO -Blood cultures x2. -COVID PCR w/ precautions. -Telemetry -Medication reconciliation. -DVT ppx: heparin SQ -Code status: Full -Disposition: home Time Spent With Patient Time: Total time spent is greater than 50% in coordination of care (as documented) at patient's floor/unit and/or counseling patient:
[2020-07-14] MEDS ORDERED: DEXTROSE 50% 50 ML VIAL IV PRN ×2 (15:35→16:15)
[2020-07-14] MEDS ORDERED: SENNOSIDES 1 TABLET PO PRN ×2 (15:35→16:15)
[2020-07-14] MEDS ORDERED: DEXTROSE 31 GM ORAL.SUSP PO PRN ×2 (15:35→16:15)
[2020-07-14] MEDS ORDERED: LACTULOSE 20 GM/30 ML ORAL.SOL PO PRN ×2 (15:35→16:15)
[2020-07-14] MEDS ORDERED: METOPROLOL SUCCINATE 50 MG TAB.XL.24H PO SCH (15:35)
[2020-07-14] MEDS ORDERED: ONDANSETRON 4 MG/2 ML VIAL IV PRN ×2 (15:35→16:15)
[2020-07-14] MEDS ORDERED: niCARdipine 25 MG in 0.9 % SODIUM CHLORIDE 240 ML IV SCH ×2 (15:35→16:00)
[2020-07-14 15:50] LABS: Amphetamine Screen,Urine None detected; Barbiturate Screen,Urine None detected; Benzodiazepines Screen,Urine None detected; Cannabinoid Screen,Urine None detected; Cocaine Screen,Urine None detected; Opiate Screen,Urine None detected; Oxycodone, Urine Screen None detected; Phencyclidine Screen,Urine None detected
[2020-07-14] MEDS ORDERED: ASPIRIN 81 MG TAB.CHEW CHEWED SCH (15:50)
[2020-07-14] MEDS ORDERED: CLOPIDOGREL 75 MG TABLET PO SCH (16:10)
[2020-07-14] MEDS ORDERED: INSULIN LISPRO 1 UNIT/0.01 ML UNIT SQ SCH (17:00)
[2020-07-14] MEDS: niCARdipine 25 MG in 0.9 % SODIUM CHLORIDE 240 ML IV SCH (17:06)
[2020-07-14] MEDS ORDERED: CLOPIDOGREL 75 MG TABLET PO ONE (17:21)
[2020-07-14] MEDS: METOPROLOL SUCCINATE 50 MG TAB.XL.24H PO SCH (17:29)
[2020-07-14] MEDS: INSULIN LISPRO 1 UNIT/0.01 ML UNIT SQ SCH ×2 (17:30→21:11)
[2020-07-14] MEDS: DOCUSATE SODIUM 100 MG CAPSULE PO SCH (20:42)
[2020-07-14] MEDS: HEPARIN 5,000 UNIT/ML VIAL SQ SCH (20:42)
[2020-07-14] MEDS: 0.9 % SODIUM CHLORIDE 10 ML SYRINGE IV SCH (20:43)
[2020-07-14] MEDS ORDERED: HEPARIN 5,000 UNIT/ML VIAL SQ SCH (21:00)
[2020-07-14] MEDS ORDERED: DOCUSATE SODIUM 100 MG CAPSULE PO SCH (21:00)
[2020-07-14] MEDS ORDERED: FUROSEMIDE 40 MG/4 ML VIAL IV ONE ×2 (21:00)
[2020-07-14] MEDS ORDERED: INSULIN GLARGINE, HUMAN 1 UNIT/0.01 ML SQ SCH ×2 (21:00)
[2020-07-14] MEDS ORDERED: 0.9 % SODIUM CHLORIDE 10 ML SYRINGE IV SCH (22:00)
[2020-07-15] MEDS: 0.9 % SODIUM CHLORIDE 10 ML SYRINGE IV SCH ×3 (05:52→22:45)
[2020-07-15] MEDS: niCARdipine 25 MG in 0.9 % SODIUM CHLORIDE 240 ML IV SCH (05:52)
[2020-07-15 07:31] LABS: Hematocrit 27.7 % (41.0-55.0); Hemoglobin 9.1 g/dL (13.5-16.5); Mean Cell Volume 92.3 fL (80.0-100.0); Mean Corpuscular HGB Conc 32.9 g/dL (31.0-36.0); Mean Platelet Volume 11.3 fL (7.4-10.4); Platelet Count 355 K/mcL (140-440); Red Cell Distribution Width 11.7 % (11.5-14.5); WBC 11.8 K/mcL (4.5-11.0)
[2020-07-15] MEDS: DOCUSATE SODIUM 100 MG CAPSULE PO SCH ×2 (07:38→21:47)
[2020-07-15] MEDS: INSULIN LISPRO 1 UNIT/0.01 ML UNIT SQ SCH ×4 (07:38→21:47)
[2020-07-15] MEDS: HEPARIN 5,000 UNIT/ML VIAL SQ SCH ×2 (07:39→21:47)
[2020-07-15] MEDS: METOPROLOL SUCCINATE 50 MG TAB.XL.24H PO SCH (07:40)
[2020-07-15 08:26] LABS: ALT/SGPT 90 U/L (<40); AST/SGOT 34 U/L (<40); Albumin 3.2 gm/dL (3.2-5.2); Albumin/Globulin Ratio 0.9 (1.0-2.3); Alkaline Phosphatase 271 U/L (39-117); Bilirubin,Total 0.3 mg/dL (0.1-1.0); Blood Urea Nitrogen 15 mg/dL (6-20); Calcium 9.2 mg/dL (8.6-10.4); Carbon Dioxide 30 mmol/L (22-30); Chloride 103 mmol/L (96-108); Globulin 3.5 gm/dL (2.2-3.7); Glomerular Filtration Rate 45; Glucose 99 mg/dL (70-105)
--- NOTE | 2020-07-15 08:59 | EKG ---
[facility] Test Date: 2020-07-15 Pat Name: Constantino Harden Department: ICU Room: 120D Gender: Male Testing Tech: : [id number] Requested By: Umberto Kaur Order Number: [id number] Reading MD: Prasanth Quan M.D. Measurements Intervals [place] Rate: 87 P: 45 OR: 144 QRS: 20 QRSD: 102 T: 9 QT: 396 QTc: 477 Interpretive Statements SINUS RHYTHM BORDERLINE PROLONGED QT INTERVAL SINCE PREVIOUS ECG 07-14-20, DECREASED RATE, INCREASED QTc Electronically Signed On 07-15-2020 16:25:31 PDT by Prasanth Quan M.D. /store/[email or web address]/[id number]
[2020-07-15] MEDS ORDERED: VANCOMYCIN 1,500 MG in 0.9 % SODIUM CHLORIDE 500 ML IV SCH (09:00)
[2020-07-15] MEDS ORDERED: CLOPIDOGREL 75 MG TABLET PO SCH (09:00)
[2020-07-15] MEDS ORDERED: METOPROLOL SUCCINATE 50 MG TAB.XL.24H PO SCH (09:00)
[2020-07-15] MEDS ORDERED: CEFEPIME 2 GM VIAL IV SCH (09:00)
[2020-07-15] MEDS ORDERED: VANCOMYCIN PER PHARMACY IV SCH ×2 (09:00→11:22)
[2020-07-15] MEDS ORDERED: FUROSEMIDE 40 MG/4 ML VIAL IV SCH ×2 (09:05→21:00)
[2020-07-15] MEDS ORDERED: amLODIPine 5 MG TABLET PO SCH (09:10)
--- NOTE | 2020-07-15 09:10 | XRay Report ---
INDICATION: foot pain TECHNIQUE: AP, oblique, lateral right foot COMPARISON: Previous MRI scan dated 07/08/2020 FINDINGS: No right foot fracture. No cortical destruction. No clinical evidence for osteomyelitis There is mild soft tissue swelling overlying and lateral to the right 5th metatarsal phalangeal joint. There is amorphous soft tissue calcification. No soft tissue gas bubbles. There is mild vascular calcification consistent with atherosclerosis and diabetes IMPRESSION: 1. No cortical destruction. No plain film evidence for osteomyelitis 2. Mild soft tissue swelling and amorphous soft tissue calcification. No soft tissue gas bubbles Interpreted and Authenticated by: Constantino Lane 07/15/20
--- NOTE | 2020-07-15 09:30 | Internal Med Progress Note ---
SUBJECTIVE Subjective Patient information: Note initiated : 07/15/20 at 9:28 am Service Date, if different from initiated Date: [] Patient: Constantino Harden 45 y/o M admitted on 07/14/20 for body aches, headache, cough, leg swelling. Chief Complaint: [] Interval history: Mr. Harden is a 45 year old male with a history of DM complicated by neuropathy and a right foot wound, hypertension, CAD s/p remote UT, CKD, obesity who was recently hospitalized for sepsis and hyperglycemia as well as an ZAID on CKD. The patient was treated with IV antibiotics, podiatry was consulted and recommended discharge of oral antibiotics. He was discharged to home with recommendation to finish the course of Bactrim previously prescribed but was not able to get the antibiotic. The patient was discharged on 07/10. He says that on 07/12 he noticed that his legs were developing edema, initially on the right side then on the left. He has had a dry cough for several days. He later developed shortness of breath when lying down and decided to go to the ED. In the ED the patient was hypertensive with SBP>200. His respiratory status was stable on room air. Pulmonary imaging with chest xray showed interstitial abnormality with interlobular septal thickening but no consolidations. This was followed by noncontrast CT chest/abdomen/pelvis that showed ground glass infi ltrates and interlobular septa thickening which might be due to interstitial pulmonary edema. There was also mesenteric edema and probable subcutaneous edema. No focal intra-abdominal abnormality. The patient has an acute on chronic kidney injury. Urinalysis showing some protein and glucosuria but otherwise unremarkable. The CT scan did not show any hydronephrosis or calculi. The patient has a mild elevation in troponin, EKG does not show any acute ischemic changes. On exam the patient is not in any respiratory distress, he has pitting edema up to his knees. Lung exam is positive for faint crackles. He was given a dose of Lasix IV in the ED and had robust urine output. 07/15-suspect the patient's diabetic foot wound to be infected, discussed with podiatry-wound cultures taken then started broad spectrum antibiotics. The foot wound may be the cause of the patient's presentation. Physical Exam Head: Atraumatic, normal inspection. Eyes: normal appearance, no scleral icterus. Neck: full ROM Respiratory: no respiratory distress. Cardiovascular: regular tachycardia, S1, S2. GI/Abdominal: obesity distended, soft, no guarding. Extremities: full range of motion, bilateral pitting edema right, fluctuant wound on foot Neurological: CN II-XII intact, intact motor, intact sensation. Psychiatric: normal mood. Skin: redness surrounding foot wound Constitutional Vitals: Vital Signs Temp Pulse Resp BP Pulse Ox 98.3 F 96 H 18 190/100 99 07/15/20 08:01 07/15/20 09:12 07/15/20 09:12 07/15/20 09:01 07/15/20 09:12 Period Temp Pulse Resp BP Sys/Proctor Pulse Ox Last 24 Hr 97.8 F-98.4 F 82-111 7-28 155-222/87-113 90-99 Intake and Output 07/14/20 07/15/20 07/15/20 21:59 05:59 13:59 Intake Total 600 100 Output Total 1100 1450 250 Balance -1100 -850 -150 Weight 108 kg Intake & Output: Intake & Output 07/14/20 07/15/20 07/15/20 21:59 05:59 13:59 Intake Total 600 100 Output Total 1100 1450 250 Balance -1100 -850 -150 Weight 108 kg Intake: Oral 600 100 Output: Void Amount 1100 1450 250 Other: Meal Breakfast Percent of Meal Consumed 100% Urine Appearance Clear Clear Urine Color Pale Pale Bright Yellow # Bowel Movements 1 OBJ DATA Labs CBC & Chem 7: 07/15/20 06:00 07/15/20 05:26 Labs: Abnormal Lab Results 07/15/20 07/15/20 07/15/20 06:00 05:26 05:26 WBC 11.8 H RBC 3.00 L Hgb 9.1 L Hct 27.7 L MPV 11.3 H ESR D-Dimer Creatinine 1.8 H ALT 90 H Alkaline Phosphatase 271 H Troponin T C-Reactive Protein 4.90 H NT-Pro-B Natriuret Pep Albumin/Globulin Ratio 0.9 L Urine Protein Urine Glucose (UA) Urine Mucus 07/15/20 07/14/20 07/14/20 05:26 16:19 10:55 WBC RBC Hgb Hct MPV ESR D-Dimer Creatinine ALT Alkaline Phosphatase Troponin T 0.07 H* 0.05 H* C-Reactive Protein NT-Pro-B Natriuret Pep Albumin/Globulin Ratio Urine Protein 100 A Urine Glucose (UA) >=500 A Urine Mucus Few A 07/14/20 07/14/20 07/14/20 10:44 10:44 10:43 WBC RBC Hgb Hct MPV ESR D-Dimer 1.57 H Creatinine ALT Alkaline Phosphatase Troponin T 0.06 H* C-Reactive Protein 5.50 H NT-Pro-B Natriuret Pep 1104.0 H Albumin/Globulin Ratio Urine Protein Urine Glucose (UA) Urine Mucus 07/14/20 10:43 WBC RBC Hgb Hct MPV ESR 121 H D-Dimer Creatinine ALT Alkaline Phosphatase Troponin T C-Reactive Protein NT-Pro-B Natriuret Pep Albumin/Globulin Ratio Urine Protein Urine Glucose (UA) Urine Mucus Meds: Medications Amlodipine Besylate (Amlodipine 5 Mg Tablet) 5 mg PO DAILY [facility] Cefepime HCl (Cefepime 2 Gm Vial) 2 gm IV Q8H [facility]; Protocol Clopidogrel Bisulfate (Clopidogrel 75 Mg Tablet) 75 mg PO DAILY [facility] Last Admin: 07/15/20 07:39 Dose: 75 mg Documented by: Dextrose (Dextrose 50% 50 Ml Vial) 0 ml IV UD PRN PRN Reason: Hypoglycemia Diagnostic Test (Pha) (Accu-Chek 1 Each Strip) 1 each FS ACHS [facility] Last Admin: 07/15/20 07:38 Dose: 1 each Documented by: Docusate Sodium (Docusate Sodium 100 Mg Capsule) 100 mg PO BID [facility] Last Admin: 07/15/20 07:38 Dose: 100 mg Documented by: Furosemide (Furosemide 40 Mg/4 Ml Vial) 40 mg IV Q12 [facility] Stop: 07/15/20 21:01 Glucose (Dextrose 31 Gm Oral.Susp) 15 gm PO PRN PRN PRN Reason: Hypoglycemia Heparin Sodium (Porcine) (Heparin 5,000 Unit/Ml Vial) 5,000 unit SQ Q12 [facility] Last Admin: 07/15/20 07:39 Dose: 5,000 unit Documented by: Nicardipine HCl 25 mg/ Sodium (Chloride) 250 mls @ 50 mls/hr IV Q12H [facility]; Protocol Last Admin: 07/15/20 05:52 Dose: Not Given Documented by: Metronidazole (Flagyl) 500 mg in 100 mls @ 100 mls/hr IV Q8H [facility]; Protocol Vancomycin HCl 1,500 mg/ (Sodium Chloride) 500 mls @ 333.3 mls/hr IV Q12H [facility] Insulin Glargine (Insulin Glargine, Human 1 Unit/0.01 Ml) 40 unit SQ HS [facility] Last Admin: 07/14/20 21:11 Dose: 40 units Documented by: Insulin Human Lispro (Insulin Lispro 1 Unit/0.01 Ml Unit) 0 unit SQ ACHS [facility]; Protocol Last Admin: 07/15/20 07:38 Dose: Not Given Documented by: Lactulose (Lactulose 20 Gm/30 Ml Oral.Angie) 10 gm PO DAILYP PRN PRN Reason: Constipation Metoprolol Succinate (Metoprolol Succinate 50 Mg Tab.Xl.24h) 50 mg PO DAILY [facility] Last Admin: 07/15/20 07:40 Dose: 50 mg Documented by: Ondansetron HCl (Ondansetron 4 Mg/2 Ml Vial) 4 mg IV Q4HP PRN; Protocol PRN Reason: Nausea And Vomiting Senna (Sennosides 1 Tablet) 2 tab PO HSP PRN PRN Reason: Constipation Sodium Chloride (0.9 % Sodium Chloride 10 Ml Syringe) 10 ml IV Q8 [facility] Last Admin: 07/15/20 05:52 Dose: 10 ml Documented by: Vancomycin HCl (Vancomycin Per Pharmacy) 1 order IV UD [facility]; Protocol A/P Narrative A/P Narrative: Assessment: 45 year old male with a history of DM complicated by neuropathy and a right foot wound, hypertension, CAD s/p remote UT, CKD, obesity who was recently hospitalized for sepsis and hyperglycemia as well as an ZAID on CKD now admitted for hypertensive emergency, ZAID on CKD, and volume overload suspicious for a cardiorenal syndrome possibly all related to the patients diabetic wound infection. The patient did not take antibiotic as recommended when he was discharged from the hospital and his wound appears worse now with surrounding cellulitis. #Diabetic foot wound/infection w/ cellulitis -possible explanation for the patient's presentation #Hypertensive emergency/urgency -complicated by elevated troponin, ZAID, and volume overload/volume overload #Elevated troponin-suspect type II UT from infection/hypertension/volume overload #Acute on chronic kidney disease injury -infection vs cardiorenal syndrome (probably d/t infection) -UA only positive for protein and glucose -does not appear to be prerenal or post obstructive #Volume overload/CHF-improving with diuresis #Diabetes mellitus-insulin dependent -poorly controlled Hgb A1C 13.4 -complicated by neuropathy and chronic foot wound/infection #Transaminitis-improved #Acute on chronic anemia -suspect related to acute infection -probable anemia of chronic inflammation at baseline #Hx of restrictive lung disease #Obesity-BMI 34 Plan -Vancomycin, Cefepime, Flagyl for now. -Follow wound and blood cultures. -Lasix IV x2 today for diuresis, monitor I/O and renal function, reevaluate volume status tomorrow. -Follow renal function, avoid nephrotoxic meds, consider nephrology consult. -Continue home Toprol and Norvasc, hold home Losartan for ZAID. -Labetalol and Hydralazine IV prn. -Trend troponin-suspect type II UT but if troponin trends up consider transfer to cardiac center. . -Continue home aspirin and plavix. -Continue home rosuvastatin. -Podiatry consulted for foot wound. -Lantus and SSI-high. -ECHO report pending. -Telemetry -DVT ppx: heparin SQ -Code status: Full -Disposition: home Time Spent With Patient Time: Total time spent is greater than 50% in coordination of care (as documented) at patient's floor/unit and/or counseling patient: QUALITY Stroke Symptom Onset Unknown: No VTE Deep Vein Thrombosis/Pulmonary Embolism Present on Admission: No
[2020-07-15] MEDS ORDERED: metroNIDAZOLE 500 MG/100 ML BAG IV SCH (10:00)
[2020-07-15] MEDS ORDERED: hydrALAZINE 20 MG/ML VIAL IV PRN ×2 (10:47→11:22)
[2020-07-15] MEDS ORDERED: LABETALOL 5 MG/ML ML IV PRN ×3 (10:47→14:23)
--- NOTE | 2020-07-15 10:50 | EKG ---
[facility] Test Date: 2020-07-14 Pat Name: Constantino Harden Department: ED Room: Gender: Male [employer] Officer: sb : 1975 Requested By: Itz Tejeda Order Number: [id number] Reading MD: Prasanth Quan M.D. Measurements Intervals [place] Rate: 102 P: 53 [place]: 158 QRS: 36 QRSD: 99 T: 12 QT: 352 QTc: 459 Interpretive Statements Sinus tachycardia Baseline wander in lead(s) V1,V4 Otherwise normal tracing Electronically Signed On 07-14-2020 12:42:44 PDT by Prasanth Quan M.D. /store/[email or web address]/[id number]
[2020-07-15] MEDS ORDERED: amLODIPine 5 MG TABLET PO ONE (10:51)
[2020-07-15] MEDS ORDERED: SENNOSIDES 1 TABLET PO PRN (11:22)
[2020-07-15] MEDS ORDERED: LACTULOSE 20 GM/30 ML ORAL.SOL PO PRN (11:22)
[2020-07-15] MEDS ORDERED: DEXTROSE 31 GM ORAL.SUSP PO PRN (11:22)
[2020-07-15] MEDS ORDERED: DEXTROSE 50% 50 ML VIAL IV PRN (11:22)
[2020-07-15 12:29] LABS: Band Neutrophils % 1 % (0-10); Eosinophils % (Manual) 7 % (0-7); Lymphocytes % 26 % (15-49); Monocytes % (Manual) 7 % (1-12); Platelet Estimate NORMAL (Normal); RBC Morphology NORMAL (Normal); Reactive Lymphocytes 1 % (0-2); Segmented Neutrophils % 58 % (38-78)
--- NOTE | 2020-07-15 13:16 | Internal Med Progress Note ---
SUBJECTIVE Subjective Patient information: Note initiated : 07/15/20 at 1:09 pm Service Date, if different from initiated Date: [] Patient: Constantino Harden 45 y/o M admitted on 07/14/20 for body aches, headache, cough, leg swelling. Chief Complaint: [] Interval history: Mr. Harden is a 45 year old male with a history of DM complicated by neuropathy and a right foot wound, hypertension, CAD s/p remote IL, CKD, obesity who was recently hospitalized for sepsis and hyperglycemia as well as an ZAID on CKD. The patient was treated with IV antibiotics, podiatry was consulted and recommended discharge of oral antibiotics. He was discharged to home with recommendation to finish the course of Bactrim previously prescribed but was not able to get the antibiotic. The patient was discharged on 07/10. He says that on 07/12 he noticed that his legs were developing edema, initially on the right side then on the left. He has had a dry cough for several days. He later developed shortness of breath when lying down and decided to go to the ED. In the ED the patient was hypertensive with SBP>200. His respiratory status was stable on room air. Pulmonary imaging with chest xray showed interstitial abnormality with interlobular septal thickening but no consolidations. This was followed by noncontrast CT chest/abdomen/pelvis that showed ground glass infi ltrates and interlobular septa thickening which might be due to interstitial pulmonary edema. There was also mesenteric edema and probable subcutaneous edema. No focal intra-abdominal abnormality. The patient has an acute on chronic kidney injury. Urinalysis showing some protein and glucosuria but otherwise unremarkable. The CT scan did not show any hydronephrosis or calculi. The patient has a mild elevation in troponin, EKG does not show any acute ischemic changes. On exam the patient is not in any respiratory distress, he has pitting edema up to his knees. Lung exam is positive for faint crackles. He was given a dose of Lasix IV in the ED and had robust urine output. 07/15-suspect the patient's diabetic foot wound to be infected, discussed with podiatry-wound cultures taken then started broad spectrum antibiotics. The foot wound may be the cause of the patient's presentation. 07/16 Constitutional Vitals: Vital Signs Temp Pulse Resp BP Pulse Ox 97.7 F 90 18 171/94 96 07/15/20 12:00 07/15/20 10:02 07/15/20 13:02 07/15/20 13:00 07/15/20 12:00 Period Temp Pulse Resp BP Sys/Proctor Pulse Ox Last 24 Hr 97.7 F-98.4 F 82-109 7-28 155-211/84-111 90-99 Intake and Output 07/14/20 07/15/20 07/15/20 21:59 05:59 13:59 Intake Total 600 700 Output Total 1100 1450 250 Balance -1100 -850 450 Weight 108 kg Intake & Output: Intake & Output 07/14/20 07/15/20 07/15/20 21:59 05:59 13:59 Intake Total 600 700 Output Total 1100 1450 250 Balance -1100 -850 450 Weight 108 kg Intake: IV 600 Vancomycin 1,500 mg In Sodium 500 Chloride 0.9% 500 ml @ 333.3 mls/hr IV Q12H [facility] Rx#: [id number] Oral 600 100 Output: Void Amount 1100 1450 250 Other: Meal Breakfast Percent of Meal Consumed 100% Urine Appearance Clear Clear Urine Color Pale Pale Bright Yellow # Bowel Movements 1 Exam: General: Alert, Awake, No acute Distress, obese Eyes/N/T: EOMI, Head/Neck: neck supple, CV: RRR, No murmurs, Pulm: Clear b/l, no wheezing/rhonchi/rales Abd: soft, nontender, +BS x4 Ext: no clubbing/cyanosis, b/l LE edema. right lateral plantar wound in dressings Neuro: Alert, no focal deficits, moves all extremities, Skin: warm/dry OBJ DATA Labs CBC & Chem 7: 07/15/20 06:00 07/15/20 05:26 Labs: Abnormal Lab Results 07/15/20 07/15/20 07/15/20 08:07 06:00 05:26 WBC 11.8 H RBC 3.00 L Hgb 9.1 L Hct 27.7 L MPV 11.3 H ESR D-Dimer Creatinine 1.8 H ALT 90 H Alkaline Phosphatase 271 H Troponin T 0.06 H* C-Reactive Protein NT-Pro-B Natriuret Pep Albumin/Globulin Ratio 0.9 L Urine Protein Urine Glucose (UA) Urine Mucus 07/15/20 07/15/20 07/14/20 05:26 05:26 16:19 WBC RBC Hgb Hct MPV ESR D-Dimer Creatinine ALT Alkaline Phosphatase Troponin T 0.07 H* 0.05 H* C-Reactive Protein 4.90 H NT-Pro-B Natriuret Pep Albumin/Globulin Ratio Urine Protein Urine Glucose (UA) Urine Mucus 07/14/20 07/14/20 07/14/20 10:55 10:44 10:44 WBC RBC Hgb Hct MPV ESR D-Dimer 1.57 H Creatinine ALT Alkaline Phosphatase Troponin T C-Reactive Protein 5.50 H NT-Pro-B Natriuret Pep 1104.0 H Albumin/Globulin Ratio Urine Protein 100 A Urine Glucose (UA) >=500 A Urine Mucus Few A 07/14/20 07/14/20 10:43 10:43 WBC RBC Hgb Hct MPV ESR 121 H D-Dimer Creatinine ALT Alkaline Phosphatase Troponin T 0.06 H* C-Reactive Protein NT-Pro-B Natriuret Pep Albumin/Globulin Ratio Urine Protein Urine Glucose (UA) Urine Mucus Meds: Medications Amlodipine Besylate (Amlodipine 10 Mg Tablet) 10 mg PO DAILY [facility] Aspirin (Aspirin 81 Mg Tab.Chew) 81 mg PO DAILY [facility] Atorvastatin Calcium (Atorvastatin 40 Mg Tablet) 80 mg PO DAILY [facility] Cefepime HCl (Cefepime 2 Gm Vial) 2 gm IV Q8H [facility]; Protocol Clopidogrel Bisulfate (Clopidogrel 75 Mg Tablet) 75 mg PO DAILY [facility] Dextrose (Dextrose 50% 50 Ml Vial) 0 ml IV UD PRN PRN Reason: Hypoglycemia Diagnostic Test (Pha) (Accu-Chek 1 Each Strip) 1 each FS ACHS [facility] Last Admin: 07/15/20 11:59 Dose: 1 each Documented by: Docusate Sodium (Docusate Sodium 100 Mg Capsule) 100 mg PO BID [facility] Furosemide (Furosemide 40 Mg/4 Ml Vial) 40 mg IV Q12 [facility] Stop: 07/15/20 21:01 Glucose (Dextrose 31 Gm Oral.Susp) 15 gm PO PRN PRN PRN Reason: Hypoglycemia Heparin Sodium (Porcine) (Heparin 5,000 Unit/Ml Vial) 5,000 unit SQ Q12 [facility] Hydralazine HCl (Hydralazine 20 Mg/Ml Vial) 10 mg IV Q4-6HP PRN PRN Reason: Hypertension SBP>180 Metronidazole (Flagyl) 500 mg in 100 mls @ 100 mls/hr IV Q8H [facility]; Protocol Vancomycin HCl 1,500 mg/ (Sodium Chloride) 500 mls @ 333.3 mls/hr IV Q12H [facility] Insulin Glargine (Insulin Glargine, Human 1 Unit/0.01 Ml) 40 unit SQ HS [facility] Insulin Human Lispro (Insulin Lispro 1 Unit/0.01 Ml Unit) 0 unit SQ ACHS [facility]; Protocol Last Admin: 07/15/20 11:59 Dose: 9 unit Documented by: Labetalol HCl (Labetalol 5 Mg/Ml Ml) 10 mg IV Q10M PRN PRN Reason: SBP>180, hold for HR < 60 Lactulose (Lactulose 20 Gm/30 Ml Oral.Angie) 10 gm PO DAILYP PRN PRN Reason: Constipation Metoprolol Succinate (Metoprolol Succinate 50 Mg Tab.Xl.24h) 50 mg PO DAILY [facility] Ondansetron HCl (Ondansetron 4 Mg/2 Ml Vial) 4 mg IV Q4HP PRN; Protocol PRN Reason: Nausea And Vomiting Senna (Sennosides 1 Tablet) 2 tab PO HSP PRN PRN Reason: Constipation Sodium Chloride (0.9 % Sodium Chloride 10 Ml Syringe) 10 ml IV Q8 [facility] Vancomycin HCl (Vancomycin Per Pharmacy) 1 order IV UD [facility]; Protocol A/P Narrative A/P Narrative: A: #Diabetic foot wound/infection w/ cellulitis: -possible explanation for the patient's presentation #Hypertensive emergency/urgency: -complicated by elevated troponin, ZAID, and volume overload/volume overload #Elevated troponin: suspect type II IL from infection/hypertension/volume overload #ZAID on CKD III: -infection vs cardiorenal syndrome (probably d/t infection) -UA only positive for protein and glucose -does not appear to be prerenal or post obstructive #Volume overload/CHF: improving with diuresis -echo with good EF, normal diastolic fxn #Diabetes mellitus, insulin dependent: noncompliant with meds -poorly controlled Hgb A1C 13.4 -complicated by neuropathy and chronic foot wound/infection #Transaminitis: improved #HTN: pt on BB/ARB #Acute on chronic anemia: -suspect related to acute infection -probable anemia of chronic inflammation at baseline #Hx of restrictive lung disease: #Obesity: BMI 34 Plan -Podiatry following -Vancomycin, Cefepime, Flagyl for now. -Follow wound and blood cultures. -Lasix IV x2 today for diuresis, monitor I/O and renal function, reevaluate volume status tomorrow. -Follow renal function, avoid nephrotoxic meds, consider nephrology consult if worsens -change toprol to coreg, cont Norvasc, hold home Losartan for ZAID. -Labetalol and Hydralazine IV prn. -Trend troponin-suspect type II IL but if troponin trends up consider transfer to cardiac center -Continue home aspirin and plavix, statin -Lantus and SSI -DVT ppx: heparin SQ Code status: Musical Performer Spent With Patient Time: Total time spent is greater than 50% in coordination of care (as documented) at patient's floor/unit and/or counseling patient: QUALITY Stroke Symptom Onset Unknown: No VTE Deep Vein Thrombosis/Pulmonary Embolism Present on Admission: No
[2020-07-15] MEDS: CEFEPIME 2 GM VIAL IV SCH ×2 (15:23→22:45)
[2020-07-15] MEDS ORDERED: ACETAMINOPHEN 500 MG TABLET PO PRN (15:31)
--- NOTE | 2020-07-15 15:54 | Orthopedic Consult Note ---
HPI Data of Consult Primary Care Provider: Daisy Mcnulty Consult Narrative Patient Information: Note initiated : 07/15/20 at 3:50 pm Service Date, if different from initiated Date: [] Patient: Constantino Harden 45 y/o M admitted on 07/14/20 for body aches, headache, cough, leg swelling. Chief Complaint: [right foot wound] Patient is 45 uncontrolled diabetic who has a right lower extremity wound of the fifth metatarsal phalangeal joint on plantar aspect. He does not have any sensation of this area is not able to tell if there is been any increase in pain or discomfort. There is a slight amount of drainage that is noted. His right lower extremity is swollen. He says that it used to be more swollen and that his ankle looked to be the size of his calf at one point. He says the swelling goes up and down depending on activity levels. cc:: CC: Umberto Kaur MD [facility] PFSH All Active Problems (Updated 07/14/20 @ 12:51 by Itz Tejeda MD) CHF (congestive heart failure) (Acute) Acute renal insufficiency (Acute) Elevated troponin (Acute) HTN (hypertension) (Acute) Edema (Acute) Leukocytosis (Acute) Diabetic infection of right foot (Acute) Severe sepsis (Acute) Diabetes mellitus type II, uncontrolled (Acute) Epidermoid cyst of skin (Acute) Pilar cyst (Acute) SOB (shortness of breath) (Chronic) Fatigue (Chronic) Vitamin D deficiency, unspecified (Chronic) Type 2 diabetes mellitus without complications (Chronic) Type 2 diabetes mellitus with other skin ulcer (Chronic) Type 2 diabetes mellitus with hyperglycemia (Chronic) Tachycardia, unspecified (Chronic) Personal history of diabetic foot ulcer (Chronic) Panic disorder [episodic paroxysmal anxiety] (Chronic) Pain in left shoulder (Chronic) Pain in left leg (Chronic) Major depressive disorder, single episode, moderate (Chronic) Major depressive disorder, recurrent, mild (Chronic) Low vision, both eyes (Chronic) Localized swelling, mass and lump, left upper limb (Chronic) Insomnia, unspecified (Chronic) History of colonoscopy (Chronic) Hyperlipidemia, unspecified (Chronic) Generalized abdominal pain (Chronic) Gastritis, unspecified, with bleeding (Chronic) Essential (primary) hypertension (Chronic) Corns and callosities (Chronic) Constipation, unspecified (Chronic) Cellulitis, unspecified (Chronic) Blepharophimosis unspecified eye, unspecified lid (Chronic) Atherosclerotic heart disease of [place] coronary artery with unspecified angina pectoris (Chronic) Adjustment disorder with mixed anxiety and depressed mood (Chronic) Acute myocardial infarction, unspecified (Chronic) Acute bronchitis, unspecified (Chronic) Benign lipomatous neoplasm (Chronic) Abdominal pain (Chronic) Orthostatic hypotension (Chronic) Gastroenteritis (Chronic) Hyperglycemia due to type 2 diabetes mellitus (Chronic) Unstable angina pectoris (Chronic) Costalchondritis (Chronic) Chronic renal disease (Chronic) Chest pain (Chronic) Constipation (Chronic) Acute URI (Chronic) Abscess (Chronic) Viral syndrome (Chronic) Obesity (BMI 30.0-34.9) (Chronic) CABRERA (obstructive sleep apnea) (Chronic) Anemia in chronic illness (Chronic) Diabetes (Chronic) Restrictive lung disease (Chronic) Sleep disturbance, unspecified (Chronic) Cough (Chronic) Adjustment disorder with depressed mood (Chronic) Benign essential hypertension (Chronic) Impairment level of vision (Chronic) Hyperlipidemia (Chronic) Mild recurrent major depression (Chronic) Swelling of left upper extremity (Chronic) Tachycardia (Chronic) Vitamin D deficiency (Chronic) Foot ulcer, left (Chronic) Diabetic foot ulcer (Chronic) Hyperglycemia due to type 1 diabetes mellitus (Chronic) Neurotrophic ulcer of foot (Chronic) Panic disorder (Chronic) Insomnia (Chronic) Medical History (Updated 07/14/20 @ 12:51 by Itz Tejeda MD) Abdominal pain Abscess Acute bronchitis, unspecified Acute myocardial infarction, unspecified Acute URI Adjustment disorder with mixed anxiety and depressed mood Anemia in chronic illness Ankle instability Atherosclerotic heart disease of [place] coronary artery with unspecified angina pectoris Benign essential hypertension Benign lipomatous neoplasm Blepharophimosis unspecified eye, unspecified lid Bronchitis Cellulitis, unspecified Chest pain Chronic renal disease Constipation, unspecified Corns and callosities Costalchondritis Cough Dental abscess Dental infection Diabetes Diabetic foot ulcer associated with type 2 diabetes mellitus, with fat layer exposed Essential (primary) hypertension Eye infection Fatigue Gastritis, unspecified, with bleeding Generalized abdominal pain Headache Hyperlipidemia, unspecified Impairment level of vision Influenza A Insomnia, unspecified Left leg pain upper leg and thigh area Left-sided chest pain Localized swelling, mass and lump, left upper limb Low vision, both eyes Lower extremity edema Major depressive disorder, recurrent, mild Major depressive disorder, single episode, moderate Neurotrophic ulcer of foot Healed DFU LEFT plantar in past. Now recurred with DTI and cellulitis Non-cardiac chest pain Obesity (BMI 30.0-34.9) Orthostatic hypotension CABRERA (obstructive sleep apnea) Pain in left leg Pain in left shoulder Panic disorder [episodic paroxysmal anxiety] Personal history of diabetic foot ulcer Restrictive lung disease Right-sided chest pain Sleep disturbance, unspecified SOB (shortness of breath) Swelling of left upper extremity Tachycardia, unspecified Type 2 diabetes mellitus with hyperglycemia Type 2 diabetes mellitus with other skin ulcer Type 2 diabetes mellitus without complications Unstable angina pectoris Viral syndrome Vitamin D deficiency, unspecified Surgical History History of appendectomy History of cholecystectomy History of colonoscopy Family History Other Adopted No pertinent family history Social History smoking status: Never smoker alcohol intake frequency: does not drink substance use type: does not use MEDS/ALLERGIES Home Medications and Allergies Home Medications Medication Instructions Recorded Confirmed Type albuterol sulfate 90 mcg/actuation 2 inh INHALATION QID 04/27/18 07/14/20 History breath activated powder inhaler acetaminophen 500 mg tablet 1,000 mg PO TID PRN tab 01/10/20 07/14/20 History ipratropium 0.5 mg-albuterol 3 mg 3 ml INHALATION QID PRN 01/10/20 07/14/20 History (2.5 mg base)/3 mL nebulization soln insulin aspart U-100 100 unit/mL 22 unit SUBCUT TID ml 01/29/20 07/14/20 History (3 mL) subcutaneous pen insulin glargine 100 unit/mL 60 unit SUB-Q DAILY ml 01/29/20 07/14/20 History subcutaneous solution Adult Aspirin EC Low Strength 81 mg PO QAM 07/14/20 07/14/20 History amlodipine 10 mg PO HS 07/14/20 07/14/20 History clopidogrel 75 mg tablet 75 mg PO QDAY 07/14/20 07/14/20 History fluoxetine 40 mg PO QAM 07/14/20 07/14/20 History losartan 50 mg tablet 100 mg PO QDAY 07/14/20 07/14/20 History metoprolol succinate 50 mg 50 mg PO QDAY 07/14/20 07/14/20 History tablet,extended release 24 hr rosuvastatin 40 mg PO QDAY 07/14/20 07/14/20 History Allergies Allergy/AdvReac Type Severity Reaction Status Date / Time Vinyl Ether Allergy Mild Rash Verified 07/14/20 10:05 cephalexin [From Keflex] AdvReac Intermediate tendon pain Verified 07/14/20 10:05 budesonide [From Symbicort] AdvReac Mild burning Verified 07/14/20 10:05 ciprofloxacin [From Cipro] AdvReac Mild Cramping Verified 07/14/20 10:05 of the Muscles Formoterol [From Symbicort] AdvReac Mild chest Verified 07/14/20 10:05 burning lactose AdvReac Mild Nausea, Verified 07/14/20 10:05 diarrhea lisinopril AdvReac Mild Cough Verified 07/14/20 10:05 Physical Examination Ankle & Foot right: Ankle appearance: erythema Foot appearance: erythema and other (Right fifth metatarsal phalangeal joint wound to the lateral aspect. The plantar wound is covered in eschar. The lateral aspect has a fibrous deposition deposition with serous drainage.) A/P Time Spent With Patient Time: Total time spent is greater than 50% in coordination of care (as documented) at patient's floor/unit and/or counseling patient: Type II diabetic uncontrolled with ulceration right fifth metatarsal phalangeal joint Deep culture taken under this wound for Gram stain a aerobic and anaerobic analysis Patient good candidate for bone biopsy to rule out osteomyelitis and for culture and sensitivity should there be infection X-ray does not show substantial cortical destruction, comparing with MRI previously osteomyelitis is a possibility given the bone marrow edema noted at his previous admission Patient also had recent procedure and did not take the antibiotics for this area possible bone marrow edema related to procedure or osteomyelitis to be ruled out.
[2020-07-15] MEDS: hydrALAZINE 20 MG/ML VIAL IV PRN (17:02)
[2020-07-15] MEDS: CARVEDILOL 12.5 MG TABLET PO SCH (17:03)
[2020-07-15] MEDS: INSULIN GLARGINE, HUMAN 1 UNIT/0.01 ML SQ SCH (21:48)
[2020-07-15] MEDS: VANCOMYCIN 1,500 MG in 0.9 % SODIUM CHLORIDE 500 ML IV SCH (21:49)
[2020-07-15] MEDS: metroNIDAZOLE 500 MG/100 ML BAG IV SCH (21:50)
[2020-07-16] MEDS: metroNIDAZOLE 500 MG/100 ML BAG IV SCH ×3 (05:37→20:51)
[2020-07-16] MEDS: CEFEPIME 2 GM VIAL IV SCH ×3 (05:38→21:48)
[2020-07-16] MEDS: 0.9 % SODIUM CHLORIDE 10 ML SYRINGE IV SCH ×3 (05:38→21:49)
[2020-07-16] MEDS: ONDANSETRON 4 MG/2 ML VIAL IV PRN ×2 (05:48→21:21)
--- NOTE | 2020-07-16 07:29 | Internal Med Progress Note ---
SUBJECTIVE Subjective Patient information: Note initiated : 07/16/20 at 7:25 am Service Date, if different from initiated Date: [] Patient: Constantino Harden 45 y/o M admitted on 07/14/20 for body aches, headache, cough, leg swelling. Chief Complaint: [] Interval history: Mr. Harden is a 45 year old male with a history of DM complicated by neuropathy and a right foot wound, hypertension, CAD s/p remote MO, CKD, obesity who was recently hospitalized for sepsis and hyperglycemia as well as an ZAID on CKD. The patient was treated with IV antibiotics, podiatry was consulted and recommended discharge of oral antibiotics. He was discharged to home with recommendation to finish the course of Bactrim previously prescribed but was not able to get the antibiotic. The patient was discharged on 07/10. He says that on 07/12 he noticed that his legs were developing edema, initially on the right side then on the left. He has had a dry cough for several days. He later developed shortness of breath when lying down and decided to go to the ED. In the ED the patient was hypertensive with SBP>200. His respiratory status was stable on room air. Pulmonary imaging with chest xray showed interstitial abnormality with interlobular septal thickening but no consolidations. This was followed by noncontrast CT chest/abdomen/pelvis that showed ground glass infi ltrates and interlobular septa thickening which might be due to interstitial pulmonary edema. There was also mesenteric edema and probable subcutaneous edema. No focal intra-abdominal abnormality. The patient has an acute on chronic kidney injury. Urinalysis showing some protein and glucosuria but otherwise unremarkable. The CT scan did not show any hydronephrosis or calculi. The patient has a mild elevation in troponin, EKG does not show any acute ischemic changes. On exam the patient is not in any respiratory distress, he has pitting edema up to his knees. Lung exam is positive for faint crackles. He was given a dose of Lasix IV in the ED and had robust urine output. 07/15-suspect the patient's diabetic foot wound to be infected, discussed with podiatry-wound cultures taken then started broad spectrum antibiotics. The foot wound may be the cause of the patient's presentation. 07/16 Constitutional Vitals: Vital Signs Temp Pulse Resp BP Pulse Ox 98.5 F 94 H 14 162/84 97 07/16/20 00:00 07/16/20 06:01 07/15/20 20:00 07/16/20 06:01 07/16/20 06:01 Period Temp Pulse Resp BP Sys/Proctor Pulse Ox Last 24 Hr 97.7 F-98.8 F 88-97 11-31 103-190/59-126 94-99 Intake and Output 07/15/20 07/16/20 07/16/20 21:59 05:59 13:59 Intake Total 720 1650 Output Total 550 575 50 Balance 170 1075 -50 Weight 108.681 kg Intake & Output: Intake & Output 07/15/20 07/16/20 07/16/20 21:59 05:59 13:59 Intake Total 720 1650 Output Total 550 575 50 Balance 170 1075 -50 Weight 108.681 kg Intake: IV 600 Vancomycin 1,500 mg In Sodium 500 Chloride 0.9% 500 ml @ 333.3 mls/hr IV Q12H [facility] Rx#: [id number] Oral 720 1050 Output: Urine Catheter Amount 250 Void Amount 300 575 Emesis 50 Other: Meal Dinner snack Percent of Meal Consumed 75% 100% Feeding Ability Independent Independent Urine Appearance Clear Clear Urine Color Bright Yellow Pale Urine Odor Normal # Bowel Movements 1 # of times incontinent of 0 Bowels Exam: General: Alert, Awake, No acute Distress, obese Eyes/N/T: EOMI, Head/Neck: neck supple, CV: RRR, No murmurs, Pulm: Clear b/l, no wheezing/rhonchi/rales Abd: soft, nontender, +BS x4 Ext: no clubbing/cyanosis, b/l LE edema. right lateral plantar wound in dressings Neuro: Alert, no focal deficits, moves all extremities, Skin: warm/dry OBJ DATA Labs CBC & Chem 7: 07/16/20 06:00 07/16/20 06:00 Labs: Abnormal Lab Results 07/16/20 07/15/20 07/15/20 06:00 11:06 08:07 WBC RBC 2.29 L Hgb 7.6 L Hct 23.8 L MCV 103.9 H RDW 15.2 H Plt Count 81 L MPV 13.0 H ESR D-Dimer Creatinine ALT Alkaline Phosphatase Troponin T 0.07 H* 0.06 H* C-Reactive Protein NT-Pro-B Natriuret Pep Albumin/Globulin Ratio Urine Protein Urine Glucose (UA) Urine Mucus 07/15/20 07/15/20 07/15/20 06:00 05:26 05:26 WBC 11.8 H RBC 3.00 L Hgb 9.1 L Hct 27.7 L MCV RDW Plt Count MPV 11.3 H ESR D-Dimer Creatinine 1.8 H ALT 90 H Alkaline Phosphatase 271 H Troponin T C-Reactive Protein 4.90 H NT-Pro-B Natriuret Pep Albumin/Globulin Ratio 0.9 L Urine Protein Urine Glucose (UA) Urine Mucus 07/15/20 07/14/20 07/14/20 05:26 16:19 10:55 WBC RBC Hgb Hct MCV RDW Plt Count MPV ESR D-Dimer Creatinine ALT Alkaline Phosphatase Troponin T 0.07 H* 0.05 H* C-Reactive Protein NT-Pro-B Natriuret Pep Albumin/Globulin Ratio Urine Protein 100 A Urine Glucose (UA) >=500 A Urine Mucus Few A 07/14/20 07/14/20 07/14/20 10:44 10:44 10:43 WBC RBC Hgb Hct MCV RDW Plt Count MPV ESR D-Dimer 1.57 H Creatinine ALT Alkaline Phosphatase Troponin T 0.06 H* C-Reactive Protein 5.50 H NT-Pro-B Natriuret Pep 1104.0 H Albumin/Globulin Ratio Urine Protein Urine Glucose (UA) Urine Mucus 07/14/20 10:43 WBC RBC Hgb Hct MCV RDW Plt Count MPV ESR 121 H D-Dimer Creatinine ALT Alkaline Phosphatase Troponin T C-Reactive Protein NT-Pro-B Natriuret Pep Albumin/Globulin Ratio Urine Protein Urine Glucose (UA) Urine Mucus Meds: Medications Acetaminophen (Acetaminophen 500 Mg Tablet) 1,000 mg PO Q4-6HP PRN; Protocol PRN Reason: Per Pain Protocol Last Admin: 07/15/20 17:02 Dose: 1,000 mg Documented by: Amlodipine Besylate (Amlodipine 10 Mg Tablet) 10 mg PO DAILY [facility] Aspirin (Aspirin 81 Mg Tab.Chew) 81 mg PO DAILY [facility] Atorvastatin Calcium (Atorvastatin 40 Mg Tablet) 80 mg PO DAILY [facility] Carvedilol ([facility]vedilol 12.5 Mg Tablet) [facility] Last Admin: 07/15/20 17:03 Dose: 12.5 mg Documented by: Cefepime HCl (Cefepime 2 Gm Vial) 2 gm IV Q8H [facility]; Protocol Last Admin: 07/16/20 05:38 Dose: 2 gm Documented by: Clopidogrel Bisulfate (Clopidogrel 75 Mg Tablet) 75 mg PO DAILY [facility] Dextrose (Dextrose 50% 50 Ml Vial) 0 ml IV UD PRN PRN Reason: Hypoglycemia Diagnostic Test (Pha) (Accu-Chek 1 Each Strip) 1 each FS [facility] Last Admin: 07/15/20 21:46 Dose: 1 each Documented by: Docusate Sodium (Docusate Sodium 100 Mg Capsule) 100 mg PO BID [facility] Last Admin: 07/15/20 21:47 Dose: 100 mg Documented by: Glucose (Dextrose 31 Gm Oral.Susp) 15 gm PO PRN PRN PRN Reason: Hypoglycemia Heparin Sodium (Porcine) (Heparin 5,000 Unit/Ml Vial) 5,000 unit SQ Q12 [facility] Last Admin: 07/15/20 21:47 Dose: 5,000 unit Documented by: Hydralazine HCl (Hydralazine 20 Mg/Ml Vial) 0 mg IV Q2HP PRN PRN Reason: Hypertension Last Admin: 07/15/20 17:02 Dose: 20 mg Documented by: Metronidazole (Flagyl) 500 mg in 100 mls @ 100 mls/hr IV Q8H [facility]; Protocol Last Admin: 07/16/20 05:37 Dose: 100 mls/hr Documented by: Vancomycin HCl 1,500 mg/ (Sodium Chloride) 500 mls @ 333.3 mls/hr IV Q12H [facility] Last Infusion: 07/15/20 23:42 Dose: Infused Documented by: Insulin Glargine (Insulin Glargine, Human 1 Unit/0.01 Ml) 40 unit SQ [facility] Last Admin: 07/15/20 21:48 Dose: 40 units Documented by: Insulin Human Lispro (Insulin Lispro 1 Unit/0.01 Ml Unit) 0 unit SQ [facility]; Protocol Last Admin: 07/15/20 21:47 Dose: 9 unit Documented by: Labetalol HCl (Labetalol 5 Mg/Ml Ml) 0 mg IV Q2HP PRN PRN Reason: Hypertension Lactulose (Lactulose 20 Gm/30 Ml Oral.Angie) 10 gm PO DAILYP PRN PRN Reason: Constipation Ondansetron HCl (Ondansetron 4 Mg/2 Ml Vial) 4 mg IV Q4HP PRN; Protocol PRN Reason: Nausea And Vomiting Last Admin: 07/16/20 05:48 Dose: 4 mg Documented by: Senna (Sennosides 1 Tablet) 2 tab PO HSP PRN PRN Reason: Constipation Sodium Chloride (0.9 % Sodium Chloride 10 Ml Syringe) 10 ml IV Q8 [facility] Last Admin: 07/16/20 05:38 Dose: 10 ml Documented by: Vancomycin HCl (Vancomycin Per Pharmacy) 1 order IV UD [facility]; Protocol A/P Narrative A/P Narrative: A: #Diabetic foot wound/infection w/cellulitis: -possible explanation for the patient's presentation #Hypertensive emergency/urgency (h/o HTN): on BB/ARB -complicated by elevated troponin, ZAID, and volume overload/volume overload #Elevated troponin: suspect type II MO from infection/hypertension/volume overload #ZAID on CKD III: -infection vs cardiorenal syndrome (probably d/t infection) -UA only positive for protein and glucose -does not appear to be prerenal or post obstructive #Acute on chronic anemia: -suspect related to acute infection -likely anemia of chronic inflammation at baseline #Volume overload/CHF: improved s/p diuresis -echo with good EF, normal diastolic fxn #Diabetes mellitus, insulin dependent: noncompliant with meds -poorly controlled Hgb A1C 13.4 -complicated by neuropathy and chronic foot wound/infection #Transaminitis: improved #Hx of restrictive lung disease: #Obesity: BMI 34 Plan -Podiatry following -Vancomycin, Cefepime, Flagyl for now. -Follow wound and blood cultures. -Nephrology consult, renal u/s -changed toprol to coreg, cont Norvasc, hold home Losartan for ZAID. -Labetalol and Hydralazine IV prn. -Continue home aspirin and plavix, statin -Lantus and SSI -DVT ppx: heparin SQ Code status: Water Vessel Captain Spent With Patient Time: Total time spent is greater than 50% in coordination of care (as documented) at patient's floor/unit and/or counseling patient: QUALITY Stroke Symptom Onset Unknown: No VTE Deep Vein Thrombosis/Pulmonary Embolism Present on Admission: No
[2020-07-16 07:52] LABS: ALT/SGPT 66 U/L (<40); AST/SGOT 22 U/L (<40); Albumin 3.2 gm/dL (3.2-5.2); Albumin/Globulin Ratio 0.9 (1.0-2.3); Alkaline Phosphatase 234 U/L (39-117); Bilirubin,Total 0.2 mg/dL (0.1-1.0); Blood Urea Nitrogen 20 mg/dL (6-20); Calcium 9.2 mg/dL (8.6-10.4); Carbon Dioxide 29 mmol/L (22-30); Chloride 101 mmol/L (96-108); Globulin 3.6 gm/dL (2.2-3.7); Glomerular Filtration Rate 35; Glucose 128 mg/dL (70-105)
[2020-07-16] MEDS ORDERED: POTASSIUM CHLORIDE 20 MEQ TABLET PO ONE (08:24)
[2020-07-16 08:34] LABS: Hematocrit 30.7 % (41.0-55.0); Mean Cell Volume 91.9 fL (80.0-100.0); Mean Corpuscular HGB Conc 32.6 g/dL (31.0-36.0); Platelet Count 445 K/mcL (140-440); RBC 3.34 M/mcL (4.50-5.90); Red Cell Distribution Width 11.8 % (11.5-14.5); WBC 11.1 K/mcL (4.5-11.0)
[2020-07-16] MEDS: OMEPRAZOLE 20 MG CAPSULE PO SCH (08:53)
[2020-07-16] MEDS: INSULIN LISPRO 1 UNIT/0.01 ML UNIT SQ SCH ×4 (08:53→20:53)
[2020-07-16] MEDS ORDERED: METOPROLOL SUCCINATE 50 MG TAB.XL.24H PO SCH (09:00)
[2020-07-16] MEDS ORDERED: amLODIPine 10 MG TABLET PO SCH ×2 (09:00)
[2020-07-16] MEDS ORDERED: ASPIRIN 81 MG TAB.CHEW PO SCH ×2 (09:00)
[2020-07-16] MEDS ORDERED: ATORVASTATIN 40 MG TABLET PO SCH (09:00)
--- NOTE | 2020-07-16 09:09 | Nephrology Consult Note ---
HPI Data of Consult Primary Care Provider: Daisy Mcnulty Consult Narrative Patient Information: Note initiated : 07/16/20 at 9:03 am Service Date, if different from initiated Date: [] Patient: Constantino Harden 45 y/o M admitted on 07/14/20 for body aches, headache, cough, leg swelling. Chief Complaint: [] Patient with DM-OOC recently admitted after first being seen in Urgent care clinic on 07/14/2020 =>"Patient presents today (07/14/2020) with a chief complaint that he has had a 4-day history of cough, headache, nausea, vomiting, right lower extremity pain and swelling, decreased appetite, hypertension. Patient was released from hospital 4 days ago and is progressively felt worse. States his blood pressure was 200/133 last night with a pulse of 115. States that he feels bloated. His last emesis was 3 days ago and he denies hematemesis. Has continued to have nausea. Last BM was 3 days ago. States his right lower extremity was more swollen 2 days ago but his calf is very tender. He did have a surgery on his right foot 7 days ago." This patient has had diabetes type 2 insulin requiring for at least 15 years complicated by a quadropathy of diabetic retinopathy, autonomic and peripheral neuropathy, and now diabetic nephro. He has longstanding proteinuria and a mild elevation in his GFR which is now wo rsened in the setting of treatment HTN in setting of long standing HTN (temporary loss of renal autoregulation of GFR), treatment of lower extremity edema and antibiotic therapy. Laboratory Tests 07/16/20 07/16/20 07/16/20 06:00 06:00 06:00 WBC 11.1 H Hgb 10.0 L Hct 30.7 L MCV 91.9 Plt Count 445 H Sodium 140 Potassium 3.2 L Chloride 101 Carbon Dioxide 29 Anion Gap 10.0 BUN 20 Creatinine 2.2 H GFR Calculation 35 Glucose 128 H Calcium 9.2 Total Bilirubin 0.2 AST 22 ALT 66 H Alkaline Phosphatase 234 H Troponin T 0.05 H* Total Protein 6.8 Albumin 3.2 Albumin/Globulin Ratio 0.9 L Serum creatinine Laboratory Tests 07/16/20 07/16/20 13:25 13:25 Urine Eosinophils TNP Ur Random Creatinine 178.6 U Random Total Protein 88 U Orange Prot/Creat Ratio 0.49 H Ur Random Sodium 49 Ur Random Potassium 34.6 Ur Random Chloride 30 L Ur Random Uric Acid 43.2 Renal U/S 07/16/2020: Right kidney: Right kidney [id number] x 6.4 x 5.5 cm. There are 2 small benign upper pole cysts. These measure 10 mm and 6 mm maximally. No solid mass. Otherwise normal right renal cortex. No hydronephrosis. No detectable calculi.. Left kidney: Left kidney [id number] x 5.9 x 5.9 cm. There is no hydronephrosis. No solid left renal mass. Renal cortex is normal. No detectable calculi. There is a 7 mm upper pole simple cyst. Bladder: Prevoid bladder [id number] mL.Bilateral ureteral jets visualized. IMPRESSION: Negative renal ultrasound. Small benign renal cysts bilaterally Current Medications Acetaminophen (Acetaminophen 500 Mg Tablet) 1,000 mg PO Q4-6HP PRN; Protocol PRN Reason: Per Pain Protocol Last Admin: 07/15/20 17:02 Dose: 1,000 mg Documented by: Amlodipine Besylate (Amlodipine 10 Mg Tablet) 10 mg PO DAILY [facility] Aspirin (Aspirin 81 Mg Tab.Chew) 81 mg PO DAILY [facility] Atorvastatin Calcium (Atorvastatin 40 Mg Tablet) 80 mg PO DAILY [facility] Carvedilol (Carvedilol 12.5 Mg Tablet) 12.5 mg PO BIDCC [facility] Last Admin: 07/15/20 17:03 Dose: 12.5 mg Documented by: Cefepime HCl (Cefepime 2 Gm Vial) 2 gm IV Q8H [facility]; Protocol Last Admin: 07/16/20 05:38 Dose: 2 gm Documented by: Clopidogrel Bisulfate (Clopidogrel 75 Mg Tablet) 75 mg PO DAILY [facility] Dextrose (Dextrose 50% 50 Ml Vial) 0 ml IV UD PRN PRN Reason: Hypoglycemia Diagnostic Test (Pha) (Accu-Chek 1 Each Strip) 1 each FS ACHS [facility] Last Admin: 07/16/20 08:46 Dose: 1 each Documented by: Docusate Sodium (Docusate Sodium 100 Mg Capsule) 100 mg PO BID [facility] Last Admin: 07/15/20 21:47 Dose: 100 mg Documented by: Glucose (Dextrose 31 Gm Oral.Susp) 15 gm PO PRN PRN PRN Reason: Hypoglycemia Heparin Sodium (Porcine) (Heparin 5,000 Unit/Ml Vial) 5,000 unit SQ Q12 [facility] Last Admin: 07/15/20 21:47 Dose: 5,000 unit Documented by: Hydralazine HCl (Hydralazine 20 Mg/Ml Vial) 0 mg IV Q2HP PRN PRN Reason: Hypertension Last Admin: 07/15/20 17:02 Dose: 20 mg Documented by: Metronidazole (Flagyl) 500 mg in 100 mls @ 100 mls/hr IV Q8H [facility]; Protocol Last Infusion: 07/16/20 06:37 Dose: Infused Documented by: Insulin Glargine (Insulin Glargine, Human 1 Unit/0.01 Ml) 40 unit SQ HS [facility] Last Admin: 07/15/20 21:48 Dose: 40 units Documented by: Insulin Human Lispro (Insulin Lispro 1 Unit/0.01 Ml Unit) [address] [facility]; Protocol Last Admin: 07/16/20 08:53 Dose: Not Given Documented by: Labetalol HCl (Labetalol 5 Mg/Ml Ml) 0 mg IV Q2HP PRN PRN Reason: Hypertension Lactulose (Lactulose 20 Gm/30 Ml Oral.Angie) 10 gm PO DAILYP PRN PRN Reason: Constipation Omeprazole (Omeprazole 20 Mg Capsule) 20 mg PO ACB [facility] Last Admin: 07/16/20 08:53 Dose: 20 mg Documented by: Ondansetron HCl (Ondansetron 4 Mg/2 Ml Vial) 4 mg IV Q4HP PRN; Protocol PRN Reason: Nausea And Vomiting Last Admin: 07/16/20 05:48 Dose: 4 mg Documented by: Senna (Sennosides 1 Tablet) 2 tab PO HSP PRN PRN Reason: Constipation Sodium Chloride (0.9 % Sodium Chloride 10 Ml Syringe) 10 ml IV Q8 [facility] Last Admin: 07/16/20 05:38 Dose: 10 ml Documented by: Vancomycin HCl (Vancomycin Per Pharmacy) 1 order IV UD [facility]; Protocol This patient undoubtably has diabetic nephropathy and should be on antipr oteinuric renal protective therapy including a dihydropyridine calcium channel brendan (diltiazem or verapamil). In order to achieve this we will have to stop his amlodipine and his carvedilol. He should also be on RAASI therapy, probably starting with a low-dose ARB such as losartan as he has a cough with SOLIS inhibitors. I will make these changes pending the results of his urine studies and renal ultrasound as I am 99% confident in the diagnosis. cc:: CC: MD Daisy Santos [facility] Review of Systems All systems: reviewed and no additional remarkable complaints except as stated Review of systems: In addition to his diabetic triopathy, he reports occasional nonsteroidal anti-inflammatory medication use He is not really on sliding scale just a fixed dose of short acting and long- acting insulins It is safe for him to resume Metformin PFSH PFSH All Active Problems (Updated 07/16/20 @ 17:47 by Cleve Lucas MD) Renal failure (ARF), acute on chronic (Acute) Diabetic nephropathy associated with type 2 diabetes mellitus (Chronic) Diabetes (Chronic) Diabetic foot ulcer (Chronic) Hyperglycemia due to type 1 diabetes mellitus (Chronic) Neurotrophic ulcer of foot (Chronic) Foot ulcer, left (Chronic) Panic disorder (Chronic) Vitamin D deficiency (Chronic) Insomnia (Chronic) Tachycardia (Chronic) Swelling of left upper extremity (Chronic) Mild recurrent major depression (Chronic) Hyperlipidemia (Chronic) Impairment level of vision (Chronic) Benign essential hypertension (Chronic) Adjustment disorder with depressed mood (Chronic) Cough (Chronic) Sleep disturbance, unspecified (Chronic) Restrictive lung disease (Chronic) Gastroenteritis (Chronic) Orthostatic hypotension (Chronic) Abdominal pain (Chronic) Anemia in chronic illness (Chronic) CABRERA (obstructive sleep apnea) (Chronic) Obesity (BMI 30.0-34.9) (Chronic) Chest pain (Chronic) Chronic renal disease (Chronic) Costalchondritis (Chronic) Unstable angina pectoris (Chronic) Hyperglycemia due to type 2 diabetes mellitus (Chronic) Constipation (Chronic) Viral syndrome (Chronic) Acute URI (Chronic) Abscess (Chronic) Benign lipomatous neoplasm (Chronic) Acute bronchitis, unspecified (Chronic) Acute myocardial infarction, unspecified (Chronic) Adjustment disorder with mixed anxiety and depressed mood (Chronic) 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, unspecified lid (Chronic) Cellulitis, unspecified (Chronic) Constipation, unspecified (Chronic) Corns and callosities (Chronic) Essential (primary) hypertension (Chronic) Gastritis, unspecified, with bleeding (Chronic) Generalized abdominal pain (Chronic) Hyperlipidemia, unspecified (Chronic) History of colonoscopy (Chronic) Insomnia, unspecified (Chronic) Localized swelling, mass and lump, left upper limb (Chronic) Low vision, both eyes (Chronic) Major depressive disorder, recurrent, mild (Chronic) Major depressive disorder, single episode, moderate (Chronic) Pain in left leg (Chronic) Pain in left shoulder (Chronic) Panic disorder [episodic paroxysmal anxiety] (Chronic) Personal history of diabetic foot ulcer (Chronic) Tachycardia, unspecified (Chronic) Type 2 diabetes mellitus with hyperglycemia (Chronic) Type 2 diabetes mellitus with other skin ulcer (Chronic) Type 2 diabetes mellitus without complications (Chronic) Vitamin D deficiency, unspecified (Chronic) Fatigue (Chronic) SOB (shortness of breath) (Chronic) Pilar cyst (Acute) Epidermoid cyst of skin (Acute) Diabetes mellitus type II, uncontrolled (Acute) Leukocytosis (Acute) Diabetic infection of right foot (Acute) Severe sepsis (Acute) Edema (Acute) CHF (congestive heart failure) (Acute) Acute renal insufficiency (Acute) Elevated troponin (Acute) HTN (hypertension) (Acute) Medical History (Updated 07/16/20 @ 17:47 by Cleve Lucas MD) Abdominal pain Abscess Acute bronchitis, unspecified Acute myocardial infarction, unspecified Acute URI Adjustment disorder with mixed anxiety and depressed mood Anemia in chronic illness Ankle instability Atherosclerotic heart disease of [place] coronary artery with unspecified angina pectoris Benign essential hypertension Benign lipomatous neoplasm Blepharophimosis unspecified eye, unspecified lid Bronchitis Cellulitis, unspecified Chest pain Chronic renal disease Constipation, unspecified Corns and callosities Costalchondritis Cough Dental abscess Dental infection Diabetes Diabetic foot ulcer associated with type 2 diabetes mellitus, with fat layer exposed Essential (primary) hypertension Eye infection Fatigue Gastritis, unspecified, with bleeding Generalized abdominal pain Headache Hyperlipidemia, unspecified Impairment level of vision Influenza A Insomnia, unspecified Left leg pain upper leg and thigh area Left-sided chest pain Localized swelling, mass and lump, left upper limb Low vision, both eyes Lower extremity edema Major depressive disorder, recurrent, mild Major depressive disorder, single episode, moderate Neurotrophic ulcer of foot Healed DFU LEFT plantar in past. Now recurred with DTI and cellulitis Non-cardiac chest pain Obesity (BMI 30.0-34.9) Orthostatic hypotension CABRERA (obstructive sleep apnea) Pain in left leg Pain in left shoulder Panic disorder [episodic paroxysmal anxiety] Personal history of diabetic foot ulcer Restrictive lung disease Right-sided chest pain Sleep disturbance, unspecified SOB (shortness of breath) Swelling of left upper extremity Tachycardia, unspecified Type 2 diabetes mellitus with hyperglycemia Type 2 diabetes mellitus with other skin ulcer Type 2 diabetes mellitus without complications Unstable angina pectoris Viral syndrome Vitamin D deficiency, unspecified Surgical History History of appendectomy History of cholecystectomy History of colonoscopy Family History Other Adopted No pertinent family history Social History smoking status: Never smoker alcohol intake frequency: does not drink substance use type: does not use MEDS/ALLERGIES Home Medications and Allergies Home Medications Medication Instructions Recorded Confirmed Type albuterol sulfate 90 mcg/actuation 2 inh INHALATION QID 04/27/18 07/14/20 History breath activated powder inhaler acetaminophen 500 mg tablet 1,000 mg PO TID PRN tab 01/10/20 07/14/20 History ipratropium 0.5 mg-albuterol 3 mg 3 ml INHALATION QID PRN 01/10/20 07/14/20 History (2.5 mg base)/3 mL nebulization soln insulin aspart U-100 100 unit/mL 22 unit SUBCUT TID ml 01/29/20 07/14/20 History (3 mL) subcutaneous pen insulin glargine 100 unit/mL 60 unit SUB-Q DAILY ml 01/29/20 07/14/20 History subcutaneous solution Adult Aspirin EC Low Strength 81 mg PO QAM 07/14/20 07/14/20 History amlodipine 10 mg PO HS 07/14/20 07/14/20 History clopidogrel 75 mg tablet 75 mg PO QDAY 07/14/20 07/14/20 History fluoxetine 40 mg PO QAM 07/14/20 07/14/20 History losartan 50 mg tablet 100 mg PO QDAY 07/14/20 07/14/20 History metoprolol succinate 50 mg 50 mg PO QDAY 07/14/20 07/14/20 History tablet,extended release 24 hr rosuvastatin 40 mg PO QDAY 07/14/20 07/14/20 History omeprazole 20 mg PO QDAY 07/16/20 07/16/20 History Allergies Allergy/AdvReac Type Severity Reaction Status Date / Time Vinyl Ether Allergy Mild Rash Verified 07/14/20 10:05 cephalexin [From Keflex] AdvReac Intermediate tendon pain Verified 07/14/20 10:05 budesonide [From Symbicort] AdvReac Mild burning Verified 07/14/20 10:05 ciprofloxacin [From Cipro] AdvReac Mild Cramping Verified 07/14/20 10:05 of the Muscles Formoterol [From Symbicort] AdvReac Mild chest Verified 07/14/20 10:05 burning lactose AdvReac Mild Nausea, Verified 07/14/20 10:05 diarrhea lisinopril AdvReac Mild Cough Verified 07/14/20 10:05 Physical Examination Vital Signs Vital signs: Temp Pulse Resp BP Pulse Ox 36.5 C 95 H 14 151/75 97 07/16/20 08:07 07/16/20 08:08 07/15/20 20:00 07/16/20 08:07 07/16/20 08:08 General Appearance General appearance: well-developed, well-nourished, appears started age and o bese EENT EENT: ATNC, PERRL, mucous membranes moist and hearing intact Neck Neck: no JVD, no carotid bruit and supple Respiratory Respiratory: clear Cardiovascular Cardiology: no rub, no gallops, no edema, regular rate, regular rhythm, rapid rhythm, normal S1 and normal S2 Gastrointestinal Gastrointestinal: normoactive bowel sounds, no tenderness, no guarding and obese Integumentary Integumentary: no rash Neurologic Neurologic: no focal deficit (Decreased sensation in lower extremities), alert and oriented x3 and CN 3-12 intact Musculoskeletal Musculoskeletal: no cyanosis and no clubbing Psychiatric Psychiatric: mood/affect appropriate Results Lab Results Result Diagrams: 07/16/20 06:00 07/16/20 06:00 Lab results: Most recent lab results Calcium 9.2 mg/dL (8.6-10.4) 07/16/20 06:00 A/P Assessment and plan (1) Renal failure (ARF), acute on chronic: Status: Acute Comment: CKD G3 A3 is most likely DM with ~ 0.5 gm/24 hrs of proteinuria (2) Diabetic nephropathy associated with type 2 diabetes mellitus: Status: Chronic Comment: Use antiproteinuric and elvis-protective BP Rx (Diltiazem in place of amlodipine, restart losartan, stop carvedilol due to possible interaction with diltiazem). Restart metformin Will see about SGLT-2 inhibitors as outpatient as I'm sure [facility] MD will have to order. Time Spent With Patient Time: Total time spent is greater than 50% in coordination of care (as documented) at patient's floor/unit and/or counseling patient:
--- NOTE | 2020-07-16 09:56 | Ultrasound Report ---
INDICATION: akosua TECHNIQUE: Grayscale and color flow Doppler spectral imaging. COMPARISON: Previous CT scan dated 08/24/2018. Previous renal ultrasound dated 07/06/2016 FINDINGS: Right kidney: Right kidney [id number] x 6.4 x 5.5 cm. There are 2 small benign upper pole cysts. These measure 10 mm and 6 mm maximally. No solid mass. Otherwise normal right renal cortex. No hydronephrosis. No detectable calculi.. Left kidney: Left kidney [id number] x 5.9 x 5.9 cm. There is no hydronephrosis. No solid left renal mass. Renal cortex is normal. No detectable calculi. There is a 7 mm upper pole simple cyst. Bladder: Prevoid bladder [id number] mL.Bilateral ureteral jets visualized. IMPRESSION: Negative renal ultrasound. Small benign renal cysts bilaterally Interpreted and Authenticated by: Constantino Lane 07/16/20
[2020-07-16] MEDS: DOCUSATE SODIUM 100 MG CAPSULE PO SCH ×2 (10:16→20:51)
[2020-07-16] MEDS: HEPARIN 5,000 UNIT/ML VIAL SQ SCH ×2 (10:16→20:52)
[2020-07-16] MEDS: ASPIRIN 81 MG TAB.CHEW PO SCH (10:16)
[2020-07-16] MEDS: CLOPIDOGREL 75 MG TABLET PO SCH (10:17)
[2020-07-16] MEDS: CARVEDILOL 12.5 MG TABLET PO SCH ×2 (10:17→17:17)
[2020-07-16] MEDS: ATORVASTATIN 40 MG TABLET PO SCH (10:17)
[2020-07-16] MEDS: VANCOMYCIN 1,500 MG in 0.9 % SODIUM CHLORIDE 500 ML IV SCH (10:19)
[2020-07-16 10:23] LABS: Basophils % (Manual) 3 % (0-2); Eosinophils % (Manual) 5 % (0-7); Lymphocytes % 28 % (15-49); Monocytes % (Manual) 5 % (1-12); Platelet Estimate NORMAL (Normal); RBC Morphology NORMAL (Normal); Segmented Neutrophils % 59 % (38-78)
[2020-07-16] MEDS: CALCIUM CARBONATE 500 MG TAB.CHEW CHEWED PRN (11:00)
--- NOTE | 2020-07-16 13:38 | Orthopedic Progress Note ---
SUBJECTIVE Subjective Patient information: Note initiated : 07/16/20 at 1:35 pm Service Date, if different from initiated Date: [] Patient: Constantino Harden 45 y/o M admitted on 07/14/20 for body aches, headache, cough, leg swelling. Chief Complaint: [right foot infection] No changes since last visit. The right lower extremity shows redness and swelling. Constitutional Vitals: Vital Signs Temp Pulse Resp BP Pulse Ox 97.7 F 95 H 18 151/75 97 07/16/20 08:07 07/16/20 08:08 07/16/20 08:07 07/16/20 08:07 07/16/20 08:08 Period Temp Pulse Resp BP Sys/Proctor Pulse Ox Last 24 Hr 97.7 F-98.8 F 88-95 11-31 103-170/59-126 94-98 Intake and Output 07/15/20 07/16/20 07/16/20 21:59 05:59 13:59 Intake Total 720 1650 100 Output Total 550 575 50 Balance 170 1075 50 Weight 239 lb 9.6 oz 239 lb 9.6 oz Patient Weight 07/17/20 05:59 Weight 239 lb 9.6 oz Intake & Output: Intake & Output 07/15/20 07/16/20 07/16/20 21:59 05:59 13:59 Intake Total 720 1650 100 Output Total 550 575 50 Balance 170 1075 50 Weight 239 lb 9.6 oz 239 lb 9.6 oz Intake: IV 600 100 Vancomycin 1,500 mg In Sodium 500 Chloride 0.9% 500 ml @ 333.3 mls/hr IV Q12H [facility] Rx#: [id number] Oral 720 1050 Output: Urine Catheter Amount 250 Void Amount 300 575 Emesis 50 Other: Meal Dinner snack Percent of Meal Consumed 75% 100% Feeding Ability Independent Independent Urine Appearance Clear Clear Urine Color Bright Yellow Pale Urine Odor Normal # Bowel Movements 1 # of times incontinent of 0 Bowels OBJ DATA Labs CBC & Chem 7: 07/16/20 06:00 07/16/20 06:00 Labs: Abnormal Lab Results 07/16/20 07/16/20 07/16/20 07:57 06:00 06:00 WBC RBC Hgb Hct Plt Count MPV Basophils % (Manual) ESR D-Dimer Potassium 3.2 L Creatinine 2.2 H Glucose 128 H ALT 66 H Alkaline Phosphatase 234 H Troponin T 0.05 H* C-Reactive Protein NT-Pro-B Natriuret Pep Albumin/Globulin Ratio 0.9 L Urine Protein Urine Glucose (UA) Urine Mucus Vancomycin Trough 25.5 H* 07/16/20 07/15/20 07/15/20 06:00 11:06 08:07 WBC 11.1 H RBC 3.34 L Hgb 10.0 L Hct 30.7 L Plt Count 445 H MPV 11.0 H Basophils % (Manual) 3 H ESR D-Dimer Potassium Creatinine Glucose ALT Alkaline Phosphatase Troponin T 0.07 H* 0.06 H* C-Reactive Protein NT-Pro-B Natriuret Pep Albumin/Globulin Ratio Urine Protein Urine Glucose (UA) Urine Mucus Vancomycin Trough 07/15/20 07/15/20 07/15/20 06:00 05:26 05:26 WBC 11.8 H RBC 3.00 L Hgb 9.1 L Hct 27.7 L Plt Count MPV 11.3 H Basophils % (Manual) ESR D-Dimer Potassium Creatinine 1.8 H Glucose ALT 90 H Alkaline Phosphatase 271 H Troponin T C-Reactive Protein 4.90 H NT-Pro-B Natriuret Pep Albumin/Globulin Ratio 0.9 L Urine Protein Urine Glucose (UA) Urine Mucus Vancomycin Trough 07/15/20 07/14/20 07/14/20 05:26 16:19 10:55 WBC RBC Hgb Hct Plt Count MPV Basophils % (Manual) ESR D-Dimer Potassium Creatinine Glucose ALT Alkaline Phosphatase Troponin T 0.07 H* 0.05 H* C-Reactive Protein NT-Pro-B Natriuret Pep Albumin/Globulin Ratio Urine Protein 100 A Urine Glucose (UA) >=500 A Urine Mucus Few A Vancomycin Trough 07/14/20 07/14/20 07/14/20 10:44 10:44 10:43 WBC RBC Hgb Hct Plt Count MPV Basophils % (Manual) ESR D-Dimer 1.57 H Potassium Creatinine Glucose ALT Alkaline Phosphatase Troponin T 0.06 H* C-Reactive Protein 5.50 H NT-Pro-B Natriuret Pep 1104.0 H Albumin/Globulin Ratio Urine Protein Urine Glucose (UA) Urine Mucus Vancomycin Trough 07/14/20 10:43 WBC RBC Hgb Hct Plt Count MPV Basophils % (Manual) ESR 121 H D-Dimer Potassium Creatinine Glucose ALT Alkaline Phosphatase Troponin T C-Reactive Protein NT-Pro-B Natriuret Pep Albumin/Globulin Ratio Urine Protein Urine Glucose (UA) Urine Mucus Vancomycin Trough Meds: Medications Acetaminophen (Acetaminophen 500 Mg Tablet) 1,000 mg PO Q4-6HP PRN; Protocol PRN Reason: Per Pain Protocol Last Admin: 07/15/20 17:02 Dose: 1,000 mg Documented by: Amlodipine Besylate (Amlodipine 10 Mg Tablet) 10 mg PO DAILY [facility] Last Admin: 07/16/20 10:16 Dose: 10 mg Documented by: Aspirin (Aspirin 81 Mg Tab.Chew) 81 mg PO DAILY [facility] Last Admin: 07/16/20 10:16 Dose: 81 mg Documented by: Atorvastatin Calcium (Atorvastatin 40 Mg Tablet) 80 mg PO DAILY [facility] Last Admin: 07/16/20 10:17 Dose: 80 mg Documented by: Calcium Carbonate/Glycine (Calcium Carbonate 500 Mg Tab.Chew) 500 mg CHEWED Q4HP PRN PRN Reason: Dyspepsia Carvedilol (Carvedilol 12.5 Mg Tablet) 12.5 mg PO BIDCC [facility] Last Admin: 07/16/20 10:17 Dose: 12.5 mg Documented by: Cefepime HCl (Cefepime 2 Gm Vial) 2 gm IV Q8H [facility]; Protocol Last Admin: 07/16/20 05:38 Dose: 2 gm Documented by: Clopidogrel Bisulfate (Clopidogrel 75 Mg Tablet) 75 mg PO DAILY [facility] Last Admin: 07/16/20 10:17 Dose: 75 mg Documented by: Dextrose (Dextrose 50% 50 Ml Vial) 0 ml IV UD PRN PRN Reason: Hypoglycemia Diagnostic Test (Pha) (Accu-Chek 1 Each Strip) 1 each FS ACHS [facility] Last Admin: 07/16/20 08:46 Dose: 1 each Documented by: Docusate Sodium (Docusate Sodium 100 Mg Capsule) 100 mg PO BID [facility] Last Admin: 07/16/20 10:16 Dose: 100 mg Documented by: Glucose (Dextrose 31 Gm Oral.Susp) 15 gm PO PRN PRN PRN Reason: Hypoglycemia Heparin Sodium (Porcine) (Heparin 5,000 Unit/Ml Vial) 5,000 unit SQ Q12 [facility] Last Admin: 07/16/20 10:16 Dose: 5,000 unit Documented by: Hydralazine HCl (Hydralazine 20 Mg/Ml Vial) 0 mg IV Q2HP PRN PRN Reason: Hypertension Last Admin: 07/15/20 17:02 Dose: 20 mg Documented by: Metronidazole (Flagyl) 500 mg in 100 mls @ 100 mls/hr IV Q8H [facility]; Protocol Last Infusion: 07/16/20 06:37 Dose: Infused Documented by: Insulin Glargine (Insulin Glargine, Human 1 Unit/0.01 Ml) 40 unit SQ HS [facility] Last Admin: 07/15/20 21:48 Dose: 40 units Documented by: Insulin Human Lispro (Insulin Lispro 1 Unit/0.01 Ml Unit) 0 unit SQ ACHS [facility]; Protocol Last Admin: 07/16/20 08:53 Dose: Not Given Documented by: Labetalol HCl (Labetalol 5 Mg/Ml Ml) 0 mg IV Q2HP PRN PRN Reason: Hypertension Lactulose (Lactulose 20 Gm/30 Ml Oral.Angie) 10 gm PO DAILYP PRN PRN Reason: Constipation Omeprazole (Omeprazole 20 Mg Capsule) 20 mg PO ACB [facility] Last Admin: 07/16/20 08:53 Dose: 20 mg Documented by: Ondansetron HCl (Ondansetron 4 Mg/2 Ml Vial) 4 mg IV Q4HP PRN; Protocol PRN Reason: Nausea And Vomiting Last Admin: 07/16/20 05:48 Dose: 4 mg Documented by: Senna (Sennosides 1 Tablet) 2 tab PO HSP PRN PRN Reason: Constipation Sodium Chloride (0.9 % Sodium Chloride 10 Ml Syringe) 10 ml IV Q8 [facility] Last Admin: 07/16/20 05:38 Dose: 10 ml Documented by: Vancomycin HCl (Vancomycin Per Pharmacy) 1 order IV [facility] [place]; Protocol A/P Time Spent With Patient Time: Total time spent is greater than 50% in coordination of care (as documented) at patient's floor/unit and/or counseling patient: Pending culture C/S for deep tissue swab on 07/15/20 AM Continue intravenous antibiotics Serial radiograph to monitor bone changes consistent with procedure / osteomyelitis Discussion with patient about possible need for bone biophsy for pathology and culture. May require partial excision of fifth metatarsal head.
[2020-07-16 16:21] LABS: Chloride,Urine Random 30 mmol/L (110-250); Potassium,Urine Random 34.6 mmol/L; Sodium, Urine Random 49 mmol/L; Uric Acid,Urine Random 43.2 mg/dL (37.0-92.0)
[2020-07-16 16:24] LABS: Creatinine, Spot Urine 178.6 mg/dL (39.0-259.0); Pro:Crea Ratio 0.49 (<0.20)
--- NOTE | 2020-07-16 17:59 | Ultrasound Report ---
INDICATION: ARF on CKD TECHNIQUE: Routine duplex ultrasound of the renal arteries COMPARISON: None. FINDINGS: Right kidney: Right kidney measures 12.4 x 6.4 x 5.5 cm. No solid or cystic right renal mass. No hydronephrosis. Right renal artery is patent and normal. No hemodynamically significant stenosis. Right renal vein is patent Resistive indices are normal. Left kidney: Left kidney measures 12.7 x 5.9 x 5.9 cm. No solid or cystic mass. There is no hydronephrosis. Left renal artery is normal. No hemodynamically significant stenosis. Left renal vein is patent. Superior pole resistive index measures 0.72. This is slightly elevated IMPRESSION: Normal renal arteries and veins. Interpreted and Authenticated by: Constantino Lane 07/16/20
[2020-07-16] MEDS: INSULIN GLARGINE, HUMAN 1 UNIT/0.01 ML SQ SCH (20:55)
[2020-07-16] MEDS ORDERED: LOSARTAN 50 MG TABLET PO SCH (21:00)
[2020-07-17] MEDS: hydrALAZINE 20 MG/ML VIAL IV PRN ×3 (00:12→22:44)
[2020-07-17] MEDS: CEFEPIME 2 GM VIAL IV SCH ×3 (05:46→22:56)
[2020-07-17] MEDS: metroNIDAZOLE 500 MG/100 ML BAG IV SCH ×3 (05:46→22:57)
[2020-07-17] MEDS: 0.9 % SODIUM CHLORIDE 10 ML SYRINGE IV SCH ×3 (05:47→22:36)
[2020-07-17 06:29] LABS: Hematocrit 32.3 % (41.0-55.0); Hemoglobin 10.5 g/dL (13.5-16.5); Mean Cell Volume 91.8 fL (80.0-100.0); Mean Corpuscular HGB Conc 32.5 g/dL (31.0-36.0); Mean Platelet Volume 10.9 fL (7.4-10.4); Platelet Count 499 K/mcL (140-440); RBC 3.52 M/mcL (4.50-5.90); Red Cell Distribution Width 11.7 % (11.5-14.5); WBC 11.3 K/mcL (4.5-11.0)
[2020-07-17 07:01] LABS: Blood Urea Nitrogen 21 mg/dL (6-20); Calcium 9.1 mg/dL (8.6-10.4); Carbon Dioxide 26 mmol/L (22-30); Chloride 100 mmol/L (96-108); Glomerular Filtration Rate 32; Glucose 152 mg/dL (70-105)
[2020-07-17 07:02] LABS: Vancomycin,Random 15.2 ug/mL
--- NOTE | 2020-07-17 07:38 | Internal Med Progress Note ---
SUBJECTIVE Subjective Patient information: Note initiated : 07/17/20 at 7:31 am Service Date, if different from initiated Date: [] Patient: Constantino Harden 45 y/o M admitted on 07/14/20 for body aches, headache, cough, leg swelling. Chief Complaint: [] Interval history: Interval history: Mr. Harden is a 45 year old male with a history of DM comp licated by neuropathy and a right foot wound, hypertension, CAD s/p remote ME, CKD, obesity who was recently hospitalized for sepsis and hyperglycemia as well as an ZAID on CKD. The patient was treated with IV antibiotics, podiatry was consulted and recommended discharge of oral antibiotics. He was discharged to home with recommendation to finish the course of Bactrim previously prescribed but was not able to get the antibiotic. The patient was discharged on 07/10. He says that on 07/12 he noticed that his legs were developing edema, initially on the right side then on the left. He has had a dry cough for several days. He later developed shortness of breath when lying down and decided to go to the ED. In the ED the patient was hypertensive with SBP>200. His respiratory status was stable on room air. Pulmonary imaging with chest xray showed interstitial abnormality with interlobular septal thickening but no consolidations. This was followed by noncontrast CT chest/abdomen/pelvis that showed ground glass infiltrates and interlobular septa thickening which might be due to interstitial pulmonary edema. There was also mesenteric edema and probable subcutaneous edema. No focal intra-abdominal abnormality. The patient has an acute on chronic kidney injury. Urinalysis showing some protein and glucosuria but otherwise unremarkable. The CT scan did not show any hydronephrosis or calculi. The patient has a mild elevation in troponin, EKG does not show any acute ischemic changes. On exam the patient is not in any respiratory distress, he has pitting edema up to his knees. Lung exam is positive for faint crackles. He was given a dose of Lasix IV in the ED and had robust urine output. 07/15-suspect the patient's diabetic foot wound to be infected, discussed with podiatry-wound cultures taken then started broad spectrum antibiotics. The foot wound may be the cause of the patient's presentation. 07/16 no overnight events or new complaints, awaiting cultures and further recs from podiatry, nephrology consult. 07/17 Has nausea/vomiting this morning. Poor sleep. Feels constipated. Other complaints. Podiatry for possible bone biopsy or partial excision. Review of Systems: denies headache/fever/chills/chest or abdominal pain/cough/dyspnea/diarrhea. Otherwise see above. Constitutional Vitals: Vital Signs Temp Pulse Resp BP Pulse Ox 98.5 F 95 H 20 169/92 97 07/17/20 02:00 07/17/20 06:12 07/16/20 12:01 07/17/20 06:04 07/17/20 06:12 Period Temp Pulse Resp BP Sys/Proctor Pulse Ox Last 24 Hr 97.7 F-98.8 F 88-100 18-20 124-169/59-92 91-99 Intake and Output 07/16/20 07/17/20 07/17/20 21:59 05:59 13:59 Intake Total 900 100 400 Output Total 220 300 Balance 680 -200 400 Weight 109.089 kg Intake & Output: Intake & Output 07/16/20 07/17/20 07/17/20 21:59 05:59 13:59 Intake Total 900 100 400 Output Total 220 300 Balance 680 -200 400 Weight 109.089 kg Intake: IV 100 100 100 Oral 800 0 300 Output: Void Amount 200 300 Estimated Blood Loss 20 Other: Meal Lunch Percent of Meal Consumed 100% Feeding Ability Independent Urine Appearance Clear Urine Color Pale Exam: General: Alert, Awake, No acute Distress, obese Eyes/N/T: EOMI, Head/Neck: neck supple, CV: RRR, No murmurs, Pulm: Clear b/l, no wheezing/rhonchi/rales Abd: soft, nontender, +BS x4 Ext: no clubbing/cyanosis, b/l LE edema. right lateral plantar wound in dressings Neuro: Alert, no focal deficits, moves all extremities, Skin: warm/dry OBJ DATA Labs CBC & Chem 7: 07/17/20 05:14 07/17/20 05:14 Labs: Abnormal Lab Results 07/17/20 07/17/20 07/16/20 05:14 05:14 13:25 WBC 11.3 H RBC 3.52 L Hgb 10.5 L Hct 32.3 L Plt Count 499 H MPV 10.9 H Basophils % (Manual) ESR D-Dimer Potassium BUN 21 H Creatinine 2.4 H Glucose 152 H ALT Alkaline Phosphatase Troponin T C-Reactive Protein NT-Pro-B Natriuret Pep Albumin/Globulin Ratio Urine Protein Urine Glucose (UA) Urine Mucus U [place] Prot/Creat Ratio Ur Random Chloride 30 L Vancomycin Trough 07/16/20 07/16/20 07/16/20 13:25 07:57 06:00 WBC RBC Hgb Hct Plt Count MPV Basophils % (Manual) ESR D-Dimer Potassium BUN Creatinine Glucose ALT Alkaline Phosphatase Troponin T 0.05 H* C-Reactive Protein NT-Pro-B Natriuret Pep Albumin/Globulin Ratio Urine Protein Urine Glucose (UA) Urine Mucus U [place] Prot/Creat Ratio 0.49 H Ur Random Chloride Vancomycin Trough 25.5 H* 07/16/20 07/16/20 07/15/20 06:00 06:00 11:06 WBC 11.1 H RBC 3.34 L Hgb 10.0 L Hct 30.7 L Plt Count 445 H MPV 11.0 H Basophils % (Manual) 3 H ESR D-Dimer Potassium 3.2 L BUN Creatinine 2.2 H Glucose 128 H ALT 66 H Alkaline Phosphatase 234 H Troponin T 0.07 H* C-Reactive Protein NT-Pro-B Natriuret Pep Albumin/Globulin Ratio 0.9 L Urine Protein Urine Glucose (UA) Urine Mucus U [place] Prot/Creat Ratio Ur Random Chloride Vancomycin Trough 07/15/20 07/15/20 07/15/20 08:07 06:00 05:26 WBC 11.8 H RBC 3.00 L Hgb 9.1 L Hct 27.7 L Plt Count MPV 11.3 H Basophils % (Manual) ESR D-Dimer Potassium BUN Creatinine 1.8 H Glucose ALT 90 H Alkaline Phosphatase 271 H Troponin T 0.06 H* C-Reactive Protein NT-Pro-B Natriuret Pep Albumin/Globulin Ratio 0.9 L Urine Protein Urine Glucose (UA) Urine Mucus U [place] Prot/Creat Ratio Ur Random Chloride Vancomycin Trough 07/15/20 07/15/20 07/14/20 05:26 05:26 16:19 WBC RBC Hgb Hct Plt Count MPV Basophils % (Manual) ESR D-Dimer Potassium BUN Creatinine Glucose ALT Alkaline Phosphatase Troponin T 0.07 H* 0.05 H* C-Reactive Protein 4.90 H NT-Pro-B Natriuret Pep Albumin/Globulin Ratio Urine Protein Urine Glucose (UA) Urine Mucus U [place] Prot/Creat Ratio Ur Random Chloride Vancomycin Trough 07/14/20 07/14/20 07/14/20 10:55 10:44 10:44 WBC RBC Hgb Hct Plt Count MPV Basophils % (Manual) ESR D-Dimer 1.57 H Potassium BUN Creatinine Glucose ALT Alkaline Phosphatase Troponin T C-Reactive Protein 5.50 H NT-Pro-B Natriuret Pep 1104.0 H Albumin/Globulin Ratio Urine Protein 100 A Urine Glucose (UA) >=500 A Urine Mucus Few A U [place] Prot/Creat Ratio Ur Random Chloride Vancomycin Trough 07/14/20 07/14/20 10:43 10:43 WBC RBC Hgb Hct Plt Count MPV Basophils % (Manual) ESR 121 H D-Dimer Potassium BUN Creatinine Glucose ALT Alkaline Phosphatase Troponin T 0.06 H* C-Reactive Protein NT-Pro-B Natriuret Pep Albumin/Globulin Ratio Urine Protein Urine Glucose (UA) Urine Mucus U [place] Prot/Creat Ratio Ur Random Chloride Vancomycin Trough Meds: Medications Acetaminophen (Acetaminophen 500 Mg Tablet) 1,000 mg PO Q4-6HP PRN; Protocol PRN Reason: Per Pain Protocol Last Admin: 07/15/20 17:02 Dose: 1,000 mg Documented by: Aspirin (Aspirin 81 Mg Tab.Chew) 81 mg PO DAILY [facility] Last Admin: 07/16/20 10:16 Dose: 81 mg Documented by: Atorvastatin Calcium (Atorvastatin 40 Mg Tablet) 80 mg PO DAILY [facility] Last Admin: 07/16/20 10:17 Dose: 80 mg Documented by: Calcium Carbonate/Glycine (Calcium Carbonate 500 Mg Tab.Chew) 500 mg CHEWED Q4HP PRN PRN Reason: Dyspepsia Last Admin: 07/16/20 11:00 Dose: 500 mg Documented by: Cefepime HCl (Cefepime 2 Gm Vial) 2 gm IV Q8H [facility]; Protocol Last Admin: 07/17/20 05:46 Dose: 2 gm Documented by: Clopidogrel Bisulfate (Clopidogrel 75 Mg Tablet) 75 mg PO DAILY [facility] Last Admin: 07/16/20 10:17 Dose: 75 mg Documented by: Dextrose (Dextrose 50% 50 Ml Vial) 0 ml IV UD PRN PRN Reason: Hypoglycemia Diagnostic Test (Pha) (Accu-Chek 1 Each Strip) 1 each FS ACHS [facility] Last Admin: 07/16/20 20:52 Dose: 1 each Documented by: Diltiazem HCl (Diltiazem 240 Mg Cap.Xl.24h) 240 mg PO DAILY [facility] Docusate Sodium (Docusate Sodium 100 Mg Capsule) 100 mg PO BID [facility] Last Admin: 07/16/20 20:51 Dose: 100 mg Documented by: Glucose (Dextrose 31 Gm Oral.Susp) 15 gm PO PRN PRN PRN Reason: Hypoglycemia Heparin Sodium (Porcine) (Heparin 5,000 Unit/Ml Vial) 5,000 unit SQ Q12 [facility] Last Admin: 07/16/20 20:52 Dose: 5,000 unit Documented by: Hydralazine HCl (Hydralazine 20 Mg/Ml Vial) 0 mg IV Q2HP PRN PRN Reason: Hypertension Last Admin: 07/17/20 00:12 Dose: 10 mg Documented by: Metronidazole (Flagyl) 500 mg in 100 mls @ 100 mls/hr IV Q8H [facility]; Protocol Last Infusion: 07/17/20 06:50 Dose: Infused Documented by: Insulin Glargine (Insulin Glargine, Human 1 Unit/0.01 Ml) 40 unit SQ [facility] Last Admin: 07/16/20 20:55 Dose: 40 units Documented by: Insulin Human Lispro (Insulin Lispro 1 Unit/0.01 Ml Unit) 0 unit SQ [facility]; Protocol Last Admin: 07/16/20 20:53 Dose: 6 unit Documented by: Labetalol HCl (Labetalol 5 Mg/Ml Ml) 0 mg IV Q2HP PRN PRN Reason: Hypertension Lactulose (Lactulose 20 Gm/30 Ml Oral.Angie) 10 gm PO DAILYP PRN PRN Reason: Constipation Losartan Potassium (Losartan 50 Mg Tablet) 50 mg PO QHS [facility] Last Admin: 07/16/20 20:51 Dose: 50 mg Documented by: Metformin HCl (Metformin 500 Mg Tablet) 500 mg PO BIDCC [facility] Omeprazole (Omeprazole 20 Mg Capsule) 20 mg PO ACB [facility] Last Admin: 07/16/20 08:53 Dose: 20 mg Documented by: Ondansetron HCl (Ondansetron 4 Mg/2 Ml Vial) 4 mg IV Q4HP PRN; Protocol PRN Reason: Nausea And Vomiting Last Admin: 07/16/20 21:21 Dose: 4 mg Documented by: Senna (Sennosides 1 Tablet) 2 tab PO HSP PRN PRN Reason: Constipation Sodium Chloride (0.9 % Sodium Chloride 10 Ml Syringe) 10 ml IV Q8 [facility] Last Admin: 07/17/20 05:47 Dose: 10 ml Documented by: Vancomycin HCl (Vancomycin Per Pharmacy) 1 order IV UD [facility]; Protocol A/P Narrative A/P Narrative: A: #Diabetic foot wound/infection w/cellulitis: -possible explanation for the patient's presentation #Hypertensive emergency/urgency (h/o HTN): on BB/ARB at h ome -complicated by elevated troponin, ZAID, and volume overload/volume overload #Elevated troponin: suspect type II ME from infection/hypertension/volume overload #ZAID on CKD III: -infection vs cardiorenal syndrome (probably d/t infection) -renal u/s unremarkable #Acute on chronic anemia: stable -suspect related to acute infection -likely anemia of chronic inflammation at baseline #Volume overload/CHF: improved s/p diuresis -echo with good EF, normal diastolic fxn #Diabetes mellitus, insulin dependent: noncompliant with meds -poorly controlled Hgb A1C 13.4 -complicated by neuropathy and chronic foot wound/infection #h/o gastroparesis: trial reglan, following with bhavani momin #Transaminitis: improved #Hx of restrictive lung disease: #Obesity: BMI 34 Plan -Podiatry following > potential bone biopsy or partial excision of 5th MT -Vancomycin, Cefepime, Flagyl for now -Follow wound and blood cultures -Nephrology following -BP meds per nephrology, Diltiazem/Losartan -Continue home aspirin and plavix, statin -Lantus and SSI -DVT ppx: heparin SQ Code status: [place] [employer]k Baler Spent With Patient Time: Total time spent is greater than 50% in coordination of care (as documented) at patient's floor/unit and/or counseling patient: QUALITY Stroke Symptom Onset Unknown: No VTE Deep Vein Thrombosis/Pulmonary Embolism Present on Admission: No
[2020-07-17] MEDS: ONDANSETRON 4 MG/2 ML VIAL IV PRN ×2 (07:45→20:26)
[2020-07-17] MEDS: CALCIUM CARBONATE 500 MG TAB.CHEW CHEWED PRN ×4 (07:45→22:28)
[2020-07-17] MEDS: OMEPRAZOLE 20 MG CAPSULE PO SCH (07:45)
--- NOTE | 2020-07-17 08:05 | Nephrology Progress Note ---
SUBJECTIVE Subjective Patient information: Note initiated : 07/17/20 at 8:00 am Service Date, if different from initiated Date: [] Patient: Constantino Harden 45 y/o M admitted on 07/14/20 for body aches, headache, cough, leg swelling. 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 Today repots nausea and vomiting on multiple occasions. Medications were adjusted to provide effective and antiproteinuric effects including use of diltiazem, reinitiation of losartan therapy. To help with diabetic control and insulin resistance Metformin was restarted. Laboratory Tests 07/17/20 07/17/20 07/17/20 05:14 05:14 05:14 WBC 11.3 H Hgb 10.5 L Hct 32.3 L MCV 91.8 Plt Count 499 H Sodium 138 Potassium 3.5 Chloride 100 Carbon Dioxide 26 Anion Gap 12.0 BUN 21 H Creatinine 2.4 H GFR Calculation 32 Glucose 152 H Calcium 9.1 Random Vancomycin 15.2 Medications Acetaminophen (Acetaminophen 500 Mg Tablet) 1,000 mg PO Q4-6HP PRN; Protocol PRN Reason: Per Pain Protocol Last Admin: 07/15/20 17:02 Dose: 1,000 mg Documented by: Aspirin (Aspirin 81 Mg Tab.Chew) 81 mg PO DAILY [facility] Last Admin: 07/16/20 10:16 Dose: 81 mg Documented by: Atorvastatin Calcium (Atorvastatin 40 Mg Tablet) 80 mg PO DAILY [facility] Last Admin: 07/16/20 10:17 Dose: 80 mg Documented by: Calcium Carbonate/Glycine (Calcium Carbonate 500 Mg Tab.Chew) 500 mg CHEWED Q4HP PRN PRN Reason: Dyspepsia Last Admin: 07/17/20 07:45 Dose: 500 mg Documented by: Cefepime HCl (Cefepime 2 Gm Vial) 2 gm IV Q8H [facility]; Protocol Last Admin: 07/17/20 05:46 Dose: 2 gm Documented by: Clopidogrel Bisulfate (Clopidogrel 75 Mg Tablet) 75 mg PO DAILY [facility] Last Admin: 07/16/20 10:17 Dose: 75 mg Documented by: Dextrose (Dextrose 50% 50 Ml Vial) 0 ml IV UD PRN PRN Reason: Hypoglycemia Diagnostic Test (Pha) (Accu-Chek 1 Each Strip) 1 each FS ACHS [facility] Last Admin: 07/17/20 07:53 Dose: 1 each Documented by: Diltiazem HCl (Diltiazem 240 Mg Cap.Xl.24h) 240 mg PO DAILY [facility] Docusate Sodium (Docusate Sodium 100 Mg Capsule) 100 mg PO BID [facility] Last Admin: 07/16/20 20:51 Dose: 100 mg Documented by: Glucose (Dextrose 31 Gm Oral.Susp) 15 gm PO PRN PRN PRN Reason: Hypoglycemia Heparin Sodium (Porcine) (Heparin 5,000 Unit/Ml Vial) 5,000 unit SQ Q12 [facility] Last Admin: 07/16/20 20:52 Dose: 5,000 unit Documented by: Hydralazine HCl (Hydralazine 20 Mg/Ml Vial) 0 mg IV Q2HP PRN PRN Reason: Hypertension Last Admin: 07/17/20 00:12 Dose: 10 mg Documented by: Metronidazole (Flagyl) 500 mg in 100 mls @ 100 mls/hr IV Q8H [facility]; Protocol Last Infusion: 07/17/20 06:50 Dose: Infused Documented by: Vancomycin HCl 1,500 mg/ (Sodium Chloride) 500 mls @ 333.3 mls/hr IV ONCE ONE Stop: 07/17/20 10:30 Insulin Glargine (Insulin Glargine, Human 1 Unit/0.01 Ml) 40 unit SQ [facility] Last Admin: 07/16/20 20:55 Dose: 40 units Documented by: Insulin Human Lispro (Insulin Lispro 1 Unit/0.01 Ml Unit) 0 unit SQ [facility]; Protocol Last Admin: 07/16/20 20:53 Dose: 6 unit Documented by: Labetalol HCl (Labetalol 5 Mg/Ml Ml) 0 mg IV Q2HP PRN PRN Reason: Hypertension Lactulose (Lactulose 20 Gm/30 Ml Oral.Angie) 10 gm PO DAILYP PRN PRN Reason: Constipation Last Admin: 07/17/20 07:44 Dose: 10 gm Documented by: Losartan Potassium (Losartan 50 Mg Tablet) 50 mg PO QHS [facility] Last Admin: 07/16/20 20:51 Dose: 50 mg Documented by: Metformin HCl (Metformin 500 Mg Tablet) 500 mg PO BIDCC [facility] Omeprazole (Omeprazole 20 Mg Capsule) 20 mg PO ACB [facility] Last Admin: 07/17/20 07:45 Dose: 20 mg Documented by: Ondansetron HCl (Ondansetron 4 Mg/2 Ml Vial) 4 mg IV Q4HP PRN; Protocol PRN Reason: Nausea And Vomiting Last Admin: 07/17/20 07:45 Dose: 4 mg Documented by: Senna (Sennosides 1 Tablet) 2 tab PO HSP PRN PRN Reason: Constipation Sodium Chloride (0.9 % Sodium Chloride 10 Ml Syringe) 10 ml IV Q8 [facility] Last Admin: 07/17/20 05:47 Dose: 10 ml Documented by: Vancomycin HCl (Vancomycin Per Pharmacy) 1 order IV UD [facility]; Protocol Renal Doppler (June 2020): Right kidney: Right kidney measures 12.4 x 6.4 x 5.5 cm. No solid or cystic right renal mass. No hydronephrosis. Right renal artery is patent and normal. No hemodynamically significant stenosis. Right renal vein is patent Resistive indices are normal Left kidney: Left kidney measures 12.7 x 5.9 x 5.9 cm. No solid or cystic mass. There is no hydronephrosis. Left renal artery is normal. No hemodynamically significant stenosis. Left renal vein is patent. Superior pole resistive index measures 0.72. This is slightly elevated IMPRESSION: Normal renal arteries and veins. Constitutional Vitals: Vital Signs Temp Pulse Resp BP Pulse Ox 36.9 C 95 H 20 169/92 97 07/17/20 02:00 07/17/20 06:12 07/16/20 12:01 07/17/20 06:04 07/17/20 06:12 Period Temp Pulse Resp BP Sys/Proctor Pulse Ox Last 24 Hr 36.5 C-37.1 C 88-100 18-20 124-169/59-92 91-99 Intake and Output 07/16/20 07/17/20 07/17/20 21:59 05:59 13:59 Intake Total 900 100 400 Output Total 220 300 Balance 680 -200 400 Weight 109.089 kg Intake & Output: Intake & Output 07/16/20 07/17/20 07/17/20 21:59 05:59 13:59 Intake Total 900 100 400 Output Total 220 300 Balance 680 -200 400 Weight 109.089 kg Intake: IV 100 100 100 Oral 800 0 300 Output: Void Amount 200 300 Estimated Blood Loss 20 Other: Meal Lunch Percent of Meal Consumed 100% Feeding Ability Independent Urine Appearance Clear Urine Color Pale General appearance: mild distress and obese Exam: Nauseated Head Head exam: Present normal inspection Eye Eye exam: Present EOMI, normal appearance and PERRL; Absent scleral icterus ENT ENT exam: Present mucous membranes dry Neck Neck exam: Present full ROM; Absent meningismus Respiratory Respiratory exam: Present normal respiratory exam Cardiovascular Cardiovascular exam: Present RRR, +S1 and +S2; Absent rubs GI/Abdominal GI/Abdominal exam: Present diminished bowel sounds and distended Neurological Exam Neurological exam: Present alert, CN II-XII intact and oriented X3 Psychiatric Psychiatric exam: Present anxious Skin Skin exam: Present dry A/P Assessment and plan (1) Renal failure (ARF), acute on chronic: Status: Acute Comment: CKD G3 A3 is most likely DM with ~ 0.5 gm/24 hrs of proteinuria Qualifiers: Chronic kidney disease stage: stage 3 (moderate) Chronic kidney disease stage 3 subtype: stage 3a (GFR 45-59) (2) Diabetic nephropathy associated with type 2 diabetes mellitus: Status: Chronic Comment: Use antiproteinuric and elvis-protective BP Rx (Diltiazem in place of amlodipine, restart losartan, stop carvedilol due to possible interaction with diltiazem). Restart metformin Will see about SGLT-2 inhibitors as outpatient as I'm sure [facility] MD will have to order. (3) Hypertension, accelerated: Status: Acute (4) Nausea & vomiting: Status: Acute Qualifiers: Vomiting type: unspecified Vomiting Intractability: unspecified Qualified Code(s): R11.2 - Nausea with vomiting, unspecified Narrative A/P Narrative: * May need to decrease losartan if he is loosing to much GI volume * Gastroparesis +/- Rxeffects +/- infection are all potential roles. * Switch to short acting diltiazem * Hydralazine in place of ARB for now * No diuretics * Reglan and gastroparesis diet. * Serial labs Time Spent With Patient Time: Total time spent is greater than 50% in coordination of care (as documented) at patient's floor/unit and/or counseling patient:
[2020-07-17] MEDS ORDERED: METOCLOPRAMIDE 10 MG/2 ML VIAL IV ONE (08:30)
[2020-07-17] MEDS: INSULIN LISPRO 1 UNIT/0.01 ML UNIT SQ SCH ×4 (08:58→22:38)
[2020-07-17] MEDS: ATORVASTATIN 40 MG TABLET PO SCH (08:59)
[2020-07-17] MEDS: metFORMIN 500 MG TABLET PO SCH ×2 (08:59→10:02)
[2020-07-17] MEDS: DOCUSATE SODIUM 100 MG CAPSULE PO SCH ×3 (08:59→21:54)
[2020-07-17] MEDS: HEPARIN 5,000 UNIT/ML VIAL SQ SCH ×2 (08:59→21:51)
[2020-07-17] MEDS ORDERED: VANCOMYCIN 1,500 MG in 0.9 % SODIUM CHLORIDE 500 ML IV ONE (09:00)
[2020-07-17] MEDS ORDERED: DILTIAZEM 240 MG CAP.XL.24H PO SCH (09:00)
[2020-07-17] MEDS: ASPIRIN 81 MG TAB.CHEW PO SCH (09:00)
[2020-07-17] MEDS: CLOPIDOGREL 75 MG TABLET PO SCH (09:00)
[2020-07-17 09:52] LABS: Basophils % (Manual) 1 % (0-2); Eosinophils % (Manual) 4 % (0-7); Lymphocytes % 34 % (15-49); Monocytes % (Manual) 5 % (1-12); Platelet Estimate INCREASED (Normal); RBC Morphology NORMAL (Normal); Segmented Neutrophils % 56 % (38-78)
[2020-07-17] MEDS ORDERED: diphenhydrAMINE 50 MG/ML VIAL IV PRN (09:59)
[2020-07-17] MEDS: TRULANCE 3 MG PO SCH (10:00)
[2020-07-17] MEDS ORDERED: VANCOMYCIN PER PHARMACY IV SCH (10:13)
[2020-07-17] MEDS ORDERED: LABETALOL 5 MG/ML ML IV PRN (10:13)
[2020-07-17] MEDS ORDERED: ACETAMINOPHEN 500 MG TABLET PO PRN (10:13)
[2020-07-17] MEDS ORDERED: LACTULOSE 20 GM/30 ML ORAL.SOL PO PRN (10:13)
[2020-07-17] MEDS ORDERED: DEXTROSE 31 GM ORAL.SUSP PO PRN (10:13)
[2020-07-17] MEDS ORDERED: SENNOSIDES 1 TABLET PO PRN (10:13)
[2020-07-17] MEDS ORDERED: DEXTROSE 50% 50 ML VIAL IV PRN (10:13)
[2020-07-17] MEDS: diphenhydrAMINE 50 MG/ML VIAL IV PRN ×2 (10:25→15:46)
[2020-07-17] MEDS ORDERED: METOCLOPRAMIDE 10 MG/2 ML VIAL IV SCH (11:30)
[2020-07-17] MEDS: SIMETHICONE 80 MG TAB.CHEW CHEWED SCH ×3 (12:59→20:26)
[2020-07-17] MEDS: METOCLOPRAMIDE 10 MG TABLET PO SCH ×3 (13:00→21:52)
[2020-07-17] MEDS ORDERED: metFORMIN 500 MG TABLET PO SCH (17:30)
[2020-07-17 21:00] LABS: Prothrombin Time 13.3 sec (11.9-14.5)
[2020-07-17] MEDS ORDERED: MELATONIN 3 MG TABLET PO SCH (21:00)
[2020-07-17] MEDS ORDERED: LOSARTAN 50 MG TABLET PO SCH (21:00)
[2020-07-17] MEDS ORDERED: diphenhydrAMINE 25 MG CAPSULE PO SCH (21:00)
[2020-07-17] MEDS: INSULIN GLARGINE, HUMAN 1 UNIT/0.01 ML SQ SCH (21:50)
[2020-07-17] MEDS: diphenhydrAMINE 25 MG CAPSULE PO SCH (21:52)
[2020-07-17] MEDS: MELATONIN 3 MG TABLET PO SCH (21:54)
[2020-07-18] MEDS: ONDANSETRON 4 MG/2 ML VIAL IV PRN ×2 (00:34→07:01)
[2020-07-18] MEDS: CEFEPIME 2 GM VIAL IV SCH (05:08)
[2020-07-18] MEDS: diphenhydrAMINE 50 MG/ML VIAL IV PRN (05:08)
[2020-07-18] MEDS: 0.9 % SODIUM CHLORIDE 10 ML SYRINGE IV SCH ×3 (05:11→22:00)
[2020-07-18] MEDS: metroNIDAZOLE 500 MG/100 ML BAG IV SCH ×3 (05:11→22:58)
[2020-07-18] MEDS: CALCIUM CARBONATE 500 MG TAB.CHEW CHEWED PRN (06:02)
--- NOTE | 2020-07-18 06:48 | XRay Report ---
INDICATION: Pre-surgery TECHNIQUE: AP portable semierect chest x-ray COMPARISON: Previous chest x-rays dated 07/14/2020, 07/08/2020 FINDINGS: Lungs:Lungs are negative. No focal pulmonary parenchymal infiltrate or mass. There is been interval resolution of diffuse interstitial abnormality. Heart, vascular:No significant cardiomegaly. Pulmonary vascularity is normal. No pulmonary edema or pulmonary congestion Mediastinum, kaitlynn:No mediastinal widening. No hilar mass Pleura:No pleural fluid. No pleural-based mass or calcification Skeletal:Negative. IMPRESSION: 1. Negative AP chest x-ray 2. Interval resolution of interstitial abnormality as above Interpreted and Authenticated by: Constantino Lane 07/18/20
[2020-07-18 06:49] LABS: Basophils # (Auto) 0.06 K/mcL (0.00-0.20); Basophils % (Auto) 0.5 % (0.0-2.0); Eosinophils # (Auto) 0.18 K/mcL (0.00-0.70); Eosinophils % (Auto) 1.4 % (0.0-7.0); Hematocrit 29.2 % (41.0-55.0); Hemoglobin 9.4 g/dL (13.5-16.5); Lymphocytes # (Auto) 2.18 K/mcL (1.50-4.80); Lymphocytes % (Auto) 17.2 % (15.0-49.0); Mean Cell Volume 92.4 fL (80.0-100.0); Mean Corpuscular HGB Conc 32.2 g/dL (31.0-36.0); Mean Platelet Volume 10.8 fL (7.4-10.4); Monocytes # (Auto) 1.43 K/mcL (0.10-0.90); Monocytes % (Auto) 11.3 % (1.0-12.0); Neutrophils % (Auto) 69.6 % (38.0-78.0); Platelet Count 483 K/mcL (140-440); RBC 3.16 M/mcL (4.50-5.90); Red Cell Distribution Width 11.9 % (11.5-14.5); WBC 12.7 K/mcL (4.5-11.0)
[2020-07-18] MEDS: OMEPRAZOLE 20 MG CAPSULE PO SCH (07:05)
[2020-07-18] MEDS: INSULIN LISPRO 1 UNIT/0.01 ML UNIT SQ SCH ×4 (07:05→22:59)
[2020-07-18] MEDS: METOCLOPRAMIDE 10 MG TABLET PO SCH ×4 (07:06→23:02)
[2020-07-18 07:09] LABS: Blood Urea Nitrogen 22 mg/dL (6-20); Carbon Dioxide 25 mmol/L (22-30); Chloride 102 mmol/L (96-108); Glomerular Filtration Rate 30; Glucose 131 mg/dL (70-105); Vancomycin,Random 20.7 ug/mL
[2020-07-18] MEDS ORDERED: SCOPOLAMINE 1 PATCH PATCH TOPICAL PRN (07:30)
[2020-07-18] MEDS ORDERED: IPRATROPIUM/ALBUTEROL 3 ML AMPUL.NEB NEB PRN (07:30)
[2020-07-18] MEDS ORDERED: FAMOTIDINE/PF 20 MG/2 ML VIAL IV ONE (07:43)
[2020-07-18] MEDS ORDERED: PROMETHAZINE 25 MG/ML VIAL ONE (07:43)
[2020-07-18] MEDS ORDERED: MIDAZOLAM 5 MG/5 ML VIAL ONE (07:43)
[2020-07-18] MEDS ORDERED: PROPOFOL 200 MG/20 ML VIAL IV ONE (07:43)
--- NOTE | 2020-07-18 07:48 | Internal Med Progress Note ---
SUBJECTIVE Subjective Patient information: Note initiated : 07/18/20 at 7:44 am Service Date, if different from initiated Date: [] Patient: Constantino Harden 45 y/o M admitted on 07/14/20 for body aches, headache, cough, leg swelling. Chief Complaint: [] Interval history: Interval history: Mr. Harden is a 45 year old male with a history of DM comp licated by neuropathy and a right foot wound, hypertension, CAD s/p remote MT, CKD, obesity who was recently hospitalized for sepsis and hyperglycemia as well as an ZAID on CKD. The patient was treated with IV antibiotics, podiatry was consulted and recommended discharge of oral antibiotics. He was discharged to home with recommendation to finish the course of Bactrim previously prescribed but was not able to get the antibiotic. The patient was discharged on 07/10. He says that on 07/12 he noticed that his legs were developing edema, initially on the right side then on the left. He has had a dry cough for several days. He later developed shortness of breath when lying down and decided to go to the ED. In the ED the patient was hypertensive with SBP>200. His respiratory status was stable on room air. Pulmonary imaging with chest xray showed interstitial abnormality with interlobular septal thickening but no consolidations. This was followed by noncontrast CT chest/abdomen/pelvis that showed ground glass infiltrates and interlobular septa thickening which might be due to interstitial pulmonary edema. There was also mesenteric edema and probable subcutaneous edema. No focal intra-abdominal abnormality. The patient has an acute on chronic kidney injury. Urinalysis showing some protein and glucosuria but otherwise unremarkable. The CT scan did not show any hydronephrosis or calculi. The patient has a mild elevation in troponin, EKG does not show any acute ischemic changes. On exam the patient is not in any respiratory distress, he has pitting edema up to his knees. Lung exam is positive for faint crackles. He was given a dose of Lasix IV in the ED and had robust urine output. 07/15-suspect the patient's diabetic foot wound to be infected, discussed with podiatry-wound cultures taken then started broad spectrum antibiotics. The foot wound may be the cause of the patient's presentation. 07/16 no overnight events or new complaints, awaiting cultures and further recs from podiatry, nephrology consult. 07/17 Has nausea/vomiting this morning. Poor sleep. Feels constipated. Other complaints. Podiatry for possible bone biopsy or partial excision. 07/18 Had nausea vomiting last night. No nausea currently. Status post bone excision for suspected osteo-. Review of Systems: denies headache/fever/chills/chest or abdominal pain/cough/dyspnea/diarrhea. Otherwise see above. Constitutional Vitals: Vital Signs Temp Pulse Resp BP Pulse Ox 98.1 F 107 H 16 148/76 98 07/18/20 04:49 07/18/20 04:49 07/18/20 04:49 07/18/20 04:49 07/18/20 04:49 Period Temp Pulse Resp BP Sys/Proctor Pulse Ox Last 24 Hr 97.6 F-98.7 F 97-107 16-20 106-173/59-100 96-99 Intake and Output 07/17/20 07/18/20 07/18/20 21:59 05:59 13:59 Intake Total 100 400 100 Output Total 100 Balance 100 300 100 Weight 108.726 kg Intake & Output: Intake & Output 07/17/20 07/18/20 07/18/20 21:59 05:59 13:59 Intake Total 100 400 100 Output Total 100 Balance 100 300 100 Weight 108.726 kg Intake: IV 100 100 100 Oral 300 Output: Emesis 100 Other: Meal Dinner Percent of Meal Consumed 50% Feeding Ability Independent # Voids 1 # Unmeasured Emesis 3 # Bowel Movements 0 # Emeses 1 Exam: General: Alert, Awake, No acute Distress, obese Eyes/N/T: EOMI, Head/Neck: neck supple, CV: RRR, No murmurs, Pulm: Clear b/l, no wheezing/rhonchi/rales Abd: soft, nontender, +BS x4 Ext: no clubbing/cyanosis, b/l LE edema. right foot wound in dressings Neuro: Alert, no focal deficits, moves all extremities, Skin: warm/dry OBJ DATA Labs CBC & Chem 7: 07/18/20 04:55 07/18/20 04:55 Labs: Abnormal Lab Results 07/18/20 07/18/20 07/17/20 04:55 04:55 05:14 WBC 12.7 H RBC 3.16 L Hgb 9.4 L Hct 29.2 L Plt Count 483 H MPV 10.8 H Starke # (Auto) 1.43 H Basophils % (Manual) Absolute Neutrophils 8.83 H Platelet Estimate Potassium BUN 22 H 21 H Creatinine 2.5 H 2.4 H Glucose 131 H 152 H ALT Alkaline Phosphatase Troponin T C-Reactive Protein Albumin/Globulin Ratio U [place] Prot/Creat Ratio Ur Random Chloride Vancomycin Trough 07/17/20 07/16/20 07/16/20 05:14 13:25 13:25 WBC 11.3 H RBC 3.52 L Hgb 10.5 L Hct 32.3 L Plt Count 499 H MPV 10.9 H Starke # (Auto) Basophils % (Manual) Absolute Neutrophils Platelet Estimate Increased A Potassium BUN Creatinine Glucose ALT Alkaline Phosphatase Troponin T C-Reactive Protein Albumin/Globulin Ratio U [place] Prot/Creat Ratio 0.49 H Ur Random Chloride 30 L Vancomycin Trough 07/16/20 07/16/20 07/16/20 07:57 06:00 06:00 WBC RBC Hgb Hct Plt Count MPV [place] # (Auto) Basophils % (Manual) Absolute Neutrophils Platelet Estimate Potassium 3.2 L BUN Creatinine 2.2 H Glucose 128 H ALT 66 H Alkaline Phosphatase 234 H Troponin T 0.05 H* C-Reactive Protein Albumin/Globulin Ratio 0.9 L U [place] Prot/Creat Ratio Ur Random Chloride Vancomycin Trough 25.5 H* 07/16/20 07/15/20 07/15/20 06:00 11:06 08:07 WBC 11.1 H RBC 3.34 L Hgb 10.0 L Hct 30.7 L Plt Count 445 H MPV 11.0 H Starke # (Auto) Basophils % (Manual) 3 H Absolute Neutrophils Platelet Estimate Potassium BUN Creatinine Glucose ALT Alkaline Phosphatase Troponin T 0.07 H* 0.06 H* C-Reactive Protein Albumin/Globulin Ratio U [place] Prot/Creat Ratio Ur Random Chloride Vancomycin Trough 07/15/20 07/15/20 07/15/20 05:26 05:26 05:26 WBC RBC Hgb Hct Plt Count MPV [place] # (Auto) Basophils % (Manual) Absolute Neutrophils Platelet Estimate Potassium BUN Creatinine 1.8 H Glucose ALT 90 H Alkaline Phosphatase 271 H Troponin T 0.07 H* C-Reactive Protein 4.90 H Albumin/Globulin Ratio 0.9 L U [place] Prot/Creat Ratio Ur Random Chloride Vancomycin Trough Meds: Medications Acetaminophen (Acetaminophen 500 Mg Tablet) 1,000 mg PO Q4-6HP PRN; Protocol PRN Reason: Per Pain Protocol Albuterol/Ipratropium (Ipratropium/Albuterol 3 Ml Ampul.Neb) 3 ml NEB ONCE PRN PRN Reason: Shortness Of Breath Stop: 07/18/20 13:30 Aspirin (Aspirin 81 Mg Tab.Chew) 81 mg PO DAILY [facility] Atorvastatin Calcium (Atorvastatin 40 Mg Tablet) 80 mg PO DAILY [facility] Calcium Carbonate/Glycine (Calcium Carbonate 500 Mg Tab.Chew) 500 mg CHEWED Q 4HP PRN PRN Reason: Dyspepsia Last Admin: 07/18/20 06:02 Dose: 500 mg Documented by: Cefepime HCl (Cefepime 2 Gm Vial) 2 gm IV Q8H [facility]; Protocol Last Admin: 07/18/20 05:08 Dose: 2 gm Documented by: Clopidogrel Bisulfate (Clopidogrel 75 Mg Tablet) 75 mg PO DAILY [facility] Dextrose (Dextrose 50% 50 Ml Vial) 0 ml IV UD PRN PRN Reason: Hypoglycemia Diagnostic Test (Pha) (Accu-Chek 1 Each Strip) 1 each FS ACHS [facility] Last Admin: 07/18/20 07:05 Dose: 1 each Documented by: Diphenhydramine HCl (Diphenhydramine 25 Mg Capsule) 25 mg PO HS [facility] Stop: 07/18/20 21:01 Last Admin: 07/17/20 21:52 Dose: 25 mg Documented by: Diphenhydramine HCl (Diphenhydramine 50 Mg/Ml Vial) 25 mg IV Q4-6HP PRN PRN Reason: nausea Last Admin: 07/18/20 05:08 Dose: 25 mg Documented by: Docusate Sodium (Docusate Sodium 100 Mg Capsule) 100 mg PO BID [facility] Last Admin: 07/17/20 21:54 Dose: Not Given Documented by: Glucose (Dextrose 31 Gm Oral.Susp) 15 gm PO PRN PRN PRN Reason: Hypoglycemia Heparin Sodium (Porcine) (Heparin 5,000 Unit/Ml Vial) 5,000 unit SQ Q12 [facility] Last Admin: 07/17/20 21:51 Dose: 5,000 unit Documented by: Hydralazine HCl (Hydralazine 20 Mg/Ml Vial) 0 mg IV Q2HP PRN PRN Reason: Hypertension Last Admin: 07/17/20 22:44 Dose: 20 mg Documented by: Metronidazole (Flagyl) 500 mg in 100 mls @ 100 mls/hr IV Q8H [facility]; Protocol Last Infusion: 07/18/20 06:35 Dose: Infused Documented by: Insulin Glargine (Insulin Glargine, Human 1 Unit/0.01 Ml) 40 unit SQ [facility] Last Admin: 07/17/20 21:50 Dose: 40 unit Documented by: Insulin Human Lispro (Insulin Lispro 1 Unit/0.01 Ml Unit) 0 unit SQ [facility]; Protocol Last Admin: 07/18/20 07:05 Dose: Not Given Documented by: Labetalol HCl (Labetalol 5 Mg/Ml Ml) 0 mg IV Q2HP PRN PRN Reason: Hypertension Lactulose (Lactulose 20 Gm/30 Ml Oral.Angie) 10 gm PO DAILYP PRN PRN Reason: Constipation Melatonin (Melatonin 3 Mg Tablet) 3 mg PO QHS [facility] Last Admin: 07/17/20 21:54 Dose: 3 mg Documented by: Metoclopramide HCl (Metoclopramide 10 Mg Tablet) 5 mg PO [facility] Last Admin: 07/18/20 07:06 Dose: Not Given Documented by: Omeprazole (Omeprazole 20 Mg Capsule) 20 mg PO B [facility] Last Admin: 07/18/20 07:05 Dose: Not Given Documented by: Ondansetron HCl (Ondansetron 4 Mg/2 Ml Vial) 4 mg IV Q4HP PRN; Protocol PRN Reason: Nausea And Vomiting Last Admin: 07/18/20 07:01 Dose: 4 mg Documented by: Trulance ( Plecanatide) 3 Mg Tablet 1 dose PO DAILY [facility] Last Admin: 07/17/20 10:00 Dose: 1 dose Documented by: Scopolamine (Scopolamine 1 Patch Patch) 1 patch TOPICAL PREOP PRN PRN Reason: Nausea And Vomiting Stop: 07/18/20 13:30 Senna (Sennosides 1 Tablet) 2 tab PO [facility] PRN PRN Reason: Constipation Simethicone (Simethicone 80 Mg Tab.Chew) 80 mg CHEWED [facility] Last Admin: 07/17/20 20:26 Dose: 80 mg Documented by: Sodium Chloride (0.9 % Sodium Chloride 10 Ml Syringe) 10 ml IV Q8 [facility] Last Admin: 07/18/20 05:11 Dose: 10 ml Documented by: Vancomycin HCl (Vancomycin Per Pharmacy) 1 order IV UD [facility]; Protocol A/P Narrative A/P Narrative: A: #Diabetic foot wound/infection w/cellulitis/suspected osteo: -possible explanation for the patient's presentation -persistent leukocytosis #Hypertensive emergency/urgency (h/o HTN): on BB/ARB at home. Resolved -complicated by elevated troponin, ZAID, and volume overload/volume overload #Elevated troponin: suspect type II MT from infection/hypertension/volume overload #ZAID on CKD III: -infection vs cardiorenal syndrome (probably d/t infection) -renal u/s unremarkable -Cr 2.5 #Acute on chronic anemia: stable -suspect related to acute infection -likely anemia of chronic inflammation at baseline #Volume overload/CHF: improved s/p diuresis -echo with good EF, normal diastolic fxn #Diabetes mellitus, insulin dependent: noncompliant with meds -poorly controlled Hgb A1C 13.4 -complicated by neuropathy and chronic foot wound/infection #h/o gastroparesis: trial reglan, following with bhavani momin #Transaminitis: improved #Hx of restrictive lung disease: #Obesity: BMI 34 Plan -Podiatry following > pending partial excision of 5th MT today -Vancomycin, awaiting final ident -Nephrology following -BP meds per nephrology, Diltiazem/Losartan -Continue home aspirin and plavix, statin -Lantus and SSI -DVT ppx: heparin SQ Code status: Boom Boss Spent With Patient Time: Total time spent is greater than 50% in coordination of care (as documented) at patient's floor/unit and/or counseling patient: QUALITY Stroke Symptom Onset Unknown: No VTE Deep Vein Thrombosis/Pulmonary Embolism Present on Admission: No
[2020-07-18] MEDS ORDERED: BUPIVACAINE 0.25% 50 ML VIAL IJ ONE (07:50)
--- NOTE | 2020-07-18 07:50 | Nephrology Progress Note ---
SUBJECTIVE Subjective Patient information: Note initiated : 07/18/20 at 7:48 am Service Date, if different from initiated Date: [] Patient: Constantino Harden 45 y/o M admitted on 07/14/20 for body aches, headache, cough, leg swelling. Chief Complaint: [Nausea and swelling...left foot infection] Interval history: Still nauseated. No fever or hypotension. BP is labile. ARB discontinued till N/V saumya due to risk of ARF with ECF volume contraction from N/V. So far, elevated biomarkers but no radiographic evidence of osteomyelitis. Culture of blood neg, Asp of wound just Coag neg Staph. As a result the patient was taken to OR for I bone Bx and deep cultures. The entire bone was removed distal to this osteotomy site at the fifth metatarsophalangeal joint articulation. There was noted to be malodor, purulent drainage. The drainage from the deep tissue was sent for culture with a swab. Two specimens of bone were taken for the bone culture for microbiological assessment and bone biopsy for pathological verification of osteomyelitis. Laboratory Tests 07/14/20 07/14/20 07/15/20 10:43 10:44 05:26 ESR 121 H Sodium Potassium Chloride Carbon Dioxide Anion Gap BUN Creatinine GFR Calculation Glucose Calcium C-Reactive Protein 5.50 H 4.90 H 07/18/20 04:55 ESR Sodium 139 Potassium 3.5 Chloride 102 Carbon Dioxide 25 Anion Gap 12.0 BUN 22 H Creatinine 2.5 H GFR Calculation 30 Glucose 131 H Calcium 9.0 C-Reactive Protein Vital Signs Temp Pulse Pulse Resp BP BP Pulse Ox 07/18/20 04:49 36.7 C 107 H 16 148/76 98 07/18/20 00:19 36.5 C 106 H 18 110/59 99 07/17/20 13:08 37.1 C 100 H 20 125/72 98 07/17/20 10:18 97 H 106/72 98 07/17/20 10:15 20 106/72 99 07/17/20 09:24 98 H 153/84 98 07/17/20 09:23 98 H 153/84 99 07/17/20 08:53 99 H 173/96 98 07/17/20 08:08 102 H 166/95 99 07/17/20 08:01 36.4 C 102 H 173/100 96 Medications Acetaminophen (Acetaminophen 500 Mg Tablet) 1,000 mg PO Q4-6HP PRN; Protocol PRN Reason: Per Pain Protocol Albuterol/Ipratropium (Ipratropium/Albuterol 3 Ml Ampul.Neb) 3 ml NEB ONCE PRN PRN Reason: Shortness Of Breath Stop: 07/18/20 13:30 Aspirin (Aspirin 81 Mg Tab.Chew) 81 mg PO DAILY [facility] Atorvastatin Calcium (Atorvastatin 40 Mg Tablet) 80 mg PO DAILY [facility] Calcium Carbonate/Glycine (Calcium Carbonate 500 Mg Tab.Chew) 500 mg CHEWED Q4HP PRN PRN Reason: Dyspepsia Last Admin: 07/18/20 06:02 Dose: 500 mg Documented by: Cefepime HCl (Cefepime 2 Gm Vial) 2 gm IV Q8H [facility]; Protocol Last Admin: 07/18/20 05:08 Dose: 2 gm Documented by: Clopidogrel Bisulfate (Clopidogrel 75 Mg Tablet) 75 mg PO DAILY [facility] Dextrose (Dextrose 50% 50 Ml Vial) 0 ml IV UD PRN PRN Reason: Hypoglycemia Diagnostic Test (Pha) (Accu-Chek 1 Each Strip) 1 each FS ACHS [facility] Last Admin: 07/18/20 07:05 Dose: 1 each Documented by: Diphenhydramine HCl (Diphenhydramine 25 Mg Capsule) 25 mg PO HS [facility] Stop: 07/18/20 21:01 Last Admin: 07/17/20 21:52 Dose: 25 mg Documented by: Diphenhydramine HCl (Diphenhydramine 50 Mg/Ml Vial) 25 mg IV Q4-6HP PRN PRN Reason: nausea Last Admin: 07/18/20 05:08 Dose: 25 mg Documented by: Docusate Sodium (Docusate Sodium 100 Mg Capsule) 100 mg PO BID [facility] Last Admin: 07/17/20 21:54 Dose: Not Given Documented by: Glucose (Dextrose 31 Gm Oral.Susp) 15 gm PO PRN PRN PRN Reason: Hypoglycemia Heparin Sodium (Porcine) (Heparin 5,000 Unit/Ml Vial) 5,000 unit SQ Q12 [facility] Last Admin: 07/17/20 21:51 Dose: 5,000 unit Documented by: Hydralazine HCl (Hydralazine 20 Mg/Ml Vial) 0 mg IV Q2HP PRN PRN Reason: Hypertension Last Admin: 07/17/20 22:44 Dose: 20 mg Documented by: Metronidazole (Flagyl) 500 mg in 100 mls @ 100 mls/hr IV Q8H [facility]; Protocol Last Infusion: 07/18/20 06:35 Dose: Infused Documented by: Insulin Glargine (Insulin Glargine, Human 1 Unit/0.01 Ml) 40 unit SQ [facility] Last Admin: 07/17/20 21:50 Dose: 40 unit Documented by: Insulin Human Lispro (Insulin Lispro 1 Unit/0.01 Ml Unit) 0 unit SQ [facility]; Protocol Last Admin: 07/18/20 07:05 Dose: Not Given Documented by: Labetalol HCl (Labetalol 5 Mg/Ml Ml) 0 mg IV Q2HP PRN PRN Reason: Hypertension Lactulose (Lactulose 20 Gm/30 Ml Oral.Angie) 10 gm PO DAILYP PRN PRN Reason: Constipation Melatonin (Melatonin 3 Mg Tablet) 3 mg PO QHS [facility] Last Admin: 07/17/20 21:54 Dose: 3 mg Documented by: Metoclopramide HCl (Metoclopramide 10 Mg Tablet) 5 mg PO [facility] Last Admin: 07/18/20 07:06 Dose: Not Given Documented by: Omeprazole (Omeprazole 20 Mg Capsule) 20 mg PO B [facility] Last Admin: 07/18/20 07:05 Dose: Not Given Documented by: Ondansetron HCl (Ondansetron 4 Mg/2 Ml Vial) 4 mg IV Q4HP PRN; Protocol PRN Reason: Nausea And Vomiting Last Admin: 07/18/20 07:01 Dose: 4 mg Documented by: Trulance ( Plecanatide) 3 Mg Tablet 1 dose PO DAILY [facility] Last Admin: 07/17/20 10:00 Dose: 1 dose Documented by: Scopolamine (Scopolamine 1 Patch Patch) 1 patch TOPICAL PREOP PRN PRN Reason: Nausea And Vomiting Stop: 07/18/20 13:30 Senna (Sennosides 1 Tablet) 2 tab PO [facility] PRN PRN Reason: Constipation Simethicone (Simethicone 80 Mg Tab.Chew) 80 mg CHEWED [facility] Last Admin: 07/17/20 20:26 Dose: 80 mg Documented by: Sodium Chloride (0.9 % Sodium Chloride 10 Ml Syringe) 10 ml IV Q8 [facility] Last Admin: 07/18/20 05:11 Dose: 10 ml Documented by: Vancomycin HCl (Vancomycin Per Pharmacy) 1 order IV UD [facility]; Protocol Constitutional Vitals: Vital Signs Temp Pulse Resp BP Pulse Ox 36.7 C 107 H 16 148/76 98 07/18/20 04:49 07/18/20 04:49 07/18/20 04:49 07/18/20 04:49 07/18/20 04:49 Period Temp Pulse Resp BP Sys/Proctor Pulse Ox Last 24 Hr 36.4 C-37.1 C 97-107 16-20 106-173/59-100 96-99 Intake and Output 07/17/20 07/18/20 07/18/20 21:59 05:59 13:59 Intake Total 100 400 100 Output Total 100 Balance 100 300 100 Weight 108.726 kg Physical exam: General appearance: mild distress and obese Exam: Nauseated Head Head exam: Present normal inspection Eye Eye exam: Present EOMI, normal appearance and PERRL; Absent scleral icterus ENT ENT exam: Present mucous membranes dry Neck Neck exam: Present full ROM; Absent meningismus Respiratory Respiratory exam: Present normal respiratory exam Cardiovascular Cardiovascular exam: Present RRR, +S1 and +S2; Absent rubs GI/Abdominal GI/Abdominal exam: Present diminished bowel sounds and distended Neurological Exam Neurological exam: Present alert, CN II-XII intact and oriented X3 Psychiatric Psychiatric exam: Present anxious Skin Skin exam: Present dry Intake & Output: Intake & Output 07/17/20 07/18/20 07/18/20 21:59 05:59 13:59 Intake Total 100 400 100 Output Total 100 Balance 100 300 100 Weight 108.726 kg Intake: IV 100 100 100 Oral 300 Output: Emesis 100 Other: Meal Dinner Percent of Meal Consumed 50% Feeding Ability Independent # Voids 1 # Unmeasured Emesis 3 # Bowel Movements 0 # Emeses 1 Exam: Nauseated A/P Assessment and plan (1) Renal failure (ARF), acute on chronic: Status: Acute Comment: CKD G3 A3 is most likely DM with ~ 0.5 gm/24 hrs of proteinuria Qualifiers: Chronic kidney disease stage: stage 3 (moderate) Chronic kidney disease stage 3 subtype: stage 3a (GFR 45-59) (2) Diabetic nephropathy associated with type 2 diabetes mellitus: Status: Chronic Comment: Use antiproteinuric and elvis-protective BP Rx (Diltiazem in place of amlodipine, restart losartan, stop carvedilol due to possible interaction with diltiazem). Restart metformin Will see about SGLT-2 inhibitors as outpatient as I'm sure [facility] MD will have to order. (3) Hypertension, accelerated: Status: Acute (4) Nausea & vomiting: Status: Acute Qualifiers: Vomiting type: unspecified Vomiting Intractability: unspecified Qualified Code(s): R11.2 - Nausea with vomiting, unspecified Narrative A/P Narrative: A/P Assessment and plan (1) Renal failure (ARF), acute on chronic: (2) Diabetic nephropathy associated with type 2 diabetes mellitus: (3) Hypertension, accelerated: (4) Nausea & vomiting: (5) Left 5th toe osteomyelitis - pus from bone bx / deep culture Culture driven ABx Wonder if ABx causing N/V A/P Narrative: May need to decrease losartan if he is loosing to much GI volume Gastroparesis +/- R xeffects +/- infection are all potential roles. Switch to short acting diltiazem Hydralazine in place of ARB for now No diuretics Reglan and gastroparesis diet. Serial labs Time Spent With Patient Time: Total time spent is greater than 50% in coordination of care (as documented) at patient's floor/unit and/or counseling patient:
[2020-07-18] MEDS ORDERED: DILTIAZEM 240 MG CAP.XL.24H PO SCH (09:00)
--- NOTE | 2020-07-18 09:07 | Brief Operative Note ---
Brief Operative Note Date of procedure: 07/18/20 Pre-op diagnosis: Osteomyelitis right fifth metatarsal Post-op diagnosis: same Procedure: Partial amputation right fifth metatarsal Grafts/Implants: No Anesthesia: MAC and local Complications: none Surgeon: Reilly Farmer Estimated blood loss (cc): 150 Specimens Removed/Pathology: other (Bone culture and bone biopsy. Deep tissue swab for culture and sensitivity) Condition: other (fair) Disposition: floor
--- NOTE | 2020-07-18 09:43 | Operative Note ---
DATE OF OPERATION: 07/18/2020 PREOPERATIVE DIAGNOSIS: Osteomyelitis, right fifth metatarsal. POSTOPERATIVE DIAGNOSIS: Osteomyelitis, right fifth metatarsal. PROCEDURE: Partial amputation of the right fifth metatarsal. SURGEON: Reilly Farmer DPM. IMPLANTS: None. ANESTHESIA: MAC local. COMPLICATIONS: None. BLOOD LOSS: 150 mL. SPECIMEN: Bone culture and bone biopsy, right fifth metatarsal. Deep tissue swab for culture and sensitivity. CONDITION: Fair. DISPOSITION: Floor. PROCEDURE IN DETAIL: The patient was brought to the operating room and placed on the operating table in supine position. Right lower extremity was scrubbed, prepped, and draped in the usual aseptic fashion. Monitored anesthesia care initiated. A total of 10 mL of 0.25% Marcaine plain infiltrated in Bledsoe block fashion around the fifth metatarsal, right foot. Utilizing 10 blade, a full-thickness incision was created at the dorsolateral aspect right fifth metatarsal. Careful sharp and blunt dissection exposed the fifth metatarsal. It was noted to have a lateral cortical disruption. The bone was then transected utilizing a bone cutting tool at the midshaft and the osteotomy was taken from a dorsal distal/plantar proximal orientation. The entire bone was removed distal to this osteotomy site at the fifth metatarsophalangeal joint articulation. There was noted to be malodor, purulent drainage. The drainage from the deep tissue was sent for culture with a swab. Two specimens of bone were taken for the bone culture for microbiological assessment and bone biopsy for pathological verification of osteomyelitis. Area was irrigated with copious amounts of sterile saline. It was packed open with 1/4-inch packing. Dressings consisting of 4 x 4's, Kerlix, and Jason wrap were then applied after achieving final hemostasis. The patient tolerated the procedure and anesthesia well. He will be transferred back to the floor for continued treatment. ABI:[email or web address] Job ID: [id number] Doc ID: [id number] Reilly Farmer DPM
[2020-07-18] MEDS: SIMETHICONE 80 MG TAB.CHEW CHEWED SCH ×4 (09:57→23:03)
[2020-07-18] MEDS: ASPIRIN 81 MG TAB.CHEW PO SCH (09:57)
[2020-07-18] MEDS: ATORVASTATIN 40 MG TABLET PO SCH (09:58)
[2020-07-18] MEDS: DOCUSATE SODIUM 100 MG CAPSULE PO SCH ×2 (09:58→23:00)
[2020-07-18] MEDS: CLOPIDOGREL 75 MG TABLET PO SCH (09:58)
[2020-07-18] MEDS: TRULANCE 3 MG PO SCH ×2 (09:58→19:27)
[2020-07-18] MEDS: HEPARIN 5,000 UNIT/ML VIAL SQ SCH ×2 (10:00→23:00)
[2020-07-18] MEDS: INSULIN GLARGINE, HUMAN 1 UNIT/0.01 ML SQ SCH (22:59)
[2020-07-18] MEDS: diphenhydrAMINE 25 MG CAPSULE PO SCH (23:01)
[2020-07-18] MEDS: MELATONIN 3 MG TABLET PO SCH (23:02)
[2020-07-19] MEDS: metroNIDAZOLE 500 MG/100 ML BAG IV SCH ×4 (05:51→23:04)
[2020-07-19] MEDS: 0.9 % SODIUM CHLORIDE 10 ML SYRINGE IV SCH ×5 (05:52→21:22)
[2020-07-19 06:43] LABS: Basophils # (Auto) 0.09 K/mcL (0.00-0.20); Basophils % (Auto) 0.6 % (0.0-2.0); Eosinophils # (Auto) 0.33 K/mcL (0.00-0.70); Eosinophils % (Auto) 2.1 % (0.0-7.0); Hematocrit 29.5 % (41.0-55.0); Hemoglobin 9.3 g/dL (13.5-16.5); Lymphocytes # (Auto) 2.98 K/mcL (1.50-4.80); Lymphocytes % (Auto) 19.4 % (15.0-49.0); Mean Cell Volume 95.2 fL (80.0-100.0); Mean Corpuscular HGB Conc 31.5 g/dL (31.0-36.0); Mean Platelet Volume 10.5 fL (7.4-10.4); Monocytes # (Auto) 2.13 K/mcL (0.10-0.90); Monocytes % (Auto) 13.8 % (1.0-12.0); Neutrophils % (Auto) 64.1 % (38.0-78.0); Platelet Count 483 K/mcL (140-440); Red Cell Distribution Width 12.1 % (11.5-14.5); WBC 15.4 K/mcL (4.5-11.0)
[2020-07-19 06:49] LABS: Vancomycin,Random 11.3 ug/mL
[2020-07-19 06:54] LABS: ALT/SGPT 39 U/L (<40); AST/SGOT 25 U/L (<40); Albumin 3.2 gm/dL (3.2-5.2); Albumin/Globulin Ratio 0.9 (1.0-2.3); Alkaline Phosphatase 170 U/L (39-117); Bilirubin,Direct < 0.2 mg/dL (0-0.3); Bilirubin,Total 0.3 mg/dL (0.1-1.0); Blood Urea Nitrogen 20 mg/dL (6-20); Calcium 8.9 mg/dL (8.6-10.4); Carbon Dioxide 26 mmol/L (22-30); Chloride 105 mmol/L (96-108); Globulin 3.5 gm/dL (2.2-3.7); Glomerular Filtration Rate 35; Glucose 128 mg/dL (70-105); Lactate Dehydrogenase 201 U/L (135-225); Phosphorous 2.9 mg/dL (2.5-4.5); Triglycerides 99 mg/dL (<150); Uric Acid 6.5 mg/dL (2.5-8.0)
[2020-07-19] MEDS: SIMETHICONE 80 MG TAB.CHEW CHEWED SCH ×4 (07:09→21:04)
[2020-07-19] MEDS: OMEPRAZOLE 20 MG CAPSULE PO SCH (07:09)
[2020-07-19] MEDS: METOCLOPRAMIDE 10 MG TABLET PO SCH ×3 (07:10→17:40)
[2020-07-19] MEDS: INSULIN LISPRO 1 UNIT/0.01 ML UNIT SQ SCH ×4 (07:14→21:19)
--- NOTE | 2020-07-19 08:13 | Internal Med Progress Note ---
SUBJECTIVE Subjective Patient information: Note initiated : 07/19/20 at 8:08 am Service Date, if different from initiated Date: [] Patient: Constantino Harden 45 y/o M admitted on 07/14/20 for body aches, headache, cough, leg swelling. Chief Complaint: [] Interval history: Interval history: Mr. Harden is a 45 year old male with a history of DM comp licated by neuropathy and a right foot wound, hypertension, CAD s/p remote DE, CKD, obesity who was recently hospitalized for sepsis and hyperglycemia as well as an ZAID on CKD. The patient was treated with IV antibiotics, podiatry was consulted and recommended discharge of oral antibiotics. He was discharged to home with recommendation to finish the course of Bactrim previously prescribed but was not able to get the antibiotic. The patient was discharged on 07/10. He says that on 07/12 he noticed that his legs were developing edema, initially on the right side then on the left. He has had a dry cough for several days. He later developed shortness of breath when lying down and decided to go to the ED. In the ED the patient was hypertensive with SBP>200. His respiratory status was stable on room air. Pulmonary imaging with chest xray showed interstitial abnormality with interlobular septal thickening but no consolidations. This was followed by noncontrast CT chest/abdomen/pelvis that showed ground glass infiltrates and interlobular septa thickening which might be due to interstitial pulmonary edema. There was also mesenteric edema and probable subcutaneous edema. No focal intra-abdominal abnormality. The patient has an acute on chronic kidney injury. Urinalysis showing some protein and glucosuria but otherwise unremarkable. The CT scan did not show any hydronephrosis or calculi. The patient has a mild elevation in troponin, EKG does not show any acute ischemic changes. On exam the patient is not in any respiratory distress, he has pitting edema up to his knees. Lung exam is positive for faint crackles. He was given a dose of Lasix IV in the ED and had robust urine output. 07/15-suspect the patient's diabetic foot wound to be infected, discussed with podiatry-wound cultures taken then started broad spectrum antibiotics. The foot wound may be the cause of the patient's presentation. 07/16 no overnight events or new complaints, awaiting cultures and further recs from podiatry, nephrology consult. 07/17 Has nausea/vomiting this morning. Poor sleep. Feels constipated. Other complaints. Podiatry for possible bone biopsy or partial excision. 07/18 Had nausea vomiting last night. No nausea currently. Status post bone excision for suspected osteo-. 07/19 Patient states he had a little vomiting last night, does feel that food and drink and aggravated. Feels bloated. Feels constipated. Had procedure done by Dr. Farmer yesterday. Review of Systems: denies headache/fever/chills/chest or abdominal pain/cough/dyspnea/diarrhea. Otherwise see above. Constitutional Vitals: Vital Signs Temp Pulse Resp BP Pulse Ox 98.1 F 112 H 22 171/78 96 07/19/20 07:58 07/19/20 07:58 07/19/20 07:58 07/19/20 07:58 07/19/20 07:58 Period Temp Pulse Resp BP Sys/Proctor Pulse Ox Last 24 Hr 98 F-98.9 F 97-112 16-22 143-171/70-85 96-97 Intake and Output 07/18/20 07/19/20 07/19/20 21:59 05:59 13:59 Intake Total 1220 500 100 Output Total 225 750 200 Balance 995 -250 -100 Weight 107.864 kg Intake & Output: Intake & Output 07/18/20 07/19/20 07/19/20 21:59 05:59 13:59 Intake Total 1220 500 100 Output Total 225 750 200 Balance 995 -250 -100 Weight 107.864 kg Intake: IV 100 100 100 Oral 400 400 Tube Feeding 720 Output: Void Amount 225 750 200 Other: Meal Dinner Percent of Meal Consumed 100% Urine Appearance Clear Clear Clear Urine Color Dark Laurie Dark Yellow Dark Yellow # Unmeasured Emesis 3 # Emeses 1 Exam: General: Alert, Awake, No acute Distress, obese Eyes/N/T: EOMI, Head/Neck: neck supple, CV: RRR, No murmurs, Pulm: Clear b/l, no wheezing/rhonchi/rales Abd: soft, nontender, +BS x4 Ext: no clubbing/cyanosis, b/l LE edema. right foot wound in dressings Neuro: Alert, no focal deficits, moves all extremities, Skin: warm/dry OBJ DATA Labs CBC & Chem 7: 07/19/20 05:42 07/19/20 05:43 Labs: Abnormal Lab Results 07/19/20 07/19/20 07/18/20 05:43 05:42 04:55 WBC 15.4 H RBC 3.10 L Hgb 9.3 L Hct 29.5 L Plt Count 483 H MPV 10.5 H Love % (Auto) 13.8 H Love # (Auto) 2.13 H Basophils % (Manual) Absolute Neutrophils 9.86 H Platelet Estimate BUN 22 H Creatinine 2.2 H 2.5 H Glucose 128 H 131 H GGT 86 H Alkaline Phosphatase 170 H Albumin/Globulin Ratio 0.9 L U [place] Prot/Creat Ratio Ur Random Chloride Vancomycin Trough 07/18/20 07/17/20 07/17/20 04:55 05:14 05:14 WBC 12.7 H 11.3 H RBC 3.16 L 3.52 L Hgb 9.4 L 10.5 L Hct 29.2 L 32.3 L Plt Count 483 H 499 H MPV 10.8 H 10.9 H Love % (Auto) Love # (Auto) 1.43 H Basophils % (Manual) Absolute Neutrophils 8.83 H Platelet Estimate Increased A BUN 21 H Creatinine 2.4 H Glucose 152 H GGT Alkaline Phosphatase Albumin/Globulin Ratio U [place] Prot/Creat Ratio Ur Random Chloride Vancomycin Trough 07/16/20 07/16/20 07/16/20 13:25 13:25 07:57 WBC RBC Hgb Hct Plt Count MPV Love % (Auto) Love # (Auto) Basophils % (Manual) Absolute Neutrophils Platelet Estimate BUN Creatinine Glucose GGT Alkaline Phosphatase Albumin/Globulin Ratio U [place] Prot/Creat Ratio 0.49 H Ur Random Chloride 30 L Vancomycin Trough 25.5 H* 07/16/20 06:00 WBC 11.1 H RBC 3.34 L Hgb 10.0 L Hct 30.7 L Plt Count 445 H MPV 11.0 H Love % (Auto) Love # (Auto) Basophils % (Manual) 3 H Absolute Neutrophils Platelet Estimate BUN Creatinine Glucose GGT Alkaline Phosphatase Albumin/Globulin Ratio U [place] Prot/Creat Ratio Ur Random Chloride Vancomycin Trough Meds: Medications Acetaminophen (Acetaminophen 500 Mg Tablet) 1,000 mg PO Q4-6HP PRN; Protocol PRN Reason: Per Pain Protocol Aspirin (Aspirin 81 Mg Tab.Chew) 81 mg PO DAILY [facility] Last Admin: 07/18/20 09:57 Dose: 81 mg Documented by: Atorvastatin Calcium (Atorvastatin 40 Mg Tablet) 80 mg PO DAILY [facility] Last Admin: 07/18/20 09:58 Dose: 80 mg Documented by: Calcium Carbonate/Glycine (Calcium Carbonate 500 Mg Tab.Chew) 500 mg CHEWED Q4HP PRN PRN Reason: Dyspepsia Last Admin: 07/18/20 06:02 Dose: 500 mg Documented by: Clopidogrel Bisulfate (Clopidogrel 75 Mg Tablet) 75 mg PO DAILY [facility] Last Admin: 07/18/20 09:58 Dose: 75 mg Documented by: Dextrose (Dextrose 50% 50 Ml Vial) 0 ml IV UD PRN PRN Reason: Hypoglycemia Diagnostic Test (Pha) (Accu-Chek 1 Each Strip) 1 each FS ACHS [facility] Last Admin: 07/19/20 07:12 Dose: 1 each Documented by: Diphenhydramine HCl (Diphenhydramine 50 Mg/Ml Vial) 25 mg IV Q4-6HP PRN PRN Reason: nausea Last Admin: 07/18/20 05:08 Dose: 25 mg Documented by: Docusate Sodium (Docusate Sodium 100 Mg Capsule) 100 mg PO BID [facility] Last Admin: 07/18/20 23:00 Dose: 100 mg Documented by: Glucose (Dextrose 31 Gm Oral.Susp) 15 gm PO PRN PRN PRN Reason: Hypoglycemia Heparin Sodium (Porcine) (Heparin 5,000 Unit/Ml Vial) 5,000 unit SQ Q12 [facility] Last Admin: 07/18/20 23:00 Dose: 5,000 unit Documented by: Hydralazine HCl (Hydralazine 20 Mg/Ml Vial) 0 mg IV Q2HP PRN PRN Reason: Hypertension Last Admin: 07/17/20 22:44 Dose: 20 mg Documented by: Metronidazole (Flagyl) 500 mg in 100 mls @ 100 mls/hr IV Q8H [facility]; Protocol Last Infusion: 07/19/20 07:08 Dose: Infused Documented by: Vancomycin HCl 1,000 mg/ (Sodium Chloride) 250 mls @ 250 mls/hr IV ONCE ONE Stop: 07/19/20 09:59 Insulin Glargine (Insulin Glargine, Human 1 Unit/0.01 Ml) 40 unit SQ HS [facility] Last Admin: 07/18/20 22:59 Dose: 40 unit Documented by: Insulin Human Lispro (Insulin Lispro 1 Unit/0.01 Ml Unit) 0 unit SQ [facility]; Protocol Last Admin: 07/19/20 07:14 Dose: Not Given Documented by: Labetalol HCl (Labetalol 5 Mg/Ml Ml) 0 mg IV Q2HP PRN PRN Reason: Hypertension Last Admin: 07/18/20 12:09 Dose: 10 mg Documented by: Lactulose (Lactulose 20 Gm/30 Ml Oral.Angie) 10 gm PO DAILYP PRN PRN Reason: Constipation Last Admin: 07/19/20 07:10 Dose: 10 gm Documented by: Lorazepam (Lorazepam 2 Mg/Ml Vial) 0.5 mg IV Q6HP PRN PRN Reason: ANXIETY/SEDATION Melatonin (Melatonin 3 Mg Tablet) [facility] Last Admin: 07/18/20 23:02 Dose: 3 mg Documented by: Metoclopramide HCl (Metoclopramide 10 Mg Tablet) 5 mg PO [facility] Last Admin: 07/19/20 07:10 Dose: 5 mg Documented by: Omeprazole (Omeprazole 20 Mg Capsule) 20 mg PO B [facility] Last Admin: 07/19/20 07:09 Dose: 20 mg Documented by: Ondansetron HCl (Ondansetron 4 Mg/2 Ml Vial) 4 mg IV Q4HP PRN; Protocol PRN Reason: Nausea And Vomiting Last Admin: 07/18/20 07:01 Dose: 4 mg Documented by: Trulance ( Plecanatide) 3 Mg Tablet 1 dose PO DAILY [facility] Last Admin: 07/18/20 19:27 Dose: 1 dose Documented by: Senna (Sennosides 1 Tablet) 2 tab PO HSP PRN PRN Reason: Constipation Simethicone (Simethicone 80 Mg Tab.Chew) 80 mg CHEWED [facility] Last Admin: 07/19/20 07:09 Dose: 80 mg Documented by: Sodium Chloride (0.9 % Sodium Chloride 10 Ml Syringe) 10 ml IV Q8 [facility] Last Admin: 07/19/20 05:53 Dose: 10 ml Documented by: Vancomycin HCl (Vancomycin Per Pharmacy) 1 order IV [facility]; Protocol A/P Narrative A/P Narrative: A: #Diabetic foot wound/infection w/cellulitis & Osteo: s/p partial amp right 5th MT (07/18) -possible explanation for the patient's presentation -persistent leukocytosis #Hypertensive emergency/urgency (h/o HTN): was on BB/ARB at home. Resolved -complicated by elevated troponin, ZAID, and volume overload/volume overload #Elevated troponin: suspect type II DE from infection/hypertension/volume overload #ZAID on CKD III: -infection vs cardiorenal syndrome (probably d/t infection) -renal u/s unremarkable -Cr 2.2 #Acute on chronic anemia: stable -suspect related to acute infection -likely anemia of chronic inflammation at baseline #Volume overload/CHF: improved s/p diuresis -echo with good EF, normal diastolic fxn #Diabetes mellitus, insulin dependent: noncompliant with meds -poorly controlled Hgb A1C 13.4 -complicated by neuropathy and chronic foot wound/infection #h/o gastroparesis: trial reglan, following with bhavani momin #Transaminitis: improved #Hx of restrictive lung disease: #Obesity: BMI 34 #Anxiety: Plan -Podiatry following -Vancomycin, awaiting final ident -infected bone removed, but does have concomitant soft tissue infection > will treat with IV abx for 14-days and have pt f/u with Dr. Colvin. -Nephrology following -BP meds per nephrology, Diltiazem -reglan, low fat diet -Continue home aspirin and plavix, statin -Lantus and SSI -DVT ppx: heparin SQ Time Spent With Patient Time: Total time spent is greater than 50% in coordination of care (as documented) at patient's floor/unit and/or counseling patient: QUALITY Stroke Symptom Onset Unknown: No VTE Deep Vein Thrombosis/Pulmonary Embolism Present on Admission: No
[2020-07-19] MEDS ORDERED: SENNOSIDES 1 TABLET PO ONE (08:36)
[2020-07-19] MEDS ORDERED: METOCLOPRAMIDE 10 MG TABLET PO ONE (08:45)
[2020-07-19] MEDS ORDERED: VANCOMYCIN 1,000 MG in 0.9 % SODIUM CHLORIDE 250 ML IV ONE (09:00)
[2020-07-19] MEDS: ONDANSETRON 4 MG/2 ML VIAL IV PRN ×3 (09:06→22:11)
[2020-07-19] MEDS: POLYETHYLENE GLYCOL 3350 17 GM PACKET PO SCH (09:10)
[2020-07-19] MEDS: HEPARIN 5,000 UNIT/ML VIAL SQ SCH ×2 (09:11→21:05)
[2020-07-19] MEDS: ATORVASTATIN 40 MG TABLET PO SCH (09:12)
[2020-07-19] MEDS: DOCUSATE SODIUM 100 MG CAPSULE PO SCH ×2 (09:12→21:19)
[2020-07-19] MEDS: TRULANCE 3 MG PO SCH (09:12)
[2020-07-19] MEDS: ASPIRIN 81 MG TAB.CHEW PO SCH (09:12)
[2020-07-19] MEDS: CLOPIDOGREL 75 MG TABLET PO SCH (09:12)
--- NOTE | 2020-07-19 09:23 | Nephrology Progress Note ---
SUBJECTIVE Subjective Patient information: Note initiated : 07/19/20 at 9:21 am Service Date, if different from initiated Date: [] Patient: Constantino Harden 45 y/o M admitted on 07/14/20 for body aches, headache, cough, leg swelling. Chief Complaint: [left foot diabetic infection, nausea and vomiting] POD #2 from surgical Tx of left 5th to infection/osteo No anerobic growth so far. Laboratory Tests 07/19/20 05:43 Sodium 140 Potassium 3.6 Chloride 105 Carbon Dioxide 26 Anion Gap 9.0 BUN 20 Creatinine 2.2 H GFR Calculation 35 Glucose 128 H Uric Acid 6.5 Calcium 8.9 Phosphorus 2.9 Magnesium 2.0 Albumin 3.2 Serum Creatinine Interval Hx: Less nausea BP elevated Finally, some improvement in GFR Constitutional Vitals: Vital Signs Temp Pulse Resp BP Pulse Ox 36.7 C 112 H 22 148/76 96 07/19/20 07:58 07/19/20 07:58 07/19/20 07:58 07/19/20 09:00 07/19/20 07:58 Period Temp Pulse Resp BP Sys/Proctor Pulse Ox Last 24 Hr 36.6 C-37.2 C 97-112 16-22 143-171/70-85 96-97 Intake and Output 07/18/20 07/19/20 07/19/20 21:59 05:59 13:59 Intake Total 1220 500 220 Output Total 225 750 350 Balance 995 -250 -130 Weight 107.864 kg Physical exam: General appearance: mild distress and obese Exam: Nauseated Head Head exam: Present normal inspection Eye Eye exam: Present EOMI, normal appearance and PERRL; Absent scleral icterus ENT ENT exam: Present mucous membranes dry Neck Neck exam: Present full ROM; Absent meningismus Respiratory Respiratory exam: Present normal respiratory exam Cardiovascular Cardiovascular exam: Present RRR, +S1 and +S2; Absent rubs GI/Abdominal GI/Abdominal exam: Present diminished bowel sounds and distended Neurological Exam Neurological exam: Present alert, CN II-XII intact and oriented X3 Psychiatric Psychiatric exam: Present anxious Skin Skin exam: Present dry Intake & Output: Intake & Output 07/18/20 07/19/20 07/19/20 21:59 05:59 13:59 Intake Total 1220 500 220 Output Total 225 750 350 Balance 995 -250 -130 Weight 107.864 kg Intake: IV 100 100 100 Oral 400 400 120 Tube Feeding 720 Output: Void Amount 225 750 300 Emesis 50 Other: Meal Dinner Breakfast Percent of Meal Consumed 100% 50% Feeding Ability Independent Urine Appearance Clear Clear Clear Urine Color Dark Laurie Dark Yellow Dark Yellow # Unmeasured Emesis 3 # Emeses 1 A/P Assessment and plan (1) Renal failure (ARF), acute on chronic: Status: Acute Comment: CKD G3 A3 is most likely DM with ~ 0.5 gm/24 hrs of proteinuria Qualifiers: Chronic kidney disease stage: stage 3 (moderate) Chronic kidney disease stage 3 subtype: stage 3a (GFR 45-59) Acute renal failure type: with other specified pathological lesion Qualified Code(s): N17.8 - Other acute kidney failure; N18.31 - Chronic kidney disease, stage 3a (2) Diabetic nephropathy associated with type 2 diabetes mellitus: Status: Chronic Comment: Use antiproteinuric and elvis-protective BP Rx (Diltiazem in place of amlodipine, restart losartan, stop carvedilol due to possible interaction with diltiazem). Restart metformin Will see about SGLT-2 inhibitors as outpatient as I'm sure [facility] MD will have to order. (3) Hypertension, accelerated: Status: Acute (4) Nausea & vomiting: Status: Acute Qualifiers: Vomiting type: unspecified Vomiting Intractability: unspecified Qualified Code(s): R11.2 - Nausea with vomiting, unspecified Narrative A/P Narrative: A/P Narrative: Have held losartan as this will worsen or delay the recovery from ARF due to pre-renal azotemia Gastroparesis +/- Rx effects +/- infection are all potential roles. Switch to short acting diltiazem => done Hydralazine for prn control of BP No diuretics Gastroparesis diet. Serial labs Time Spent With Patient Time: Total time spent is greater than 50% in coordination of care (as documented) at patient's floor/unit and/or counseling patient:
[2020-07-19] MEDS: DILTIAZEM 30 MG TABLET PO SCH ×4 (10:58→21:04)
--- NOTE | 2020-07-19 13:35 | Orthopedic Progress Note ---
SUBJECTIVE Subjective Patient information: Note initiated : 07/19/20 at 1:33 pm Service Date, if different from initiated Date: [] Patient: Constantino Harden 45 y/o M admitted on 07/14/20 for body aches, headache, cough, leg swelling. Chief Complaint: [foot infection] Continued discomfort following removal of infected bone. Constitutional Vitals: Vital Signs Temp Pulse Resp BP Pulse Ox 97.9 F 86 18 149/79 96 07/19/20 11:58 07/19/20 11:58 07/19/20 11:58 07/19/20 11:58 07/19/20 11:58 Period Temp Pulse Resp BP Sys/Proctor Pulse Ox Last 24 Hr 97.9 F-98.6 F 86-112 16-22 143-171/70-80 96-97 Intake and Output 07/18/20 07/19/20 07/19/20 21:59 05:59 13:59 Intake Total 1220 500 470 Output Total 225 750 450 Balance 995 -250 20 Weight 237 lb 12.8 oz Intake & Output: Intake & Output 07/18/20 07/19/20 07/19/20 21:59 05:59 13:59 Intake Total 1220 500 470 Output Total 225 750 450 Balance 995 -250 20 Weight 237 lb 12.8 oz Intake: IV 100 100 350 Vancomycin 1,000 mg In Sodium 250 Chloride 0.9% 250 ml @ 250 mls/ hr IV ONCE ONE Rx#:[id number] Oral 400 400 120 Tube Feeding 720 Output: Void Amount 225 750 400 Emesis 50 Other: Meal Dinner Lunch Percent of Meal Consumed 100% 75% Feeding Ability Independent Urine Appearance Clear Clear Clear Urine Color Dark Laurie Dark Yellow Dark Yellow Urine Odor Normal Stool Size Moderate Stool Color Brown Stool Consistency Formed # Unmeasured Emesis 3 # Bowel Movements 1 # Emeses 1 OBJ DATA Labs CBC & Chem 7: 07/19/20 05:42 07/19/20 05:43 Labs: Abnormal Lab Results 07/19/20 07/19/20 07/18/20 05:43 05:42 04:55 WBC 15.4 H RBC 3.10 L Hgb 9.3 L Hct 29.5 L Plt Count 483 H MPV 10.5 H [place] % (Auto) 13.8 H [place] # (Auto) 2.13 H Absolute Neutrophils 9.86 H Platelet Estimate BUN 22 H Creatinine 2.2 H 2.5 H Glucose 128 H 131 H GGT 86 H Alkaline Phosphatase 170 H Albumin/Globulin Ratio 0.9 L U [place] Prot/Creat Ratio Ur Random Chloride 07/18/20 07/17/20 07/17/20 04:55 05:14 05:14 WBC 12.7 H 11.3 H RBC 3.16 L 3.52 L Hgb 9.4 L 10.5 L Hct 29.2 L 32.3 L Plt Count 483 H 499 H MPV 10.8 H 10.9 H [place] % (Auto) [place] # (Auto) 1.43 H Absolute Neutrophils 8.83 H Platelet Estimate Increased A BUN 21 H Creatinine 2.4 H Glucose 152 H GGT Alkaline Phosphatase Albumin/Globulin Ratio U [place] Prot/Creat Ratio Ur Random Chloride 07/16/20 07/16/20 13:25 13:25 WBC RBC Hgb Hct Plt Count MPV [place] % (Auto) [place] # (Auto) Absolute Neutrophils Platelet Estimate BUN Creatinine Glucose GGT Alkaline Phosphatase Albumin/Globulin Ratio U [place] Prot/Creat Ratio 0.49 H Ur Random Chloride 30 L Meds: Medications Acetaminophen (Acetaminophen 500 Mg Tablet) 1,000 mg PO Q4-6HP PRN; Protocol PRN Reason: Per Pain Protocol Aspirin (Aspirin 81 Mg Tab.Chew) 81 mg PO DAILY [facility] Last Admin: 07/19/20 09:12 Dose: 81 mg Documented by: Atorvastatin Calcium (Atorvastatin 40 Mg Tablet) 80 mg PO DAILY [facility] Last Admin: 07/19/20 09:12 Dose: 80 mg Documented by: Calcium Carbonate/Glycine (Calcium Carbonate 500 Mg Tab.Chew) 500 mg CHEWED Q4HP PRN PRN Reason: Dyspepsia Last Admin: 07/18/20 06:02 Dose: 500 mg Documented by: Clopidogrel Bisulfate (Clopidogrel 75 Mg Tablet) 75 mg PO DAILY [facility] Last Admin: 07/19/20 09:12 Dose: 75 mg Documented by: Dextrose (Dextrose 50% 50 Ml Vial) 0 ml IV UD PRN PRN Reason: Hypoglycemia Diagnostic Test (Pha) (Accu-Chek 1 Each Strip) 1 each FS [facility] Last Admin: 07/19/20 11:01 Dose: 1 each Documented by: Diltiazem HCl (Diltiazem 30 Mg Tablet) 30 mg PO [facility] Last Admin: 07/19/20 11:03 Dose: Not Given Documented by: Diphenhydramine HCl (Diphenhydramine 50 Mg/Ml Vial) 25 mg IV Q4-6HP PRN PRN Reason: nausea Last Admin: 07/18/20 05:08 Dose: 25 mg Documented by: Docusate Sodium (Docusate Sodium 100 Mg Capsule) 100 mg PO BID [facility] Last Admin: 07/19/20 09:12 Dose: 100 mg Documented by: Glucose (Dextrose 31 Gm Oral.Susp) 15 gm PO PRN PRN PRN Reason: Hypoglycemia Heparin Sodium (Porcine) (Heparin 5,000 Unit/Ml Vial) 5,000 unit SQ Q12 [facility] Last Admin: 07/19/20 09:11 Dose: 5,000 unit Documented by: Hydralazine HCl (Hydralazine 20 Mg/Ml Vial) 0 mg IV Q2HP PRN PRN Reason: Hypertension Last Admin: 07/17/20 22:44 Dose: 20 mg Documented by: Metronidazole (Flagyl) 500 mg in 100 mls @ 100 mls/hr IV Q8H [facility]; Protocol Last Infusion: 07/19/20 07:08 Dose: Infused Documented by: Insulin Glargine (Insulin Glargine, Human 1 Unit/0.01 Ml) 40 unit SQ HS [facility] Last Admin: 07/18/20 22:59 Dose: 40 unit Documented by: Insulin Human Lispro (Insulin Lispro 1 Unit/0.01 Ml Unit) 0 unit SQ [facility]; Protocol Last Admin: 07/19/20 11:06 Dose: 9 units Documented by: Labetalol HCl (Labetalol 5 Mg/Ml Ml) 0 mg IV Q2HP PRN PRN Reason: Hypertension Last Admin: 07/18/20 12:09 Dose: 10 mg Documented by: Lactulose (Lactulose 20 Gm/30 Ml Oral.Angie) 10 gm PO DAILYP PRN PRN Reason: Constipation Last Admin: 07/19/20 07:10 Dose: 10 gm Documented by: Lorazepam (Lorazepam 2 Mg/Ml Vial) 0.5 mg IV Q6HP PRN PRN Reason: ANXIETY/SEDATION Melatonin (Melatonin 3 Mg Tablet) 3 mg PO QHS [facility] Last Admin: 07/18/20 23:02 Dose: 3 mg Documented by: Metoclopramide HCl (Metoclopramide 10 Mg Tablet) 10 mg PO TIDAC [facility] Last Admin: 07/19/20 10:58 Dose: 10 mg Documented by: Omeprazole (Omeprazole 20 Mg Capsule) 20 mg PO ACB [facility] Last Admin: 07/19/20 07:09 Dose: 20 mg Documented by: Ondansetron HCl (Ondansetron 4 Mg/2 Ml Vial) 4 mg IV Q4HP PRN; Protocol PRN Reason: Nausea And Vomiting Last Admin: 07/19/20 13:01 Dose: 4 mg Documented by: Trulance ( Plecanatide) 3 Mg Tablet 1 dose PO DAILY [facility] Last Admin: 07/19/20 09:12 Dose: 1 dose Documented by: Polyethylene Glycol (Polyethylene Glycol 3350 17 Gm Packet) 17 gm PO DAILY [facility] Last Admin: 07/19/20 09:10 Dose: 17 gm Documented by: Senna (Sennosides 1 Tablet) 2 tab PO HSP PRN PRN Reason: Constipation Simethicone (Simethicone 80 Mg Tab.Chew) 80 mg CHEWED [facility] Last Admin: 07/19/20 11:08 Dose: 80 mg Documented by: Sodium Chloride (0.9 % Sodium Chloride 10 Ml Syringe) 10 ml IV Q8 [facility] Last Admin: 07/19/20 05:53 Dose: 10 ml Documented by: Vancomycin HCl (Vancomycin Per Pharmacy) 1 order IV UD [facility]; Protocol A/P Time Spent With Patient Time: * Leave surgical dressings closed, dry, and intact - reinforce as needed for strikethrough bleeding - to be changed POD3 * Will require continued antibiotic therapy
[2020-07-19] MEDS: LORazepam 2 MG/ML VIAL IV PRN (16:34)
[2020-07-19 17:33] LABS: Amphetamine Screen,Urine None detected; Barbiturate Screen,Urine None detected; Benzodiazepines Screen,Urine Suspect positive; Cannabinoid Screen,Urine None detected; Cocaine Screen,Urine None detected; Opiate Screen,Urine None detected; Oxycodone, Urine Screen None detected; Phencyclidine Screen,Urine None detected
--- NOTE | 2020-07-19 17:38 | XRay Report ---
INDICATION: abd pain TECHNIQUE: Supine abdomen. COMPARISON: None FINDINGS:Gas and fecal material throughout the colon. There is some small bowel gas. No small bowel dilatation. Bowel gas pattern is nonspecific and nonobstructive. No biliary or portal venous gas. There is no pneumatosis. IMPRESSION: Negative abdomen Interpreted and Authenticated by: Constantino Lane 07/19/20
[2020-07-19] MEDS: hydrALAZINE 20 MG/ML VIAL IV PRN (18:53)
[2020-07-19] MEDS: MELATONIN 3 MG TABLET PO SCH (21:04)
[2020-07-19] MEDS: INSULIN GLARGINE, HUMAN 1 UNIT/0.01 ML SQ SCH (21:22)
[2020-07-20] MEDS: metroNIDAZOLE 500 MG/100 ML BAG IV SCH ×3 (05:58→21:21)
[2020-07-20] MEDS: 0.9 % SODIUM CHLORIDE 10 ML SYRINGE IV SCH ×3 (05:59→21:21)
[2020-07-20 06:39] LABS: Hemoglobin 8.2 g/dL (13.5-16.5); Mean Cell Volume 94.9 fL (80.0-100.0); Mean Corpuscular HGB Conc 31.5 g/dL (31.0-36.0); Mean Platelet Volume 10.7 fL (7.4-10.4); Platelet Count 419 K/mcL (140-440); RBC 2.74 M/mcL (4.50-5.90); Red Cell Distribution Width 12.2 % (11.5-14.5); WBC 11.7 K/mcL (4.5-11.0)
[2020-07-20 07:07] LABS: Blood Urea Nitrogen 18 mg/dL (6-20); Calcium 8.6 mg/dL (8.6-10.4); Carbon Dioxide 26 mmol/L (22-30); Chloride 104 mmol/L (96-108); Glomerular Filtration Rate 35; Glucose 108 mg/dL (70-105)
--- NOTE | 2020-07-20 07:23 | Internal Med Progress Note ---
SUBJECTIVE Subjective Patient information: Note initiated : 07/20/20 at 7:17 am Service Date, if different from initiated Date: [] Patient: Constantino Harden 45 y/o M admitted on 07/14/20 for body aches, headache, cough, leg swelling. Chief Complaint: [] Interval history: Interval history: Mr. Harden is a 45 year old male with a history of DM comp licated by neuropathy and a right foot wound, hypertension, CAD s/p remote MD, CKD, obesity who was recently hospitalized for sepsis and hyperglycemia as well as an ZAID on CKD. The patient was treated with IV antibiotics, podiatry was consulted and recommended discharge of oral antibiotics. He was discharged to home with recommendation to finish the course of Bactrim previously prescribed but was not able to get the antibiotic. The patient was discharged on 07/10. He says that on 07/12 he noticed that his legs were developing edema, initially on the right side then on the left. He has had a dry cough for several days. He later developed shortness of breath when lying down and decided to go to the ED. In the ED the patient was hypertensive with SBP>200. His respiratory status was stable on room air. Pulmonary imaging with chest xray showed interstitial abnormality with interlobular septal thickening but no consolidations. This was followed by noncontrast CT chest/abdomen/pelvis that showed ground glass infiltrates and interlobular septa thickening which might be due to interstitial pulmonary edema. There was also mesenteric edema and probable subcutaneous edema. No focal intra-abdominal abnormality. The patient has an acute on chronic kidney injury. Urinalysis showing some protein and glucosuria but otherwise unremarkable. The CT scan did not show any hydronephrosis or calculi. The patient has a mild elevation in troponin, EKG does not show any acute ischemic changes. On exam the patient is not in any respiratory distress, he has pitting edema up to his knees. Lung exam is positive for faint crackles. He was given a dose of Lasix IV in the ED and had robust urine output. 07/15-suspect the patient's diabetic foot wound to be infected, discussed with podiatry-wound cultures taken then started broad spectrum antibiotics. The foot wound may be the cause of the patient's presentation. 07/16 no overnight events or new complaints, awaiting cultures and further recs from podiatry, nephrology consult. 07/17 Has nausea/vomiting this morning. Poor sleep. Feels constipated. Other complaints. Podiatry for possible bone biopsy or partial excision. 07/18 Had nausea vomiting last night. No nausea currently. Status post bone excision for suspected osteo-. 07/19 Patient states he had a little vomiting last night, does feel that food and drink and aggravated. Feels bloated. Feels constipated. Had procedure done by Dr. Farmer yesterday. 07/20 Patient left the hospital yesterday and came back. Depressed, mention to the nurses that he considered hurting himself. Was seen by [facility] and cleared. Patient states started the way he acted yesterday. Does feel better today. No new complaints. And actually feels better did not have nausea vomiting last night. Review of Systems: denies headache/fever/chills/chest or abdominal pain/cough/dyspnea/diarrhea. Otherwise see above. Constitutional Vitals: Vital Signs Temp Pulse Resp BP Pulse Ox 98.7 F 92 H 16 142/79 94 07/20/20 03:23 07/20/20 03:23 07/20/20 06:26 07/20/20 03:23 07/20/20 03:23 Period Temp Pulse Resp BP Sys/Proctor Pulse Ox Last 24 Hr 97.9 F-98.8 F 86-112 16-22 133-196/70-88 94-99 Intake and Output 07/19/20 07/20/20 07/20/20 21:59 05:59 13:59 Intake Total 100 820 480 Output Total 225 75 Balance 100 595 405 Weight 107.275 kg Intake & Output: Intake & Output 07/19/20 07/20/20 07/20/20 21:59 05:59 13:59 Intake Total 100 820 480 Output Total 225 75 Balance 100 595 405 Weight 107.275 kg Intake: IV 100 100 Oral 0 720 480 Output: Void Amount 225 75 Other: Meal jello Percent of Meal Consumed 100% Feeding Ability Independent Urine Appearance Clear Urine Color [place] Dark Yellow Stool Size Moderate Stool Color Brown Stool Consistency Liquid Loose # of times incontinent of 1 Bowels Exam: General: Alert, Awake, No acute Distress, obese Eyes/N/T: EOMI, Head/Neck: neck supple, CV: RRR, No murmurs, Pulm: Clear b/l, no wheezing/rhonchi/rales Abd: soft, nontender, +BS x4 Ext: no clubbing/cyanosis, b/l LE edema. right foot wound in dressings Neuro: Alert, no focal deficits, moves all extremities, Skin: warm/dry OBJ DATA Labs CBC & Chem 7: 07/20/20 05:50 07/20/20 05:50 Labs: Abnormal Lab Results 07/20/20 07/20/20 07/19/20 05:50 05:50 16:23 WBC 11.7 H RBC 2.74 L Hgb 8.2 L Hct 26.0 L Plt Count MPV 10.7 H [place] % (Auto) [place] # (Auto) Absolute Neutrophils Platelet Estimate BUN Creatinine 2.2 H Glucose 108 H GGT Alkaline Phosphatase Albumin/Globulin Ratio U Benzodiazepines Scrn Suspect positive A 07/19/20 07/19/20 07/18/20 05:43 05:42 04:55 WBC 15.4 H RBC 3.10 L Hgb 9.3 L Hct 29.5 L Plt Count 483 H MPV 10.5 H [place] % (Auto) 13.8 H [place] # (Auto) 2.13 H Absolute Neutrophils 9.86 H Platelet Estimate BUN 22 H Creatinine 2.2 H 2.5 H Glucose 128 H 131 H GGT 86 H Alkaline Phosphatase 170 H Albumin/Globulin Ratio 0.9 L U Benzodiazepines Scrn 07/18/20 07/17/20 04:55 05:14 WBC 12.7 H RBC 3.16 L Hgb 9.4 L Hct 29.2 L Plt Count 483 H MPV 10.8 H [place] % (Auto) [place] # (Auto) 1.43 H Absolute Neutrophils 8.83 H Platelet Estimate Increased A BUN Creatinine Glucose GGT Alkaline Phosphatase Albumin/Globulin Ratio U Benzodiazepines Scrn Meds: Medications Acetaminophen (Acetaminophen 500 Mg Tablet) 1,000 mg PO Q4-6HP PRN; Protocol PRN Reason: Per Pain Protocol Aspirin (Aspirin 81 Mg Tab.Chew) 81 mg PO DAILY [facility] Last Admin: 07/19/20 09:12 Dose: 81 mg Documented by: Atorvastatin Calcium (Atorvastatin 40 Mg Tablet) 80 mg PO DAILY [facility] Last Admin: 07/19/20 09:12 Dose: 80 mg Documented by: Calcium Carbonate/Glycine (Calcium Carbonate 500 Mg Tab.Chew) 500 mg CHEWED Q4HP PRN PRN Reason: Dyspepsia Last Admin: 07/18/20 06:02 Dose: 500 mg Documented by: Clopidogrel Bisulfate (Clopidogrel 75 Mg Tablet) 75 mg PO DAILY [facility] Last Admin: 07/19/20 09:12 Dose: 75 mg Documented by: Dextrose (Dextrose 50% 50 Ml Vial) 0 ml IV UD PRN PRN Reason: Hypoglycemia Diagnostic Test (Pha) (Accu-Chek 1 Each Strip) 1 each FS [facility] Last Admin: 07/20/20 05:59 Dose: 1 each Documented by: Diltiazem HCl (Diltiazem 30 Mg Tablet) 30 mg PO [facility] Last Admin: 07/19/20 21:04 Dose: 30 mg Documented by: Diphenhydramine HCl (Diphenhydramine 50 Mg/Ml Vial) 25 mg IV Q4-6HP PRN PRN Reason: nausea Last Admin: 07/18/20 05:08 Dose: 25 mg Documented by: Docusate Sodium (Docusate Sodium 100 Mg Capsule) 100 mg PO BID [facility] Last Admin: 07/19/20 21:19 Dose: Not Given Documented by: Glucose (Dextrose 31 Gm Oral.Susp) 15 gm PO PRN PRN PRN Reason: Hypoglycemia Heparin Sodium (Porcine) (Heparin 5,000 Unit/Ml Vial) 5,000 unit SQ Q12 [facility] Last Admin: 07/19/20 21:05 Dose: 5,000 unit Documented by: Hydralazine HCl (Hydralazine 20 Mg/Ml Vial) 0 mg IV Q2HP PRN PRN Reason: Hypertension Last Admin: 07/19/20 18:53 Dose: 20 mg Documented by: Metronidazole (Flagyl) 500 mg in 100 mls @ 100 mls/hr IV Q8H [facility]; Protocol Last Admin: 07/20/20 05:58 Dose: 100 mls/hr Documented by: Insulin Glargine (Insulin Glargine, Human 1 Unit/0.01 Ml) 40 unit SQ [facility] Last Admin: 07/19/20 21:22 Dose: 40 unit Documented by: Insulin Human Lispro (Insulin Lispro 1 Unit/0.01 Ml Unit) 0 unit SQ [facility]; Protocol Last Admin: 07/19/20 21:19 Dose: Not Given Documented by: Labetalol HCl (Labetalol 5 Mg/Ml Ml) 0 mg IV Q2HP PRN PRN Reason: Hypertension Last Admin: 07/18/20 12:09 Dose: 10 mg Documented by: Lactulose (Lactulose 20 Gm/30 Ml Oral.Angie) 10 gm PO DAILYP PRN PRN Reason: Constipation Last Admin: 07/19/20 07:10 Dose: 10 gm Documented by: Lorazepam (Lorazepam 2 Mg/Ml Vial) 0.5 mg IV Q6HP PRN PRN Reason: ANXIETY/SEDATION Last Admin: 07/19/20 16:34 Dose: 0.5 mg Documented by: Melatonin (Melatonin 3 Mg Tablet) 3 mg PO QHS [facility] Last Admin: 07/19/20 21:04 Dose: 3 mg Documented by: Metoclopramide HCl (Metoclopramide 10 Mg Tablet) 10 mg PO TIDAC [facility] Last Admin: 07/19/20 17:40 Dose: 10 mg Documented by: Omeprazole (Omeprazole 20 Mg Capsule) 20 mg PO ACB [facility] Last Admin: 07/19/20 07:09 Dose: 20 mg Documented by: Ondansetron HCl (Ondansetron 4 Mg/2 Ml Vial) 4 mg IV Q4HP PRN; Protocol PRN Reason: Nausea And Vomiting Last Admin: 07/19/20 22:11 Dose: 4 mg Documented by: Trulance ( Plecanatide) 3 Mg Tablet 1 dose PO DAILY [facility] Last Admin: 07/19/20 09:12 Dose: 1 dose Documented by: Polyethylene Glycol (Polyethylene Glycol 3350 17 Gm Packet) 17 gm PO DAILY [facility] Last Admin: 07/19/20 09:10 Dose: 17 gm Documented by: Senna (Sennosides 1 Tablet) 2 tab PO HSP PRN PRN Reason: Constipation Simethicone (Simethicone 80 Mg Tab.Chew) 80 mg CHEWED [facility] Last Admin: 07/19/20 21:04 Dose: 80 mg Documented by: Sodium Chloride (0.9 % Sodium Chloride 10 Ml Syringe) 10 ml IV Q8 [facility] Last Admin: 07/20/20 05:59 Dose: 10 ml Documented by: Vancomycin HCl (Vancomycin Per Pharmacy) 1 order IV UD [facility]; Protocol A/P Narrative A/P Narrative: A: #Diabetic foot wound/infection w/cellulitis & Osteo: s/p partial amp right 5th MT (07/18) -possible explanation for the patient's presentation -leukocytosis improved -wound Cx with Coag neg Staph(?c) and MSSA #Hypertensive emergency/urgency (h/o HTN): was on BB/ARB at home. Resolved -complicated by elevated troponin, ZAID, and volume overload/volume overload #Elevated troponin: suspect type II MD from infection/hypertension/volume overload #ZAID on CKD III: -infection vs cardiorenal syndrome (probably d/t infection) -renal u/s unremarkable -Cr 2.2 #Acute on chronic anemia: stable -suspect related to acute infection -likely anemia of chronic inflammation at baseline #Volume overload/CHF: improved s/p diuresis -echo with good EF, normal diastolic fxn #Diabetes mellitus, insulin dependent: noncompliant with meds -poorly controlled Hgb A1C 13.4 -complicated by neuropathy and chronic foot wound/infection #h/o gastroparesis: trial reglan, following with bhavani momin #Transaminitis: improved #Hx of restrictive lung disease: #Obesity: BMI 34 #Depresssion/Anxiety: Plan -Podiatry following -Vancomycin, awaiting final ident -infected bone removed, but does have concomitant soft tissue infection > will treat w/IV abx 14-days (unless Dr. Farmer or Vinicius extend) and have pt f/u with Dr. Colvin. -Nephrology following -BP meds per nephrology, Diltiazem -reglan, low fat diet -Continue home aspirin and plavix, statin -Lantus and SSI -f/u with [facility] -DVT ppx: heparin SQ Time Spent With Patient Time: Total time spent is greater than 50% in coordination of care (as documented) at patient's floor/unit and/or counseling patient: QUALITY Stroke Symptom Onset Unknown: No VTE Deep Vein Thrombosis/Pulmonary Embolism Present on Admission: No
[2020-07-20] MEDS: OMEPRAZOLE 20 MG CAPSULE PO SCH (07:35)
[2020-07-20] MEDS: METOCLOPRAMIDE 10 MG TABLET PO SCH ×3 (07:35→16:36)
[2020-07-20] MEDS: SIMETHICONE 80 MG TAB.CHEW CHEWED SCH ×4 (07:35→21:15)
[2020-07-20] MEDS: DILTIAZEM 30 MG TABLET PO SCH ×4 (07:35→21:15)
[2020-07-20] MEDS: INSULIN LISPRO 1 UNIT/0.01 ML UNIT SQ SCH ×4 (07:39→21:15)
[2020-07-20 08:02] LABS: Basophils % (Manual) 1 % (0-2); Eosinophils % (Manual) 4 % (0-7); Lymphocytes % 22 % (15-49); Monocytes % (Manual) 11 % (1-12); Platelet Estimate NORMAL (Normal); RBC Morphology NORMAL (Normal); Segmented Neutrophils % 62 % (38-78)
[2020-07-20] MEDS: ATORVASTATIN 40 MG TABLET PO SCH (08:39)
[2020-07-20] MEDS: POLYETHYLENE GLYCOL 3350 17 GM PACKET PO SCH (08:40)
[2020-07-20] MEDS: CLOPIDOGREL 75 MG TABLET PO SCH (08:40)
[2020-07-20] MEDS: ASPIRIN 81 MG TAB.CHEW PO SCH (08:40)
[2020-07-20] MEDS: DOCUSATE SODIUM 100 MG CAPSULE PO SCH ×2 (08:40→21:15)
[2020-07-20] MEDS: HEPARIN 5,000 UNIT/ML VIAL SQ SCH ×2 (08:40→21:14)
[2020-07-20] MEDS: TRULANCE 3 MG PO SCH (08:41)
--- NOTE | 2020-07-20 08:59 | Orthopedic Progress Note ---
SUBJECTIVE Subjective Patient information: Note initiated : 07/20/20 at 8:56 am Service Date, if different from initiated Date: [] Patient: Constantino Harden 45 y/o M admitted on 07/14/20 for body aches, headache, cough, leg swelling. Chief Complaint: [foot infection] Feels better after brief leaving against medical advice. Constitutional Vitals: Vital Signs Temp Pulse Resp BP Pulse Ox 99.1 F H 92 H 16 153/84 96 07/20/20 07:42 07/20/20 03:23 07/20/20 07:42 07/20/20 07:42 07/20/20 07:42 Period Temp Pulse Resp BP Sys/Proctor Pulse Ox Last 24 Hr 97.9 F-99.1 F 86-109 16-20 133-196/70-88 94-99 Intake and Output 07/19/20 07/20/20 07/20/20 21:59 05:59 13:59 Intake Total 100 820 580 Output Total 225 75 Balance 100 595 505 Weight 236 lb 8 oz Intake & Output: Intake & Output 07/19/20 07/20/20 07/20/20 21:59 05:59 13:59 Intake Total 100 820 580 Output Total 225 75 Balance 100 595 505 Weight 236 lb 8 oz Intake: IV 100 100 100 Oral 0 720 480 Output: Void Amount 225 75 Other: Meal jello Percent of Meal Consumed 100% Feeding Ability Independent Urine Appearance Clear Urine Color [employer] Dark Yellow Stool Size Moderate Stool Color Brown Stool Consistency Liquid Loose # of times incontinent of 1 Bowels OBJ DATA Labs CBC & Chem 7: 07/20/20 05:50 07/20/20 05:50 Labs: Abnormal Lab Results 07/20/20 07/20/20 07/19/20 05:50 05:50 16:23 WBC 11.7 H RBC 2.74 L Hgb 8.2 L Hct 26.0 L Plt Count MPV 10.7 H [place] % (Auto) [place] # (Auto) Absolute Neutrophils Platelet Estimate BUN Creatinine 2.2 H Glucose 108 H GGT Alkaline Phosphatase Albumin/Globulin Ratio U Benzodiazepines Scrn Suspect positive A 07/19/20 07/19/20 07/18/20 05:43 05:42 04:55 WBC 15.4 H RBC 3.10 L Hgb 9.3 L Hct 29.5 L Plt Count 483 H MPV 10.5 H [place] % (Auto) 13.8 H [place] # (Auto) 2.13 H Absolute Neutrophils 9.86 H Platelet Estimate BUN 22 H Creatinine 2.2 H 2.5 H Glucose 128 H 131 H GGT 86 H Alkaline Phosphatase 170 H Albumin/Globulin Ratio 0.9 L U Benzodiazepines Scrn 07/18/20 07/17/20 04:55 05:14 WBC 12.7 H RBC 3.16 L Hgb 9.4 L Hct 29.2 L Plt Count 483 H MPV 10.8 H [place] % (Auto) [place] # (Auto) 1.43 H Absolute Neutrophils 8.83 H Platelet Estimate Increased A BUN Creatinine Glucose GGT Alkaline Phosphatase Albumin/Globulin Ratio U Benzodiazepines Scrn Meds: Medications Acetaminophen (Acetaminophen 500 Mg Tablet) 1,000 mg PO Q4-6HP PRN; Protocol PRN Reason: Per Pain Protocol Aspirin (Aspirin 81 Mg Tab.Chew) 81 mg PO DAILY [facility] Last Admin: 07/20/20 08:40 Dose: 81 mg Documented by: Atorvastatin Calcium (Atorvastatin 40 Mg Tablet) 80 mg PO DAILY [facility] Last Admin: 07/20/20 08:39 Dose: 80 mg Documented by: Calcium Carbonate/Glycine (Calcium Carbonate 500 Mg Tab.Chew) 500 mg CHEWED Q4HP PRN PRN Reason: Dyspepsia Last Admin: 07/18/20 06:02 Dose: 500 mg Documented by: Clopidogrel Bisulfate (Clopidogrel 75 Mg Tablet) 75 mg PO DAILY [facility] Last Admin: 07/20/20 08:40 Dose: 75 mg Documented by: Dextrose (Dextrose 50% 50 Ml Vial) 0 ml IV UD PRN PRN Reason: Hypoglycemia Diagnostic Test (Pha) (Accu-Chek 1 Each Strip) 1 each FS ACHS [facility] Last Admin: 07/20/20 05:59 Dose: 1 each Documented by: Diltiazem HCl (Diltiazem 30 Mg Tablet) 30 mg PO ACHS [facility] Last Admin: 07/20/20 07:35 Dose: 30 mg Documented by: Diphenhydramine HCl (Diphenhydramine 50 Mg/Ml Vial) 25 mg IV Q4-6HP PRN PRN Reason: nausea Last Admin: 07/18/20 05:08 Dose: 25 mg Documented by: Docusate Sodium (Docusate Sodium 100 Mg Capsule) 100 mg PO BID [facility] Last Admin: 07/20/20 08:40 Dose: 100 mg Documented by: Glucose (Dextrose 31 Gm Oral.Susp) 15 gm PO PRN PRN PRN Reason: Hypoglycemia Heparin Sodium (Porcine) (Heparin 5,000 Unit/Ml Vial) 5,000 unit SQ Q12 [facility] Last Admin: 07/20/20 08:40 Dose: 5,000 unit Documented by: Hydralazine HCl (Hydralazine 20 Mg/Ml Vial) 0 mg IV Q2HP PRN PRN Reason: Hypertension Last Admin: 07/19/20 18:53 Dose: 20 mg Documented by: Metronidazole (Flagyl) 500 mg in 100 mls @ 100 mls/hr IV Q8H [facility]; Protocol Last Infusion: 07/20/20 07:35 Dose: Infused Documented by: Vancomycin HCl 1,000 mg/ (Sodium Chloride) 250 mls @ 250 mls/hr IV ONCE ONE Stop: 07/20/20 09:59 Last Admin: 07/20/20 08:41 Dose: 250 mls/hr Documented by: Insulin Glargine (Insulin Glargine, Human 1 Unit/0.01 Ml) 40 unit SQ HS [facility] Last Admin: 07/19/20 21:22 Dose: 40 unit Documented by: Insulin Human Lispro (Insulin Lispro 1 Unit/0.01 Ml Unit) 0 unit SQ ACHS [facility]; Protocol Last Admin: 07/20/20 07:39 Dose: Not Given Documented by: Labetalol HCl (Labetalol 5 Mg/Ml Ml) 0 mg IV Q2HP PRN PRN Reason: Hypertension Last Admin: 07/18/20 12:09 Dose: 10 mg Documented by: Lactulose (Lactulose 20 Gm/30 Ml Oral.Angie) 10 gm PO DAILYP PRN PRN Reason: Constipation Last Admin: 07/19/20 07:10 Dose: 10 gm Documented by: Lorazepam (Lorazepam 2 Mg/Ml Vial) 0.5 mg IV Q6HP PRN PRN Reason: ANXIETY/SEDATION Last Admin: 07/19/20 16:34 Dose: 0.5 mg Documented by: Melatonin (Melatonin 3 Mg Tablet) 3 mg PO QHS [facility] Last Admin: 07/19/20 21:04 Dose: 3 mg Documented by: Metoclopramide HCl (Metoclopramide 10 Mg Tablet) 10 mg PO TIDAC [facility] Last Admin: 07/20/20 07:35 Dose: 10 mg Documented by: Omeprazole (Omeprazole 20 Mg Capsule) 20 mg PO ACB [facility] Last Admin: 07/20/20 07:35 Dose: 20 mg Documented by: Ondansetron HCl (Ondansetron 4 Mg/2 Ml Vial) 4 mg IV Q4HP PRN; Protocol PRN Reason: Nausea And Vomiting Last Admin: 07/19/20 22:11 Dose: 4 mg Documented by: Trulance ( Plecanatide) 3 Mg Tablet 1 dose PO DAILY [facility] Last Admin: 07/20/20 08:41 Dose: 1 dose Documented by: Polyethylene Glycol (Polyethylene Glycol 3350 17 Gm Packet) 17 gm PO DAILY [facility] Last Admin: 07/20/20 08:40 Dose: 17 gm Documented by: Senna (Sennosides 1 Tablet) 2 tab PO HSP PRN PRN Reason: Constipation Simethicone (Simethicone 80 Mg Tab.Chew) 80 mg CHEWED [facility] Last Admin: 07/20/20 07:35 Dose: 80 mg Documented by: Sodium Chloride (0.9 % Sodium Chloride 10 Ml Syringe) 10 ml IV Q8 [facility] Last Admin: 07/20/20 05:59 Dose: 10 ml Documented by: Vancomycin HCl (Vancomycin Per Pharmacy) 1 order IV UD [facility]; Protocol A/P Time Spent With Patient Time: Dressings changed yesterday after patient left hospital walking around Patient to be heel touch only on right foot Will perform additional change on POD4 Patient to follow up out patient upon dischage within 48 hours
[2020-07-20] MEDS ORDERED: VANCOMYCIN 1,000 MG in 0.9 % SODIUM CHLORIDE 250 ML IV ONE (09:00)
--- NOTE | 2020-07-20 09:11 | Nephrology Progress Note ---
SUBJECTIVE Subjective Patient information: Note initiated : 07/20/20 at 9:05 am Service Date, if different from initiated Date: [] Patient: Constantino Harden 45 y/o M admitted on 07/14/20 for body aches, headache, cough, leg swelling. Chief Complaint: [Left 5th toe infection, DM OOC, HTN and ARF] BP still unacceptably - plan to increase diltiazem Gastroparesis and nausea - use short acting BP Rx since no guarantee of predictable absorption. CKD G3 A3 at baseline represents HTN +/- early DM nephropathy ARF on CKD is likely due to prerenal azotemia and effects of infection / left 5th toe osteo Weight +/- 1 kg Laboratory Tests 07/16/20 07/16/20 07/20/20 13:25 13:25 05:50 WBC 11.7 H Hgb 8.2 L Hct 26.0 L Plt Count 419 Eosinophils % (Manual) 4 Sodium 139 Potassium 3.3 Chloride 104 Carbon Dioxide 26 Anion Gap 9 BUN 18 Creatinine 2.2 GFR Calculation 35 Glucose 108 Calcium 8.5 Urine Eosinophils TNP U [place] Prot/Creat Ratio 0.49 H Constitutional Vitals: Vital Signs Temp Pulse Resp BP Pulse Ox 37.3 C H 92 H 16 153/84 96 07/20/20 07:42 07/20/20 03:23 07/20/20 07:42 07/20/20 07:42 07/20/20 07:42 Period Temp Pulse Resp BP Sys/Proctor Pulse Ox Last 24 Hr 36.6 C-37.3 C 86-109 16-20 133-196/70-88 94-99 Intake and Output 07/19/20 07/20/20 07/20/20 21:59 05:59 13:59 Intake Total 100 820 580 Output Total 225 75 Balance 100 595 505 Weight 107.275 kg Intake & Output: Intake & Output 07/19/20 07/20/20 07/20/20 21:59 05:59 13:59 Intake Total 100 820 580 Output Total 225 75 Balance 100 595 505 Weight 107.275 kg Intake: IV 100 100 100 Oral 0 720 480 Output: Void Amount 225 75 Other: Meal jello Percent of Meal Consumed 100% Feeding Ability Independent Urine Appearance Clear Urine Color [place] Dark Yellow Stool Size Moderate Stool Color Brown Stool Consistency Liquid Loose # of times incontinent of 1 Bowels Physical exam: General appearance: mild distress and obese Exam: Nauseated Head Head exam: Present normal inspection Eye Eye exam: Present EOMI, normal appearance and PERRL; Absent scleral icterus ENT ENT exam: Present mucous membranes dry Neck Neck exam: Present full ROM; Absent meningismus Respiratory Respiratory exam: Present normal respiratory exam Cardiovascular Cardiovascular exam: Present RRR, +S1 and +S2; Absent rubs GI/Abdominal GI/Abdominal exam: Present diminished bowel sounds and distended Neurological Exam Neurological exam: Present alert, CN II-XII intact and oriented X3 Psychiatric Psychiatric exam: Present anxious Skin Skin exam: Present dry A/P Assessment and plan (1) Diabetic autonomic neuropathy associated with type 2 diabetes mellitus: Status: Acute Narrative A/P Narrative: A/P Assessment and plan (1) Renal failure (ARF), acute on chronic: Status: Acute Comment: CKD G3 A3 is most likely HTN +/- DM with ~ 0.5 gm/24 hrs of proteinuria Qualifiers: Chronic kidney disease stage: stage 3 (moderate) Chronic kidney disease stage 3 subtype: stage 3a (GFR 45-59) Acute renal failure type: with other specified pathological lesion Qualified Code(s): N17.8 - Other acute kidney failure; N18.31 - Chronic kidney disease, stage 3a (2) Diabetic nephropathy associated with type 2 diabetes mellitus: Status: Chronic Comment: Use antiproteinuric and elvis-protective BP Rx (Diltiazem in place of amlodipine, restart losartan, stop carvedilol due to possible interaction with diltiazem). Will see about SGLT-2 inhibitors as outpatient as I'm sure [facility] MD will have to order. (3) Hypertension, accelerated: Status: Acute Increase diltiazem to 60 mg po TID with meals and qHS (4) Nausea & vomiting: Status: Acute Qualifiers: Vomiting type: unspecified Vomiting Intractability: unspecified Qualified Code(s): R11.2 - Nausea with vomiting, unspecifiedA/P Narrative: Plans/Recommendations: Have held losartan as this will worsen or delay the recovery from ARF due to pre-renal azotemia Gastroparesis +/- Rx effects +/- infection are all potential roles. Switch to short acting diltiazem => done Hydralazine for prn control of BP No diuretics Gastroparesis diet. Serial labs Time Spent With Patient Time: Total time spent is greater than 50% in coordination of care (as documented) at patient's floor/unit and/or counseling patient:
[2020-07-20] MEDS: LORazepam 2 MG/ML VIAL IV PRN (19:48)
[2020-07-20] MEDS: INSULIN GLARGINE, HUMAN 1 UNIT/0.01 ML SQ SCH (21:14)
[2020-07-20] MEDS: MELATONIN 3 MG TABLET PO SCH (21:15)
[2020-07-21] MEDS: LORazepam 2 MG/ML VIAL IV PRN ×2 (02:05→19:16)
[2020-07-21] MEDS: metroNIDAZOLE 500 MG/100 ML BAG IV SCH ×3 (06:06→21:48)
[2020-07-21] MEDS: 0.9 % SODIUM CHLORIDE 10 ML SYRINGE IV SCH ×3 (06:06→22:09)
[2020-07-21] MEDS: METOCLOPRAMIDE 10 MG TABLET PO SCH ×3 (07:36→17:00)
[2020-07-21] MEDS: DILTIAZEM 30 MG TABLET PO SCH ×4 (07:36→21:45)
[2020-07-21] MEDS: OMEPRAZOLE 20 MG CAPSULE PO SCH (07:36)
[2020-07-21] MEDS: SIMETHICONE 80 MG TAB.CHEW CHEWED SCH ×4 (07:36→21:45)
[2020-07-21] MEDS: INSULIN LISPRO 1 UNIT/0.01 ML UNIT SQ SCH ×4 (07:39→21:46)
[2020-07-21 07:50] LABS: Basophils # (Auto) 0.05 K/mcL (0.00-0.20); Basophils % (Auto) 0.4 % (0.0-2.0); Eosinophils % (Auto) 3.3 % (0.0-7.0); Hematocrit 26.3 % (41.0-55.0); Hemoglobin 8.6 g/dL (13.5-16.5); Lymphocytes # (Auto) 3.52 K/mcL (1.50-4.80); Mean Cell Volume 94.3 fL (80.0-100.0); Mean Corpuscular HGB Conc 32.7 g/dL (31.0-36.0); Mean Platelet Volume 10.8 fL (7.4-10.4); Monocytes % (Auto) 10.7 % (1.0-12.0); Neutrophils % (Auto) 56.6 % (38.0-78.0); Platelet Count 454 K/mcL (140-440); RBC 2.79 M/mcL (4.50-5.90); WBC 12.1 K/mcL (4.5-11.0)
[2020-07-21 07:58] LABS: Vancomycin,Random 12.8 ug/mL
[2020-07-21 08:09] LABS: ALT/SGPT 33 U/L (<40); AST/SGOT 22 U/L (<40); Albumin 3.1 gm/dL (3.2-5.2); Alkaline Phosphatase 151 U/L (39-117); Bilirubin,Total 0.2 mg/dL (0.1-1.0); Blood Urea Nitrogen 17 mg/dL (6-20); Calcium 8.7 mg/dL (8.6-10.4); Carbon Dioxide 27 mmol/L (22-30); Chloride 105 mmol/L (96-108); Glomerular Filtration Rate 39; Glucose 69 mg/dL (70-105)
[2020-07-21] MEDS: VANCOMYCIN 1,000 MG in 0.9 % SODIUM CHLORIDE 250 ML IV SCH (09:22)
[2020-07-21] MEDS: HEPARIN 5,000 UNIT/ML VIAL SQ SCH ×2 (09:25→21:46)
[2020-07-21] MEDS: TRULANCE 3 MG PO SCH (09:25)
[2020-07-21] MEDS: POLYETHYLENE GLYCOL 3350 17 GM PACKET PO SCH (09:25)
[2020-07-21] MEDS: ASPIRIN 81 MG TAB.CHEW PO SCH (09:26)
[2020-07-21] MEDS: ATORVASTATIN 40 MG TABLET PO SCH (09:26)
[2020-07-21] MEDS: DOCUSATE SODIUM 100 MG CAPSULE PO SCH ×2 (09:26→21:45)
[2020-07-21] MEDS: CLOPIDOGREL 75 MG TABLET PO SCH (09:26)
--- NOTE | 2020-07-21 13:29 | Orthopedic Progress Note ---
SUBJECTIVE Subjective Patient information: Note initiated : 07/21/20 at 1:27 pm Service Date, if different from initiated Date: [] Patient: Constantino Harden 45 y/o M admitted on 07/14/20 for body aches, headache, cough, leg swelling. Chief Complaint: [right foot infection] Patient is feeling a little better today. He is getting eager to return to home. Constitutional Vitals: Vital Signs Temp Pulse Resp BP Pulse Ox 97.6 F 92 H 16 147/81 96 07/21/20 11:17 07/21/20 11:17 07/21/20 11:17 07/21/20 11:17 07/21/20 11:17 Period Temp Pulse Resp BP Sys/Proctor Pulse Ox Last 24 Hr 97.6 F-99.5 F 84-96 16-18 143-160/78-83 91-97 Intake and Output 07/20/20 07/21/20 07/21/20 21:59 05:59 13:59 Intake Total 100 400 350 Output Total 875 125 400 Balance -775 275 -50 Weight 243 lb 12.8 oz Intake & Output: Intake & Output 07/20/20 07/21/20 07/21/20 21:59 05:59 13:59 Intake Total 100 400 350 Output Total 875 125 400 Balance -775 275 -50 Weight 243 lb 12.8 oz Intake: IV 100 100 350 Vancomycin 1,000 mg In Sodium 250 Chloride 0.9% 250 ml @ 250 mls/ hr IV DAILY [facility] Rx#:[id number] Oral 300 Output: Void Amount 875 125 400 Other: Urine Appearance Clear Clear Clear Urine Color Dark Yellow Dark Yellow Bright Yellow Urine Odor Strong Normal Stool Size Smear Stool Color Brown Stool Consistency Loose # Voids 1 # Bowel Movements 1 OBJ DATA Labs CBC & Chem 7: 07/21/20 06:23 07/21/20 06:23 Labs: Abnormal Lab Results 07/21/20 07/21/20 07/20/20 06:23 06:23 05:50 WBC 12.1 H RBC 2.79 L Hgb 8.6 L Hct 26.3 L Plt Count 454 H MPV 10.8 H Sanborn % (Auto) Sanborn # (Auto) 1.30 H Absolute Neutrophils Creatinine 2.0 H 2.2 H Glucose 69 L 108 H GGT Alkaline Phosphatase 151 H Albumin 3.1 L Albumin/Globulin Ratio U Benzodiazepines Scrn 07/20/20 07/19/20 07/19/20 05:50 16:23 05:43 WBC 11.7 H RBC 2.74 L Hgb 8.2 L Hct 26.0 L Plt Count MPV 10.7 H Sanborn % (Auto) Sanborn # (Auto) Absolute Neutrophils Creatinine 2.2 H Glucose 128 H GGT 86 H Alkaline Phosphatase 170 H Albumin Albumin/Globulin Ratio 0.9 L U Benzodiazepines Scrn Suspect positive A 07/19/20 05:42 WBC 15.4 H RBC 3.10 L Hgb 9.3 L Hct 29.5 L Plt Count 483 H MPV 10.5 H Sanborn % (Auto) 13.8 H Sanborn # (Auto) 2.13 H Absolute Neutrophils 9.86 H Creatinine Glucose GGT Alkaline Phosphatase Albumin Albumin/Globulin Ratio U Benzodiazepines Scrn Meds: Medications Acetaminophen (Acetaminophen 500 Mg Tablet) 1,000 mg PO Q4-6HP PRN; Protocol PRN Reason: Per Pain Protocol Aspirin (Aspirin 81 Mg Tab.Chew) 81 mg PO DAILY [facility] Last Admin: 07/21/20 09:26 Dose: 81 mg Documented by: Atorvastatin Calcium (Atorvastatin 40 Mg Tablet) 80 mg PO DAILY [facility] Last Admin: 07/21/20 09:26 Dose: 80 mg Documented by: Calcium Carbonate/Glycine (Calcium Carbonate 500 Mg Tab.Chew) 500 mg CHEWED Q4HP PRN PRN Reason: Dyspepsia Last Admin: 07/18/20 06:02 Dose: 500 mg Documented by: Clopidogrel Bisulfate (Clopidogrel 75 Mg Tablet) 75 mg PO DAILY [facility] Last Admin: 07/21/20 09:26 Dose: 75 mg Documented by: Dextrose (Dextrose 50% 50 Ml Vial) 0 ml IV UD PRN PRN Reason: Hypoglycemia Diagnostic Test (Pha) (Accu-Chek 1 Each Strip) 1 each FS [facility] Last Admin: 07/21/20 11:23 Dose: 1 each Documented by: Diltiazem HCl (Diltiazem 30 Mg Tablet) 60 mg PO ACHS [facility] Last Admin: 07/21/20 11:22 Dose: 60 mg Documented by: Diphenhydramine HCl (Diphenhydramine 50 Mg/Ml Vial) 25 mg IV Q4-6HP PRN PRN Reason: nausea Last Admin: 07/18/20 05:08 Dose: 25 mg Documented by: Docusate Sodium (Docusate Sodium 100 Mg Capsule) 100 mg PO BID [facility] Last Admin: 07/21/20 09:26 Dose: 100 mg Documented by: Glucose (Dextrose 31 Gm Oral.Susp) 15 gm PO PRN PRN PRN Reason: Hypoglycemia Heparin Sodium (Porcine) (Heparin 5,000 Unit/Ml Vial) 5,000 unit SQ Q12 [facility] Last Admin: 07/21/20 09:25 Dose: 5,000 unit Documented by: Hydralazine HCl (Hydralazine 20 Mg/Ml Vial) 0 mg IV Q2HP PRN PRN Reason: Hypertension Last Admin: 07/19/20 18:53 Dose: 20 mg Documented by: Metronidazole (Flagyl) 500 mg in 100 mls @ 100 mls/hr IV Q8H [facility]; Protocol Last Infusion: 07/21/20 07:54 Dose: Infused Documented by: Vancomycin HCl 1,000 mg/ (Sodium Chloride) 250 mls @ 250 mls/hr IV DAILY [facility] Last Infusion: 07/21/20 10:30 Dose: Infused Documented by: Insulin Glargine (Insulin Glargine, Human 1 Unit/0.01 Ml) 40 unit SQ HS [facility] Last Admin: 07/20/20 21:14 Dose: 40 unit Documented by: Insulin Human Lispro (Insulin Lispro 1 Unit/0.01 Ml Unit) 0 unit SQ ACHS [facility]; Protocol Last Admin: 07/21/20 11:26 Dose: Not Given Documented by: Labetalol HCl (Labetalol 5 Mg/Ml Ml) 0 mg IV Q2HP PRN PRN Reason: Hypertension Last Admin: 07/18/20 12:09 Dose: 10 mg Documented by: Lactulose (Lactulose 20 Gm/30 Ml Oral.Angie) 10 gm PO DAILYP PRN PRN Reason: Constipation Last Admin: 07/19/20 07:10 Dose: 10 gm Documented by: Lorazepam (Lorazepam 2 Mg/Ml Vial) 0.5 mg IV Q6HP PRN PRN Reason: ANXIETY/SEDATION Last Admin: 07/21/20 02:05 Dose: 0.5 mg Documented by: Melatonin (Melatonin 3 Mg Tablet) 3 mg PO QHS [facility] Last Admin: 07/20/20 21:15 Dose: 3 mg Documented by: Metoclopramide HCl (Metoclopramide 10 Mg Tablet) 10 mg PO TIDAC [facility] Last Admin: 07/21/20 11:22 Dose: 10 mg Documented by: Omeprazole (Omeprazole 20 Mg Capsule) 20 mg PO ACB [facility] Last Admin: 07/21/20 07:36 Dose: 20 mg Documented by: Ondansetron HCl (Ondansetron 4 Mg/2 Ml Vial) 4 mg IV Q4HP PRN; Protocol PRN Reason: Nausea And Vomiting Last Admin: 07/19/20 22:11 Dose: 4 mg Documented by: Trulance ( Plecanatide) 3 Mg Tablet 1 dose PO DAILY [facility] Last Admin: 07/21/20 09:25 Dose: 1 dose Documented by: Polyethylene Glycol (Polyethylene Glycol 3350 17 Gm Packet) 17 gm PO DAILY [facility] Last Admin: 07/21/20 09:25 Dose: 17 gm Documented by: Senna (Sennosides 1 Tablet) 2 tab PO HSP PRN PRN Reason: Constipation Simethicone (Simethicone 80 Mg Tab.Chew) 80 mg CHEWED [facility] Last Admin: 07/21/20 11:22 Dose: 80 mg Documented by: Sodium Chloride (0.9 % Sodium Chloride 10 Ml Syringe) 10 ml IV Q8 [facility] Last Admin: 07/21/20 06:06 Dose: 10 ml Documented by: Vancomycin HCl (Vancomycin Per Pharmacy) 1 order IV [facility]; Protocol A/P Time Spent With Patient Time: Right foot wound dressings changed today. Patient may return to home when able - per podiatry perspective Follow-up out patient <72 hours post discharge
--- NOTE | 2020-07-21 16:52 | Internal Med Progress Note ---
SUBJECTIVE Subjective Patient information: Note initiated : 07/21/20 at 4:38 pm Service Date, if different from initiated Date: [] Patient: Constantino Harden 45 y/o M admitted on 07/14/20 for body aches, headache, cough, leg swelling. Chief Complaint: [osteomyelitis, right fifth metatarsal] Interval history: Mr. Harden is a 45 year old male with a history of DM complicated by neuropathy and a right foot wound, hypertension, CAD s/p remote PR, CKD, obesity who was recently hospitalized for sepsis and hyperglycemia as well as an ZAID on CKD. The patient was treated with IV antibiotics, podiatry was consulted and recommended discharge of oral antibiotics. He was discharged to home with recommendation to finish the course of Bactrim previously prescribed but was not able to get the antibiotic. The patient was discharged on 07/10. He says that on 07/12 he noticed that his legs were developing edema, initially on the right side then on the left. He has had a dry cough for several days. He lat er developed shortness of breath when lying down and decided to go to the ED. In the ED the patient was hypertensive with SBP>200. His respiratory status was stable on room air. Pulmonary imaging with chest xray showed interstitial abnormality with interlobular septal thickening but no consolidations. This was followed by noncontrast CT chest/abdomen/pelvis that showed ground glass infiltrates and interlobular septa thickening which might be due to interstitial pulmonary edema. There was also mesenteric edema and probable subcutaneous edema. No focal intra-abdominal abnormality. The patient has an acute on chronic kidney injury. Urinalysis showing some protein and glucosuria but otherwise un remarkable. The CT scan did not show any hydronephrosis or calculi. The patient has a mild elevation in troponin, EKG does not show any acute ischemic changes. On exam the patient is not in any respiratory distress, he has pitting edema up to his knees. Lung exam is positive for faint crackles. He was given a dose of Lasix IV in the ED and had robust urine output. 07/15-suspect the patient's diabetic foot wound to be infected, discussed with podiatry-wound cultures taken then started broad spectrum antibiotics. The foot wound may be the cause of the patient's presentation. 07/16 no overnight events or new complaints, awaiting cultures and further recs from podiatry, nephrology consult. 07/17 Has nausea/vomiting this morning. Poor sleep. Feels constipated. Other complaints. Podiatry for possible bone biopsy or partial excision. 07/18 Had nausea vomiting last night. No nausea currently. Status post bone excision for suspected osteo-. 07/19 Patient states he had a little vomiting last night, does feel that food and drink and aggravated. Feels bloated. Feels constipated. Had procedure done by Dr. Farmer yesterday. 07/20 Patient left the hospital yesterday and came back. Depressed, mention to the nurses that he considered hurting himself. Was seen by [facility] and cleared. Patient states started the way he acted yesterday. Does feel better today. No new complaints. And actually feels better did not have nausea vomiting last night. 07/21: Afebrile overnight. No more attempt to leave AMA. Denies any pain of his right foot. Denies fever or chills or sweating. Average appetite. Constitutional Vitals: Vital Signs Temp Pulse Resp BP Pulse Ox 36.9 C 100 H 20 159/88 94 07/21/20 15:59 07/21/20 15:59 07/21/20 15:59 07/21/20 15:59 07/21/20 15:59 Period Temp Pulse Resp BP Sys/Proctor Pulse Ox Last 24 Hr 36.4 C-37.5 C 84-100 16-20 143-160/78-88 91-97 Intake and Output 07/21/20 07/21/20 07/21/20 05:59 13:59 21:59 Intake Total 400 550 100 Output Total 125 400 Balance 275 150 100 Intake & Output: Intake & Output 07/21/20 07/21/20 07/21/20 05:59 13:59 21:59 Intake Total 400 550 100 Output Total 125 400 Balance 275 150 100 Intake: IV 100 350 100 Vancomycin 1,000 mg In Sodium 250 Chloride 0.9% 250 ml @ 250 mls/ hr IV DAILY [facility] Rx#:[id number] Oral 300 200 Output: Void Amount 125 400 Other: Meal Lunch Percent of Meal Consumed 100% Feeding Ability Independent Urine Appearance Clear Clear Urine Color Dark Yellow Bright Yellow Urine Odor Normal Stool Size Small Stool Color Brown Stool Consistency Soft Watery # Voids 1 1 # Bowel Movements 1 General appearance: cooperative and no acute distress Head Head exam: Present atraumatic and normocephalic Eye Eye exam: Present EOMI and PERRL ENT ENT exam: Present mucous membranes moist, normal exam and normal external ear exam Neck Neck exam: Present normal inspection; Absent lymphadenopathy, tenderness and thyromegaly Respiratory Respiratory exam: Absent accessory muscle use, respiratory distress and wheezes Cardiovascular Cardiovascular exam: Present normal rate and rhythm; Absent JVD GI/Abdominal GI/Abdominal exam: Present normal bowel sounds and soft; Absent organomegaly and tenderness Rectal Rectal exam: Present deferred Extremities Exam Extremities exam: Present full ROM and normal capillary refill; Absent tenderness Additional comments: Right foot in surgical dressing Neurological Exam Neurological exam: Present alert, CN II-XII intact and oriented X3; Absent motor sensory deficit Psychiatric Psychiatric exam: Present normal affect and normal mood; Absent anxious and depressed Skin Skin exam: Present dry and intact OBJ DATA Labs CBC & Chem 7: 07/21/20 06:23 07/21/20 06:23 Labs: Abnormal Lab Results 07/21/20 07/21/20 07/20/20 06:23 06:23 05:50 WBC 12.1 H RBC 2.79 L Hgb 8.6 L Hct 26.3 L Plt Count 454 H MPV 10.8 H Bent % (Auto) Bent # (Auto) 1.30 H Absolute Neutrophils Creatinine 2.0 H 2.2 H Glucose 69 L 108 H GGT Alkaline Phosphatase 151 H Albumin 3.1 L Albumin/Globulin Ratio U Benzodiazepines Scrn 07/20/20 07/19/20 07/19/20 05:50 16:23 05:43 WBC 11.7 H RBC 2.74 L Hgb 8.2 L Hct 26.0 L Plt Count MPV 10.7 H Bent % (Auto) Bent # (Auto) Absolute Neutrophils Creatinine 2.2 H Glucose 128 H GGT 86 H Alkaline Phosphatase 170 H Albumin Albumin/Globulin Ratio 0.9 L U Benzodiazepines Scrn Suspect positive A 07/19/20 05:42 WBC 15.4 H RBC 3.10 L Hgb 9.3 L Hct 29.5 L Plt Count 483 H MPV 10.5 H Bent % (Auto) 13.8 H Bent # (Auto) 2.13 H Absolute Neutrophils 9.86 H Creatinine Glucose GGT Alkaline Phosphatase Albumin Albumin/Globulin Ratio U Benzodiazepines Scrn Meds: Medications Acetaminophen (Acetaminophen 500 Mg Tablet) 1,000 mg PO Q4-6HP PRN; Protocol PRN Reason: Per Pain Protocol Aspirin (Aspirin 81 Mg Tab.Chew) 81 mg PO DAILY [facility] Last Admin: 07/21/20 09:26 Dose: 81 mg Documented by: Atorvastatin Calcium (Atorvastatin 40 Mg Tablet) 80 mg PO DAILY [facility] Last Admin: 07/21/20 09:26 Dose: 80 mg Documented by: Calcium Carbonate/Glycine (Calcium Carbonate 500 Mg Tab.Chew) 500 mg CHEWED Q4HP PRN PRN Reason: Dyspepsia Last Admin: 07/18/20 06:02 Dose: 500 mg Documented by: Clopidogrel Bisulfate (Clopidogrel 75 Mg Tablet) 75 mg PO DAILY [facility] Last Admin: 07/21/20 09:26 Dose: 75 mg Documented by: Dextrose (Dextrose 50% 50 Ml Vial) 0 ml IV UD PRN PRN Reason: Hypoglycemia Diagnostic Test (Pha) (Accu-Chek 1 Each Strip) 1 each FS ACHS [facility] Last Admin: 07/21/20 15:51 Dose: 1 each Documented by: Diltiazem HCl (Diltiazem 30 Mg Tablet) 90 mg PO [facility] Diphenhydramine HCl (Diphenhydramine 50 Mg/Ml Vial) 25 mg IV Q4-6HP PRN PRN Reason: nausea Last Admin: 07/18/20 05:08 Dose: 25 mg Documented by: Docusate Sodium (Docusate Sodium 100 Mg Capsule) 100 mg PO BID [facility] Last Admin: 07/21/20 09:26 Dose: 100 mg Documented by: Glucose (Dextrose 31 Gm Oral.Susp) 15 gm PO PRN PRN PRN Reason: Hypoglycemia Heparin Sodium (Porcine) (Heparin 5,000 Unit/Ml Vial) 5,000 unit SQ Q12 [facility] Last Admin: 07/21/20 09:25 Dose: 5,000 unit Documented by: Hydralazine HCl (Hydralazine 20 Mg/Ml Vial) 0 mg IV Q2HP PRN PRN Reason: Hypertension Last Admin: 07/19/20 18:53 Dose: 20 mg Documented by: Metronidazole (Flagyl) 500 mg in 100 mls @ 100 mls/hr IV Q8H [facility]; Protocol Last Infusion: 07/21/20 15:22 Dose: Infused Documented by: Vancomycin HCl 1,000 mg/ (Sodium Chloride) 250 mls @ 250 mls/hr IV DAILY [facility] Last Infusion: 07/21/20 10:30 Dose: Infused Documented by: Insulin Glargine (Insulin Glargine, Human 1 Unit/0.01 Ml) 40 unit SQ HS [facility] Last Admin: 07/20/20 21:14 Dose: 40 unit Documented by: Insulin Human Lispro (Insulin Lispro 1 Unit/0.01 Ml Unit) 0 unit SQ ACHS [facility]; Protocol Last Admin: 07/21/20 11:26 Dose: Not Given Documented by: Labetalol HCl (Labetalol 5 Mg/Ml Ml) 0 mg IV Q2HP PRN PRN Reason: Hypertension Last Admin: 07/18/20 12:09 Dose: 10 mg Documented by: Lactulose (Lactulose 20 Gm/30 Ml Oral.Angie) 10 gm PO DAILYP PRN PRN Reason: Constipation Last Admin: 07/19/20 07:10 Dose: 10 gm Documented by: Lorazepam (Lorazepam 2 Mg/Ml Vial) 0.5 mg IV Q6HP PRN PRN Reason: ANXIETY/SEDATION Last Admin: 07/21/20 02:05 Dose: 0.5 mg Documented by: Melatonin (Melatonin 3 Mg Tablet) 3 mg PO QHS [facility] Last Admin: 07/20/20 21:15 Dose: 3 mg Documented by: Metoclopramide HCl (Metoclopramide 10 Mg Tablet) 10 mg PO TIDAC [facility] Last Admin: 07/21/20 11:22 Dose: 10 mg Documented by: Omeprazole (Omeprazole 20 Mg Capsule) 20 mg PO ACB [facility] Last Admin: 07/21/20 07:36 Dose: 20 mg Documented by: Ondansetron HCl (Ondansetron 4 Mg/2 Ml Vial) 4 mg IV Q4HP PRN; Protocol PRN Reason: Nausea And Vomiting Last Admin: 07/19/20 22:11 Dose: 4 mg Documented by: Trulance ( Plecanatide) 3 Mg Tablet 1 dose PO DAILY [facility] Last Admin: 07/21/20 09:25 Dose: 1 dose Documented by: Polyethylene Glycol (Polyethylene Glycol 3350 17 Gm Packet) 17 gm PO DAILY [facility] Last Admin: 07/21/20 09:25 Dose: 17 gm Documented by: Senna (Sennosides 1 Tablet) 2 tab PO HSP PRN PRN Reason: Constipation Simethicone (Simethicone 80 Mg Tab.Chew) 80 mg CHEWED [facility] Last Admin: 07/21/20 11:22 Dose: 80 mg Documented by: Sodium Chloride (0.9 % Sodium Chloride 10 Ml Syringe) 10 ml IV Q8 [facility] Last Admin: 07/21/20 14:11 Dose: 10 ml Documented by: Vancomycin HCl (Vancomycin Per Pharmacy) 1 order IV UD [facility]; Protocol A/P Assessment and plan (1) Diabetic infection of right foot: Status: Acute (2) Osteomyelitis of right foot: Status: Acute (3) Diabetes mellitus type II, uncontrolled: Status: Acute (4) Hyperlipidemia: Status: Chronic (5) CABRERA (obstructive sleep apnea): Status: Chronic (6) Essential (primary) hypertension: Status: Chronic (7) Chronic renal disease: Status: Chronic Qualifiers: Chronic kidney disease stage: stage 2 (mild) Qualified Code(s): N18.2 - Chronic kidney disease, stage 2 (mild) (8) Renal failure (ARF), acute on chronic: Status: Acute Comment: CKD G3 A3 is most likely DM with ~ 0.5 gm/24 hrs of proteinuria Qualifiers: Acute renal failure type: with other specified pathological lesion Chronic kidney disease stage: stage 3 (moderate) Chronic kidney disease stage 3 subtype: stage 3a (GFR 45-59) Qualified Code(s): N17.8 - Other acute kidney failure; N18.31 - Chronic kidney disease, stage 3a (9) Depression: Status: Acute Narrative A/P Narrative: 1. T2Dm with right diabetic foot with osteomyelitis of fifth metatarsal: s/p partial amputation of right fifth metatarsal by Dr. Farmer on 07/18 HgA1c 13.4 Insulin Lantus 40 unit HS Sliding scale insulin AC HS Accu Chek AC HS Hypoglycemia protocol Diabetic diet PICC placement for IV antibiotics therapy Wound culture grew coagulase negative staph and MSSA Vancomycin and Flagyl for now Need 2 weeks course of IV antibiotics Follow up with Dr. Farmer within 72 hours of hospital discharge Also need follow up appointment with ID Dr. Colvin Pain control: Slaton PRN moderate pain and Morphine IV for severe pain Tylenol PRN fever or mild pain cbc w/ auto diff in the morning to trend WBC 2. Acute kidney injury on chronic kidney disease stage 3: Secondary to gastroparesis +/- drug effects +/- infection Nephrology consulted, recs. appreciated Avoid nephrotoxic agents CMP in the AM to trend kidney functions 3. HTN: Diltiazem immediate release 90mg PO ACHS 4. Dyslipidemia: Continue statin therapy 5. Depression: Need f/u with [facility] upon discharge GI ppx: oral PPI DVT ppx: Heparin Code status: Full Prognosis: stable Disposition: inpatient med surg Time Spent With Patient Time: Total time spent is greater than 50% in coordination of care (as documented) at patient's floor/unit and/or counseling patient: Total time spent with greater than 50% in coordination of care (as documented) at patient's floor/unit and/or counseling patient:: Greater than 35 minutes QUALITY Stroke Symptom Onset Unknown: No VTE Deep Vein Thrombosis/Pulmonary Embolism Present on Admission: No
--- NOTE | 2020-07-21 17:06 | Nephrology Progress Note ---
SUBJECTIVE Subjective Patient information: Note initiated : 07/21/20 at 5:02 pm Service Date, if different from initiated Date: [] Patient: Constantino Harden 45 y/o M admitted on 07/14/20 for body aches, headache, cough, leg swelling. Chief Complaint: [infected rightWi foot, high BP, nausea] Interval Hx: Slow progressive improvement in S Cr to 2.0 mg/dl. BP better with diltiazem (using short acting formulation due to erratic absorption due to gastroparesis of extended release form). Cultures showing CoNS and MSSA on 07/15/20 aspiration of right foot Laboratory Tests 07/21/20 06:23 Sodium 140 Potassium 3.3 Chloride 105 Carbon Dioxide 27 Anion Gap 8.0 BUN 17 Creatinine 2.0 H GFR Calculation 39 Glucose 69 L Calcium 8.7 AST 22 ALT 33 Alkaline Phosphatase 151 H Albumin 3.1 L Globulin 3.0 Constitutional Vitals: Vital Signs Temp Pulse Resp BP Pulse Ox 36.9 C 100 H 20 159/88 94 07/21/20 15:59 07/21/20 15:59 07/21/20 15:59 07/21/20 15:59 07/21/20 15:59 Period Temp Pulse Resp BP Sys/Proctor Pulse Ox Last 24 Hr 36.4 C-37.5 C 84-100 16-20 143-160/78-88 91-97 Intake and Output 07/21/20 07/21/20 07/21/20 05:59 13:59 21:59 Intake Total 400 550 100 Output Total 125 400 150 Balance 275 150 -50 Intake & Output: Intake & Output 07/21/20 07/21/20 07/21/20 05:59 13:59 21:59 Intake Total 400 550 100 Output Total 125 400 150 Balance 275 150 -50 Intake: IV 100 350 100 Vancomycin 1,000 mg In Sodium 250 Chloride 0.9% 250 ml @ 250 mls/ hr IV DAILY [facility] Rx#:[id number] Oral 300 200 Output: Void Amount 125 400 150 Other: Meal Lunch Percent of Meal Consumed 100% Feeding Ability Independent Urine Appearance Clear Clear Clear Urine Color Dark Yellow Bright Yellow Dark Yellow Urine Odor Normal Normal Stool Size Small Stool Color Brown Stool Consistency Soft Watery # Voids 1 1 # Bowel Movements 1 Exam: Physical exam: General appearance: mild distress and obese Exam: Nauseated Head Head exam: Present normal inspection Eye Eye exam: Present EOMI, normal appearance and PERRL; Absent scleral icterus ENT ENT exam: Present mucous membranes dry Neck Neck exam: Present full ROM; Absent meningismus Respiratory Respiratory exam: Present normal respiratory exam Cardiovascular Cardiovascular exam: Present RRR, +S1 and +S2; Absent rubs GI/Abdominal GI/Abdominal exam: Present diminished bowel sounds and distended Neurological Exam Neurological exam: Present alert, CN II-XII intact and oriented X3 Psychiatric Psychiatric exam: Present anxious Skin Skin exam: Present dry A/P Assessment and plan (1) Diabetic autonomic neuropathy associated with type 2 diabetes mellitus: Status: Acute Narrative A/P Narrative: A/P Assessment and plan (1) Renal failure (ARF), acute on chronic: Status: Acute Comment: CKD G3 A3 is most likely HTN +/- DM with ~ 0.5 gm/24 hrs of proteinuria Qualifiers: Chronic kidney disease stage: stage 3 (moderate) Chronic kidney disease stage 3 subtype: stage 3a (GFR 45-59) Acute renal failure type: with other specified pathological lesion Qualified Code(s): N17.8 - Other acute kidney failure; N18.31 - Chronic kidney disease, stage 3a (2) Diabetic nephropathy associated with type 2 diabetes mellitus: Status: Chronic Comment: Use antiproteinuric and elvis-protective BP Rx (Diltiazem in place of amlodipine, restart losartan, stop carvedilol due to possible interaction with diltiazem). Will see about SGLT-2 inhibitors as outpatient as I'm sure [facility] MD will have to order. (3) Hypertension, accelerated: Status: Acute Increase diltiazem to 60 mg po TID with meals and qHS (4) Nausea & vomiting: Status: Acute Qualifiers: Vomiting type: unspecified Vomiting Intractability: unspecified Qualified Code(s): R11.2 - Nausea with vomiting, unspecifiedA/P Narrative: Plans/Recommendations: Have held losartan as this will worsen or delay the recovery from ARF due to pre-renal azotemia Gastroparesis +/- Rx effects +/- infection are all potential roles. Increase short acting diltiazem HCl 90 mg QID Hydralazine for prn control of BP No diuretics Gastroparesis diet. Serial labs May need Aldactone Recheck bioinflammatory markers, urine eos, PVRV, May need aldactone Time Spent With Patient Time: Total time spent is greater than 50% in coordination of care (as documented) at patient's floor/unit and/or counseling patient:
[2020-07-21] MEDS: MELATONIN 3 MG TABLET PO SCH (21:45)
[2020-07-21] MEDS: INSULIN GLARGINE, HUMAN 1 UNIT/0.01 ML SQ SCH (21:46)
[2020-07-21] MEDS: diphenhydrAMINE 50 MG/ML VIAL IV PRN (21:47)
[2020-07-22] MEDS: 0.9 % SODIUM CHLORIDE 10 ML SYRINGE IV SCH ×2 (06:46→14:48)
[2020-07-22] MEDS: metroNIDAZOLE 500 MG/100 ML BAG IV SCH (06:46)
[2020-07-22] MEDS: METOCLOPRAMIDE 10 MG TABLET PO SCH ×2 (07:08→12:21)
[2020-07-22] MEDS: SIMETHICONE 80 MG TAB.CHEW CHEWED SCH ×2 (07:08→12:21)
[2020-07-22] MEDS: DILTIAZEM 30 MG TABLET PO SCH ×2 (07:08→12:21)
[2020-07-22] MEDS: OMEPRAZOLE 20 MG CAPSULE PO SCH (07:08)
[2020-07-22] MEDS: INSULIN LISPRO 1 UNIT/0.01 ML UNIT SQ SCH ×2 (07:11→12:21)
--- NOTE | 2020-07-22 07:58 | Nephrology Progress Note ---
SUBJECTIVE Subjective Patient information: Note initiated : 07/22/20 at 7:54 am Service Date, if different from initiated Date: [] Patient: Constantino Harden 45 y/o M admitted on 07/14/20 for body aches, headache, cough, leg swelling. Chief Complaint: [Right foot infection with accelerated hypertension and acute renal failure superimposed on CKD 3] Have stopped lisinopril, amlodipine, calcium channel blockers Using exclusively diltiazem short acting formulation to a maximum dose of 90 mg 4 times a day No evidence of obstruction or urinary retention Creatinine slowly improving over the past 72 hours since surgical debridement of her right fifth toe Coag negative staph and MSSA growing from intraoperative culture Constitutional Vitals: Vital Signs Temp Pulse Resp BP Pulse Ox 36.7 C 92 H 20 149/82 96 07/22/20 04:37 07/22/20 04:37 07/22/20 04:37 07/22/20 04:37 07/22/20 04:37 Period Temp Pulse Resp BP Sys/Proctor Pulse Ox Last 24 Hr 36.4 C-36.9 C 92-100 16-20 147-159/81-88 94-97 Intake and Output 07/21/20 07/22/20 07/22/20 21:59 05:59 13:59 Intake Total 580 340 Output Total 300 160 250 Balance 280 180 -250 Weight 111.13 kg Intake & Output: Intake & Output 07/21/20 07/22/20 07/22/20 21:59 05:59 13:59 Intake Total 580 340 Output Total 300 160 250 Balance 280 180 -250 Weight 111.13 kg Intake: IV 100 100 Oral 480 240 Output: Void Amount 300 160 250 Other: Meal Dinner Percent of Meal Consumed 100% Urine Appearance Clear Clear Clear Urine Color Dark Yellow Bright Yellow Dark Yellow Urine Odor Normal Normal A/P Time Spent With Patient Time: Total time spent is greater than 50% in coordination of care (as documented) at patient's floor/unit and/or counseling patient:
[2020-07-22] MEDS: POLYETHYLENE GLYCOL 3350 17 GM PACKET PO SCH (09:18)
[2020-07-22] MEDS: LORazepam 2 MG/ML VIAL IV PRN (09:18)
[2020-07-22] MEDS: ASPIRIN 81 MG TAB.CHEW PO SCH (09:19)
[2020-07-22] MEDS: CLOPIDOGREL 75 MG TABLET PO SCH (09:19)
[2020-07-22] MEDS: ATORVASTATIN 40 MG TABLET PO SCH (09:19)
[2020-07-22] MEDS: DOCUSATE SODIUM 100 MG CAPSULE PO SCH (09:19)
[2020-07-22] MEDS: HEPARIN 5,000 UNIT/ML VIAL SQ SCH (09:19)
[2020-07-22] MEDS: TRULANCE 3 MG PO SCH (09:19)
[2020-07-22] MEDS: VANCOMYCIN 1,000 MG in 0.9 % SODIUM CHLORIDE 250 ML IV SCH (09:21)
[2020-07-22 10:00] LABS: Basophils # (Auto) 0.09 K/mcL (0.00-0.20); Basophils % (Auto) 0.7 % (0.0-2.0); Eosinophils # (Auto) 0.44 K/mcL (0.00-0.70); Eosinophils % (Auto) 3.2 % (0.0-7.0); Hematocrit 30.1 % (41.0-55.0); Hemoglobin 9.4 g/dL (13.5-16.5); Lymphocytes # (Auto) 2.96 K/mcL (1.50-4.80); Lymphocytes % (Auto) 21.4 % (15.0-49.0); Mean Cell Volume 95.6 fL (80.0-100.0); Mean Corpuscular HGB Conc 31.2 g/dL (31.0-36.0); Monocytes # (Auto) 1.17 K/mcL (0.10-0.90); Monocytes % (Auto) 8.5 % (1.0-12.0); Neutrophils % (Auto) 66.2 % (38.0-78.0); Platelet Count 535 K/mcL (140-440); RBC 3.15 M/mcL (4.50-5.90); Red Cell Distribution Width 12.3 % (11.5-14.5); WBC 13.8 K/mcL (4.5-11.0)
[2020-07-22 10:11] LABS: ALT/SGPT 33 U/L (<40); AST/SGOT 26 U/L (<40); Albumin 3.6 gm/dL (3.2-5.2); Albumin/Globulin Ratio 0.9 (1.0-2.3); Alkaline Phosphatase 193 U/L (39-117); Bilirubin,Total < 0.2 mg/dL (0.1-1.0); Blood Urea Nitrogen 20 mg/dL (6-20); Calcium 8.9 mg/dL (8.6-10.4); Carbon Dioxide 28 mmol/L (22-30); Chloride 103 mmol/L (96-108); Globulin 3.8 gm/dL (2.2-3.7); Glomerular Filtration Rate 42; Glucose 162 mg/dL (70-105)
[2020-07-22 11:11] LABS: Creatinine, Spot Urine 157.4 mg/dL (39.0-259.0); Pro:Crea Ratio 1.28 (<0.20)
--- NOTE | 2020-07-22 11:34 | XRay Report ---
INDICATION: verify PICC placement TECHNIQUE: AP supine chest x-ray COMPARISON: Previous chest x-ray dated 07/18/2020 FINDINGS:There is a right-sided PICC line. The guidewire is in the distal inferior vena cava. Tip of the catheter is difficult to identify. This may be within the right atrium. Lungs:There are interstitial infiltrates consistent with interstitial pulmonary edema. These findings are new since 07/18/2020. No parenchymal consolidation. Heart, vascular:No significant cardiomegaly. Pulmonary vascularity is normal. No pulmonary edema or pulmonary congestion Mediastinum, kaitlynn:No mediastinal widening. No hilar mass Pleura:No pleural fluid. No pleural-based mass or calcification Skeletal:Negative. IMPRESSION: 1. Right-sided PICC line. Tip of the guidewire is in the distal inferior vena cava 2. Findings consistent with interstitial pulmonary edema Interpreted and Authenticated by: Constantino Lane 07/22/20
--- NOTE | 2020-07-22 12:54 | Discharge Summary ---
Discharge Provider Provider Patient information: Note initiated : 07/22/20 at 12:47 pm Service Date, if different from initiated Date: [] Patient: Constantino Harden 45 y/o M admitted on 07/14/20 for body aches, headache, cough, leg swelling. Chief Complaint: [] Interval history: Mr. Harden is a 45 year old male with a history of DM complicated by neuropathy and a right foot wound, hypertension, CAD s/p remote MA, CKD, obesity who was recently hospitalized for sepsis and hyperglycemia as well as an ZAID on CKD. The patient was treated with IV antibiotics, podiatry was consulted and recommended discharge of oral antibiotics. He was discharged to home with recommendation to finish the course of Bactrim previously prescribed but was not able to get the antibiotic. The patient was discharged on 07/10. He says that on 07/12 he noticed that his legs were developing edema, initially on the right side then on the left. He has had a dry cough for several days. He later developed shortness of breath when lying down and decided to go to the ED. In the ED the patient was hypertensive with SBP>200. His respiratory status was stable on room air. Pulmonary imaging with chest xray showed interstitial abnormality with interlobular septal thickening but no consolidations. This was followed by noncontrast CT chest/abdomen/pelvis that showed ground glass infiltrates and interlobular septa thickening which might be due to interstitial pulmonary edema. There was also mesenteric edema and probable subcutaneous edema. No focal intra-abdominal abnormality. The patient has an acute on chronic kidney injury. Urinalysis showing some protein and glucosuria but otherwise unremarkable. The CT scan did not show any hydronephrosis or calculi. The patient has a mild elevation in troponin, EKG does not show any acute ischemic changes. On exam the patient is not in any respiratory distress, he has pitting edema up to his knees. Lung exam is positive for faint crackles. He was given a dose of Lasix IV in the ED and had robust urine output. 07/15-suspect the patient's diabetic foot wound to be infected, discussed with podiatry-wound cultures taken then started broad spectrum antibiotics. The foot wound may be the cause of the patient's presentation. 07/16 no overnight events or new complaints, awaiting cultures and further recs from podiatry, nephrology consult. 07/17 Has nausea/vomiting this morning. Poor sleep. Feels constipated. Other complaints. Podiatry for possible bone biopsy or partial excision. 07/18 Had nausea vomiting last night. No nausea currently. Status post bone excision for suspected osteo-. 07/19 Patient states he had a little vomiting last night, does feel that food and drink and aggravated. Feels bloated. Feels constipated. Had procedure done by Dr. Farmer yesterday. 07/20 Patient left the hospital yesterday and came back. Depressed, mention to the nurses that he considered hurting himself. Was seen by [facility] and cleared. Patient states started the way he acted yesterday. Does feel better today. No new complaints. And actually feels better did not have nausea vomiting last night. 07/21: Afebrile overnight. No more attempt to leave AMA. Denies any pain of his right foot. Denies fever or chills or sweating. Average appetite. Date of admission: 07/14/20 15:25 Discharge date: 07/22/20 Primary care physician: Daisy Mcnulty Consults: 07/14/20 Consult to Physician [CONS] Stat Comment: Consulting Provider: Umberto Kaur Reason For Exam: Physician to Consult 07/14/20 15:33 Consult to Physician [CONS] Routine Comment: Consulting Provider: Reilly Farmer Reason For Exam: Physician to Consult 07/16/20 08:27 Consult to Physician [CONS] Routine Comment: Consulting Provider: Cleve Lucas Reason For Exam: Physician to Consult Discharge Meds Discharge Medications Home Medications albuterol sulfate 90 mcg/actuation breath activated powder inhaler 2 inh INHALATION QID 04/27/18 [History Confirmed 07/14/20 Last Taken 07/04/18] acetaminophen 500 mg tablet 1,000 mg PO TID PRN tab 01/10/20 [History Confirmed 07/14/20 Last Taken 07/07/20 08:00] ipratropium 0.5 mg-albuterol 3 mg (2.5 mg base)/3 mL nebulization soln 3 ml INHALATION QID PRN 01/10/20 [History Confirmed 07/14/20 Last Taken Unknown] insulin aspart U-100 100 unit/mL (3 mL) subcutaneous pen 22 unit SUBCUT TID ml 01/29/20 [History Confirmed 07/14/20 Last Taken 07/07/20 08:00] insulin glargine 100 unit/mL subcutaneous solution 60 unit SUB-Q DAILY ml 01/29/20 [History Confirmed 07/14/20 Last Taken 07/07/20 08:00] Adult Aspirin EC Low Strength 81 mg PO QAM 07/14/20 [History Confirmed 07/14/20 Last Taken Unknown] amlodipine 10 mg PO HS 07/14/20 [History Confirmed 07/14/20 Last Taken Unknown] clopidogrel 75 mg tablet 75 mg PO QDAY 07/14/20 [History Confirmed 07/14/20 Last Taken Unknown] fluoxetine 40 mg PO QAM 07/14/20 [History Confirmed 07/14/20 Last Taken Unknown] metoprolol succinate 50 mg tablet,extended release 24 hr 50 mg PO QDAY 07/14/20 [History Confirmed 07/14/20 Last Taken Unknown] rosuvastatin 40 mg PO QDAY 07/14/20 [History Confirmed 07/14/20 Last Taken Unknown] omeprazole 20 mg PO QDAY 07/16/20 [History Confirmed 07/16/20 Last Taken Unknown] diltiazem HCl 90 mg PO ACHS #56 tab 07/22/20 [Rx Last Taken Unknown] vancomycin in 0.9 % sodium chl 1 g IV Q24H 9 Days #2250 ml 07/22/20 [Rx Last Taken Unknown] COURSE Hospital Course Hospital course: Patient was admitted on 07/14/20 for right diabetic foot with osteomyelitis. Tester Comp[employer] Dr. Farmer was consulted, who performed partial amputation of right fifth metatarsal. Wound culture grew coagulase negative staph and S aureus. IV antibiotics therapy including Vancomycin and Flagyl were provided. Tight glycemic control with insulin therapy was implemented. PICC line was inserted on 07/22. Patient reached clinical stability by then. Decision made to discharge patient home with Rx of Vancomycin until 07/30 to complete a 2 week course. Flagyl was discontinued. Losartan was held and Rx of Diltiazem was sent to pharmacy for pre-renal azotemia. Follow up appointment with Dr. Farmer and Dr. Colvin made for him. All questions answered prior to patient being physically discharged. Discharge diagnosis: right diabetic foot with osteomyelitis Reason for admission: right diabetic foot with osteomyelitis Time Spent with Patient Time attestation: Total time spent providing and/or coordinating discharge services: Time spent: Less than 30 minutes EXAM Constitutional Vitals: Temp Pulse Resp BP Pulse Ox 36.6 C 89 18 148/77 95 07/22/20 12:00 07/22/20 12:00 07/22/20 12:00 07/22/20 12:00 07/22/20 12:00 General appearance: cooperative and no acute distress Head Head exam: Present atraumatic and normocephalic Eye Eye exam: Present EOMI and PERRL ENT ENT exam: Present mucous membranes moist, normal exam and normal external ear exam Neck Neck exam: Present normal inspection; Absent lymphadenopathy, tenderness and thyromegaly Respiratory Respiratory exam: Absent accessory muscle use, respiratory distress and wheezes Cardiovascular Cardiovascular exam: Present normal rate and rhythm; Absent JVD GI/Abdominal GI/Abdominal exam: Present normal bowel sounds and soft; Absent organomegaly and tenderness Rectal Rectal exam: Present deferred Extremities Exam Extremities exam: Present full ROM, normal capillary refill and normal inspection; Absent tenderness Additional comments: Right foot covered with surgical dressing Neurological Exam Neurological exam: Present alert, CN II-XII intact and oriented X3; Absent motor sensory deficit Psychiatric Psychiatric exam: Present normal affect and normal mood; Absent anxious and de pressed Skin Skin exam: Present dry and intact Discharge Data Data Completed and Pending Labs on day of discharge: Labs from last 24 hours 07/22/20 07/22/20 07/22/20 06:01 06:00 06:00 WBC 13.8 H RBC 3.15 L Hgb 9.4 L Hct 30.1 L MCV 95.6 MCH 29.8 MCHC 31.2 RDW 12.3 Plt Count 535 H MPV 11.0 H Neut % (Auto) 66.2 Lymph % (Auto) 21.4 [place] % (Auto) 8.5 Eos % (Auto) 3.2 Baso % (Auto) 0.7 Lymph # (Auto) 2.96 [place] # (Auto) 1.17 H Eos # (Auto) 0.44 Baso # (Auto) 0.09 Absolute Neutrophils 9.16 H ESR Pending Sodium 141 Potassium 3.8 Chloride 103 Carbon Dioxide 28 Anion Gap 10.0 BUN 20 Creatinine 1.9 H GFR Calculation 42 Glucose 162 H Calcium 8.9 Total Bilirubin < 0.2 AST 26 ALT 33 Alkaline Phosphatase 193 H C-Reactive Protein 0.80 Total Protein 7.4 Albumin 3.6 Globulin 3.8 H Albumin/Globulin Ratio 0.9 L Procalcitonin 0.11 H Urine Eosinophils Ur Random Creatinine U Random Total Protein U [place] Prot/Creat Ratio Ur Random Sodium Complement C3 Complement C4 Tot Complement (CH50) 07/22/20 07/21/20 07/19/20 05:00 22:01 16:23 WBC RBC Hgb Hct MCV MCH MCHC RDW Plt Count MPV Neut % (Auto) Lymph % (Auto) [place] % (Auto) Eos % (Auto) Baso % (Auto) Lymph # (Auto) [place] # (Auto) Eos # (Auto) Baso # (Auto) Absolute Neutrophils ESR Sodium Potassium Chloride Carbon Dioxide Anion Gap BUN Creatinine GFR Calculation Glucose Calcium Total Bilirubin AST ALT Alkaline Phosphatase C-Reactive Protein Total Protein Albumin Globulin Albumin/Globulin Ratio Procalcitonin Urine Eosinophils Ur Random Creatinine 157.4 U Random Total Protein 201 U [place] Prot/Creat Ratio 1.28 H Ur Random Sodium 28 Complement C3 Pending Complement C4 Pending Tot Complement (CH50) Pending 07/19/20 16:23 WBC RBC Hgb Hct MCV MCH MCHC RDW Plt Count MPV Neut % (Auto) Lymph % (Auto) [place] % (Auto) Eos % (Auto) Baso % (Auto) Lymph # (Auto) [place] # (Auto) Eos # (Auto) Baso # (Auto) Absolute Neutrophils ESR Sodium Potassium Chloride Carbon Dioxide Anion Gap BUN Creatinine GFR Calculation Glucose Calcium Total Bilirubin AST ALT Alkaline Phosphatase C-Reactive Protein Total Protein Albumin Globulin Albumin/Globulin Ratio Procalcitonin Urine Eosinophils TNP Ur Random Creatinine U Random Total Protein U [place] Prot/Creat Ratio Ur Random Sodium Complement C3 Complement C4 Tot Complement (CH50) Preliminary micro results at discharge 07/18/20 08:26 Gram Stain - Preliminary Foot - Right Anaerobic Culture - Preliminary 07/18/20 08:21 Gram Stain - Preliminary Foot - Right Anaerobic Culture - Preliminary 07/15/20 09:38 Gram Stain - Preliminary Foot - Right Anaerobic Culture - Preliminary Discharge Plan Patient/Caregiver Discharge Instructions Activity: as per physical therapy Diet: Consistent Carbohydrate Instructions: Diabetes Mellitus Type 2 in Adults, Occupational Therapist Aide (GEN) Activity Restrictions/Additional Instructions: Ambulate as tolerated and as instructed by Dr. Farmer Prescriptions: New diltiazem HCl 30 mg Tablet 90 mg PO ACHS Qty: 56 RF: 1 vancomycin in 0.9 % sodium chl 1 gram/250 mL solution 1 g IV Q24H 9 Days Qty: 2250 RF: 0 Continued albuterol sulfate 90 mcg/actuation aerosol powdr breath activated 2 inh INHALATION QID RF: 0 acetaminophen 500 mg tablet 1,000 mg PO TID PRN (Reason: Pain) RF: 0 ipratropium-albuterol 0.5 mg-3 mg(2.5 mg base)/3 mL solution for nebulization 3 ml INHALATION QID PRN (Reason: Wheezing) RF: 0 metoprolol succinate 50 mg tablet extended release 24 hr 50 mg PO QDAY RF: 0 clopidogrel [Plavix] 75 mg tablet 75 mg PO QDAY RF: 0 insulin glargine 100 unit/mL solution 60 unit SUB-Q DAILY RF: 0 insulin aspart U-100 100 unit/mL (3 mL) insulin pen 22 unit subcut TID RF: 0 amlodipine 10 mg Tablet 10 mg PO HS RF: 0 rosuvastatin 40 mg Tablet 40 mg PO QDAY RF: 0 Adult Aspirin EC Low Strength 81 mg PO QAM RF: 0 fluoxetine 40 mg Capsule 40 mg PO QAM RF: 0 omeprazole 20 mg Capsule,Delayed Release(Dr/Ec) 20 mg PO QDAY RF: 0 Discontinued losartan 50 mg tablet 100 mg PO QDAY RF: 0 Follow Up Plan Follow up with: Chay Renee MD [Physician] - Reilly Farmer DPM [Physician] - Daisy Mcnulty ARNP [Primary Care Provider] - Rowdy Colvin MD [Physician] - Patient Disposition: Home, Self-Care Prognosis: Fair Rehab Potential: Good Overall status at discharge: patient is progressing back to baseline Discharge Orders: Discharge Order (Routine); Ordered 07/22/20 Ordered By: Chay Renee QUALITY VTE Deep Vein Thrombosis/Pulmonary Embolism Present on Admission: No
[2020-07-22 14:16] LABS: Erythrocyte Sedimentation Rate 111 mm/hr (0-15)
--- NOTE | 2020-07-31 15:31 | Surgical Pathology Report ---
Histology Microscopic Diagnosis Specimen A- BONE, RIGHT FIFTH METATARSAL, EXCISION: --- ACUTE OSTEOMYELITIS, INVOLVING ENTIRE BONE FRAGMENT AND JAGGED END. (DMT) Procedural Impression Osteomyelitis. Gross Description Received in formalin labeled right fifth metatarsal bone, is a 2.9 x 1.1 x 1.3 cm portion of gutierrez-brito bone. One end is an articular surface and the opposite end is a jagged, possible cut surface. A development representative cross section is submitted in one cassette following decalcification. (KGW:adj) Electronically Signed Rowdy Dixon MD, FCAP Electronically Signed 07/22/2020 12:27
== END 2020-07-22 13:45 | disposition home or self-care (01) | DRG 987 ==
LOC: ED 10:02 → ICU 15:25 → MEDSUR 07-17 18:15
PROVIDERS: ADMIT Internal Medicine; ATTEND Internal Medicine